=== PATIENT | female | born 1950 | race Hispanic/Latino ===

== ENCOUNTER 2017-10-23 12:56 | Emergency (ER) | payer OTHER ==
--- NOTE | 2017-10-23 15:15 | RAD REPORT ---
EXAM DESCRIPTION: RAD - Chest Single View - 10/23/2017 3:06 pm CLINICAL HISTORY: Chest pain. COMPARISON: 12/14/2013, 07/12/2013 FINDINGS: Portable technique limits examination quality. The lungs are grossly clear. The heart is normal in size. No displaced fractures. IMPRESSION: No acute intrathoracic process suspected.
[2017-10-23 15:37] LABS: Absolute Lymphocytes (CBC) 0.9 K/uL (0.7-4.9); Absolute Monocytes 0.2 K/uL (0.1-1.3); Absolute Neutrophil 1.9 K/uL (1.8-8.0); Basophils % 0.5 % (0-1.3); Eosinophils % 3.9 % (0-4.4); Hematocrit 34.3 % (36.0-45.0); Lymphocytes % 29.4 % (15.3-44.8); MCH 29.1 pg (27.0-35.0); MCV 87.9 fL (80-100); MPV 9.2 fL (7.6-11.3)
[2017-10-23 15:42] LABS: Protime INR 0.97
[2017-10-23 15:51] LABS: Potassium 4.7 mEq/L (3.6-5.0)
[2017-10-23 15:57] LABS: Albumin 3.8 g/dL (3.2-5.5); Bilirubin Direct 0.3 mg/dL (0-0.2); Protein, Total 7.1 g/dL (6.0-8.3)
[2017-10-23 16:00] LABS: CKMB Creatine Kinase MB 2.5 ng/ml (0.3-4.0)
--- NOTE | 2017-10-23 16:00 | RAD REPORT ---
EXAM DESCRIPTION: CT - Head Brain Wo Cont - 10/23/2017 3:53 pm CLINICAL HISTORY: Slurred speech, hypotension, CVA. COMPARISON: None. TECHNIQUE: All CT scans are performed using dose optimization technique as appropriate and may inclu de automated exposure control or mA/KV adjustment according to patient size. FINDINGS: No intracranial hemorrhage, hydrocephalus or extra-axial fluid collection.Mild generalized brain atrophy noted.No areas of brain edema or evidence of midline shift. The paranasal sinuses and mastoids are clear. The calvarium is intact. IMPRESSION: No acute intracranial abnormality.
--- NOTE | 2017-10-23 19:21 | EDPHYS ---
Physician Documentation [facility] Name: Desirae Brady Age: 67 yrs Sex: Female : 1950 Arrival Date: 10/23/2017 Time: 13:00 Bed External Waiting Private MD: Out, [facility] ED Physician Vikash Miller Historical: - Allergies: 10/23 13:42 No Known Allergies; aa5 - Home Meds: 17:00 isosorbide mononitrate 30 mg Oral Tb24 1 tab once daily [Active]; clopidogrel 75 mg em oral tab 1 tab once daily [Active]; Lyrica Oral 3 times per day [Active]; levofloxacin 500 mg Oral tab 1 tab once daily [Active]; pantoprazole 40 mg oral TbEC 1 tab once daily [Active]; tramadol 50 mg Oral tab 1 tab every 6 hours [Active]; sertraline 100 mg oral tab 1 tab once daily [Active]; Jardiance 25 mg oral tab 1 tab once daily [Active]; rosuvastatin 5 mg oral tab 1 tab once daily [Active]; amlodipine 5 mg tab 1 tab once daily [Active]; olmesartan-hydrochlorothiazide oral oral [Active]; - PMHx: 13:42 Diabetes - IDDM; Hypertension; Diverticulitis; CHF; COPD; aa5 - PSHx: 13:42 Hysterectomy; Knee surgery; aa5 - Immunization history:: Adult Immunizations unknown. - Social history:: Smoking status: Patient/guardian denies using tobacco. - Ebola Screening: : No symptoms or risks identified at this time. Vital Signs: 13:42 BP 128 / 62; Pulse 64; Resp 18 S; Temp 98.0(TE); Pulse Ox 98% on R/A; Weight 125.19 kg aa5 (R); Height 5 ft. 1 in. (154.94 cm) (R); Pain 4/10; 15:06 BP 124 / 52; Pulse 67; Resp 18; Pulse Ox 99% on R/A; em 16:00 BP 124 / 52; Pulse 66; Resp 16; Pulse Ox 99% on R/A; Pain 5/10; em 17:05 BP 120 / 63; Pulse 69; Resp 14; Temp 96.7(O); Pulse Ox 97% on R/A; em 19:27 BP 121 / 65; Pulse 62; Resp 18; Pulse Ox 98% on R/A; mt 19:58 BP 138 / 66; Pulse 73; Resp 18; Pulse Ox 99% on R/A; mt 13:42 Body Mass Index 52.15 (125.19 kg, 154.94 cm) aa5 MDM: 19:20 Patient medically screened. [facility] 10/23 14:54 Order name: Basic Metabolic Panel; Complete Time: 17:06 [facility] 10/23 14:54 Order name: BNP; Complete Time: 17:06 [facility] 10/23 14:54 Order name: CBC with Diff; Complete Time: 17:06 [facility] 10/23 14:54 Order name: Ckmb; Complete Time: 17:06 [facility] 10/23 14:54 Order name: CPK; Complete Time: 17:06 [facility] 10/23 14:54 Order name: LFT's; Complete Time: 17:06 [facility] 10/23 14:54 Order name: Magnesium; Complete Time: 17:06 [facility] 10/23 14:54 Order name: PT-INR; Complete Time: 17:06 [facility] 10/23 14:54 Order name: Ptt, Activated; Complete Time: 17:06 [facility] 10/23 14:54 Order name: Troponin (emerg Dept Use Only); Complete Time: 17:06 [facility] 10/23 14:54 Order name: XRAY Chest (1 view); Complete Time: 17:06 [facility] 10/23 14:54 Order name: EKG; Complete Time: 14:54 [facility] 10/23 15:25 Order name: CT Head Brain wo Cont; Complete Time: 17:06 [facility] 10/23 20:10 Order name: Urine Dipstick--Ancillary (enter results) or 10/23 14:54 Order name: Cardiac monitoring; Complete Time: 18:15 [facility] 10/23 14:54 Order name: EKG - Nurse/Tech; Complete Time: 15:26 [facility] 10/23 14:54 Order name: IV Saline Lock; Complete Time: 15:26 [facility] 10/23 14:54 Order name: Labs collected and sent; Complete Time: 15:26 [facility] 10/23 14:54 Order name: O2 Per Protocol; Complete Time: 15:26 [facility] 10/23 14:54 Order name: O2 Sat Monitoring; Complete Time: 15:26 [facility] 10/23 14:54 Order name: Urine Dipstick-Ancillary (obtain specimen); Complete Time: 18:15 kdr 10/23 17:27 Order name: EKG Electrocardiogram EDMS Administered Medications: No medications were administered Point of Care Testing: Blood Glucose: 13:47 Blood Glucose: 187 mg/dL; aa5 Ranges: Critical Glucose Levels:Adult <50 mg/dl or >400 mg/dl <40 mg/dl or >180 mg/dl Disposition: 10/23/17 19:[address] [facility]. Diagnosis is Confusion, AMS, Slurred speech. - Reason for transfer: Higher level of care. - Accepting physician is HM/Neurology. - Condition is Fair. - Problem is an ongoing problem. - Symptoms are unchanged. Addendum: 11/12/2017 09:49 Addendum: CC: Chest pain, slurred speech HPI: The patient and daughter state that she daiana resendez has been having chest pain intermittently for about a week. She has also had slurred speech for the same period of time. They were seen at another hospital and discharged from the ED and have also seen their heating and ventilating drafter yesterday who indicated that the patient may have had a slight heart attack. Since the patients s/s have persisted, the patient had family have sought further evaluation. . Addendum: ROS: Const: No fever, chills or weight loss Eyes: no visual changes or c/o, Neck: no pain or injury, CV: no palpitations, she has had intermittent left chest pain Resp: no SOB, cough or congestion, Abd: no n/v/d or pain, Back: no pain or injury, : no pain or bleeding, MS/Ext: no pain, injury, swelling, tingling, Skin: no lacerations, pain, injury, skin turgor good, Neuro: CN grossly intact and no other deficits, the family relates that the patients speech is slurred and she has been generally weak Psych: Appropriate for age, Allergy/Immunology: no rashes or other s/s, Endo: no evidence of polyuria, polydipsia, temperature control or other s/s . Addendum: Exam: Const: WDWN HF in NAD, Head/Face: no injury, pain or deformity, Eyes: PERRLA, ENT: no pain, injury or bleeding, Neck: no pain, injury or deformity, full ROM Chest/Axilla: No pain, injury or deformity, CV: no rubs, gallops, murmurs, regular rate, Resp: CTAB, regular rate, Abd/GI: soft, NT, BS present in all quads and normal, Back: no injury or deformity, full ROM, MS/Extremity: no injury or deformity, FROM, distal pulses good and equal, Skin: no rashes, ecchymosis skin turgor good, Neuro: CN grossly intact, no other gross neuro deficits, speech may be slightly slurred Psych: appropriate for age, no SI/HI, no depression . Addendum: MDM (Transfer) All VS and nursing notes reviewed. The patient and/or family was counseled on the results and need for transfer. Since no MRI or neurological subspecialty was available, the patient was transferred in stable condition. They were happy with the care they received and the plan for transfer for further evaluation and treatment. . Signatures: Dispatcher [employer] EDMS Vikash Miller MD MD kdr Munoz, Edgar, BRANCH ADMINISTRATOR BRANCH ADMINISTRATOR em Rosy Tai, RN RN aa5 Inocencia Kenney, MELIDA RN tl2 Corrections: (The following items were deleted from the chart) 10/23 23:41 19:20 10/23/2017 19:[address] [facility]. Diagnosis is tl2 Confusion, AMS, Slurred speech. Reason for transfer: Higher level of care. Accepting physician is HM/Neurology. Condition is Fair. Problem is an ongoing problem. Symptoms are unchanged. kdr
--- NOTE | 2017-10-23 19:21 | ER ---
Nurse's Notes [facility] Name: Desirae Brady Age: 67 yrs Sex: Female : 1950 Arrival Date: 10/23/2017 Time: 13:00 Bed External Waiting Private MD: Out, [facility] Diagnosis: Confusion, AMS, Slurred speech Presentation: 10/23 13:36 Presenting complaint: Patient states: "I've been having chest pains for a week". Pt's aa5 daughter states "her speech has been slurred for about a week and I took her to [facility] and they discharged her home from the ER". Pt's daughter states "I took her blood pressure this morning and it's been fluctuating from really low to really high like 80/60 and 160/140". Pt's daughter states "she saw a beater operator yesterday and he said that the EKG showed a slight previous heart attack". Transition of care: patient was not received from another setting of care. Onset of symptoms was October 23, 2017. Risk Assessment: Do you want to hurt yourself or someone else? Patient reports no desire to harm self or others. Initial Sepsis Screen: Does the patient meet any 2 criteria? No. Patient's initial sepsis screen is negative. Does the patient have a suspected source of infection? No. Patient's initial sepsis screen is negative. Care prior to arrival: None. 13:36 Method Of Arrival: Wheelchair aa 13:36 Acuity: MOSHE 3 aa5 Triage Assessment: 13:36 General: Appears comfortable, Behavior is calm, cooperative. Neuro: Level of aa5 Consciousness is awake, alert, obeys commands, Oriented to person, place, time, situation, Circulator are equal bilaterally Moves all extremities. Speech is normal, Facial symmetry appears normal, Pupils are PERRLA. Historical: - Allergies: 13:42 No Known Allergies; aa5 - Home Meds: 17:00 isosorbide mononitrate 30 mg Oral Tb24 1 tab once daily [Active]; clopidogrel 75 mg em oral tab 1 tab once daily [Active]; Lyrica Oral 3 times per day [Active]; levofloxacin 500 mg Oral tab 1 tab once daily [Active]; pantoprazole 40 mg oral TbEC 1 tab once daily [Active]; tramadol 50 mg Oral tab 1 tab every 6 hours [Active]; sertraline 100 mg oral tab 1 tab once daily [Active]; Jardiance 25 mg oral tab 1 tab once daily [Active]; rosuvastatin 5 mg oral tab 1 tab once daily [Active]; amlodipine 5 mg tab 1 tab once daily [Active]; olmesartan-hydrochlorothiazide oral oral [Active]; - PMHx: 13:42 Diabetes - IDDM; Hypertension; Diverticulitis; CHF; COPD; aa5 - PSHx: 13:42 Hysterectomy; Knee surgery; aa5 - Immunization history:: Adult Immunizations unknown. - Social history:: Smoking status: Patient/guardian denies using tobacco. - Ebola Screening: : No symptoms or risks identified at this time. Screenin:22 Abuse screen: Denies threats or abuse. Nutritional screening: No deficits noted. em Tuberculosis screening: No symptoms or risk factors identified. Fall Risk None identified. Assessment: 15:00 General: Appears in no apparent distress. comfortable, Behavior is calm, cooperative. em Pain: Complains of pain in chest Pain currently is 4 out of 10 on a pain scale. Neuro: Level of Consciousness is awake, alert, obeys commands, Oriented to person, place, time, situation, Circulator are equal bilaterally Gait is steady, Speech is normal, Facial symmetry appears normal. Cardiovascular: Reports chest pain, shortness of breath, Denies diaphoresis, nausea, vomiting, Capillary refill < 3 seconds Patient's skin is warm and dry. Respiratory: Airway is patent Respiratory effort is even, unlabored, Respiratory pattern is regular, symmetrical. GI: Abdomen is obese. : Reports currently being treated for UTI. Derm: Skin is intact, Skin is pink, warm \\T\\ dry. Musculoskeletal: Range of motion: intact in all extremities. 15:30 Reassessment: Patient appears in no apparent distress at this time. I agree with the ss above assessment by Arturo Mac LVN. 16:09 Reassessment: Patient appears in no apparent distress at this time. Patient and/or em family updated on plan of care and expected duration. Pain level reassessed. Patient is alert, oriented x 3, equal unlabored respirations, skin warm/dry/pink. 17:00 Reassessment: Patient appears in no apparent distress at this time. Patient and/or em family updated on plan of care and expected duration. Pain level reassessed. Patient is alert, oriented x 3, equal unlabored respirations, skin warm/dry/pink. pt ambulated to restroom, tolerated well, reports feeling better. 18:00 Reassessment: Patient appears in no apparent distress at this time. Patient and/or em family updated on plan of care and expected duration. Pain level reassessed. Patient is alert, oriented x 3, equal unlabored respirations, skin warm/dry/pink. 18:40 Reassessment: Patient appears in no apparent distress at this time. Patient and/or em family updated on plan of care and expected duration. Pain level reassessed. Patient is alert, oriented x 3, equal unlabored respirations, skin warm/dry/pink. Dr. Miller at bedside, discussing POC. 19:33 General: Appears in no apparent distress. comfortable, Behavior is calm, cooperative, tl2 appropriate for age. General: awaiting report number for transfer. Pain: Denies pain. Neuro: Level of Consciousness is awake, alert, obeys commands, Oriented to person, place, time, situation, Speech is normal, Facial symmetry appears normal. Cardiovascular: Denies chest pain. Respiratory: Airway is patent Respiratory effort is even, unlabored, Respiratory pattern is regular, symmetrical. GI: No signs and/or symptoms were reported involving the gastrointestinal system. : No signs and/or symptoms were reported regarding the genitourinary system. Derm: Skin is pink, warm \\T\\ dry. 19:37 Reassessment: Call Uzma (daughter) with transfer information [phone]. tl2 20:19 Reassessment: Report called to receiving nurse at [facility] Awaiting transport. tl2 Vital Signs: 13:42 BP 128 / 62; Pulse 64; Resp 18 S; Temp 98.0(TE); Pulse Ox 98% on R/A; Weight 125.19 kg aa5 (R); Height 5 ft. 1 in. (154.94 cm) (R); Pain 4/10; 15:06 BP 124 / 52; Pulse 67; Resp 18; Pulse Ox 99% on R/A; em 16:00 BP 124 / 52; Pulse 66; Resp 16; Pulse Ox 99% on R/A; Pain 5/10; em 17:05 BP 120 / 63; Pulse 69; Resp 14; Temp 96.7(O); Pulse Ox 97% on R/A; em 19:27 BP 121 / 65; Pulse 62; Resp 18; Pulse Ox 98% on R/A; mt 19:58 BP 138 / 66; Pulse 73; Resp 18; Pulse Ox 99% on R/A; mt 13:42 Body Mass Index 52.15 (125.19 kg, 154.94 cm) aa5 ED Course: 13:00 Patient arrived in ED. sb2 13:00 Out, of Town is Private Physician. sb2 13:40 Triage completed. aa5 13:42 Arm band placed on. aa5 14:47 Arturo Mac LVN is Primary Nurse. em 14:53 Vikash Miller MD is Attending Physician. kdr 15:01 X-ray completed. Portable x-ray completed in exam room. Patient tolerated procedure kp1 well. 15:03 XRAY Chest (1 view) In Process Unspecified. EDMS 15:18 EKG done, by biotech production specialist. reviewed by Vikash Miller MD. sm3 15:23 No provider procedures requiring assistance completed. em 15:26 Initial lab(s) drawn, by me, sent to lab. Inserted saline lock: 20 gauge in right dh3 antecubital area, using aseptic technique. Blood collected. 15:36 Patient has correct armband on for positive identification. Bed in low position. Call em light in reach. Adult w/ patient. 15:53 CT Head Brain wo Cont In Process Unspecified. EDMS 19:10 initiated transfer with [facility] with Sandra in the transfer center. eb 21:00 Patient transferred, IV remains in place. tl2 23:24 Primary Nurse role handed off by Arturo Mac LVN ak1 Administered Medications: No medications were administered Point of Care Testing: Blood Glucose: 13:47 Blood Glucose: 187 mg/dL; aa5 Ranges: Outcome: 19:20 ER care complete, transfer ordered by . kdr 21:00 Transferred by ground EMS to [facility], Transfer form completed. tl2 21:00 Condition: stable 21:00 Discharge instructions given to patient, Instructed on the need for transfer. 23:41 Patient left the ED. tl2 Signatures: Dispatcher [employer] EDVikash Garrido MD MD kdr Arturo Mac, FUND DIRECTOR FUND DIRECTOR Rosy Ponce, RN RN aa5 Federica Arnold, MELIDA RN ss Krystal Aguiar RN RN ak1 Inocencia Kenney, MELIDA RN 2 Rosina Ibarra mte, Shu 1 Reva Obregon 3 Abbey Perdue 2 Sara Hernandez Shakira 3 Corrections: (The following items were deleted from the chart) 13:41 13:36 Presenting complaint: Patient states: "I've been having chest pains for a week". aa5 Pt's daughter states "her speech has been slurred for about a week and I took her to [facility] and they discharged her home from the ER". Pt's daughter states "I took her blood pressure this morning and it's been fluctuating from really low to really high like 80/60 and 160/150". aa5
[2017-10-23 21:52] LABS: Urine Blood NEGATIVE (NEG); Urine Glucose 2+ (NEG); Urine Protein NEGATIVE (NEG); Urine pH 5.5 (5.0-7.0)
--- NOTE | 2017-10-24 06:16 | EKG ---
Test Date: 2017-10-23 Test Time: 15:01:48 Hydrogenation Operator: MARII MEASUREMENT RESULTS: Intervals: Rate: 72 LA: 164 QRSD: 114 QT: 418 QTc: 457 [place]: P: 52 LA: 164 QRS: 6 T: 44 INTERPRETIVE STATEMENTS: Normal sinus rhythm Normal ECG Compared to ECG 10/23/2017 13:45:17 Myocardial infarct finding no longer present Electronically Signed On 10-24-17 06:16:14 CDT by Quirino Latham
--- NOTE | 2017-10-24 06:17 | EKG ---
Test Date: 2017-10-23 Test Time: 13:45:17 Rig Welder: MARII MEASUREMENT RESULTS: Intervals: Rate: 76 ND: 158 QRSD: 102 QT: 398 QTc: 447 [place]: P: 78 ND: 158 QRS: -5 T: 30 INTERPRETIVE STATEMENTS: Normal sinus rhythm Intraventricular conduction delay Abnormal ECG No previous ECG available for comparison Electronically Signed On 10-24-17 06:16:38 CDT by Quirino Latham
== END 2017-10-23 23:41 | disposition short-term general hospital (02) ==
LOC: ER 12:56
DX: R41.82 Altered mental status, unspecified (principal); R41.0 Disorientation, unspecified; I10 Essential (primary) hypertension; E11.9 Type 2 diabetes mellitus without complications; I50.9 Heart failure, unspecified; J44.9 Chronic obstructive pulmonary disease, unspecified
CPT/HCPCS: 36415; 70450; 71045; 80048; 80076; 81003; 82550; 82553; 82962; 83735; 83880; 84484; 85025; 85610; 85730; 93005; 99285

== ENCOUNTER 2018-05-31 17:09 | Observation (INO) | payer OTHER ==
--- OUTSIDE RECORDS SUMMARY | 2018-05-31 17:16 | XMS REPORT ---
:1950 [facility] Address [address] [place] [address] Care Team Providers Name Role Phone STANLEY GARCIA Unavailable Unavailable DONYA GARCIA Unavailable Unavailable CLOVER SOLANO Unavailable Unavailable OLIVIA DE LOS SANTOS Unavailable Unavailable REUBEN SILVER Unavailable Unavailable REUBEN CASTAÑEDA Unavailable Unavailable Problems This patient has no known problems. Allergies, Adverse Reactions, Alerts This patient has no known allergies or adverse reactions. Medications This patient has no known medications. Results Test Description Test Time Test Comments Text Results Atomic Results Result Comments CBC W/PLT COUNT & AUTO DIFFERENTIAL 2018-05-12 17:17:00 Test Item Value Reference Range Comments WHITE BLOOD CELL COUNT (BEAKER) (test aumk=318) 4.0 K/ L 3.5-10.5 RED BLOOD CELL COUNT (BEAKER) (test znvb=734) 4.35 M/ L 3.93-5.22 HEMOGLOBIN (BEAKER) (test vhsq=824) 12.6 GM/DL 11.2-15.7 HEMATOCRIT (BEAKER) (test iqhc=729) 40.1 % 34.1-44.9 MEAN CORPUSCULAR VOLUME (BEAKER) (test axxb=740) 92.2 fL 79.4-94.8 MEAN CORPUSCULAR HEMOGLOBIN (BEAKER) (test wdwk=173) 29.0 pg 25.6-32.2 MEAN CORPUSCULAR HEMOGLOBIN CONC (BEAKER) (test dcwp=920) 31.4 GM/DL 32.2- 35.5 RED CELL DISTRIBUTION WIDTH (BEAKER) (test mzye=264) 17.1 % 11.7-14.4 PLATELET COUNT (BEAKER) (test gker=468) 79 K/CU MM 150-450 MEAN PLATELET VOLUME (BEAKER) (test godq=248) 10.0 fL 9.4-12.3 NUCLEATED RED BLOOD CELLS (BEAKER) (test jbru=513) 0 /100 WBC 0-0 NEUTROPHILS RELATIVE PERCENT (BEAKER) (test pfwx=077) 66 % LYMPHOCYTES RELATIVE PERCENT (BEAKER) (test gnoi=628) 21 % MONOCYTES RELATIVE PERCENT (BEAKER) (test maxl=547) 9 % EOSINOPHILS RELATIVE PERCENT (BEAKER) (test tlnq=759) 2 % BASOPHILS RELATIVE PERCENT (BEAKER) (test egjj=496) 1 % NEUTROPHILS ABSOLUTE COUNT (BEAKER) (test paqr=678) 2.62 K/ L 1.56-6.13 LYMPHOCYTES ABSOLUTE COUNT (BEAKER) (test lfou=108) 0.82 K/ L 1.18-3.74 MONOCYTES ABSOLUTE COUNT (BEAKER) (test pfqd=715) 0.37 K/ L 0.24-0.36 EOSINOPHILS ABSOLUTE COUNT (BEAKER) (test lfkw=623) 0.08 K/ L 0.04-0.36 BASOPHILS ABSOLUTE COUNT (BEAKER) (test zcbm=935) 0.02 K/ L 0.01-0.08 IMMATURE GRANULOCYTES-RELATIVE PERCENT (BEAKER) (test 2 % 0-1 ejkf=2684) BASIC METABOLIC [id number] 17:03:00 Test Item Value Reference Range Comments SODIUM (BEAKER) (test 137 meq/L 136-145 ygqx=049) POTASSIUM (BEAKER) (test 3.7 meq/L 3.5-5.1 yenj=153) CHLORIDE (BEAKER) (test 102 meq/L 98-107 zxpj=390) CO2 (BEAKER) (test 23 meq/L 22-29 rorz=300) BLOOD UREA NITROGEN 27 mg/dL 7-21 (BEAKER) (test tsav=935) CREATININE (BEAKER) (test 1.11 mg/dL 0.57-1.25 fxbs=820) GLUCOSE RANDOM (BEAKER) 136 mg/dL 70-105 (test dqsd=256) CALCIUM (BEAKER) (test 9.2 mg/dL 8.4-10.2 iove=508) EGFR (BEAKER) (test 49 mL/min/1.73 sq m ESTIMATED GFR IS NOT lvyb=5813) ACCURATE CREATININE CLEARANCE IN PREDICTING GLOMERULAR FILTRATION RATE. ESTIMATED GFR IS NOT APPLICABLE FOR DIALYSIS PATIENTS. Specimen slightly ictericHEPATIC FUNCTION [id number] 17:03:00 Test Item Value Reference Range Comments TOTAL PROTEIN (BEAKER) (test lbap=073) 6.5 gm/dL 6.0-8.3 ALBUMIN (BEAKER) (test cgbn=3018) 3.2 g/dL 3.5-5.0 BILIRUBIN TOTAL (BEAKER) (test hemt=873) 3.5 mg/dL 0.2-1.2 BILIRUBIN DIRECT (BEAKER) (test unfc=913) 2.3 mg/dL 0.1-0.5 ALKALINE PHOSPHATASE (BEAKER) (test xisl=672) 206 U/L 40-150 AST (SGOT) (BEAKER) (test fgly=502) 59 U/L 5-34 ALT (SGPT) (BEAKER) (test dzgh=241) 49 U/L 6-55 Specimen slightly ictericPROTHROMBIN [id number] 16:56:00 Test Item Value Reference Range Comments PROTIME (BEAKER) (test jqxo=075) 14.8 seconds 11.7-14.7 INR (BEAKER) (test dfyr=235) 1.2 <=5.9 RECOMMENDED COUMADIN/WARFARIN INR THERAPY RANGESSTANDARD DOSE: 2.0 - 3.0 Includes: PROPHYLAXIS forvenous thrombosis, systemic embolization; TREATMENT for venous thrombosis and/or pulmonary embolus.HIGH RISK: Target INR is 2.5-3.5 for patients with mechanical heart valves.POCT-GLUCOSE [id number] 17:15:00 Test Item Value Reference Range Comments POC-GLUCOSE METER (BEAKER) 183 mg/dL 70-110 TESTED AT [facility] [address] [facility] (test jphx=5369) [facility] [address] HEPATIC FUNCTION [id number] 12:38:00 Test Item Value Reference Range Comments TOTAL PROTEIN (BEAKER) (test vqxy=921) 5.2 gm/dL 6.0-8.3 ALBUMIN (BEAKER) (test vmil=8263) 2.7 g/dL 3.5-5.0 BILIRUBIN TOTAL (BEAKER) (test nzqw=107) 4.0 mg/dL 0.2-1.2 BILIRUBIN DIRECT (BEAKER) (test faek=729) 2.5 mg/dL 0.1-0.5 ALKALINE PHOSPHATASE (BEAKER) (test lkah=542) 97 U/L 40-150 AST (SGOT) (BEAKER) (test mhwn=084) 84 U/L 5-34 ALT (SGPT) (BEAKER) (test lokm=466) 39 U/L 6-55 Specimen moderately ictericANG, [id number] 09:43:00Referring: Dr. Claudio Iniguez NarcissePatient will need anesthesiaReason for Exam:->excess fluid (lungs ) freqeuent thoras- patient will need anesthesiaFINAL REPORT Transjugular intrahepatic portosystemic shunt, 05/06/2018. History : Cirrhosis, Recurrent right hydrothorax. Modality: Fluoroscopy. Sedation: General anesthesia was utilized. The vital signs were monitored throughout theprocedure by anesthesia and remained stable. Public Service Officer: Juventino Null MD. Bilingual Instructor: Chau. Approach: Right internal jugular vein Estimated blood loss : < 5 cc. Specimen: None. Fluoroscopy Time: 22.7 min.Reference Air Kerma ( Ka, r): 765 mGy. Technique: Informed written consent was obtained. Discussion of risks, benefits, and alternatives were made with the patient. The patient expressed understanding and agreed to proceed. All elements maximal sterile barrier technique was utilized for this procedure, including utilization of sterile scrub solution for skin prep, a large sterile sheet to cover the areas of the patient that were not prepped,and hand hygiene, mask, head covering, and sterile gown for performing radiologist and scrub technologist. After induction of general anesthesia. Right thoracentesis was performed. The patient' s rightmidaxillary region was prepped and draped in usual sterile fashion. A 4 [place] one-step catheter wasadvanced into the right pleural space under direct ultrasound guidance. An ultrasound image was saved to PACS. 2100 mL of cloudy yellow fluid was then aspirated. The catheter was removed. Ultrasound evaluation showed a patent and compressible right internal jugular vein, which was punctured under direct real-time ultrasound guidance with a micropuncture needle. An ultrasound image was saved to PACS. A 0.018 inch wire was placed through the needle into the right atrium. A 4 [place] micropuncture sheath was placed. A 0.035 inch J-wire was placed through the micropuncture sheath and the sheath was exchanged for a 9 [place] sheath. A 5 [place] angled tip catheter was used to select the right hepatic vein. Venogram was performed confirming position within the right hepatic vein. A Colapinto needle wasadvanced through the sheath into the right hepatic vein. A long 21-gauge needle was advanced throughthe Colapinto needle coaxially for 2 passes within the liver, with entry into the right portal vein upon the 2nd pass. A 0.018 inch coronary wire was advanced into the portal vein. The 21-gauge needleand Colapinto needle were subsequently advanced over the wire into the portal vein. The 21 gauge needle and coronary wire were removed. A Amplatz wire was advanced down the portal vein into the SMV. A5 [place] marked pigtail catheter was placed into the portal vein for a DSA run. The tract was measured at eight cm. The 9 [place] sheath was exchanged for a 10 [place] long sheath which was advanced over the Amplatz wire into the portal vein. A 8-10 mm x 8+2 cm long Viator CX covered stent was advanceddown the sheath and deployed within the liver. The stent was dilated with a 8 x 4 balloon. A small amount of thrombus was noted at the confluence of the right and left portal veins which was then macerated and cleared with a Trerotola mechanical thrombectomy device. A multisidehole straight catheter was then placed for pressure measurements. Repeat portogram was performed. Pressures are as follows (mmHg)Hepatic vein Portal vein Pre- TIPS:1226Post-TIPS:1423 The catheter and sheath were removed andhemostasis was obtained with manual compression. The patient tolerated the procedure well and left the department in the stable condition. Findings: Venogram demonstrates patent right hepatic vein and intrahepatic IVC. Main, left, and right portal vein are patent. Impression: Successful, uncomplicated transjugular intrahepatic portosystemic shunt with general anesthesia. Additionally, a right thoracentesis was performed with 2100 mL of cloudy yellow fluid aspirated. Signed: Juventino Null Verified Date/Time: 05/07/2018 09:43:17 Reading Location: [facility] P048 Angio Body Reading Room [id number] 06:25:00 Test Item Value Reference Range Comments MAGNESIUM (BEAKER) (test ilon=091) 1.8 mg/dL 1.6-2.6 BASIC METABOLIC [id number] 06:25:00 Test Item Value Reference Range Comments SODIUM (BEAKER) (test 137 meq/L 136-145 zbdk=994) POTASSIUM (BEAKER) (test 4.4 meq/L 3.5-5.1 xouc=478) CHLORIDE (BEAKER) (test 109 meq/L 98-107 wktn=490) CO2 (BEAKER) (test 19 meq/L 22-29 uvtj=604) BLOOD UREA NITROGEN 24 mg/dL 7-21 (BEAKER) (test bmkk=642) CREATININE (BEAKER) (test 1.05 mg/dL 0.57-1.25 htop=245) GLUCOSE RANDOM (BEAKER) 155 mg/dL 70-105 (test tgmp=194) CALCIUM (BEAKER) (test 9.0 mg/dL 8.4-10.2 vyjx=044) EGFR (BEAKER) (test 52 mL/min/1.73 sq m ESTIMATED GFR IS NOT dyoc=5241) ACCURATE CREATININE CLEARANCE IN PREDICTING GLOMERULAR FILTRATION RATE. ESTIMATED GFR IS NOT APPLICABLE FOR DIALYSIS PATIENTS. Specimen slightly ictericCBC W/PLT COUNT & AUTO [id number] 05:51 :00 Test Item Value Reference Range Comments WHITE BLOOD CELL COUNT (BEAKER) (test ciug=330) 3.8 K/ L 3.5-10.5 RED BLOOD CELL COUNT (BEAKER) (test stnj=933) 3.76 M/ L 3.93-5.22 HEMOGLOBIN (BEAKER) (test zfnd=886) 10.8 GM/DL 11.2-15.7 HEMATOCRIT (BEAKER) (test nhvq=983) 35.4 % 34.1-44.9 MEAN CORPUSCULAR VOLUME (BEAKER) (test pxmz=250) 94.1 fL 79.4-94.8 MEAN CORPUSCULAR HEMOGLOBIN (BEAKER) (test 28.7 pg 25.6-32.2 opqa=916) MEAN CORPUSCULAR HEMOGLOBIN CONC (BEAKER) (test 30.5 GM/DL 32.2-35.5 gmvx=856) RED CELL DISTRIBUTION WIDTH (BEAKER) (test 16.2 % 11.7-14.4 vjae=606) PLATELET COUNT (BEAKER) (test isxr=338) 34 K/CU MM 150-450 MEAN PLATELET VOLUME (BEAKER) (test yrrb=222) 11.0 fL 9.4-12.3 NUCLEATED RED BLOOD CELLS (BEAKER) (test 0 /100 WBC 0-0 kseq=316) NEUTROPHILS RELATIVE PERCENT (BEAKER) (test 67 % anyt=438) LYMPHOCYTES RELATIVE PERCENT (BEAKER) (test 23 % kphh=723) MONOCYTES RELATIVE PERCENT (BEAKER) (test 7 % qnni=003) EOSINOPHILS RELATIVE PERCENT (BEAKER) (test 3 % qrte=731) BASOPHILS RELATIVE PERCENT (BEAKER) (test 0 % wjao=137) NEUTROPHILS ABSOLUTE COUNT (BEAKER) (test 2.55 K/ L 1.56-6.13 pygq=152) LYMPHOCYTES ABSOLUTE COUNT (BEAKER) (test 0.86 K/ L 1.18-3.74 mfka=496) MONOCYTES ABSOLUTE COUNT (BEAKER) (test nzrl=057) 0.25 K/ L 0.24-0.36 EOSINOPHILS ABSOLUTE COUNT (BEAKER) (test 0.10 K/ L 0.04-0.36 bjrt=230) BASOPHILS ABSOLUTE COUNT (BEAKER) (test foop=352) 0.01 K/ L 0.01-0.08 IMMATURE GRANULOCYTES-RELATIVE PERCENT (BEAKER) 1 % 0-1 (test utta=2587) POCT-GLUCOSE [id number] 18:34:00 Test Item Value Reference Range Comments POC-GLUCOSE METER (BEAKER) 173 mg/dL 70-110 TESTED AT [facility] [address] [facility] (test ukxl=4900) [facility] [address] BILIRUBIN, [id number] 13:03:00 Test Item Value Reference Range Comments BILIRUBIN DIRECT (BEAKER) (test 0.8 mg/dL 0.1-0.5 Specimen slightly hemolyzed witq=467) CBC W/PLT COUNT & AUTO [id number] 12:56:00 Test Item Value Reference Range Comments WHITE BLOOD CELL COUNT (BEAKER) (test bcyg=115) 4.5 K/ L 3.5-10.5 RED BLOOD CELL COUNT (BEAKER) (test jeks=924) 4.10 M/ L 3.93-5.22 HEMOGLOBIN (BEAKER) (test hffe=845) 11.8 GM/DL 11.2-15.7 HEMATOCRIT (BEAKER) (test kmqz=477) 38.6 % 34.1-44.9 MEAN CORPUSCULAR VOLUME (BEAKER) (test wfqh=519) 94.1 fL 79.4-94.8 MEAN CORPUSCULAR HEMOGLOBIN (BEAKER) (test 28.8 pg 25.6-32.2 dqvf=190) MEAN CORPUSCULAR HEMOGLOBIN CONC (BEAKER) (test 30.6 GM/DL 32.2-35.5 lokl=581) RED CELL DISTRIBUTION WIDTH (BEAKER) (test 17.6 % 11.7-14.4 qnhm=167) PLATELET COUNT (BEAKER) (test yyoh=831) 50 K/CU MM 150-450 MEAN PLATELET VOLUME (BEAKER) (test ihdd=240) 12.3 fL 9.4-12.3 NUCLEATED RED BLOOD CELLS (BEAKER) (test 0 /100 WBC 0-0 agah=794) NEUTROPHILS RELATIVE PERCENT (BEAKER) (test 67 % yqjc=769) LYMPHOCYTES RELATIVE PERCENT (BEAKER) (test 25 % lump=506) MONOCYTES RELATIVE PERCENT (BEAKER) (test 5 % rnsm=957) EOSINOPHILS RELATIVE PERCENT (BEAKER) (test 2 % mqrx=755) BASOPHILS RELATIVE PERCENT (BEAKER) (test 1 % gzsk=101) NEUTROPHILS ABSOLUTE COUNT (BEAKER) (test 3.00 K/ L 1.56-6.13 wlol=732) LYMPHOCYTES ABSOLUTE COUNT (BEAKER) (test 1.13 K/ L 1.18-3.74 nxza=582) MONOCYTES ABSOLUTE COUNT (BEAKER) (test wvpi=097) 0.22 K/ L 0.24-0.36 EOSINOPHILS ABSOLUTE COUNT (BEAKER) (test 0.11 K/ L 0.04-0.36 fqun=470) BASOPHILS ABSOLUTE COUNT (BEAKER) (test rlus=227) 0.03 K/ L 0.01-0.08 IMMATURE GRANULOCYTES-RELATIVE PERCENT (BEAKER) 0 % 0-1 (test ofdr=2848) COMPREHENSIVE METABOLIC [id number] 12:07:00 Test Item Value Reference Range Comments TOTAL PROTEIN (BEAKER) 6.1 gm/dL 6.0-8.3 Specimen slightly (test fobw=876) hemolyzed ALBUMIN (BEAKER) (test 3.3 g/dL 3.5-5.0 Specimen slightly gncr=5195) hemolyzed ALKALINE PHOSPHATASE 84 U/L 40-150 (BEAKER) (test zpda=549) BILIRUBIN TOTAL (BEAKER) 1.9 mg/dL 0.2-1.2 Specimen slightly (test anem=128) hemolyzed SODIUM (BEAKER) (test 137 meq/L 136-145 unnz=250) POTASSIUM (BEAKER) (test 4.2 meq/L 3.5-5.1 Specimen slightly pzxi=502) hemolyzed CHLORIDE (BEAKER) (test 109 meq/L 98-107 hgrk=334) CO2 (BEAKER) (test 19 meq/L 22-29 ktpl=931) BLOOD UREA NITROGEN 31 mg/dL 7-21 (BEAKER) (test rxau=921) CREATININE (BEAKER) (test 1.35 mg/dL 0.57-1.25 Specimen slightly xgrg=400) hemolyzed GLUCOSE RANDOM (BEAKER) 137 mg/dL 70-105 (test mffz=575) CALCIUM (BEAKER) (test 9.3 mg/dL 8.4-10.2 hcih=886) AST (SGOT) (BEAKER) (test 33 U/L 5-34 Specimen slightly wecn=995) hemolyzed ALT (SGPT) (BEAKER) (test 29 U/L 6-55 Specimen slightly ujdg=435) hemolyzed EGFR (BEAKER) (test 39 mL/min/1.73 sq m ESTIMATED GFR IS NOT tspb=8217) ACCURATE CREATININE CLEARANCE IN PREDICTING GLOMERULAR FILTRATION RATE. ESTIMATED GFR IS NOT APPLICABLE FOR DIALYSIS PATIENTS. Specimen slightly ictericPT/[id number] 11:46:00 Test Item Value Reference Range Comments PROTIME (BEAKER) (test rzpy=686) 15.2 seconds 11.7-14.7 INR (BEAKER) (test jmoc=227) 1.2 <=5.9 PARTIAL THROMBOPLASTIN TIME (BEAKER) (test 26.2 seconds 22.5-36.0 uzgr=899) RECOMMENDED COUMADIN/WARFARIN INR THERAPY RANGESSTANDARD DOSE: 2.0 - 3.0 Includes: PROPHYLAXIS forvenous thrombosis, systemic embolization; TREATMENT for venous thrombosis and/or pulmonary embolus.HIGH RISK: Target INR is 2.5-3.5 for patients with mechanical heart valves.URINALYSIS W/ [id number] 10 :09:00 Test Item Value Reference Range Comments COLOR (BEAKER) (test zfye=366) Yellow CLARITY (BEAKER) (test mswo=834) Hazy SPECIFIC GRAVITY UA (BEAKER) (test blwh=263) 1.014 1.001-1.035 PH UA (BEAKER) (test mjhi=985) 5.5 5.0-8.0 PROTEIN UA (BEAKER) (test bctq=403) 10 mg/dL Negative GLUCOSE UA (BEAKER) (test gpcb=627) Negative Negative KETONES UA (BEAKER) (test yyai=018) Negative Negative BILIRUBIN UA (BEAKER) (test izdd=065) Negative Negative BLOOD UA (BEAKER) (test hrxm=807) Negative Negative NITRITE UA (BEAKER) (test iydg=519) Positive Negative LEUKOCYTE ESTERASE UA (BEAKER) (test wnpk=275) Moderate Negative UROBILINOGEN UA (BEAKER) (test ybnq=529) 0.2 mg/dL 0.2-1.0 RBC UA (BEAKER) (test aqpo=663) 0 /HPF WBC UA (BEAKER) (test fipf=509) 27 /HPF BACTERIA (BEAKER) (test majl=284) Moderate SQUAMOUS EPITHELIAL (BEAKER) (test oclo=818) 1 /HPF CRYSTALS, URINE (BEAKER) (test sucj=0076) Rare SOURCE(BEAKER) (test vfii=8678) POCT-GLUCOSE [id number] 09:38:00 Test Item Value Reference Range Comments POC-GLUCOSE METER (BEAKER) 142 mg/dL 70-110 TESTED AT [facility] [address] [facility] (test oqri=6377) [facility] [address] HEPATIC FUNCTION [id number] 06:32:00 Test Item Value Reference Range Comments TOTAL PROTEIN (BEAKER) (test qyom=488) 5.4 gm/dL 6.0-8.3 ALBUMIN (BEAKER) (test riio=6325) 2.9 g/dL 3.5-5.0 BILIRUBIN TOTAL (BEAKER) (test qsgl=201) 1.6 mg/dL 0.2-1.2 BILIRUBIN DIRECT (BEAKER) (test obvd=208) 0.8 mg/dL 0.1-0.5 ALKALINE PHOSPHATASE (BEAKER) (test qhid=283) 84 U/L 40-150 AST (SGOT) (BEAKER) (test kevj=023) 33 U/L 5-34 ALT (SGPT) (BEAKER) (test blof=826) 24 U/L 6-55 BASIC METABOLIC [id number] 06:32:00 Test Item Value Reference Range Comments SODIUM (BEAKER) (test 138 meq/L 136-145 puub=432) POTASSIUM (BEAKER) (test 4.4 meq/L 3.5-5.1 ueul=419) CHLORIDE (BEAKER) (test 108 meq/L 98-107 acqy=094) CO2 (BEAKER) (test 23 meq/L 22-29 bfpk=554) BLOOD UREA NITROGEN 24 mg/dL 7-21 (BEAKER) (test xlos=736) CREATININE (BEAKER) (test 0.97 mg/dL 0.57-1.25 bopj=519) GLUCOSE RANDOM (BEAKER) 129 mg/dL 70-105 (test dcfc=906) CALCIUM (BEAKER) (test 9.1 mg/dL 8.4-10.2 aypp=054) EGFR (BEAKER) (test 57 mL/min/1.73 sq m ESTIMATED GFR IS NOT gaye=2387) ACCURATE CREATININE CLEARANCE IN PREDICTING GLOMERULAR FILTRATION RATE. ESTIMATED GFR IS NOT APPLICABLE FOR DIALYSIS PATIENTS. PROTHROMBIN [id number] 05:13:00 Test Item Value Reference Range Comments PROTIME (BEAKER) (test jaga=417) 17.0 seconds 11.7-14.7 INR (BEAKER) (test xvvm=343) 1.4 <=5.9 RECOMMENDED COUMADIN/WARFARIN INR THERAPY RANGESSTANDARD DOSE: 2.0 - 3.0 Includes: PROPHYLAXIS forvenous thrombosis, systemic embolization; TREATMENT for venous thrombosis and/or pulmonary embolus.HIGH RISK: Target INR is 2.5-3.5 for patients with mechanical heart valves.POCT-GLUCOSE [id number] 21:08:00 Test Item Value Reference Range Comments POC-GLUCOSE METER (BEAKER) 212 mg/dL 70-110 TESTED AT [facility] [address] [facility] (test qrgu=9596) [facility] [address] POCT-GLUCOSE [id number] 16:26:00 Test Item Value Reference Range Comments POC-GLUCOSE METER (BEAKER) 148 mg/dL 70-110 TESTED AT [facility] [address] (test pigu=3144) [facility] [address] RAD, CHEST, 1 VIEW, NON [id number] 15:05:00Referring: Dr. Claudio Smith for exam:->post right thoracentesisReason for exam:->pt is in US room 1FINAL REPORT Chest x-ray Clinical History: post right thoracentesispt is in US room 1 Comparison: April 28, 2018 Views: One AP lordotic Chest x-ray:The cardiac and mediastinalsilhouettes are within normal limits. There is no evidence of a pneumothorax. There is evidence of a residual right pleural effusion. There is no evidence of overt cardiac failure. The visible regional skeleton is intact. There is evidence of a right lower lung zone focal parenchymal opacity. Compressive atelectasis is favored. The patient is status post cholecystectomy. Incidentally noted are bilateral cervical ribs. Impression: Specifically there is no evidence of a pneumothorax following ultrasound-guided thoracentesis. Residual pleural effusion is present with presumed compressive atelectasis in the right lower lobe and right middle lobe. Signed: Imelda Rubin MDReport Verified Date/Time: 15:05:06 Reading Location: [address] Ultrasound Reading Room U/S, [id number] 15:03:00Referring: Dr. Claudio Rosety?-&gt ;RightReason for exam:->pleural effusionFINAL REPORT Thoracentesis: Performing Jayson: Imelda Rubin M.D. Bilingual Instructor: nonePreprocedure diagnosis: pleural effusionPostprocedure Diagnosis: sameSpecimen removed: As requestedEstimated Blood Loss: less than 10 ccComplications: RightModality: sonographyConscious Sedation: noneAnesthesia: Two percent Lidocaine injected subcutaneously at the insertion site.Graft or Implants: noneApproach: Right posterior intercostal space Technique: After informed written consent was obtained, the patient was prepped and draped in the usual sterile manner. Access was obtained using sonographic guidance. The fluid pocket was identified and images were sent to PACS. The right posterior intercostal space was selectively catheterized. A small bore catheter was advanced into the pleural space. The patient tolerated the procedure well. A chest radiograph is pending to exclude a pneumothorax. Impression:Successful, uncomplicated ultrasound guided thoracentesis of a right pleural effusion. 1800 cc of cloudy yellow fluid was removed. A chest x-ray is pending. Signed: Imelda RubinMDReport Verified Date/Time: 04/30/2018 15:03:26 Reading Location: [facility] P006J Ultrasound Reading Room CBC W/PLT COUNT & AUTO [id number] 11:03:00 Test Item Value Reference Range Comments WHITE BLOOD CELL COUNT (BEAKER) (test xcdx=584) 3.0 K/ L 3.5-10.5 RED BLOOD CELL COUNT (BEAKER) (test fuqg=758) 4.02 M/ L 3.93-5.22 HEMOGLOBIN (BEAKER) (test ehqf=868) 11.9 GM/DL 11.2-15.7 HEMATOCRIT (BEAKER) (test llnc=529) 37.7 % 34.1-44.9 MEAN CORPUSCULAR VOLUME (BEAKER) (test eydm=708) 93.8 fL 79.4-94.8 MEAN CORPUSCULAR HEMOGLOBIN (BEAKER) (test 29.6 pg 25.6-32.2 xgfi=696) MEAN CORPUSCULAR HEMOGLOBIN CONC (BEAKER) (test 31.6 GM/DL 32.2-35.5 ahvf=121) RED CELL DISTRIBUTION WIDTH (BEAKER) (test 15.3 % 11.7-14.4 dfzn=871) PLATELET COUNT (BEAKER) (test moez=401) 45 K/CU MM 150-450 MEAN PLATELET VOLUME (BEAKER) (test fooz=277) 10.3 fL 9.4-12.3 NUCLEATED RED BLOOD CELLS (BEAKER) (test 0 /100 WBC 0-0 jbpm=176) NEUTROPHILS RELATIVE PERCENT (BEAKER) (test 57 % ccfn=974) LYMPHOCYTES RELATIVE PERCENT (BEAKER) (test 31 % ytmh=745) MONOCYTES RELATIVE PERCENT (BEAKER) (test 9 % uykv=247) EOSINOPHILS RELATIVE PERCENT (BEAKER) (test 3 % xfwg=190) BASOPHILS RELATIVE PERCENT (BEAKER) (test 0 % ftgo=581) NEUTROPHILS ABSOLUTE COUNT (BEAKER) (test 1.70 K/ L 1.56-6.13 xvag=755) LYMPHOCYTES ABSOLUTE COUNT (BEAKER) (test 0.94 K/ L 1.18-3.74 jyzr=886) MONOCYTES ABSOLUTE COUNT (BEAKER) (test hljg=491) 0.26 K/ L 0.24-0.36 EOSINOPHILS ABSOLUTE COUNT (BEAKER) (test 0.09 K/ L 0.04-0.36 ofrz=304) BASOPHILS ABSOLUTE COUNT (BEAKER) (test vhqh=907) 0.01 K/ L 0.01-0.08 IMMATURE GRANULOCYTES-RELATIVE PERCENT (BEAKER) 0 % 0-1 (test fwzg=2342) POCT-GLUCOSE [id number] 08:33:00 Test Item Value Reference Range Comments POC-GLUCOSE METER (BEAKER) 160 mg/dL 70-110 TESTED AT [address] (test sczu=3354) [facility] [id number] HEPATIC FUNCTION [id number] 07:50:00 Test Item Value Reference Range Comments TOTAL PROTEIN (BEAKER) (test znmi=253) 5.6 gm/dL 6.0-8.3 ALBUMIN (BEAKER) (test dxaz=2008) 3.1 g/dL 3.5-5.0 BILIRUBIN TOTAL (BEAKER) (test tpfn=638) 1.6 mg/dL 0.2-1.2 BILIRUBIN DIRECT (BEAKER) (test twwo=636) 0.8 mg/dL 0.1-0.5 ALKALINE PHOSPHATASE (BEAKER) (test dvcu=038) 81 U/L 40-150 AST (SGOT) (BEAKER) (test okdc=617) 30 U/L 5-34 ALT (SGPT) (BEAKER) (test zjlg=587) 23 U/L 6-55 BASIC METABOLIC [id number] 07:50:00 Test Item Value Reference Range Comments SODIUM (BEAKER) (test 142 meq/L 136-145 kcvn=486) POTASSIUM (BEAKER) (test 4.4 meq/L 3.5-5.1 jfnh=871) CHLORIDE (BEAKER) (test 112 meq/L 98-107 ycjv=502) CO2 (BEAKER) (test 23 meq/L 22-29 sukf=548) BLOOD UREA NITROGEN 29 mg/dL 7-21 (BEAKER) (test zasa=404) CREATININE (BEAKER) (test 0.92 mg/dL 0.57-1.25 nxel=503) GLUCOSE RANDOM (BEAKER) 135 mg/dL 70-105 (test wbdl=213) CALCIUM (BEAKER) (test 9.5 mg/dL 8.4-10.2 uwzb=788) EGFR (BEAKER) (test 61 mL/min/1.73 sq m ESTIMATED GFR IS NOT snhi=8817) ACCURATE CREATININE CLEARANCE IN PREDICTING GLOMERULAR FILTRATION RATE. ESTIMATED GFR IS NOT APPLICABLE FOR DIALYSIS PATIENTS. PROTHROMBIN TIME/[id number] 07:44:00 Test Item Value Reference Range Comments PROTIME (BEAKER) (test bygq=347) 16.5 seconds 11.7-14.7 INR (BEAKER) (test nwhb=468) 1.3 <=5.9 RECOMMENDED COUMADIN/WARFARIN INR THERAPY RANGESSTANDARD DOSE: 2.0 - 3.0 Includes: PROPHYLAXIS forvenous thrombosis, systemic embolization; TREATMENT for venous thrombosis and/or pulmonary embolus.HIGH RISK: Target INR is 2.5-3.5 for patients with mechanical heart valves.POCT-GLUCOSE [id number] 02:55:00 Test Item Value Reference Range Comments POC-GLUCOSE METER (BEAKER) 168 mg/dL 70-110 TESTED AT [facility] [address] [facility] (test zfbl=6456) [facility] [address] POCT-GLUCOSE [id number] 01:13:00 Test Item Value Reference Range Comments POC-GLUCOSE METER (BEAKER) 167 mg/dL 70-110 TESTED AT [facility] [address] [facility] (test ewas=6199) [facility] [address] CBC W/PLT COUNT & AUTO [id number] 18:39:00 Test Item Value Reference Range Comments WHITE BLOOD CELL COUNT (BEAKER) (test gazo=559) 3.6 K/ L 3.5-10.5 RED BLOOD CELL COUNT (BEAKER) (test fked=025) 3.52 M/ L 3.93-5.22 HEMOGLOBIN (BEAKER) (test qfnw=705) 10.2 GM/DL 11.2-15.7 HEMATOCRIT (BEAKER) (test aigh=903) 32.6 % 34.1-44.9 MEAN CORPUSCULAR VOLUME (BEAKER) (test pfau=308) 92.6 fL 79.4-94.8 MEAN CORPUSCULAR HEMOGLOBIN (BEAKER) (test 29.0 pg 25.6-32.2 xfgn=891) MEAN CORPUSCULAR HEMOGLOBIN CONC (BEAKER) (test 31.3 GM/DL 32.2-35.5 hqpg=089) RED CELL DISTRIBUTION WIDTH (BEAKER) (test 15.7 % 11.7-14.4 ryou=849) PLATELET COUNT (BEAKER) (test ykcw=703) 53 K/CU MM 150-450 MEAN PLATELET VOLUME (BEAKER) (test ekpw=249) 10.0 fL 9.4-12.3 NUCLEATED RED BLOOD CELLS (BEAKER) (test 0 /100 WBC 0-0 krgm=325) NEUTROPHILS RELATIVE PERCENT (BEAKER) (test 60 % jxif=647) LYMPHOCYTES RELATIVE PERCENT (BEAKER) (test 28 % vblx=450) MONOCYTES RELATIVE PERCENT (BEAKER) (test 8 % mrte=998) EOSINOPHILS RELATIVE PERCENT (BEAKER) (test 4 % qoso=032) BASOPHILS RELATIVE PERCENT (BEAKER) (test 0 % edvg=450) NEUTROPHILS ABSOLUTE COUNT (BEAKER) (test 2.14 K/ L 1.56-6.13 ldod=973) LYMPHOCYTES ABSOLUTE COUNT (BEAKER) (test 1.00 K/ L 1.18-3.74 wsdc=156) MONOCYTES ABSOLUTE COUNT (BEAKER) (test kcvu=847) 0.28 K/ L 0.24-0.36 EOSINOPHILS ABSOLUTE COUNT (BEAKER) (test 0.15 K/ L 0.04-0.36 koqd=470) BASOPHILS ABSOLUTE COUNT (BEAKER) (test ntle=298) 0.01 K/ L 0.01-0.08 IMMATURE GRANULOCYTES-RELATIVE PERCENT (BEAKER) 0 % 0-1 (test hpvk=2750) POCT-GLUCOSE [id number] 16:31:00 Test Item Value Reference Range Comments POC-GLUCOSE METER (BEAKER) 213 mg/dL 70-110 TESTED AT [facility] [address] [facility] (test gncb=3579) [facility] [address] POCT-GLUCOSE [id number] 12:14:00 Test Item Value Reference Range Comments POC-GLUCOSE METER (BEAKER) 205 mg/dL 70-110 TESTED AT [facility] [address] (test lqbw=6198) [place] [address] PROTHROMBIN [id number] 11:34:00 Test Item Value Reference Range Comments PROTIME (BEAKER) (test dykq=341) 16.5 seconds 11.7-14.7 INR (BEAKER) (test plfz=575) 1.3 <=5.9 RECOMMENDED COUMADIN/WARFARIN INR THERAPY RANGESSTANDARD DOSE: 2.0 - 3.0 Includes: PROPHYLAXIS forvenous thrombosis, systemic embolization; TREATMENT for venous thrombosis and/or pulmonary embolus.HIGH RISK: Target INR is 2.5-3.5 for patients with mechanical heart valves.CBC W/PLT COUNT & AUTO [id number] 10:07:00 Test Item Value Reference Range Comments WHITE BLOOD CELL COUNT (BEAKER) (test gqqg=435) 2.7 K/ L 3.5-10.5 RED BLOOD CELL COUNT (BEAKER) (test hywj=238) 3.78 M/ L 3.93-5.22 HEMOGLOBIN (BEAKER) (test wbao=717) 11.2 GM/DL 11.2-15.7 HEMATOCRIT (BEAKER) (test snsa=031) 35.8 % 34.1-44.9 MEAN CORPUSCULAR VOLUME (BEAKER) (test hcml=224) 94.7 fL 79.4-94.8 MEAN CORPUSCULAR HEMOGLOBIN (BEAKER) (test 29.6 pg 25.6-32.2 owqo=650) MEAN CORPUSCULAR HEMOGLOBIN CONC (BEAKER) (test 31.3 GM/DL 32.2-35.5 qpde=278) RED CELL DISTRIBUTION WIDTH (BEAKER) (test 15.6 % 11.7-14.4 dzlp=860) PLATELET COUNT (BEAKER) (test jdck=350) 39 K/CU MM 150-450 MEAN PLATELET VOLUME (BEAKER) (test jzzw=211) 10.6 fL 9.4-12.3 NUCLEATED RED BLOOD CELLS (BEAKER) (test 0 /100 WBC 0-0 slyc=757) NEUTROPHILS RELATIVE PERCENT (BEAKER) (test 54 % qvvq=091) LYMPHOCYTES RELATIVE PERCENT (BEAKER) (test 33 % cgnn=671) MONOCYTES RELATIVE PERCENT (BEAKER) (test 8 % ozsh=524) EOSINOPHILS RELATIVE PERCENT (BEAKER) (test 4 % llfv=147) BASOPHILS RELATIVE PERCENT (BEAKER) (test 1 % ljwb=701) NEUTROPHILS ABSOLUTE COUNT (BEAKER) (test 1.45 K/ L 1.56-6.13 blyl=187) LYMPHOCYTES ABSOLUTE COUNT (BEAKER) (test 0.89 K/ L 1.18-3.74 bzqn=026) MONOCYTES ABSOLUTE COUNT (BEAKER) (test zujq=602) 0.20 K/ L 0.24-0.36 EOSINOPHILS ABSOLUTE COUNT (BEAKER) (test 0.10 K/ L 0.04-0.36 ajlk=113) BASOPHILS ABSOLUTE COUNT (BEAKER) (test mirb=787) 0.02 K/ L 0.01-0.08 IMMATURE GRANULOCYTES-RELATIVE PERCENT (BEAKER) 0 % 0-1 (test wwny=8924) RESPIRATORY PANEL [id number] 09:24:00 Test Item Value Reference Range Comments HUMAN METAPNEUMOVIRUS (BEAKER) (test Not detected Not detected, Equivocal negh=3334) RHINOVIRUS (BEAKER) (test upmz=3642) Not detected Not detected, Equivocal INFLUENZA A (BEAKER) (test kepn=3652) Not detected Not detected, Equivocal INFLUENZA A (NO SUBTYPE) (test Not detected, Equivocal axeh=8109) INFLUENZA A SUBTYPE H1 (BEAKER) (test Not detected, Equivocal blrx=5452) INFLUENZA A SUBTYPE H3 (BEAKER) (test Not detected, Equivocal qvde=1773) INFLUENZA A SUBTYPE H1-2009 (BEAKER) Not detected, Equivocal (test gogi=2755) INFLUENZA B (BEAKER) (test rddp=4184) Not detected Not detected, Equivocal RESPIRATORY SYNCYTIAL VIRUS (BEAKER) Not detected Not detected, Equivocal (test zmnt=7796) PARAINFLUENZA VIRUS 1 (BEAKER) (test Not detected Not detected, Equivocal maqw=3028) PARAINFLUENZA VIRUS 2 (BEAKER) (test Not detected Not detected, Equivocal lnlb=7294) PARAINFLUENZA VIRUS 3 (BEAKER) (test Not detected Not detected, Equivocal hwwr=6532) PARAINFLUENZA VIRUS 4 (BEAKER) (test Not detected Not detected, Equivocal howz=1955) ADENOVIRUS (BEAKER) (test acyk=7672) Not detected Not detected, Equivocal CORONAVIRUS 229E (BEAKER) (test Not detected Not detected, Equivocal mwfc=2868) CORONAVIRUS HKU1 (BEAKER) (test Not detected Not detected, Equivocal foce=1414) CORONAVIRUS NL63 (BEAKER) (test Not detected Not detected, Equivocal jmgv=6305) CORONAVIRUS OC43 (BEAKER) (test Not detected Not detected, Equivocal dieh=3876) BORDETELLA PERTUSSIS (BEAKER) (test Not detected Not detected, Equivocal vogm=0371) CHLAMYDOPHILA PNEUMONIAE (BEAKER) (test Not detected Not detected, Equivocal ptue=0357) MYCOPLASMA PNEUMONIAE (BEAKER) (test Not detected Not detected, Equivocal xsgd=2360) Other viruses and bacteria not targeted by this PCR panel cannot be excluded; therefore clinical correlation and follow up of serology, culture results, and other molecular studies is required. The results are not intended to be used as the sole means for clinical diagnosis or patient management decisions. This sample was tested at the [facility] using the KIYATECArray Respiratory Panel. It is FDA cleared and has been verified and approved by the [facility] for clinical use on nasal swab specimens. It is not FDA-cleared for use on bronchial wash/lavage samples. However, for this sample type, validation was performed and test characteristics were determined and approved, by [facility] for clinical use under the Clinical Laboratory Improvement Amendments (CLIA) of 1988 requirements. Therefore, FDA clearance isnot required. This laboratory is CLIA-certified and [employer] ([employer])-accredited to perform high complexity testing.POCT-GLUCOSE [id number] 08:22:00 Test Item Value Reference Range Comments POC-GLUCOSE METER (BEAKER) 168 mg/dL 70-110 TESTED AT [facility] [address] (test wwni=7410) [facility] [address] BASIC METABOLIC [id number] 07:24:00 Test Item Value Reference Range Comments SODIUM (BEAKER) (test 137 meq/L 136-145 akzt=278) POTASSIUM (BEAKER) (test 4.6 meq/L 3.5-5.1 ypgf=266) CHLORIDE (BEAKER) (test 109 meq/L 98-107 ytpe=522) CO2 (BEAKER) (test 22 meq/L 22-29 ddyw=778) BLOOD UREA NITROGEN 33 mg/dL 7-21 (BEAKER) (test wyhw=977) CREATININE (BEAKER) (test 1.09 mg/dL 0.57-1.25 vpnf=633) GLUCOSE RANDOM (BEAKER) 151 mg/dL 70-105 (test dtld=810) CALCIUM (BEAKER) (test 9.3 mg/dL 8.4-10.2 bast=487) EGFR (BEAKER) (test 50 mL/min/1.73 sq m ESTIMATED GFR IS NOT gkzf=0969) ACCURATE CREATININE CLEARANCE IN PREDICTING GLOMERULAR FILTRATION RATE. ESTIMATED GFR IS NOT APPLICABLE FOR DIALYSIS PATIENTS. HEPATIC FUNCTION [id number] 07:21:00 Test Item Value Reference Range Comments TOTAL PROTEIN (BEAKER) (test robc=059) 5.7 gm/dL 6.0-8.3 ALBUMIN (BEAKER) (test lrcw=4455) 3.2 g/dL 3.5-5.0 BILIRUBIN TOTAL (BEAKER) (test wboy=970) 1.5 mg/dL 0.2-1.2 BILIRUBIN DIRECT (BEAKER) (test qyyk=285) 0.8 mg/dL 0.1-0.5 ALKALINE PHOSPHATASE (BEAKER) (test lxhi=573) 85 U/L 40-150 AST (SGOT) (BEAKER) (test laux=723) 25 U/L 5-34 ALT (SGPT) (BEAKER) (test mlid=130) 22 U/L 6-55 RAD, CHEST, 1 VIEW, NON [id number] 21:19:00Referring: Dr. Claudio Smith for exam:->SHORTNESS OF BREATHShould this be performed atthe bedside?->YesFINAL REPORT EXAMINATION: AP PORTABLE CHEST RADIOGRAPH CLINICAL INDICATION: Shortness of breath IMPRESSION: Compared with chest CT 04/13/2018, chest radiograph 04/12/2018 A right-sided pleural effusion is again noted. The pleural effusion is now moderate to large and appears to have increased in size compared with the previous exam. Although the etiology for the pleural effusion is indeterminate , a hepatic hydrothorax would be a consideration given patient's known liver disease. Consolidation involving the adjacent right lung may reflect associated passive atelectasis. An underlying pneumonia or neoplastic process cannot be excluded. Subtle opacities are also again noted in the left lung. A component of atelectasis is again favored. A pneumonia cannot be excluded. Heart size is at the upper limit of normal. Cardiac and mediastinal contours are similar to previous. Chronic appearing right-sided rib fractures are again suspected. No definite evidence of an acute osseous abnormality or a pneumothorax. Signed: Mami Lott MDReport Verified Date/Time: 04/28/2018 21:19:43Reading Location: [address] Reading Room B-TYPE NATRIURETIC FACTOR (BNP)2018-04-28 21:05:00 Test Item Value Reference Range Comments B-TYPE NATRIURETIC PEPTIDE (BEAKER) (test pzea=388) 88 pg/mL 0-100 HEPATIC FUNCTION [id number] 20:58:00 Test Item Value Reference Range Comments TOTAL PROTEIN (BEAKER) (test ztlu=676) 6.6 gm/dL 6.0-8.3 ALBUMIN (BEAKER) (test lydx=8995) 3.4 g/dL 3.5-5.0 BILIRUBIN TOTAL (BEAKER) (test nkgp=933) 1.5 mg/dL 0.2-1.2 BILIRUBIN DIRECT (BEAKER) (test jrqc=657) 0.9 mg/dL 0.1-0.5 ALKALINE PHOSPHATASE (BEAKER) (test nngo=504) 110 U/L 40-150 AST (SGOT) (BEAKER) (test ynva=001) 37 U/L 5-34 ALT (SGPT) (BEAKER) (test okyo=770) 33 U/L 6-55 BASIC METABOLIC [id number] 20:58:00 Test Item Value Reference Range Comments SODIUM (BEAKER) (test 137 meq/L 136-145 xyda=770) POTASSIUM (BEAKER) (test 4.9 meq/L 3.5-5.1 zprw=819) CHLORIDE (BEAKER) (test 108 meq/L 98-107 fxxo=218) CO2 (BEAKER) (test 22 meq/L 22-29 tjsa=940) BLOOD UREA NITROGEN 35 mg/dL 7-21 (BEAKER) (test dqur=562) CREATININE (BEAKER) (test 1.45 mg/dL 0.57-1.25 pnjx=337) GLUCOSE RANDOM (BEAKER) 192 mg/dL 70-105 (test klgy=288) CALCIUM (BEAKER) (test 10.0 mg/dL 8.4-10.2 nvfb=938) EGFR (BEAKER) (test 36 mL/min/1.73 sq m ESTIMATED GFR IS NOT kjya=8199) ACCURATE CREATININE CLEARANCE IN PREDICTING GLOMERULAR FILTRATION RATE. ESTIMATED GFR IS NOT APPLICABLE FOR DIALYSIS PATIENTS. [id number] 20:46:00 Test Item Value Reference Range Comments PROTIME (BEAKER) (test ysdf=017) 15.5 seconds 11.7-14.7 INR (BEAKER) (test rbmr=835) 1.2 <=5.9 PARTIAL THROMBOPLASTIN TIME (BEAKER) (test 29.6 seconds 22.5-36.0 txfp=286) RECOMMENDED COUMADIN/WARFARIN INR THERAPY RANGESSTANDARD DOSE: 2.0 - 3.0 Includes: PROPHYLAXIS forvenous thrombosis, systemic embolization; TREATMENT for venous thrombosis and/or pulmonary embolus.HIGH RISK: Target INR is 2.5-3.5 for patients with mechanical heart valves.CBC W/PLT COUNT & AUTO [id number] 20:38:00 Test Item Value Reference Range Comments WHITE BLOOD CELL COUNT (BEAKER) (test nwkj=524) 5.4 K/ L 3.5-10.5 RED BLOOD CELL COUNT (BEAKER) (test izog=159) 4.24 M/ L 3.93-5.22 HEMOGLOBIN (BEAKER) (test tsqh=835) 12.2 GM/DL 11.2-15.7 HEMATOCRIT (BEAKER) (test ppvx=962) 39.0 % 34.1-44.9 MEAN CORPUSCULAR VOLUME (BEAKER) (test wbsb=284) 92.0 fL 79.4-94.8 MEAN CORPUSCULAR HEMOGLOBIN (BEAKER) (test 28.8 pg 25.6-32.2 yskh=601) MEAN CORPUSCULAR HEMOGLOBIN CONC (BEAKER) (test 31.3 GM/DL 32.2-35.5 nbwp=032) RED CELL DISTRIBUTION WIDTH (BEAKER) (test 15.6 % 11.7-14.4 xwvu=926) PLATELET COUNT (BEAKER) (test wemr=447) 49 K/CU MM 150-450 MEAN PLATELET VOLUME (BEAKER) (test voxy=755) 10.3 fL 9.4-12.3 NUCLEATED RED BLOOD CELLS (BEAKER) (test 0 /100 WBC 0-0 casb=283) NEUTROPHILS RELATIVE PERCENT (BEAKER) (test 69 % zzmt=229) LYMPHOCYTES RELATIVE PERCENT (BEAKER) (test 22 % gomk=648) MONOCYTES RELATIVE PERCENT (BEAKER) (test 6 % stkp=721) EOSINOPHILS RELATIVE PERCENT (BEAKER) (test 3 % btqj=255) BASOPHILS RELATIVE PERCENT (BEAKER) (test 0 % ddbk=922) NEUTROPHILS ABSOLUTE COUNT (BEAKER) (test 3.72 K/ L 1.56-6.13 jzxq=487) LYMPHOCYTES ABSOLUTE COUNT (BEAKER) (test 1.17 K/ L 1.18-3.74 hjtd=069) MONOCYTES ABSOLUTE COUNT (BEAKER) (test hnwh=016) 0.30 K/ L 0.24-0.36 EOSINOPHILS ABSOLUTE COUNT (BEAKER) (test 0.14 K/ L 0.04-0.36 ilya=803) BASOPHILS ABSOLUTE COUNT (BEAKER) (test jkhr=537) 0.02 K/ L 0.01-0.08 IMMATURE GRANULOCYTES-RELATIVE PERCENT (BEAKER) 1 % 0-1 (test bznp=6322) POCT-GLUCOSE [id number] 12:30:00 Test Item Value Reference Range Comments POC-GLUCOSE METER (BEAKER) 127 mg/dL 70-110 TESTED AT [place] [id number] [facility] (test rzdk=0321) [facility] [address] CT, CHEST, WITHOUT [id number] 09:14:00Referring: Dr[facility] REPORT TECHNIQUE: CT scan of the chest WITHOUT intravenous contrast. Dose modulation, iterative reconstruction, and/or weight-based adjustment of the mA/kV was utilized to reduce the radiation dose to as low as reasonably achievable. INDICATION: 67-year-old woman with shortness of breath and recurrent right pleural effusion. COMPARISON: Chest radiograph 04/12/2018. FINDINGS: ABSENCE OF INTRAVENOUS CONTRAST DECREASES SENSITIVITY FOR DETECTION OF FOCAL LESIONS AND VASCULAR PATHOLOGY. LINES/TUBES: None. LUNGS AND AIRWAYS: Central airways are patent. Mild bronchiectasis inboth lower lobes. Subtle groundglass opacities throughout the left lung. Consolidative opacity in the basal portion of the right lower lobe adjacent to the pleural effusion. Linear atelectasis and/or scarring in the anterior right upper lobe. PLEURA: Moderate right pleural effusion. HEART AND MEDIASTINUM: Enlarged thyroid gland with suspected nodules bilaterally and linear calcifications in the rightthyroid. No significant mediastinal, hilar, or axillary lymphadenopathy. The heart and pericardium are within normal limits. Atherosclerotic calcifications in the thoracic aorta. SOFT TISSUES AND BONES: Unremarkable. UPPER ABDOMEN: Cirrhotic morphology of the liver. Metallic clips in the right upper quadrant, likely related to prior cholecystectomy. The spleen is enlarged, measuring 14.6 cm in the anteroposterior dimension. IMPRESSION:Moderate right pleural effusion. Adjacent consolidative opacity in the right lower lobe likely represents relaxation atelectasis, however superimposed pneumonia cannot be entirely excluded. Subtle groundglass opacities on the left. Differential considerations include asymmetric pulmonary edema and less likely atypical pneumonia. Mild bronchiectasis in both lower lobes. Enlarged thyroid gland with suspected nodules bilaterally. Dedicated thyroid ultrasound is recommended for further evaluation. Cirrhosis with spinal megaly. Signed: Heather Gallegos MDReport Verified Date/Time: 04/14/2018 09:14: 34 Reading Location: [facility] Diagnostic Imaging Reading Room - [place] [address] POCT- GLUCOSE [id number] 08:40:00 Test Item Value Reference Range Comments POC-GLUCOSE METER (BEAKER) 137 mg/dL 70-110 TESTED AT [address] (test neuc=3170) [facility] [address] HEPATIC FUNCTION [id number] 05:18:00 Test Item Value Reference Range Comments TOTAL PROTEIN (BEAKER) (test ndbe=642) 6.1 gm/dL 6.0-8.3 ALBUMIN (BEAKER) (test mtwj=9957) 3.3 g/dL 3.5-5.0 BILIRUBIN TOTAL (BEAKER) (test pqcx=999) 1.6 mg/dL 0.2-1.2 BILIRUBIN DIRECT (BEAKER) (test aygc=980) 0.8 mg/dL 0.1-0.5 ALKALINE PHOSPHATASE (BEAKER) (test tqzs=440) 87 U/L 40-150 AST (SGOT) (BEAKER) (test nuhm=856) 34 U/L 5-34 ALT (SGPT) (BEAKER) (test ygxr=266) 18 U/L 6-55 BASIC METABOLIC [id number] 05:18:00 Test Item Value Reference Range Comments SODIUM (BEAKER) (test 135 meq/L 136-145 szmu=581) POTASSIUM (BEAKER) (test 4.8 meq/L 3.5-5.1 nehl=537) CHLORIDE (BEAKER) (test 105 meq/L 98-107 tmfg=131) CO2 (BEAKER) (test 24 meq/L 22-29 glxc=442) BLOOD UREA NITROGEN 38 mg/dL 7-21 (BEAKER) (test pvsb=701) CREATININE (BEAKER) (test 1.24 mg/dL 0.57-1.25 jnvw=002) GLUCOSE RANDOM (BEAKER) 161 mg/dL 70-105 (test zcvp=385) CALCIUM (BEAKER) (test 9.4 mg/dL 8.4-10.2 oadc=639) EGFR (BEAKER) (test 43 mL/min/1.73 sq m ESTIMATED GFR IS NOT cjlf=8440) ACCURATE CREATININE CLEARANCE IN PREDICTING GLOMERULAR FILTRATION RATE. ESTIMATED GFR IS NOT APPLICABLE FOR DIALYSIS PATIENTS. PROTHROMBIN [id number] 05:11:00 Test Item Value Reference Range Comments PROTIME (BEAKER) (test yhdk=186) 15.8 seconds 11.7-14.7 INR (BEAKER) (test clhe=217) 1.3 <=5.9 RECOMMENDED COUMADIN/WARFARIN INR THERAPY RANGESSTANDARD DOSE: 2.0 - 3.0 Includes: PROPHYLAXIS forvenous thrombosis, systemic embolization; TREATMENT for venous thrombosis and/or pulmonary embolus.HIGH RISK: Target INR is 2.5-3.5 for patients with mechanical heart valves.CBC (HEMOGRAM ONLY)2018-04-14 04:52:00 Test Item Value Reference Range Comments WHITE BLOOD CELL COUNT (BEAKER) (test zszo=297) 3.0 K/ L 3.5-10.5 RED BLOOD CELL COUNT (BEAKER) (test hnxn=577) 3.88 M/ L 3.93-5.22 HEMOGLOBIN (BEAKER) (test hokv=876) 11.3 GM/DL 11.2-15.7 HEMATOCRIT (BEAKER) (test ubem=081) 35.5 % 34.1-44.9 MEAN CORPUSCULAR VOLUME (BEAKER) (test xmri=519) 91.5 fL 79.4-94.8 MEAN CORPUSCULAR HEMOGLOBIN (BEAKER) (test 29.1 pg 25.6-32.2 rnzq=031) MEAN CORPUSCULAR HEMOGLOBIN CONC (BEAKER) (test 31.8 GM/DL 32.2-35.5 czpe=246) RED CELL DISTRIBUTION WIDTH (BEAKER) (test 15.1 % 11.7-14.4 vbxd=176) PLATELET COUNT (BEAKER) (test imwb=391) 53 K/CU MM 150-450 MEAN PLATELET VOLUME (BEAKER) (test ftil=193) 10.6 fL 9.4-12.3 NUCLEATED RED BLOOD CELLS (BEAKER) (test 0 /100 WBC 0-0 zedi=047) POCT-GLUCOSE [id number] 22:48:00 Test Item Value Reference Range Comments POC-GLUCOSE METER (BEAKER) 255 mg/dL 70-110 TESTED AT [address] (test prie=6945) [facility] [address] BODY FLUID CELL COUNT WITH [id number] 21:25:00 Test Item Value Reference Range Comments APPEARANCE FLUID (BEAKER) (test wxwe=674) Turbid Clear COLOR FLUID (BEAKER) (test tkff=410) Pine Colorless, Straw RBC FLUID (BEAKER) (test fbvj=258) 9000 /cu mm <=1 ADJUSTED WBC FLUID (BEAKER) (test lmqb=0132) 540 /cu mm <=5 LINING CELLS (BEAKER) (test wjcf=3373) 0 /cu mm <=1 NEUTROPHILS FLUID (BEAKER) (test ytgf=0390) 0 % LYMPHS FLUID (BEAKER) (test moxs=195) 66 % MONO/MACROPHAGE FLUID (BEAKER) (test misr=766) 34 % EOSINOPHILS FLUID (BEAKER) (test lyvn=014) 0 % BASO FLUID (BEAKER) (test zlut=169) 0 % CONTAINER BODY FLUID (BEAKER) (test wnfh=9095) EDTA Tube POCT-GLUCOSE [id number] 17:58:00 Test Item Value Reference Range Comments POC-GLUCOSE METER (BEAKER) 133 mg/dL 70-110 TESTED AT [address] (test jhur=5654) [facility] [address] POCT-GLUCOSE [id number] 12:32:00 Test Item Value Reference Range Comments POC-GLUCOSE METER (BEAKER) 154 mg/dL 70-110 TESTED AT [address] (test cryj=3492) [place] [address] U/S, ABDOMINAL, [id number] 08:34:00Referring: Dr. Claudio Chang Reason for exam:->ascitesFINAL REPORT TECHNIQUE: Focused grayscale ultrasound of the abdomen in anticipation of possible paracentesis. INDICATION: 67-year-old woman with ascites. COMPARISON: Abdomen ultrasound 04/06/2018. IMPRESSION:No ascites in the visualized abdomen. Therefore, no paracentesis was performed. Signed: Heather Gallegos Verified Date/Time: 04/13/2018 08:34:18 Reading Location: [address] Radiology Reading Room POCT-GLUCOSE [id number] 08:12:00 Test Item Value Reference Range Comments POC-GLUCOSE METER (BEAKER) 121 mg/dL 70-110 TESTED AT [address] (test wqsg=8182) [place] [id number] PROTHROMBIN [id number] 06:21:00 Test Item Value Reference Range Comments PROTIME (BEAKER) (test ejom=063) 16.7 seconds 11.7-14.7 INR (BEAKER) (test fxsj=513) 1.4 <=5.9 RECOMMENDED COUMADIN/WARFARIN INR THERAPY RANGESSTANDARD DOSE: 2.0 - 3.0 Includes: PROPHYLAXIS forvenous thrombosis, systemic embolization; TREATMENT for venous thrombosis and/or pulmonary embolus.HIGH RISK: Target INR is 2.5-3.5 for patients with mechanical heart valves.BASIC METABOLIC [id number] 06:12: 00 Test Item Value Reference Range Comments SODIUM (BEAKER) (test 135 meq/L 136-145 krhf=024) POTASSIUM (BEAKER) (test 4.9 meq/L 3.5-5.1 Specimen slightly tgmd=089) hemolyzed CHLORIDE (BEAKER) (test 107 meq/L 98-107 rngm=083) CO2 (BEAKER) (test 22 meq/L 22-29 eyst=746) BLOOD UREA NITROGEN 37 mg/dL 7-21 (BEAKER) (test vfto=094) CREATININE (BEAKER) (test 1.09 mg/dL 0.57-1.25 Specimen slightly vggo=063) hemolyzed GLUCOSE RANDOM (BEAKER) 125 mg/dL 70-105 (test gqwy=256) CALCIUM (BEAKER) (test 9.1 mg/dL 8.4-10.2 yrpc=131) EGFR (BEAKER) (test 50 mL/min/1.73 sq m ESTIMATED GFR IS NOT oalp=8025) ACCURATE CREATININE CLEARANCE IN PREDICTING GLOMERULAR FILTRATION RATE. ESTIMATED GFR IS NOT APPLICABLE FOR DIALYSIS PATIENTS. HEPATIC FUNCTION [id number] 06:12:00 Test Item Value Reference Range Comments TOTAL PROTEIN (BEAKER) (test 5.8 gm/dL 6.0-8.3 Specimen slightly hemolyzed ccel=914) ALBUMIN (BEAKER) (test 3.1 g/dL 3.5-5.0 Specimen slightly hemolyzed ponp=5322) BILIRUBIN TOTAL (BEAKER) (test 1.7 mg/dL 0.2-1.2 Specimen slightly hemolyzed cofx=694) BILIRUBIN DIRECT (BEAKER) (test 0.7 mg/dL 0.1-0.5 Specimen slightly hemolyzed bbge=852) ALKALINE PHOSPHATASE (BEAKER) 76 U/L 40-150 (test yvqe=298) AST (SGOT) (BEAKER) (test 37 U/L 5-34 Specimen slightly hemolyzed daog=463) ALT (SGPT) (BEAKER) (test 17 U/L 6-55 Specimen slightly hemolyzed mdrn=592) CBC (HEMOGRAM ONLY)2018-04-13 05:49:00 Test Item Value Reference Range Comments WHITE BLOOD CELL COUNT (BEAKER) (test lgzz=578) 3.3 K/ L 3.5-10.5 RED BLOOD CELL COUNT (BEAKER) (test wpgx=414) 3.70 M/ L 3.93-5.22 HEMOGLOBIN (BEAKER) (test arnm=812) 10.8 GM/DL 11.2-15.7 HEMATOCRIT (BEAKER) (test kyfu=228) 33.5 % 34.1-44.9 MEAN CORPUSCULAR VOLUME (BEAKER) (test krxr=625) 90.5 fL 79.4-94.8 MEAN CORPUSCULAR HEMOGLOBIN (BEAKER) (test 29.2 pg 25.6-32.2 wnlj=426) MEAN CORPUSCULAR HEMOGLOBIN CONC (BEAKER) (test 32.2 GM/DL 32.2-35.5 qdzz=120) RED CELL DISTRIBUTION WIDTH (BEAKER) (test 15.1 % 11.7-14.4 uing=304) PLATELET COUNT (BEAKER) (test ltnw=222) 57 K/CU MM 150-450 MEAN PLATELET VOLUME (BEAKER) (test uatz=750) 11.0 fL 9.4-12.3 NUCLEATED RED BLOOD CELLS (BEAKER) (test 0 /100 WBC 0-0 adok=170) POCT-GLUCOSE [id number] 21:29:00 Test Item Value Reference Range Comments POC-GLUCOSE METER (BEAKER) 239 mg/dL 70-110 TESTED AT [place] [id number] [facility] (test hdtj=6235) [place] [id number] POCT-GLUCOSE [id number] 18:07:00 Test Item Value Reference Range Comments POC-GLUCOSE METER (BEAKER) 215 mg/dL 70-110 TESTED AT [address] (test bnob=5276) [facility] [id number] RAD, CHEST, 1 VIEW, NON [id number] 17:41:00Referring: Dr. Claudio Chang Reason for exam:->S/P THORACENTESIS Should this be performed atthe bedside?-> US ROOM 1FINAL REPORT Chest, one view. HISTORY: Thoracentesis COMPARISON: Radiograph from 04/10/2018 IMPRESSION: The right pleural effusion has decreased in size and is now small. No pneumothorax. Mild right basilar subsegmental atelectasis. Mild, subsegmental left basilar atelectasis. The cardiac silhouette is unchanged. No acute bony abnormality. Signed: Yony Marshall MDReport Verified Date/Time: 04/12/2018 17:41:23 Reading Location: [address] Consult Reading Room POCT-GLUCOSE [id number] 12:00:00 Test Item Value Reference Range Comments POC-GLUCOSE METER (BEAKER) 234 mg/dL 70-110 TESTED AT [facility] [address] [facility] (test eypx=5921) [facility] [address] POCT-GLUCOSE [id number] 09:18:00 Test Item Value Reference Range Comments POC-GLUCOSE METER (BEAKER) 133 mg/dL 70-110 TESTED AT [address] (test qoqy=8366) [facility] [address] HEPATIC FUNCTION [id number] 06:25:00 Test Item Value Reference Range Comments TOTAL PROTEIN (BEAKER) (test vzvw=123) 5.8 gm/dL 6.0-8.3 ALBUMIN (BEAKER) (test vdus=1807) 3.3 g/dL 3.5-5.0 BILIRUBIN TOTAL (BEAKER) (test lbtb=280) 1.5 mg/dL 0.2-1.2 BILIRUBIN DIRECT (BEAKER) (test jubm=975) 0.8 mg/dL 0.1-0.5 ALKALINE PHOSPHATASE (BEAKER) (test rhms=315) 82 U/L 40-150 AST (SGOT) (BEAKER) (test uuuf=928) 32 U/L 5-34 ALT (SGPT) (BEAKER) (test dtta=120) 14 U/L 6-55 BASIC METABOLIC [id number] 06:25:00 Test Item Value Reference Range Comments SODIUM (BEAKER) (test 134 meq/L 136-145 zuhn=643) POTASSIUM (BEAKER) (test 4.6 meq/L 3.5-5.1 kdeo=353) CHLORIDE (BEAKER) (test 106 meq/L 98-107 kjic=803) CO2 (BEAKER) (test 24 meq/L 22-29 fjaj=099) BLOOD UREA NITROGEN 33 mg/dL 7-21 (BEAKER) (test ttll=159) CREATININE (BEAKER) (test 1.05 mg/dL 0.57-1.25 pgmz=563) GLUCOSE RANDOM (BEAKER) 152 mg/dL 70-105 (test xapu=880) CALCIUM (BEAKER) (test 9.1 mg/dL 8.4-10.2 dltp=880) EGFR (BEAKER) (test 52 mL/min/1.73 sq m ESTIMATED GFR IS NOT uacj=1788) ACCURATE CREATININE CLEARANCE IN PREDICTING GLOMERULAR FILTRATION RATE. ESTIMATED GFR IS NOT APPLICABLE FOR DIALYSIS PATIENTS. PROTHROMBIN TIME/[id number] 06:01:00 Test Item Value Reference Range Comments PROTIME (BEAKER) (test nkih=270) 16.0 seconds 11.7-14.7 INR (BEAKER) (test usyw=614) 1.3 <=5.9 RECOMMENDED COUMADIN/WARFARIN INR THERAPY RANGESSTANDARD DOSE: 2.0 - 3.0 Includes: PROPHYLAXIS forvenous thrombosis, systemic embolization; TREATMENT for venous thrombosis and/or pulmonary embolus.HIGH RISK: Target INR is 2.5-3.5 for patients with mechanical heart valves.CBC (HEMOGRAM ONLY)2018-04-12 05:54:00 Test Item Value Reference Range Comments WHITE BLOOD CELL COUNT (BEAKER) (test cclm=373) 2.9 K/ L 3.5-10.5 RED BLOOD CELL COUNT (BEAKER) (test oysj=513) 3.84 M/ L 3.93-5.22 HEMOGLOBIN (BEAKER) (test tjcn=308) 11.1 GM/DL 11.2-15.7 HEMATOCRIT (BEAKER) (test yhlt=833) 35.3 % 34.1-44.9 MEAN CORPUSCULAR VOLUME (BEAKER) (test mzsn=641) 91.9 fL 79.4-94.8 MEAN CORPUSCULAR HEMOGLOBIN (BEAKER) (test 28.9 pg 25.6-32.2 ksmk=023) MEAN CORPUSCULAR HEMOGLOBIN CONC (BEAKER) (test 31.4 GM/DL 32.2-35.5 odrk=156) RED CELL DISTRIBUTION WIDTH (BEAKER) (test 15.0 % 11.7-14.4 nvay=894) PLATELET COUNT (BEAKER) (test vkwo=294) 57 K/CU MM 150-450 MEAN PLATELET VOLUME (BEAKER) (test yodm=552) 11.4 fL 9.4-12.3 NUCLEATED RED BLOOD CELLS (BEAKER) (test 0 /100 WBC 0-0 rivq=330) POCT-GLUCOSE [id number] 22:07:00 Test Item Value Reference Range Comments POC-GLUCOSE METER (BEAKER) 202 mg/dL 70-110 TESTED AT [address] (test zsgx=6853) [facility] [address] POCT-GLUCOSE [id number] 18:08:00 Test Item Value Reference Range Comments POC-GLUCOSE METER (BEAKER) 249 mg/dL 70-110 TESTED AT [address] (test aejo=8401) [facility] [address] POCT-GLUCOSE [id number] 13:03:00 Test Item Value Reference Range Comments POC-GLUCOSE METER (BEAKER) 198 mg/dL 70-110 TESTED AT [address] (test udtb=1918) [facility] [address] POCT-GLUCOSE [id number] 09:50:00 Test Item Value Reference Range Comments POC-GLUCOSE METER (BEAKER) 183 mg/dL 70-110 TESTED AT [address] (test hmjs=0055) [facility] [address] HEPATIC FUNCTION [id number] 07:25:00 Test Item Value Reference Range Comments TOTAL PROTEIN (BEAKER) (test jhts=216) 5.8 gm/dL 6.0-8.3 ALBUMIN (BEAKER) (test fgnr=1642) 3.4 g/dL 3.5-5.0 BILIRUBIN TOTAL (BEAKER) (test yacj=606) 1.5 mg/dL 0.2-1.2 BILIRUBIN DIRECT (BEAKER) (test hkvt=375) 0.9 mg/dL 0.1-0.5 ALKALINE PHOSPHATASE (BEAKER) (test ilse=712) 74 U/L 40-150 AST (SGOT) (BEAKER) (test ldvy=563) 28 U/L 5-34 ALT (SGPT) (BEAKER) (test vgjf=202) 12 U/L 6-55 BASIC METABOLIC [id number] 07:25:00 Test Item Value Reference Range Comments SODIUM (BEAKER) (test 136 meq/L 136-145 bqhr=731) POTASSIUM (BEAKER) (test 4.3 meq/L 3.5-5.1 duju=536) CHLORIDE (BEAKER) (test 107 meq/L 98-107 kkcw=528) CO2 (BEAKER) (test 24 meq/L 22-29 mztg=463) BLOOD UREA NITROGEN 33 mg/dL 7-21 (BEAKER) (test vhai=772) CREATININE (BEAKER) (test 0.99 mg/dL 0.57-1.25 dtkn=605) GLUCOSE RANDOM (BEAKER) 181 mg/dL 70-105 (test mgtm=470) CALCIUM (BEAKER) (test 9.2 mg/dL 8.4-10.2 jhlv=795) EGFR (BEAKER) (test 56 mL/min/1.73 sq m ESTIMATED GFR IS NOT nsoa=4706) ACCURATE CREATININE CLEARANCE IN PREDICTING GLOMERULAR FILTRATION RATE. ESTIMATED GFR IS NOT APPLICABLE FOR DIALYSIS PATIENTS. PROTHROMBIN TIME/[id number] 06:56:00 Test Item Value Reference Range Comments PROTIME (BEAKER) (test vdhz=779) 16.9 seconds 11.7-14.7 INR (BEAKER) (test yoab=148) 1.4 <=5.9 RECOMMENDED COUMADIN/WARFARIN INR THERAPY RANGESSTANDARD DOSE: 2.0 - 3.0 Includes: PROPHYLAXIS forvenous thrombosis, systemic embolization; TREATMENT for venous thrombosis and/or pulmonary embolus.HIGH RISK: Target INR is 2.5-3.5 for patients with mechanical heart valves.CBC (HEMOGRAM ONLY)2018-04-11 06:43:00 Test Item Value Reference Range Comments WHITE BLOOD CELL COUNT (BEAKER) (test dcis=656) 2.1 K/ L 3.5-10.5 RED BLOOD CELL COUNT (BEAKER) (test ugjg=434) 3.67 M/ L 3.93-5.22 HEMOGLOBIN (BEAKER) (test gaxs=189) 10.4 GM/DL 11.2-15.7 HEMATOCRIT (BEAKER) (test upmf=961) 33.6 % 34.1-44.9 MEAN CORPUSCULAR VOLUME (BEAKER) (test enol=414) 91.6 fL 79.4-94.8 MEAN CORPUSCULAR HEMOGLOBIN (BEAKER) (test 28.3 pg 25.6-32.2 sbza=226) MEAN CORPUSCULAR HEMOGLOBIN CONC (BEAKER) (test 31.0 GM/DL 32.2-35.5 zpbv=503) RED CELL DISTRIBUTION WIDTH (BEAKER) (test 14.9 % 11.7-14.4 pcec=501) PLATELET COUNT (BEAKER) (test wakv=195) 46 K/CU MM 150-450 MEAN PLATELET VOLUME (BEAKER) (test govp=720) 11.3 fL 9.4-12.3 NUCLEATED RED BLOOD CELLS (BEAKER) (test 0 /100 WBC 0-0 xxsm=935) POCT-GLUCOSE [id number] 00:38:00 Test Item Value Reference Range Comments POC-GLUCOSE METER (BEAKER) 182 mg/dL 70-110 TESTED AT [address] (test ggyx=7403) [facility] [address] POCT-GLUCOSE [id number] 19:17:00 Test Item Value Reference Range Comments POC-GLUCOSE METER (BEAKER) 297 mg/dL 70-110 TESTED AT [address] (test asak=8644) [facility] [address] POCT-GLUCOSE [id number] 17:09:00 Test Item Value Reference Range Comments POC-GLUCOSE METER (BEAKER) 291 mg/dL 70-110 TESTED AT [address] (test inlp=6291) [facility] [address] RAD, CHEST, 1 VIEW, NON [id number] 15:04:00Referring: Dr. Claudio Smith for exam:->assess for changes in pleural effusionShould this be performed at the bedside?->YesFINAL REPORT AP chest HISTORY: Effusion COMPARISON: 04/08/2018, 04/07/2018 IMPRESSION:Moderate- large right effusion, decreased from 04/07/2018. Left lung clear. No pneumothorax. Heart size normal. Signed: Evelia Sanders MDReppemiscot memorial health systems Verified Date/ Time: 04/10/2018 15:04:11 Reading Location: [facility] [id number] Ortho Consult Reading Room 03: 04 PMPOCT-GLUCOSE [id number] 08:54:00 Test Item Value Reference Range Comments POC-GLUCOSE METER (BEAKER) 151 mg/dL 70-110 TESTED AT [address] (test uisa=6589) [facility] [address] HEPATIC FUNCTION [id number] 05:21:00 Test Item Value Reference Range Comments TOTAL PROTEIN (BEAKER) (test zaxe=592) 6.1 gm/dL 6.0-8.3 ALBUMIN (BEAKER) (test xqnh=0258) 3.8 g/dL 3.5-5.0 BILIRUBIN TOTAL (BEAKER) (test ukgw=982) 1.5 mg/dL 0.2-1.2 BILIRUBIN DIRECT (BEAKER) (test emgg=211) 0.9 mg/dL 0.1-0.5 ALKALINE PHOSPHATASE (BEAKER) (test acxh=780) 73 U/L 40-150 AST (SGOT) (BEAKER) (test irhj=948) 21 U/L 5-34 ALT (SGPT) (BEAKER) (test rpbb=768) 11 U/L 6-55 BASIC METABOLIC [id number] 05:21:00 Test Item Value Reference Range Comments SODIUM (BEAKER) (test 136 meq/L 136-145 tlqm=823) POTASSIUM (BEAKER) (test 4.4 meq/L 3.5-5.1 iuoo=732) CHLORIDE (BEAKER) (test 106 meq/L 98-107 gmkr=931) CO2 (BEAKER) (test 24 meq/L 22-29 fbkd=456) BLOOD UREA NITROGEN 38 mg/dL 7-21 (BEAKER) (test qisy=571) CREATININE (BEAKER) (test 1.18 mg/dL 0.57-1.25 fhdn=761) GLUCOSE RANDOM (BEAKER) 177 mg/dL 70-105 (test cbds=295) CALCIUM (BEAKER) (test 9.3 mg/dL 8.4-10.2 zftj=300) EGFR (BEAKER) (test 46 mL/min/1.73 sq m ESTIMATED GFR IS NOT bhbh=1529) ACCURATE CREATININE CLEARANCE IN PREDICTING GLOMERULAR FILTRATION RATE. ESTIMATED GFR IS NOT APPLICABLE FOR DIALYSIS PATIENTS. PROTHROMBIN TIME/[id number] 05:14:00 Test Item Value Reference Range Comments PROTIME (BEAKER) (test ohcp=194) 17.2 seconds 11.7-14.7 INR (BEAKER) (test vcun=803) 1.4 <=5.9 RECOMMENDED COUMADIN/WARFARIN INR THERAPY RANGESSTANDARD DOSE: 2.0 - 3.0 Includes: PROPHYLAXIS forvenous thrombosis, systemic embolization; TREATMENT for venous thrombosis and/or pulmonary embolus.HIGH RISK: Target INR is 2.5-3.5 for patients with mechanical heart valves.CBC (HEMOGRAM ONLY)2018-04-10 05:05:00 Test Item Value Reference Range Comments WHITE BLOOD CELL COUNT (BEAKER) (test qlrf=966) 2.1 K/ L 3.5-10.5 RED BLOOD CELL COUNT (BEAKER) (test imcq=920) 3.60 M/ L 3.93-5.22 HEMOGLOBIN (BEAKER) (test myqh=592) 10.4 GM/DL 11.2-15.7 HEMATOCRIT (BEAKER) (test ojmk=601) 32.8 % 34.1-44.9 MEAN CORPUSCULAR VOLUME (BEAKER) (test ohue=361) 91.1 fL 79.4-94.8 MEAN CORPUSCULAR HEMOGLOBIN (BEAKER) (test 28.9 pg 25.6-32.2 ikns=483) MEAN CORPUSCULAR HEMOGLOBIN CONC (BEAKER) (test 31.7 GM/DL 32.2-35.5 kbry=919) RED CELL DISTRIBUTION WIDTH (BEAKER) (test 14.8 % 11.7-14.4 vpcx=437) PLATELET COUNT (BEAKER) (test pzcm=334) 39 K/CU MM 150-450 MEAN PLATELET VOLUME (BEAKER) (test gtlh=357) 10.8 fL 9.4-12.3 NUCLEATED RED BLOOD CELLS (BEAKER) (test 0 /100 WBC 0-0 qinw=888) POCT-GLUCOSE [id number] 23:48:00 Test Item Value Reference Range Comments POC-GLUCOSE METER (BEAKER) 285 mg/dL 70-110 TESTED AT [address] (test emny=7387) [place] [id number] POCT-GLUCOSE [id number] 17:15:00 Test Item Value Reference Range Comments POC-GLUCOSE METER (BEAKER) 251 mg/dL 70-110 TESTED AT [address] (test yxyi=3039) [place] [id number] POCT-GLUCOSE [id number] 14:11:00 Test Item Value Reference Range Comments POC-GLUCOSE METER (BEAKER) 304 mg/dL 70-110 TESTED AT [address] (test itjq=5854) [place] [id number] CYTOMEGALOVIRUS ANTIBODY, [id number] 11:38:00 Test Item Value Reference Range Comments CYTOMEGALOVIRUS, IGG (BEAKER) (test xcxu=9176) Positive Negative, Equivocal CMV IgG Result Interpretation: </=0.8 Al Negative 0.9-1.0 Al Equivocal &gt ;/=1.1 Al PositiveCYTOMEGALOVIRUS ANTIBODY, [id number] 11:38:00 Test Item Value Reference Range Comments CYTOMEGALOVIRUS IGM ANTIBODY (BEAKER) (test Negative Negative, Equivocal huyr=1893) CMV IgM Result Interpretation: </=0.8 Al Negative 0.9-1.0 Al Equivocal >/=1.1 Al PositiveEBV ANTIBODY, [id number] 11:38:00 Test Item Value Reference Range Comments TING SMITH VIRAL CAPSID ANTIGEN IGG (BEAKER) Positive Negative, Equivocal (test xxuy=1796) Ting Smith Viral Capsid Antigen IgG Result Interpretation: </=0.8 Al Negative 0.9-1.0 Al Equivocal >/=1.1 Al PositiveEBV ANTIBODY, [id number] 11:38:00 Test Item Value Reference Range Comments TING SMITH VIRAL CAPSID ANTIGEN IGM (BEAKER) Negative Negative, Equivocal (test qjyr=6908) Ting Smith Viral Capsid Antigen IgM Result Interpretation: </=0.8 Al Negative 0.9-1.0 Al Equivocal >/=1.1 Al [id number] 09: 55:00 Test Item Value Reference Range Comments PREALBUMIN (BEAKER) (test mcvw=272) 8 mg/dL 14-45 POCT-GLUCOSE [id number] 09:08:00 Test Item Value Reference Range Comments POC-GLUCOSE METER (BEAKER) 247 mg/dL 70-110 TESTED AT [address] (test cnjl=0006) [facility] [address] HEPATIC FUNCTION [id number] 07:06:00 Test Item Value Reference Range Comments TOTAL PROTEIN (BEAKER) (test xxiz=349) 5.5 gm/dL 6.0-8.3 ALBUMIN (BEAKER) (test bdyg=4871) 3.1 g/dL 3.5-5.0 BILIRUBIN TOTAL (BEAKER) (test srkn=655) 1.4 mg/dL 0.2-1.2 BILIRUBIN DIRECT (BEAKER) (test mwqp=817) 0.8 mg/dL 0.1-0.5 ALKALINE PHOSPHATASE (BEAKER) (test zuea=856) 84 U/L 40-150 AST (SGOT) (BEAKER) (test bmxm=931) 23 U/L 5-34 ALT (SGPT) (BEAKER) (test zzaa=027) 13 U/L 6-55 BASIC METABOLIC [id number] 07:06:00 Test Item Value Reference Range Comments SODIUM (BEAKER) (test 136 meq/L 136-145 mmgw=686) POTASSIUM (BEAKER) (test 4.2 meq/L 3.5-5.1 bnty=001) CHLORIDE (BEAKER) (test 106 meq/L 98-107 ihos=006) CO2 (BEAKER) (test 26 meq/L 22-29 lcpu=853) BLOOD UREA NITROGEN 38 mg/dL 7-21 (BEAKER) (test dpxy=210) CREATININE (BEAKER) (test 1.57 mg/dL 0.57-1.25 nhez=415) GLUCOSE RANDOM (BEAKER) 202 mg/dL 70-105 (test sjht=082) CALCIUM (BEAKER) (test 8.7 mg/dL 8.4-10.2 xjpq=147) EGFR (BEAKER) (test 33 mL/min/1.73 sq m ESTIMATED GFR IS NOT omor=4804) ACCURATE CREATININE CLEARANCE IN PREDICTING GLOMERULAR FILTRATION RATE. ESTIMATED GFR IS NOT APPLICABLE FOR DIALYSIS PATIENTS. PROTHROMBIN TIME/[id number] 06:51:00 Test Item Value Reference Range Comments PROTIME (BEAKER) (test dcpw=924) 16.6 seconds 11.7-14.7 INR (BEAKER) (test wcsz=243) 1.3 <=5.9 RECOMMENDED COUMADIN/WARFARIN INR THERAPY RANGESSTANDARD DOSE: 2.0 - 3.0 Includes: PROPHYLAXIS forvenous thrombosis, systemic embolization; TREATMENT for venous thrombosis and/or pulmonary embolus.HIGH RISK: Target INR is 2.5-3.5 for patients with mechanical heart valves.CBC (HEMOGRAM ONLY)2018-04-09 06:41:00 Test Item Value Reference Range Comments WHITE BLOOD CELL COUNT (BEAKER) (test hvoo=796) 2.4 K/ L 3.5-10.5 RED BLOOD CELL COUNT (BEAKER) (test uifu=546) 3.54 M/ L 3.93-5.22 HEMOGLOBIN (BEAKER) (test cwzq=939) 10.2 GM/DL 11.2-15.7 HEMATOCRIT (BEAKER) (test hidz=635) 32.2 % 34.1-44.9 MEAN CORPUSCULAR VOLUME (BEAKER) (test lrky=045) 91.0 fL 79.4-94.8 MEAN CORPUSCULAR HEMOGLOBIN (BEAKER) (test 28.8 pg 25.6-32.2 gkoh=701) MEAN CORPUSCULAR HEMOGLOBIN CONC (BEAKER) (test 31.7 GM/DL 32.2-35.5 cxcx=962) RED CELL DISTRIBUTION WIDTH (BEAKER) (test 15.1 % 11.7-14.4 qufn=323) PLATELET COUNT (BEAKER) (test iajx=361) 44 K/CU MM 150-450 MEAN PLATELET VOLUME (BEAKER) (test nrxn=751) 11.3 fL 9.4-12.3 NUCLEATED RED BLOOD CELLS (BEAKER) (test 0 /100 WBC 0-0 axaw=245) POCT-GLUCOSE [id number] 00:04:00 Test Item Value Reference Range Comments POC-GLUCOSE METER (BEAKER) 250 mg/dL 70-110 TESTED AT [facility] [address] [facility] (test mfxs=9430) [facility] [address] RAD, MANDIBLE, MIN 4 [id number] 21:54:00Referring: Dr. Claudio Smith for exam:->Liver transplant evalShould this be performed at the bedside?->YesFINAL REPORT RAD, MANDIBLE, MIN 4 VIEWS INDICATION: Liver transplant eval COMPARISON: None available TECHNIQUE: Five views of the face. Impression:The calvarium is intact. Paranasal sinuses are clear. Orbital rims are intact. The temporomandibular joints are normally aligned. Mandible is intact with no periapical lucencies. There are however dental caries noted within the right greater than left maxillary molars.Visualized cervical spine demonstrates multilevel degenerative changes however no acute abnormality. Prevertebral soft tissues are normal. Signed: Tracy Carcamo Verified Date/Time: 04/08/2018 21:54:25 Reading Location: [facility] [address] [place] [address] Reading Room CRYPTOCOCCAL [id number] 18:14:00 Test Item Value Reference Range Comments CRYPTOCOCCAL ANTIGEN, SERUM (BEAKER) (test Negative Negative, Interference jfxu=9616) U/S, [id number] 17:22:00Referring: Dr. Claudio Chang Reason for exam:->recurrent large right pleural effusionFINAL REPORT PROCEDURE: Ultrasound-guided thoracentesis INDICATION: 67-year-old woman with right pleural effusion. DESCRIPTION: After obtaining informed written consent, ultrasound scan showed pleural effusion on the right. The overlying skin was prepped and draped in the usual,sterile fashion and local 1% lidocaine anesthesia was administered. A 4 [place] catheter was advancedinto the pleural cavity and 1850 cc of serous fluid was removed. The catheter was removed without immediate complication. Samples were sent to the lab for storage. IMPRESSION:Uncomplicated ultrasound-guided right thoracentesis with 1850 cc fluid removed. Signed: Heather Gallegos MDReport Verified Date/Time: 17:22:47 Reading Location: [place] [id number] Ultrasound Reading Room BLOOD GAS, [id number] 17:13:00 Test Item Value Reference Range Comments PH ARTERIAL (BEAKER) (test suge=650) 7.43 7.35-7.45 PCO2 ARTERIAL (BEAKER) (test mxuq=533) 36 mmHg 35-45 PO2 ARTERIAL (BEAKER) (test grkp=954) 76 mmHg 80-90 O2 SATURATION ARTERIAL (BEAKER) (test qerw=637) 95.8 % 96.0-97.0 HCO3 ARTERIAL (BEAKER) (test yegy=360) 24 mmol/L 21-29 BASE EXCESS ARTERIAL (BEAKER) (test ivfk=339) -0.4 mmol/L -2.0-3.0 PATIENT TEMPERATURE (BEAKER) (test fszs=0159) 36.8 C FIO2 (BEAKER) (test dxgz=1463) 32.0 % POCT-GLUCOSE [id number] 16:48:00 Test Item Value Reference Range Comments POC-GLUCOSE METER (BEAKER) 208 mg/dL 70-110 TESTED AT [address] (test fdiq=5407) [facility] [address] RAD, CHEST, 1 VIEW, NON [id number] 15:55:00Referring: Dr. Claudio Chang Reason for exam:->s/p right thoracentesis Should this be performed at the bedside?->YesFINAL REPORT RAD, CHEST, 1 VIEW, NON DEPT INDICATION: s/p right thoracentesisCOMPARISON: Prior day's exam FINDINGS: Portable frontal view of the chest. IMPRESSION: Support Lines: None. Lungs and pleura: Marked improvement in previously described right-sided pleural effusion following thoracentesis. No interval development of pneumothorax. Basilar subsegmental atelectasis onthe left.Heart and mediastinum : Stable contours. Additional findings: None. Signed: JR Winn Robert MDReport Verified Date/Time: 04/08/2018 15:55:56 Reading Location: [address] Consult Reading Room HEMOGLOBIN [id number] 15:12:00 Test Item Value Reference Range Comments HEMOGLOBIN A1C (BEAKER) (test feyz=730) 8.4 % 4.3-6.1 CARCINOEMBRYONIC ANTIGEN (CEA)2018-04-08 12:39:00 Test Item Value Reference Range Comments CARCINOEMBRYONIC ANTIGEN (BEAKER) (test hsbt=205) 14.2 ng/mL 0.0-5.0 [id number] 12:05:00 Test Item Value Reference Range Comments T4 TOTAL (BEAKER) (test fvbu=951) 6.3 ug/dL 4.9-11.7 [id number] 12:05:00 Test Item Value Reference Range Comments T3 TOTAL (BEAKER) (test hnrc=433) 74 ng/dL 48-159 [id number] 12:05:00 Test Item Value Reference Range Comments FERRITIN (BEAKER) (test tvoi=217) 120 ng/mL 5-275 VITAMIN D, [id number] 12:05:00 Test Item Value Reference Range Comments VITAMIN D 25-OH (BEAKER) (test djac=6673) 6.4 ng/mL 6.6-49.9 Effective 02/18/2017: Reference Range ChangeNew: 6.6-49.9 ng/mL Previous: 13.0 -47.8 ng/mLRecommended Vitamin D Target Range: 30.0-40.0 ng/[id number] 11:45:00 Test Item Value Reference Range Comments MAGNESIUM (BEAKER) (test qfpf=665) 1.5 mg/dL 1.6-2.6 [id number] 11:45:00 Test Item Value Reference Range Comments PHOSPHORUS (BEAKER) (test qnse=532) 3.3 mg/dL 2.3-4.7 URIC [id number] 11:45:00 Test Item Value Reference Range Comments URIC ACID (BEAKER) (test khqn=262) 11.7 mg/dL 2.6-7.2 Specimen slightly ictericCOMPREHENSIVE METABOLIC [id number] 11:45:00 Test Item Value Reference Range Comments TOTAL PROTEIN (BEAKER) 6.6 gm/dL 6.0-8.3 (test tlff=372) ALBUMIN (BEAKER) (test 3.5 g/dL 3.5-5.0 liya=1018) ALKALINE PHOSPHATASE 95 U/L 40-150 (BEAKER) (test glvr=464) BILIRUBIN TOTAL (BEAKER) 2.7 mg/dL 0.2-1.2 (test nnnh=859) SODIUM (BEAKER) (test 138 meq/L 136-145 dwzi=749) POTASSIUM (BEAKER) (test 4.3 meq/L 3.5-5.1 yrto=997) CHLORIDE (BEAKER) (test 105 meq/L 98-107 vwmn=611) CO2 (BEAKER) (test 23 meq/L 22-29 ktno=878) BLOOD UREA NITROGEN 35 mg/dL 7-21 (BEAKER) (test yacn=358) CREATININE (BEAKER) (test 1.28 mg/dL 0.57-1.25 sdxs=499) GLUCOSE RANDOM (BEAKER) 171 mg/dL 70-105 (test vxps=919) CALCIUM (BEAKER) (test 9.7 mg/dL 8.4-10.2 srey=994) AST (SGOT) (BEAKER) (test 28 U/L 5-34 sfgm=242) ALT (SGPT) (BEAKER) (test 17 U/L 6-55 swjk=663) EGFR (BEAKER) (test 42 mL/min/1.73 sq m ESTIMATED GFR IS NOT hjcr=2991) ACCURATE CREATININE CLEARANCE IN PREDICTING GLOMERULAR FILTRATION RATE. ESTIMATED GFR IS NOT APPLICABLE FOR DIALYSIS PATIENTS. Specimen slightly ictericLIPID [id number] 11:45:00 Test Item Value Reference Range Comments TRIGLYCERIDES (BEAKER) (test mptk=926) 96 mg/dL CHOLESTEROL (BEAKER) (test fljs=240) 102 mg/dL HDL CHOLESTEROL (BEAKER) (test oely=166) 28 mg/dL LDL CHOLESTEROL CALCULATED (BEAKER) (test 55 mg/dL runr=126) Triglyceride Reference Range: Low Risk <150 Borderline 150- 199 High Risk 200-499 Very High Risk >=500Cholesterol Reference Range: Low Risk <200 Borderline 200-239 High Risk > 240HDL Cholesterol Reference Range: Low Risk >=60 High Risk <40LDL Cholesterol Reference Range: Optimal <100 Near Optimal 100-129 Borderline 130-159 High 160-189 Very High >=190 Specimen slightly ictericBILIRUBIN, [id number] 11:45:00 Test Item Value Reference Range Comments BILIRUBIN DIRECT (BEAKER) (test agiz=643) 1.3 mg/dL 0.1-0.5 GAMMA GLUTAMYL TRANSFERASE (GGT)[id number] 11:45:00 Test Item Value Reference Range Comments GAMMA GLUTAMYL TRANSFERASE (BEAKER) (test qppj=766) 98 U/L 9-64 Specimen slightly [id number] 11:45:00 Test Item Value Reference Range Comments TRANSFERRIN (BEAKER) (test gglg=924) 191 mg/dL 174-382 Specimen slightly [id number] 11:43:00 Test Item Value Reference Range Comments ETHANOL (BEAKER) (test dqis=131) < mg/dL <=10 [id number] 11:33:00 Test Item Value Reference Range Comments FIBRINOGEN LEVEL (BEAKER) (test vxbi=261) 372 mg/dl 225-434 [id number] 11:33:00 Test Item Value Reference Range Comments PARTIAL THROMBOPLASTIN TIME (BEAKER) (test 29.9 seconds 22.5-36.0 rysq=590) CBC W/PLT COUNT & AUTO [id number] 11:27:00 Test Item Value Reference Range Comments WHITE BLOOD CELL COUNT (BEAKER) (test qatl=781) 3.6 K/ L 3.5-10.5 RED BLOOD CELL COUNT (BEAKER) (test lnit=929) 4.24 M/ L 3.93-5.22 HEMOGLOBIN (BEAKER) (test dutc=781) 12.4 GM/DL 11.2-15.7 HEMATOCRIT (BEAKER) (test hzcl=470) 38.8 % 34.1-44.9 MEAN CORPUSCULAR VOLUME (BEAKER) (test jvhv=081) 91.5 fL 79.4-94.8 MEAN CORPUSCULAR HEMOGLOBIN (BEAKER) (test 29.2 pg 25.6-32.2 qspz=678) MEAN CORPUSCULAR HEMOGLOBIN CONC (BEAKER) (test 32.0 GM/DL 32.2-35.5 mbil=695) RED CELL DISTRIBUTION WIDTH (BEAKER) (test 15.2 % 11.7-14.4 ivin=651) PLATELET COUNT (BEAKER) (test kckp=267) 53 K/CU MM 150-450 MEAN PLATELET VOLUME (BEAKER) (test tizv=476) 10.7 fL 9.4-12.3 NUCLEATED RED BLOOD CELLS (BEAKER) (test 0 /100 WBC 0-0 xinp=396) NEUTROPHILS RELATIVE PERCENT (BEAKER) (test 58 % ysva=730) LYMPHOCYTES RELATIVE PERCENT (BEAKER) (test 28 % awci=490) MONOCYTES RELATIVE PERCENT (BEAKER) (test 10 % jljz=030) EOSINOPHILS RELATIVE PERCENT (BEAKER) (test 3 % rucf=792) BASOPHILS RELATIVE PERCENT (BEAKER) (test 1 % osws=656) NEUTROPHILS ABSOLUTE COUNT (BEAKER) (test 2.08 K/ L 1.56-6.13 unby=148) LYMPHOCYTES ABSOLUTE COUNT (BEAKER) (test 1.01 K/ L 1.18-3.74 difm=868) MONOCYTES ABSOLUTE COUNT (BEAKER) (test xfdh=664) 0.34 K/ L 0.24-0.36 EOSINOPHILS ABSOLUTE COUNT (BEAKER) (test 0.11 K/ L 0.04-0.36 vuou=022) BASOPHILS ABSOLUTE COUNT (BEAKER) (test joci=020) 0.03 K/ L 0.01-0.08 IMMATURE GRANULOCYTES-RELATIVE PERCENT (BEAKER) 1 % 0-1 (test lpqr=1404) CALCIUM, [id number] 11:26:00 Test Item Value Reference Range Comments CALCIUM IONIZED (BEAKER) (test ypcw=152) 1.11 mmol/L 1.12-1.27 PH, BLOOD (BEAKER) (test zsra=5533) 7.40 POCT-GLUCOSE [id number] 10:35:00 Test Item Value Reference Range Comments POC-GLUCOSE METER (BEAKER) 162 mg/dL 70-110 TESTED AT [address] (test ftsd=0196) [place] [id number] PROTHROMBIN [id number] 07:04:00 Test Item Value Reference Range Comments PROTIME (BEAKER) (test adbt=792) 16.4 seconds 11.7-14.7 INR (BEAKER) (test cshq=748) 1.3 <=5.9 RECOMMENDED COUMADIN/WARFARIN INR THERAPY RANGESSTANDARD DOSE: 2.0 - 3.0 Includes: PROPHYLAXIS forvenous thrombosis, systemic embolization; TREATMENT for venous thrombosis and/or pulmonary embolus.HIGH RISK: Target INR is 2.5-3.5 for patients with mechanical heart valves.POCT-GLUCOSE [id number] 00:09:00 Test Item Value Reference Range Comments POC-GLUCOSE METER (BEAKER) 205 mg/dL 70-110 TESTED AT [address] (test zsgp=8245) [place] [address] POCT-GLUCOSE [id number] 18:59:00 Test Item Value Reference Range Comments POC-GLUCOSE METER (BEAKER) 254 mg/dL 70-110 TESTED AT [address] (test klim=7180) [place] [id number] RAD, CHEST, 2 [id number] 18:55:00Referring: Dr. Claudio Smith for exam:->hydrothorax, check for recurrenceFINAL REPORT Chest 2 views 04/07/2018 6:54 PM CLINICAL HISTORY: hydrothorax, check for recurrence COMPARISON: 04/07/2018 at 0614 IMPRESSION: There is a large volume right pleuraleffusion. Opacity in the subjacent right mid and lower lung may reflect atelectasis or pneumonia. The left lung is clear. Cardiomediastinal contours are partially obscured, but stable. The central pulmonary vasculature is not engorged. There are no acute-appearing skeletal abnormalities. There are surgical clips in the gallbladder fossa. Signed: Dillon Ragsdale Verified Date/Time: 04/07/2018 18:55:07 Reading Location: [facility] Radiology Reading Room Electronically signed by: DILLON RAGSDALE M.D. on 06:55 PMBODY FLUID CULTURE + GRAM [id number] 12:54:00 Test Item Value Reference Range Comments CULTURE (BEAKER) (test vtgc=3108) No growth GRAM STAIN RESULT (BEAKER) (test No white blood cells seen frqx=3866) GRAM STAIN RESULT (BEAKER) (test No organisms seen rrtq=50172) POCT-GLUCOSE [id number] 11:50:00 Test Item Value Reference Range Comments POC-GLUCOSE METER (BEAKER) 200 mg/dL 70-110 TESTED AT [facility] [address] [facility] (test yxwp=5426) [facility] [address] POCT-GLUCOSE [id number] 07:53:00 Test Item Value Reference Range Comments POC-GLUCOSE METER (BEAKER) 188 mg/dL 70-110 TESTED AT [place] [id number] [facility] (test lgab=5946) [facility] [address] RAD, CHEST, 1 VIEW, NON [id number] 07:07:00Referring: Dr. Claudio Smith for exam:->reassess right pleural effusionShould this be performed at the bedside?->YesFINAL REPORT RAD, CHEST , 1 VIEW, NON DEPT INDICATION: reassess right pleural effusion COMPARISON: April 04, 2018 FINDINGS: Portable frontal view of the chest. IMPRESSION: Support Lines: None. Lungs and pleura: Increasing volume of right effusion. No consolidation. Left lung is clear. No pneumothorax.Heart and mediastinum: Stable contours. Additional findings: None. Signed: JR Winn Robert MDReport Verified Date/Time: 04/07/2018 07:07:49 Reading Location: [facility] Reading Room [id number] 04:05:00 Test Item Value Reference Range Comments MAGNESIUM (BEAKER) (test wpld=039) 1.6 mg/dL 1.6-2.6 BASIC METABOLIC [id number] 04:05:00 Test Item Value Reference Range Comments SODIUM (BEAKER) (test 136 meq/L 136-145 ppji=246) POTASSIUM (BEAKER) (test 4.3 meq/L 3.5-5.1 jmbv=027) CHLORIDE (BEAKER) (test 104 meq/L 98-107 gecp=462) CO2 (BEAKER) (test 23 meq/L 22-29 bacz=951) BLOOD UREA NITROGEN 32 mg/dL 7-21 (BEAKER) (test qtka=577) CREATININE (BEAKER) (test 1.31 mg/dL 0.57-1.25 qlas=182) GLUCOSE RANDOM (BEAKER) 232 mg/dL 70-105 (test bsui=720) CALCIUM (BEAKER) (test 9.1 mg/dL 8.4-10.2 ydqw=663) EGFR (BEAKER) (test 40 mL/min/1.73 sq m ESTIMATED GFR IS NOT tlff=7047) ACCURATE CREATININE CLEARANCE IN PREDICTING GLOMERULAR FILTRATION RATE. ESTIMATED GFR IS NOT APPLICABLE FOR DIALYSIS PATIENTS. CBC W/PLT COUNT & AUTO [id number] 03:46:00 Test Item Value Reference Range Comments WHITE BLOOD CELL COUNT (BEAKER) (test hcxz=089) 3.4 K/ L 3.5-10.5 RED BLOOD CELL COUNT (BEAKER) (test mwul=635) 4.11 M/ L 3.93-5.22 HEMOGLOBIN (BEAKER) (test cevd=038) 12.1 GM/DL 11.2-15.7 HEMATOCRIT (BEAKER) (test jhht=522) 37.4 % 34.1-44.9 MEAN CORPUSCULAR VOLUME (BEAKER) (test lzwk=612) 91.0 fL 79.4-94.8 MEAN CORPUSCULAR HEMOGLOBIN (BEAKER) (test 29.4 pg 25.6-32.2 rxqj=992) MEAN CORPUSCULAR HEMOGLOBIN CONC (BEAKER) (test 32.4 GM/DL 32.2-35.5 dpit=781) RED CELL DISTRIBUTION WIDTH (BEAKER) (test 15.2 % 11.7-14.4 zooa=547) PLATELET COUNT (BEAKER) (test bcro=133) 51 K/CU MM 150-450 MEAN PLATELET VOLUME (BEAKER) (test kdht=983) 10.6 fL 9.4-12.3 NUCLEATED RED BLOOD CELLS (BEAKER) (test 0 /100 WBC 0-0 fnpr=120) NEUTROPHILS RELATIVE PERCENT (BEAKER) (test 59 % rvdb=335) LYMPHOCYTES RELATIVE PERCENT (BEAKER) (test 28 % wyay=951) MONOCYTES RELATIVE PERCENT (BEAKER) (test 9 % ooxx=240) EOSINOPHILS RELATIVE PERCENT (BEAKER) (test 4 % xkbk=862) BASOPHILS RELATIVE PERCENT (BEAKER) (test 1 % fjlj=568) NEUTROPHILS ABSOLUTE COUNT (BEAKER) (test 1.97 K/ L 1.56-6.13 xrve=970) LYMPHOCYTES ABSOLUTE COUNT (BEAKER) (test 0.92 K/ L 1.18-3.74 zpym=815) MONOCYTES ABSOLUTE COUNT (BEAKER) (test xyne=237) 0.29 K/ L 0.24-0.36 EOSINOPHILS ABSOLUTE COUNT (BEAKER) (test 0.13 K/ L 0.04-0.36 ptsx=223) BASOPHILS ABSOLUTE COUNT (BEAKER) (test jfmt=047) 0.03 K/ L 0.01-0.08 IMMATURE GRANULOCYTES-RELATIVE PERCENT (BEAKER) 0 % 0-1 (test uemc=3786) POCT-GLUCOSE [id number] 22:11:00 Test Item Value Reference Range Comments POC-GLUCOSE METER (BEAKER) 290 mg/dL 70-110 TESTED AT [address] (test umlj=3574) [facility] [address] POCT-GLUCOSE [id number] 18:45:00 Test Item Value Reference Range Comments POC-GLUCOSE METER (BEAKER) 295 mg/dL 70-110 TESTED AT [address] (test cbjs=3066) [facility] [address] POCT-GLUCOSE [id number] 11:32:00 Test Item Value Reference Range Comments POC-GLUCOSE METER (BEAKER) 245 mg/dL 70-110 TESTED AT [facility] [address] [facility] (test esjv=0531) [facility] [address] POCT-GLUCOSE [id number] 07:53:00 Test Item Value Reference Range Comments POC-GLUCOSE METER (BEAKER) 186 mg/dL 70-110 TESTED AT [facility] [address] [facility] (test uvmd=7505) [facility] [address] [id number] 06:27:00 Test Item Value Reference Range Comments MAGNESIUM (BEAKER) (test bthy=226) 1.3 mg/dL 1.6-2.6 BASIC METABOLIC [id number] 06:27:00 Test Item Value Reference Range Comments SODIUM (BEAKER) (test 138 meq/L 136-145 tcjz=255) POTASSIUM (BEAKER) (test 4.1 meq/L 3.5-5.1 fvls=011) CHLORIDE (BEAKER) (test 106 meq/L 98-107 ueop=296) CO2 (BEAKER) (test 23 meq/L 22-29 qetk=492) BLOOD UREA NITROGEN 29 mg/dL 7-21 (BEAKER) (test akqj=345) CREATININE (BEAKER) (test 1.09 mg/dL 0.57-1.25 sjlc=690) GLUCOSE RANDOM (BEAKER) 178 mg/dL 70-105 (test foal=231) CALCIUM (BEAKER) (test 9.5 mg/dL 8.4-10.2 rzgr=438) EGFR (BEAKER) (test 50 mL/min/1.73 sq m ESTIMATED GFR IS NOT rxgy=6179) ACCURATE CREATININE CLEARANCE IN PREDICTING GLOMERULAR FILTRATION RATE. ESTIMATED GFR IS NOT APPLICABLE FOR DIALYSIS PATIENTS. Specimen slightly ictericCBC W/PLT COUNT & AUTO [id number] 06:15 :00 Test Item Value Reference Range Comments WHITE BLOOD CELL COUNT (BEAKER) (test uiro=066) 2.9 K/ L 3.5-10.5 RED BLOOD CELL COUNT (BEAKER) (test rtgn=373) 4.10 M/ L 3.93-5.22 HEMOGLOBIN (BEAKER) (test yitf=336) 11.7 GM/DL 11.2-15.7 HEMATOCRIT (BEAKER) (test skki=971) 37.9 % 34.1-44.9 MEAN CORPUSCULAR VOLUME (BEAKER) (test cavu=034) 92.4 fL 79.4-94.8 MEAN CORPUSCULAR HEMOGLOBIN (BEAKER) (test 28.5 pg 25.6-32.2 cgar=703) MEAN CORPUSCULAR HEMOGLOBIN CONC (BEAKER) (test 30.9 GM/DL 32.2-35.5 xggl=165) RED CELL DISTRIBUTION WIDTH (BEAKER) (test 15.4 % 11.7-14.4 kdwm=787) PLATELET COUNT (BEAKER) (test ovlx=324) 51 K/CU MM 150-450 MEAN PLATELET VOLUME (BEAKER) (test meqd=777) 10.6 fL 9.4-12.3 NUCLEATED RED BLOOD CELLS (BEAKER) (test 0 /100 WBC 0-0 tnhs=487) NEUTROPHILS RELATIVE PERCENT (BEAKER) (test 54 % hdbs=707) LYMPHOCYTES RELATIVE PERCENT (BEAKER) (test 33 % tgoo=032) MONOCYTES RELATIVE PERCENT (BEAKER) (test 9 % szkm=271) EOSINOPHILS RELATIVE PERCENT (BEAKER) (test 4 % mznk=696) BASOPHILS RELATIVE PERCENT (BEAKER) (test 0 % adjv=017) NEUTROPHILS ABSOLUTE COUNT (BEAKER) (test 1.53 K/ L 1.56-6.13 sxeq=268) LYMPHOCYTES ABSOLUTE COUNT (BEAKER) (test 0.95 K/ L 1.18-3.74 xdtb=069) MONOCYTES ABSOLUTE COUNT (BEAKER) (test abas=603) 0.25 K/ L 0.24-0.36 EOSINOPHILS ABSOLUTE COUNT (BEAKER) (test 0.10 K/ L 0.04-0.36 klbl=067) BASOPHILS ABSOLUTE COUNT (BEAKER) (test kyff=759) 0.01 K/ L 0.01-0.08 IMMATURE GRANULOCYTES-RELATIVE PERCENT (BEAKER) 0 % 0-1 (test rixr=2119) U/S, ABDOMINAL, [id number] 02:35:00Referring: Dr. Claudio Smith for exam:->with DOPPLER, TIPS evalFINAL REPORT Ultrasound of the Abdomen, complete, with Doppler Clinical History: Pre-TIPS evaluation. Comparison: Complete abdominal ultrasound 10/25/17 Discussion: Sonographic evaluation of the abdomen was performed. Color and spectral Doppler evaluation of the hepatic and portal vasculature was performed. Liver: 12.1 cm in length at the right midclavicular line. Cirrhotic morphology. No lesion is identified by ultrasound. Main portal vein diameter 1.7 cm. Biliary tree:Common duct 7 mm, top normal, nonspecific postcholecystectomy. No intrahepatic biliary ductal dilatation. Gallbladder: Status post cholecystectomy. Pancreas: Partially obscured by bowel gas but visualized portions are echogenic. Ascites: None seen Spleen: 22.1 cm in length. Kidneys: Nonvisualization of the right kidney likely due to parenchymal atrophy and excessive bowel gas. Left kidney 11.6 x 4.9 x 4.8 cm with cortical thickness of 1.1 cm. Normal cortical echogenicity. No shadowing calculus or hydronephrosis. IVC/Aorta: Segments partially seen. Unremarkable. Miscellaneous: Right pleural effusion. Color and spectral Doppler evaluation of the hepatic and portal vasculature. The main portal vein and branches are patent and demonstrate hepatopetal flow. The peak systolic velocity in themain portal vein is 68.7 cm/s. The proper, right and left hepatic arteries are patent with normal waveforms. The resistive indices in the proper, right and left hepatic arteries are 0.8, 0.8 and 0.8 respectively. The hepatic confluence, main hepatic vein and branches are patent with normal waveforms. The splenic vein at the pancreatic head and tail are patent with normal waveforms. The splenic arteryand vein at the hilum are patent with normal waveforms. Impression: Cirrhosis.Severe splenomegaly.Patent vessels. Signed: Julian Jean MDReport Verified Date/Time: 04/06/2018 02:35:45 Reading Location: [address] Body Reading Room POCT-GLUCOSE [id number] 22:14:00 Test Item Value Reference Range Comments POC-GLUCOSE METER (BEAKER) 259 mg/dL 70-110 TESTED AT [address] (test aqcz=1867) [facility] [address] POCT-GLUCOSE [id number] 18:14:00 Test Item Value Reference Range Comments POC-GLUCOSE METER (BEAKER) 241 mg/dL 70-110 TESTED AT [address] (test ggla=2148) [facility] [address] POCT-GLUCOSE [id number] 13:36:00 Test Item Value Reference Range Comments POC-GLUCOSE METER (BEAKER) 247 mg/dL 70-110 TESTED AT [facility] [address] (test zcnm=5340) [facility] [address] CBC W/PLT COUNT & AUTO [id number] 12:11:00 Test Item Value Reference Range Comments WHITE BLOOD CELL COUNT (BEAKER) (test yooe=562) 1.7 K/ L 3.5-10.5 RED BLOOD CELL COUNT (BEAKER) (test uthq=818) 3.39 M/ L 3.93-5.22 HEMOGLOBIN (BEAKER) (test szbb=572) 9.8 GM/DL 11.2-15.7 HEMATOCRIT (BEAKER) (test uafa=578) 31.5 % 34.1-44.9 MEAN CORPUSCULAR VOLUME (BEAKER) (test rvud=629) 92.9 fL 79.4-94.8 MEAN CORPUSCULAR HEMOGLOBIN (BEAKER) (test 28.9 pg 25.6-32.2 ngla=550) MEAN CORPUSCULAR HEMOGLOBIN CONC (BEAKER) (test 31.1 GM/DL 32.2-35.5 dree=969) RED CELL DISTRIBUTION WIDTH (BEAKER) (test 15.7 % 11.7-14.4 qkmj=566) PLATELET COUNT (BEAKER) (test dvzf=247) 40 K/CU MM 150-450 MEAN PLATELET VOLUME (BEAKER) (test egnn=075) 11.6 fL 9.4-12.3 NUCLEATED RED BLOOD CELLS (BEAKER) (test 0 /100 WBC 0-0 ebmp=575) (CELLAVISION MANUAL DIFF)2018-04-05 12:11:00 Test Item Value Reference Range Comments NEUTROPHILS - REL (CELLAVISION)(BEAKER) (test 58 % epgy=1310) LYMPHOCYTES - REL (CELLAVISION)(BEAKER) (test 37 % ktbm=5557) MONOCYTES - REL (CELLAVISION)(BEAKER) (test 2 % zfwo=3633) EOSINOPHILS - REL (CELLAVISION)(BEAKER) (test 1 % fqen=4911) BANDS - REL (CELLAVISION)(BEAKER) (test aiky=3983) 1 % 0-10 ATYPICAL LYMPHOCYTES - REL (CELLAVISION)(BEAKER) 1 % 0-0 (test este=7385) NEUTROPHILS - ABS (CELLAVISION)(BEAKER) (test 0.99 K/ul 1.56-6.13 jduw=0060) LYMPHOCYTES - ABS (CELLAVISION)(BEAKER) (test 0.63 K/ul 1.18-3.74 nwxx=8130) MONOCYTES - ABS (CELLAVISION)(BEAKER) (test 0.03 K/uL 0.24-0.36 qneb=6525) EOSINOPHILS - ABS (CELLAVISION)(BEAKER) (test 0.02 K/uL 0.04-0.36 vwph=0303) BANDS - ABS (CELLAVISION)(BEAKER) (test qxow=9395) 0.02 K/uL 0.00-0.80 ATYPICAL LYMPHOCYTES - ABS (CELLAVISION)(BEAKER) 0.02 K/uL 0.00-0.00 (test fizv=2607) TOTAL COUNTED (BEAKER) (test ilfa=7191) 100 WBC MORPHOLOGY (BEAKER) (test hoik=729) Normal PLT MORPHOLOGY (BEAKER) (test oiui=319) Normal POLYCHROMATOPHILLIC RBCS(BEAKER) (test ydhs=399) 1+ few OVALOCYTES (BEAKER) (test gbaa=718) 1+ few ARTIFACT (CELLAVISION)(BEAKER) (test xtct=7376) Present PLATELET CONCENTRATION (CELLAVISION)(BEAKER) (test Decreased dwoq=3247) Received comment: User comments: Slide comments:POCT-GLUCOSE [id number] 11: 21:00 Test Item Value Reference Range Comments POC-GLUCOSE METER (BEAKER) 277 mg/dL 70-110 TESTED AT [facility] [address] [facility] (test qdfa=9834) [facility] [address] URINALYSIS W/ [id number] 08:10:00 Test Item Value Reference Range Comments COLOR (BEAKER) (test uqay=490) Yellow CLARITY (BEAKER) (test taii=334) Clear SPECIFIC GRAVITY UA (BEAKER) (test quqs=729) 1.013 1.001-1.035 PH UA (BEAKER) (test cbem=840) 5.5 5.0-8.0 PROTEIN UA (BEAKER) (test lxvo=639) 10 mg/dL Negative GLUCOSE UA (BEAKER) (test lbdy=010) Negative Negative KETONES UA (BEAKER) (test vzmn=610) Negative Negative BILIRUBIN UA (BEAKER) (test dknp=001) Negative Negative BLOOD UA (BEAKER) (test ruoy=690) Negative Negative NITRITE UA (BEAKER) (test qjuo=665) Negative Negative LEUKOCYTE ESTERASE UA (BEAKER) (test mggn=598) Negative Negative UROBILINOGEN UA (BEAKER) (test puzl=741) 0.2 mg/dL 0.2-1.0 RBC UA (BEAKER) (test abrg=596) < /HPF WBC UA (BEAKER) (test sopi=834) 3 /HPF BACTERIA (BEAKER) (test zoxn=270) Rare SQUAMOUS EPITHELIAL (BEAKER) (test pzne=744) 1 /HPF HYALINE CASTS (BEAKER) (test oded=014) 6 /LPF SOURCE(BEAKER) (test dvox=4019) Urine, Voided POCT-GLUCOSE [id number] 08:08:00 Test Item Value Reference Range Comments POC-GLUCOSE METER (BEAKER) 187 mg/dL 70-110 TESTED AT [facility] [address] [facility] (test htjl=7084) [facility] [address] BASIC METABOLIC [id number] 07:03:00 Test Item Value Reference Range Comments SODIUM (BEAKER) (test 138 meq/L 136-145 vcpe=867) POTASSIUM (BEAKER) (test 4.5 meq/L 3.5-5.1 Specimen slightly nlwj=461) hemolyzed CHLORIDE (BEAKER) (test 108 meq/L 98-107 sccd=726) CO2 (BEAKER) (test 26 meq/L 22-29 owxl=232) BLOOD UREA NITROGEN 29 mg/dL 7-21 (BEAKER) (test uwok=734) CREATININE (BEAKER) (test 1.04 mg/dL 0.57-1.25 Specimen slightly nvyw=875) hemolyzed GLUCOSE RANDOM (BEAKER) 172 mg/dL 70-105 (test zuil=779) CALCIUM (BEAKER) (test 9.1 mg/dL 8.4-10.2 qahz=475) EGFR (BEAKER) (test 53 mL/min/1.73 sq m ESTIMATED GFR IS NOT hfbk=5478) ACCURATE CREATININE CLEARANCE IN PREDICTING GLOMERULAR FILTRATION RATE. ESTIMATED GFR IS NOT APPLICABLE FOR DIALYSIS PATIENTS. [id number] 07:02:00 Test Item Value Reference Range Comments MAGNESIUM (BEAKER) (test 1.6 mg/dL 1.6-2.6 Specimen slightly hemolyzed tyxq=368) POCT-GLUCOSE [id number] 22:01:00 Test Item Value Reference Range Comments POC-GLUCOSE METER (BEAKER) 245 mg/dL 70-110 TESTED AT [address] (test dcvq=3708) [place] [address] POCT-GLUCOSE [id number] 16:51:00 Test Item Value Reference Range Comments POC-GLUCOSE METER (BEAKER) 277 mg/dL 70-110 TESTED AT [address] (test oghk=1299) [place] [address] LACTATE DEHYDROGENASE (LDH)2018-04-04 15:38:00 Test Item Value Reference Range Comments LACTATE DEHYDROGENASE (BEAKER) 242 U/L 125-220 Specimen slightly hemolyzed (test ahqa=085) BODY FLUID CELL COUNT WITH [id number] 13:08:00 Test Item Value Reference Range Comments APPEARANCE FLUID (BEAKER) (test qzsx=075) Hazy Clear COLOR FLUID (BEAKER) (test oupl=485) Yellow Colorless, Straw RBC FLUID (BEAKER) (test cvoa=890) 4000 /cu mm <=1 ADJUSTED WBC FLUID (BEAKER) (test twkm=8061) 221 /cu mm <=5 LINING CELLS (BEAKER) (test necq=2387) 29 /cu mm <=1 NEUTROPHILS FLUID (BEAKER) (test mlyr=3864) 2 % LYMPHS FLUID (BEAKER) (test zifu=776) 59 % MONO/MACROPHAGE FLUID (BEAKER) (test hgji=392) 39 % EOSINOPHILS FLUID (BEAKER) (test mwjt=895) 0 % BASO FLUID (BEAKER) (test ayic=378) 0 % CONTAINER BODY FLUID (BEAKER) (test mohc=2422) EDTA Tube LACTATE DEHYDROGENASE (LDH), BODY [id number] 12:43:00 Test Item Value Reference Range Comments LACTATE DEHYDROGENASE FLUID (BEAKER) < U/L Light's criteria identifies (test npgv=462) effusions if one or more are pre Absence of reference range indicates that normals have not been defined.Assay performance has not been validated for this type of specimen.PROTEIN, BODY [id number] 12:43:00 Test Item Value Reference Range Comments PROTEIN FLUID (BEAKER) (test 1.6 g/dL Light's criteria identifies aaul=646) effusions if one or more are pre Absence of reference range indicates that normals have not been defined.Assay performance has not been validated for this type of specimen.POCT-GLUCOSE [id number] 11:33:00 Test Item Value Reference Range Comments POC-GLUCOSE METER (BEAKER) 281 mg/dL 70-110 TESTED AT [facility] [address] [facility] (test jtwc=2184) [facility] [address] U/S, [id number] 11:09:00Referring: Dr. Claudio Carlson ?->RightReason for exam:->large right pleural effusion, dyspnea and increased work of breathingFINAL REPORT Indication: Right pleural effusion. Technique: Ultrasound guidedRight thoracentesis. Findings:Preliminary ultrasound confirms pleural effusion. A safe window was identified. The procedure was explained to the patient and informed consent was signed. The skin was marked and prepped in standard sterile fashion. Lidocaine was used for local anesthesia. A 4 [place] needle catheter system was advanced into the pleural space. 2000 cc cloudy yellow fluid was taken off. Patient tolerated the procedure well. Chest radiograph has been ordered. Impression: Ultrasound guidedRight thoracentesis. Signed: Afshin Paris [facility] Verified Date/Time: 04/04/2018 11:09:03 Reading Location: [facility] C013X Ortho Consult Reading Room RAD, CHEST, 1 VIEW, NON [id number] 11:02:00Referring: Dr. Claudio Smith for exam:->right side thoracentesisShould this be performed at the bedside?->YesFINAL REPORT Postthoracentesis chest dated 04/04/2018 Comment: Post thoracentesis chest demonstrates no pneumothorax.Heart is normal in size. Small to moderate residual pleural effusion is present. Impression: No pneumothorax on the post thoracentesis chest. Signed: Dionicio Schultz MDReport Verified Date/Time: 2017 11:02:38 Reading Location: [facility] C013W Consult Reading Room POCT-GLUCOSE [id number] 06:47:00 Test Item Value Reference Range Comments POC-GLUCOSE METER (BEAKER) 248 mg/dL 70-110 TESTED AT [facility] [address] [facility] (test ufyt=8181) [facility] [address] BASIC METABOLIC [id number] 06:09:00 Test Item Value Reference Range Comments SODIUM (BEAKER) (test 141 meq/L 136-145 aqsb=150) POTASSIUM (BEAKER) (test 3.1 meq/L 3.5-5.1 peyn=384) CHLORIDE (BEAKER) (test 113 meq/L 98-107 ytrh=556) CO2 (BEAKER) (test 22 meq/L 22-29 zdpa=488) BLOOD UREA NITROGEN 22 mg/dL 7-21 (BEAKER) (test lols=232) CREATININE (BEAKER) (test 0.89 mg/dL 0.57-1.25 prfa=037) GLUCOSE RANDOM (BEAKER) 227 mg/dL 70-105 (test cubc=795) CALCIUM (BEAKER) (test 7.6 mg/dL 8.4-10.2 pxny=325) EGFR (BEAKER) (test 63 mL/min/1.73 sq m ESTIMATED GFR IS NOT mgwo=2727) ACCURATE CREATININE CLEARANCE IN PREDICTING GLOMERULAR FILTRATION RATE. ESTIMATED GFR IS NOT APPLICABLE FOR DIALYSIS PATIENTS. HEPATIC FUNCTION [id number] 01:38:00 Test Item Value Reference Range Comments TOTAL PROTEIN (BEAKER) (test ybru=856) 5.0 gm/dL 6.0-8.3 ALBUMIN (BEAKER) (test yexv=2611) 2.6 g/dL 3.5-5.0 BILIRUBIN TOTAL (BEAKER) (test lruk=196) 1.7 mg/dL 0.2-1.2 BILIRUBIN DIRECT (BEAKER) (test pbjj=786) 1.0 mg/dL 0.1-0.5 ALKALINE PHOSPHATASE (BEAKER) (test qekf=097) 95 U/L 40-150 AST (SGOT) (BEAKER) (test vwiy=241) 17 U/L 5-34 ALT (SGPT) (BEAKER) (test gvyl=247) 14 U/L 6-55 RAD, CHEST, 1 VIEW, NON [id number] 01:01:00Referring: Dr. Claudio Smith for exam:->tachypnea, right pleural effusionShould this be performed at the bedside?->YesFINAL REPORT History: Tachypnea, right pleural effusion. Comparison: Outsidechest x-ray dated 2017 Findings: A single view of the chest is submitted. The cardiac silhouette is within normal limits for size. There is atherosclerotic calcification of the aorta. There is slight leftward mediastinal shift related to a right-sided pleural effusion. There is complete opacification of the right hemithorax, suggesting a large pleural effusion with underlying atelectasis. Superimposed pneumonitis should be excluded clinically. Patchy opacity in the infrahilar left lung may reflect atelectasis. There is no pneumothorax or acute bony abnormality. Signed: Alessio Fitzgerald MDReport Verified Date/Time: 04/04/2018 01: 01:54 Reading Location: [address] Reading Room [id number] 00:52:00 Test Item Value Reference Range Comments PROTIME (BEAKER) (test hopo=122) 16.8 seconds 11.7-14.7 INR (BEAKER) (test zhog=847) 1.4 <=5.9 PARTIAL THROMBOPLASTIN TIME (BEAKER) (test 30.5 seconds 22.5-36.0 hkqj=182) RECOMMENDED COUMADIN/WARFARIN INR THERAPY RANGESSTANDARD DOSE: 2.0 - 3.0 Includes: PROPHYLAXIS forvenous thrombosis, systemic embolization; TREATMENT for venous thrombosis and/or pulmonary embolus.HIGH RISK: Target INR is 2.5-3.5 for patients with mechanical heart valves.CBC W/PLT COUNT & AUTO [id number] 00:31:00 Test Item Value Reference Range Comments WHITE BLOOD CELL COUNT (BEAKER) (test pqfc=299) 5.5 K/ L 3.5-10.5 RED BLOOD CELL COUNT (BEAKER) (test ucdk=418) 4.10 M/ L 3.93-5.22 HEMOGLOBIN (BEAKER) (test tojh=981) 11.9 GM/DL 11.2-15.7 HEMATOCRIT (BEAKER) (test bgbx=870) 37.1 % 34.1-44.9 MEAN CORPUSCULAR VOLUME (BEAKER) (test trwk=363) 90.5 fL 79.4-94.8 MEAN CORPUSCULAR HEMOGLOBIN (BEAKER) (test 29.0 pg 25.6-32.2 fdfg=229) MEAN CORPUSCULAR HEMOGLOBIN CONC (BEAKER) (test 32.1 GM/DL 32.2-35.5 cnab=371) RED CELL DISTRIBUTION WIDTH (BEAKER) (test 15.9 % 11.7-14.4 psiw=320) PLATELET COUNT (BEAKER) (test thhb=814) 67 K/CU MM 150-450 MEAN PLATELET VOLUME (BEAKER) (test prrg=094) 10.4 fL 9.4-12.3 NUCLEATED RED BLOOD CELLS (BEAKER) (test 0 /100 WBC 0-0 vlys=600) NEUTROPHILS RELATIVE PERCENT (BEAKER) (test 71 % ixdb=092) LYMPHOCYTES RELATIVE PERCENT (BEAKER) (test 19 % moid=226) MONOCYTES RELATIVE PERCENT (BEAKER) (test 7 % bhme=203) EOSINOPHILS RELATIVE PERCENT (BEAKER) (test 2 % nvtf=666) BASOPHILS RELATIVE PERCENT (BEAKER) (test 0 % eizo=759) NEUTROPHILS ABSOLUTE COUNT (BEAKER) (test 3.96 K/ L 1.56-6.13 kbsu=437) LYMPHOCYTES ABSOLUTE COUNT (BEAKER) (test 1.05 K/ L 1.18-3.74 yfqt=906) MONOCYTES ABSOLUTE COUNT (BEAKER) (test pltx=878) 0.36 K/ L 0.24-0.36 EOSINOPHILS ABSOLUTE COUNT (BEAKER) (test 0.12 K/ L 0.04-0.36 pfpp=030) BASOPHILS ABSOLUTE COUNT (BEAKER) (test xrzf=830) 0.02 K/ L 0.01-0.08 IMMATURE GRANULOCYTES-RELATIVE PERCENT (BEAKER) 1 % 0-1 (test jcrk=8208) POCT-GLUCOSE [id number] 23:49:00 Test Item Value Reference Range Comments POC-GLUCOSE METER (BRIDGET) 252 mg/dL 70-110 TESTED AT [facility] [address] (test pqcq=6028) [facility] [id number] [address], [place], [id number] 12:28:00Referring: Dr. Claudio Awannemours foundation ->[facility] Hospital[facility]PORT [facility]BDOMEN CLINICAL HISTORY: Cirrhosis, evaluate renal cyst seen on prior ultrasound TECHNIQUE: CT of the abdomen is performed with and without intravenous contrast administration. This exam was performed according to our departmental dose-optimization program which includes automated exposure control , adjustment of the mA and/or kV according to patient size and/or use of iterative reconstruction technique. COMPARISON FILM: Abdominal ultrasound from 10/26/2017 DISCUSSION: LOWER THORAX: There is focal eventration of the right hemidiaphragm with small volume ascites. Otherwise, unremarkable. HEPATOBILIARY : Cirrhotic morphology of the liver. No suspicious liver lesion. Gallbladder is absent. Main portal vein measures 1.9 cm. No biliary ductal dilation.PANCREAS: Fatty atrophy of the pancreas. No pancreatic ductal dilation. No solid pancreatic lesion. SPLEEN: Spleen is enlarged measuring 19.2 cm in length. ADRENALS: No nodule. KIDNEYS: No hydronephrosis orhydroureter. No definite solid renal lesion. There is cortical scarring in the right kidney, likely the sequela of prior infection. There is a 9 mm hypodensity in the midportion of the right kidney, likely representing a cyst of interest. No definite solid enhancement or complexity is seen within thislesion, however its small size makes definitive characterization difficult. Retroaortic left renal vein. GI TRACT: Moderate colonic diverticulosis. Mild wall thickening of the hepatic flexure, likely related to portal hypertension. PERITONEUM/RETROPERITONEUM: Trace ascites. LYMPH NODES: Prominent number of subcentimeter periportal lymph nodes are likely reactive.VESSELS: Abdominal aorta normal in caliber.. SMV and splenic vein are patent. Main portal vein is patent. BONES AND SOFT TISSUES: Degenerative changes in the lumbar spine. No destructive osseous lesion. IMPRESSION: The right renal lesion ofinterest likely represents a benign cyst. Small size of the cyst makes definitive characterization difficult. No definite solid enhancing component or complexity. This cyst may be monitored on routine surveillance imaging for cirrhosis. Cirrhosis, splenomegaly, and findings of portal hypertension. No suspicious liver lesion. Trace ascites. Signed: Juventino Aceves MDReport Verified Date/Time: 12/31/201712:28:25 Reading Location: [address] Radiology Reading Room ANTI-NUCLEAR ANTIBODY (JUNG)2017-12-18 10:59:00 Test Item Value Reference Range Comments ANTI-NUCLEAR ANTIBODY (JUNG) (BEAKER) (test Negative Negative izbi=652) Test performed by IFA method.Test performed by IFA method.[id number] 12: 37:00 Test Item Value Reference Range Comments FERRITIN (BEAKER) (test qvfp=558) 64 ng/mL 5-275 [id number] 12:36:00 Test Item Value Reference Range Comments THYROID STIMULATING HORMONE (BEAKER) (test 1.18 uIU/mL 0.35-4.94 pbzt=898) HEPATITIS B SURFACE [id number] 11:53:00 Test Item Value Reference Range Comments HEPATITIS B SURFACE ANTIBODY (BEAKER) (test < mIU/mL <8.0 iopc=098) COMPREHENSIVE METABOLIC [id number] 11:51:00 Test Item Value Reference Range Comments TOTAL PROTEIN (BEAKER) 6.9 gm/dL 6.0-8.3 (test jxsh=583) ALBUMIN (BEAKER) (test 3.8 g/dL 3.5-5.0 xwlw=4109) ALKALINE PHOSPHATASE 108 U/L 40-150 (BEAKER) (test venz=052) BILIRUBIN TOTAL (BEAKER) 2.1 mg/dL 0.2-1.2 (test domj=323) SODIUM (BEAKER) (test 139 meq/L 136-145 esxj=652) POTASSIUM (BEAKER) (test 3.8 meq/L 3.5-5.1 zfxi=703) CHLORIDE (BEAKER) (test 106 meq/L 98-107 uglj=596) CO2 (BEAKER) (test 22 meq/L 22-29 hooa=779) BLOOD UREA NITROGEN 12 mg/dL 7-21 (BEAKER) (test ghad=240) CREATININE (BEAKER) (test 1.00 mg/dL 0.57-1.25 bbnv=465) GLUCOSE RANDOM (BEAKER) 189 mg/dL 70-105 (test prnu=571) CALCIUM (BEAKER) (test 9.7 mg/dL 8.4-10.2 abzw=855) AST (SGOT) (BEAKER) (test 23 U/L 5-34 tkku=036) ALT (SGPT) (BEAKER) (test 14 U/L 6-55 chhc=811) EGFR (BEAKER) (test 55 mL/min/1.73 sq m ESTIMATED GFR IS NOT mqoz=4236) ACCURATE CREATININE CLEARANCE IN PREDICTING GLOMERULAR FILTRATION RATE. ESTIMATED GFR IS NOT APPLICABLE FOR DIALYSIS PATIENTS. Specimen slightly ictericHEPATITIS A ANTIBODY, [id number] 11:37:00 Test Item Value Reference Range Comments HEPATITIS A IGG ANTIBODY (BEAKER) (test dyez=6961) Reactive Nonreactive HEPATITIS B SURFACE [id number] 11:29:00 Test Item Value Reference Range Comments HEPATITIS B SURFACE ANTIGEN (2) (BEAKER) (test Nonreactive Nonreactive nige=8630) HEPATITIS C [id number] 11:29:00 Test Item Value Reference Range Comments HEPATITIS C ANTIBODY (BEAKER) (test ulgg=200) Nonreactive Nonreactive ALPHA FETOPROTEIN (AFP), TUMOR [id number] 11:27:00 Test Item Value Reference Range Comments ALPHA-FETOPROTEIN (BEAKER) (test abal=7048) 5.7 ng/mL <10.0 HEPATITIS A ANTIBODY, [id number] 11:27:00 Test Item Value Reference Range Comments HEPATITIS A IGM ANTIBODY (BEAKER) (test Nonreactive Nonreactive jejw=038) HEPATITIS B CORE ANTIBODY, [id number] 11:27:00 Test Item Value Reference Range Comments HEPATITIS B CORE TOTAL ANTIBODY (BEAKER) (test Nonreactive Nonreactive mjvd=984) IRON, TIBC, % SAT. (WITHOUT FERRITIN)2017-12-17 11:11:00 Test Item Value Reference Range Comments IRON (BEAKER) (test jfyk=500) 120 ug/dL 40-160 TOTAL IRON BINDING CAPACITY (BEAKER) (test 323 ug/dL 250-450 ynlk=738) IRON % SATURATION (2) (BEAKER) (test niji=2650) 37 % 20-55 BILIRUBIN, [id number] 11:09:00 Test Item Value Reference Range Comments BILIRUBIN DIRECT (BEAKER) (test plug=626) 1.0 mg/dL 0.1-0.5 [id number] 11:01:00 Test Item Value Reference Range Comments ALPHA-1 ANTITRYPSIN (BEAKER) (test utot=906) 147.50 mg/dL 90.00-200.00 PROTHROMBIN [id number] 10:48:00 Test Item Value Reference Range Comments PROTIME (BEAKER) (test sxaf=240) 16.2 seconds 11.7-14.7 INR (BEAKER) (test eonr=293) 1.3 <=5.9 RECOMMENDED COUMADIN/WARFARIN INR THERAPY RANGESSTANDARD DOSE: 2.0 - 3.0 Includes: PROPHYLAXIS forvenous thrombosis, systemic embolization; TREATMENT for venous thrombosis and/or pulmonary embolus.HIGH RISK: Target INR is 2.5-3.5 for patients with mechanical heart valves.CBC W/PLT COUNT & AUTO [id number] 10:42:00 Test Item Value Reference Range Comments WHITE BLOOD CELL COUNT (BEAKER) (test deci=021) 2.7 K/ L 3.5-10.5 RED BLOOD CELL COUNT (BEAKER) (test upqd=998) 3.97 M/ L 3.93-5.22 HEMOGLOBIN (BEAKER) (test kbkt=719) 11.6 GM/DL 11.2-15.7 HEMATOCRIT (BEAKER) (test iaht=896) 35.8 % 34.1-44.9 MEAN CORPUSCULAR VOLUME (BEAKER) (test ejqy=684) 90.2 fL 79.4-94.8 MEAN CORPUSCULAR HEMOGLOBIN (BEAKER) (test 29.2 pg 25.6-32.2 ngve=835) MEAN CORPUSCULAR HEMOGLOBIN CONC (BEAKER) (test 32.4 GM/DL 32.2-35.5 cnaq=135) RED CELL DISTRIBUTION WIDTH (BEAKER) (test 15.3 % 11.7-14.4 pcxu=426) PLATELET COUNT (BEAKER) (test qiry=597) 59 K/CU MM 150-450 MEAN PLATELET VOLUME (BEAKER) (test akib=683) 10.4 fL 9.4-12.3 NUCLEATED RED BLOOD CELLS (BEAKER) (test 0 /100 WBC 0-0 jmgv=977) NEUTROPHILS RELATIVE PERCENT (BEAKER) (test 64 % hsdr=945) LYMPHOCYTES RELATIVE PERCENT (BEAKER) (test 27 % xgrt=748) MONOCYTES RELATIVE PERCENT (BEAKER) (test 5 % yrvu=170) EOSINOPHILS RELATIVE PERCENT (BEAKER) (test 3 % enpl=701) BASOPHILS RELATIVE PERCENT (BEAKER) (test 0 % ibzr=138) NEUTROPHILS ABSOLUTE COUNT (BEAKER) (test 1.74 K/ L 1.56-6.13 melf=332) LYMPHOCYTES ABSOLUTE COUNT (BEAKER) (test 0.74 K/ L 1.18-3.74 jfef=992) MONOCYTES ABSOLUTE COUNT (BEAKER) (test ydrb=400) 0.14 K/ L 0.24-0.36 EOSINOPHILS ABSOLUTE COUNT (BEAKER) (test 0.08 K/ L 0.04-0.36 ytbf=005) BASOPHILS ABSOLUTE COUNT (BEAKER) (test ytsy=383) 0.01 K/ L 0.01-0.08 IMMATURE GRANULOCYTES-RELATIVE PERCENT (BEAKER) 0 % 0-1 (test hnru=3743) POCT-GLUCOSE [id number] 13:00:00 Test Item Value Reference Range Comments POC-GLUCOSE METER (BEAKER) 267 mg/dL 70-110 TESTED AT [address] (test zzte=6208) [place] [address] POCT-GLUCOSE [id number] 08:19:00 Test Item Value Reference Range Comments POC-GLUCOSE METER (BEAKER) 168 mg/dL 70-110 TESTED AT [address] (test gvxg=7843) [place] [address] [id number] 06:00:00 Test Item Value Reference Range Comments MAGNESIUM (BEAKER) (test sjpx=822) 1.3 mg/dL 1.6-2.6 BASIC METABOLIC [id number] 06:00:00 Test Item Value Reference Range Comments SODIUM (BEAKER) (test 138 meq/L 136-145 vmlc=413) POTASSIUM (BEAKER) (test 4.3 meq/L 3.5-5.1 uacv=954) CHLORIDE (BEAKER) (test 107 meq/L 98-107 ames=071) CO2 (BEAKER) (test 26 meq/L 22-29 qoid=666) BLOOD UREA NITROGEN 14 mg/dL 7-21 (BEAKER) (test lynj=454) CREATININE (BEAKER) (test 0.94 mg/dL 0.57-1.25 ddkb=620) GLUCOSE RANDOM (BEAKER) 187 mg/dL 70-105 (test joxa=499) CALCIUM (BEAKER) (test 9.1 mg/dL 8.4-10.2 dwug=654) EGFR (BEAKER) (test 59 mL/min/1.73 sq m ESTIMATED GFR IS NOT itlm=1117) ACCURATE CREATININE CLEARANCE IN PREDICTING GLOMERULAR FILTRATION RATE. ESTIMATED GFR IS NOT APPLICABLE FOR DIALYSIS PATIENTS. CBC (HEMOGRAM ONLY)2017-12-07 05:22:00 Test Item Value Reference Range Comments WHITE BLOOD CELL COUNT (BEAKER) (test yasr=534) 1.2 K/ L 3.5-10.5 RED BLOOD CELL COUNT (BEAKER) (test yltp=370) 3.26 M/ L 3.93-5.22 HEMOGLOBIN (BEAKER) (test xztj=532) 9.5 GM/DL 11.2-15.7 HEMATOCRIT (BEAKER) (test puyt=449) 29.6 % 34.1-44.9 MEAN CORPUSCULAR VOLUME (BEAKER) (test nyqi=569) 90.8 fL 79.4-94.8 MEAN CORPUSCULAR HEMOGLOBIN (BEAKER) (test 29.1 pg 25.6-32.2 pila=118) MEAN CORPUSCULAR HEMOGLOBIN CONC (BEAKER) (test 32.1 GM/DL 32.2-35.5 svtj=957) RED CELL DISTRIBUTION WIDTH (BEAKER) (test 14.9 % 11.7-14.4 mogr=412) PLATELET COUNT (BEAKER) (test plbp=033) 44 K/CU MM 150-450 MEAN PLATELET VOLUME (BEAKER) (test cqsq=294) 10.2 fL 9.4-12.3 NUCLEATED RED BLOOD CELLS (BEAKER) (test 0 /100 WBC 0-0 jvxt=735) POCT-GLUCOSE [id number] 01:06:00 Test Item Value Reference Range Comments POC-GLUCOSE METER (BEAKER) 241 mg/dL 70-110 TESTED AT [facility] [address] [facility] (test yvpi=1375) [facility] [address] POCT-GLUCOSE [id number] 18:09:00 Test Item Value Reference Range Comments POC-GLUCOSE METER (BEAKER) 272 mg/dL 70-110 TESTED AT [address] (test copk=9965) [facility] [address] POCT-GLUCOSE [id number] 18:04:00 Test Item Value Reference Range Comments POC-GLUCOSE METER (BEAKER) 213 mg/dL 70-110 TESTED AT [address] (test fhln=1308) [facility] [address] POCT-GLUCOSE [id number] 18:02:00 Test Item Value Reference Range Comments POC-GLUCOSE METER (BEAKER) 238 mg/dL 70-110 TESTED AT [address] (test sbvi=9546) [facility] [address] POCT-GLUCOSE [id number] 08:18:00 Test Item Value Reference Range Comments POC-GLUCOSE METER (BEAKER) 251 mg/dL 70-110 TESTED AT [address] (test iylz=7446) [facility] [address] [id number] 06:22:00 Test Item Value Reference Range Comments MAGNESIUM (BEAKER) (test wpxs=947) 1.6 mg/dL 1.6-2.6 BASIC METABOLIC [id number] 06:22:00 Test Item Value Reference Range Comments SODIUM (BEAKER) (test 137 meq/L 136-145 dyhm=539) POTASSIUM (BEAKER) (test 4.2 meq/L 3.5-5.1 npnm=900) CHLORIDE (BEAKER) (test 108 meq/L 98-107 wlhy=462) CO2 (BEAKER) (test 22 meq/L 22-29 mqdk=340) BLOOD UREA NITROGEN 12 mg/dL 7-21 (BEAKER) (test zlis=184) CREATININE (BEAKER) (test 1.01 mg/dL 0.57-1.25 tchn=839) GLUCOSE RANDOM (BEAKER) 220 mg/dL 70-105 (test irga=500) CALCIUM (BEAKER) (test 8.8 mg/dL 8.4-10.2 umkq=769) EGFR (BEAKER) (test 55 mL/min/1.73 sq m ESTIMATED GFR IS NOT gzmb=2960) ACCURATE CREATININE CLEARANCE IN PREDICTING GLOMERULAR FILTRATION RATE. ESTIMATED GFR IS NOT APPLICABLE FOR DIALYSIS PATIENTS. CBC (HEMOGRAM ONLY)2017-12-06 05:32:00 Test Item Value Reference Range Comments WHITE BLOOD CELL COUNT (BEAKER) (test jduv=036) 1.4 K/ L 3.5-10.5 RED BLOOD CELL COUNT (BEAKER) (test ezjq=973) 3.45 M/ L 3.93-5.22 HEMOGLOBIN (BEAKER) (test qavd=733) 9.7 GM/DL 11.2-15.7 HEMATOCRIT (BEAKER) (test icqs=125) 31.1 % 34.1-44.9 MEAN CORPUSCULAR VOLUME (BEAKER) (test rnip=831) 90.1 fL 79.4-94.8 MEAN CORPUSCULAR HEMOGLOBIN (BEAKER) (test 28.1 pg 25.6-32.2 obod=942) MEAN CORPUSCULAR HEMOGLOBIN CONC (BEAKER) (test 31.2 GM/DL 32.2-35.5 zfyi=883) RED CELL DISTRIBUTION WIDTH (BEAKER) (test 15.0 % 11.7-14.4 jzel=988) PLATELET COUNT (BEAKER) (test pstf=483) 51 K/CU MM 150-450 MEAN PLATELET VOLUME (BEAKER) (test myjg=584) 10.8 fL 9.4-12.3 NUCLEATED RED BLOOD CELLS (BEAKER) (test 0 /100 WBC 0-0 bfnh=857) POCT-GLUCOSE [id number] 21:17:00 Test Item Value Reference Range Comments POC-GLUCOSE METER (BEAKER) 312 mg/dL 70-110 Notified MELIDA MILLIGAN/TESTED AT [facility] (test exsc=1006) [address] [facility] [address] MR, BRAIN, WITHOUT [id number] 13:21:00FINAL REPORT MRI brain without contrast INDICATION: Seizures, new or progressive TECHNIQUE: Multiplanar, multisequence MR imaging of the brain was performed utilizing the following imaging sequences: Axial T2, FLAIR, GRE, and DWI; sagittal and coronal T1 COMPARISON: MRI brain 10/25/2017 FINDINGS:The exam is motion degraded. Abnormalities may be obscured. There is a 1.0 x 0.6 cm x 1.5 cm (transverse by AP by cc) focus of signal alteration ventral to the caleb and abutting the basilar artery flow void. There is diffusion restriction and inhomogeneous FLAIR and T2 signal. This is suspicious for a small epidermoid. Punctate left parietal lobe centered stability artifact may reflect chronic hemorrhage or calcification, stable. Scattered chronic white matter signal changes are stable and likely of microvascular etiology. There is no specific evidence of acute infarct or hemorrhage. There is volume loss with frontal lobe predominance. The major vascular flow voids are maintained. The sella and craniocervical junction are unremarkable. Elongated globes suggest axial myopia with cataract surgery changes. There is mild chronic sinus mucosal disease and small volume right mastoid air cell fluid. IMPRESSION: 1. Small focus of abnormal signal ventral to the caleb suggestive of an epidermoid, stable compared to 10/25/2017. 2. Stable chronic white matter signal changes, likely of microvascular etiology. No specific evidence of acute infarct or hemorrhage. 3. Additional chronic and involutional findings as discussed. 4. Motion degraded exam. Signed: Jacquie Singer MDReport Verified Date/Time: 12/05/2017 13: 21:55 Reading Location: [address] Neuro Reading Room Electronicallysigned by: JACQUIE SINGER M.D. on 12/05/2017 01:21 PMPOCT-GLUCOSE [id number] 13:14:00 Test Item Value Reference Range Comments POC-GLUCOSE METER (BEAKER) 186 mg/dL 70-110 TESTED AT [address] (test rdyc=0925) [facility] [address] POCT-GLUCOSE [id number] 08:16:00 Test Item Value Reference Range Comments POC-GLUCOSE METER (BEAKER) 210 mg/dL 70-110 TESTED AT [address] (test matr=4155) [facility] [address] CBC (HEMOGRAM ONLY)2017-12-05 05:40:00 Test Item Value Reference Range Comments WHITE BLOOD CELL COUNT (BEAKER) (test tbab=060) 1.4 K/ L 3.5-10.5 RED BLOOD CELL COUNT (BEAKER) (test itar=353) 3.46 M/ L 3.93-5.22 HEMOGLOBIN (BEAKER) (test zjxn=949) 9.9 GM/DL 11.2-15.7 HEMATOCRIT (BEAKER) (test dmfs=524) 30.6 % 34.1-44.9 MEAN CORPUSCULAR VOLUME (BEAKER) (test igty=632) 88.4 fL 79.4-94.8 MEAN CORPUSCULAR HEMOGLOBIN (BEAKER) (test 28.6 pg 25.6-32.2 zezh=533) MEAN CORPUSCULAR HEMOGLOBIN CONC (BEAKER) (test 32.4 GM/DL 32.2-35.5 toxf=224) RED CELL DISTRIBUTION WIDTH (BEAKER) (test 15.1 % 11.7-14.4 nspg=289) PLATELET COUNT (BEAKER) (test lbdw=308) 41 K/CU MM 150-450 MEAN PLATELET VOLUME (BEAKER) (test kmgq=481) 10.3 fL 9.4-12.3 NUCLEATED RED BLOOD CELLS (BEAKER) (test 0 /100 WBC 0-0 hddk=678) [id number] 05:16:00 Test Item Value Reference Range Comments MAGNESIUM (BEAKER) (test tove=536) 1.9 mg/dL 1.6-2.6 BASIC METABOLIC [id number] 05:16:00 Test Item Value Reference Range Comments SODIUM (BEAKER) (test 137 meq/L 136-145 mraa=164) POTASSIUM (BEAKER) (test 3.9 meq/L 3.5-5.1 czdj=055) CHLORIDE (BEAKER) (test 107 meq/L 98-107 dbhq=582) CO2 (BEAKER) (test 24 meq/L 22-29 vlde=388) BLOOD UREA NITROGEN 12 mg/dL 7-21 (BEAKER) (test levm=514) CREATININE (BEAKER) (test 0.96 mg/dL 0.57-1.25 utvn=792) GLUCOSE RANDOM (BEAKER) 187 mg/dL 70-105 (test glrs=466) CALCIUM (BEAKER) (test 9.0 mg/dL 8.4-10.2 gntv=307) EGFR (BEAKER) (test 58 mL/min/1.73 sq m ESTIMATED GFR IS NOT jldk=4031) ACCURATE CREATININE CLEARANCE IN PREDICTING GLOMERULAR FILTRATION RATE. ESTIMATED GFR IS NOT APPLICABLE FOR DIALYSIS PATIENTS. POCT-GLUCOSE [id number] 21:43:00 Test Item Value Reference Range Comments POC-GLUCOSE METER (BEAKER) 245 mg/dL 70-110 TESTED AT [address] (test kqqz=7662) [facility] [address] POCT-GLUCOSE [id number] 17:53:00 Test Item Value Reference Range Comments POC-GLUCOSE METER (BEAKER) 145 mg/dL 70-110 TESTED AT [address] (test jirs=8866) [facility] [address] BLOOD GAS, [id number] 16:58:00 Test Item Value Reference Range Comments PH VENOUS (BEAKER) (test cfbr=699) 7.39 7.32-7.42 PCO2 VENOUS (BEAKER) (test vlqv=236) 41 mmHg 41-51 PO2 VENOUS (BEAKER) (test pmqx=023) 47 mmHg 25-40 O2 SATURATION VENOUS (BEAKER) (test oxwh=551) 82.6 % 40.0-70.0 HCO3 VENOUS (BEAKER) (test enwk=211) 25 mmol/L 21-29 BASE EXCESS VENOUS (BEAKER) (test gbvv=331) -0.3 mmol/L -2.0-3.0 PATIENT TEMPERATURE (BEAKER) (test tlad=4579) 37.0 C POCT-GLUCOSE [id number] 16:53:00 Test Item Value Reference Range Comments POC-GLUCOSE METER (BEAKER) 143 mg/dL 70-110 TESTED AT [address] (test swga=0676) [place] [id number] EEG AWAKE/ASLEEP AND [id number] 15:04:00Reason for exam:->syncope with possible post-ictal stateDATE OF TEST: 12/04/17DATE OF REPORT: 12/04/17ACC: [id number]: [id number] Location: Outpatient EEG labStart time: 12:56Stop time : 1:17ICD-10: R56.9CPT Code: 69556 HISTORY: 67 y/o F with history of TIA,s/p episode of unresponsiveness requiring CPR MEDICATIONS THAT COULD AFFECT EEG: None TECHNICAL SUMMARY: This is a digital video EEG recorded with 32 input channels reviewed with bipolar and referential montages using the modified combinatorial system nomenclature. DESCRIPTION OF RECORD: During the maximally alert state an 8-9 Hz posterior dominant rhythm was seen that was symmetric, reactive to eyeopening and well regulated. More anteriorly, low voltage frontocentral beta predominated. Drowsiness was characterized by alpha attenuation and increased frontocentral theta. Stage 2 sleep was characterized by bilateral spindles, POSTs and K-complexes. HV: Hyperventilation not performed PHOTIC STIMULATION: Flash stimulation was done from 1-33 Hz; photoparoxysmal responses were absent. SIGNIFICANT VIDEO EVENTS: None SIGNIFICANT ELECTROCARDIOGRAM EVENTS: None IMPRESSION: Normal awake and asleepEEG CLINICAL CORRELATION: An EEG without epileptiform discharges does not exclude the possibility ofepilepsy. If the clinical suspicion of epilepsy remains, consider additional EEG recordings. Linette Davenport MD, PhDEpilepsy Fellow Jacob Monreal MD MSClinical Neurophysiology/Epilepsy Attending POCT- GLUCOSE [id number] 15:03:00 Test Item Value Reference Range Comments POC-GLUCOSE METER (BEAKER) 139 mg/dL 70-110 TESTED AT [facility] [address] [facility] (test qyyy=4609) [facility] [address] COMPREHENSIVE METABOLIC [id number] 12:09:00 Test Item Value Reference Range Comments TOTAL PROTEIN (BEAKER) 6.2 gm/dL 6.0-8.3 (test ouxg=046) ALBUMIN (BEAKER) (test 3.4 g/dL 3.5-5.0 klla=1793) ALKALINE PHOSPHATASE 75 U/L 40-150 (BEAKER) (test stdf=129) BILIRUBIN TOTAL (BEAKER) 1.4 mg/dL 0.2-1.2 (test kplw=902) SODIUM (BEAKER) (test 138 meq/L 136-145 roam=375) POTASSIUM (BEAKER) (test 3.9 meq/L 3.5-5.1 heqo=519) CHLORIDE (BEAKER) (test 107 meq/L 98-107 wjhc=644) CO2 (BEAKER) (test 21 meq/L 22-29 mxbv=955) BLOOD UREA NITROGEN 18 mg/dL 7-21 (BEAKER) (test lwzc=731) CREATININE (BEAKER) (test 1.19 mg/dL 0.57-1.25 rvug=797) GLUCOSE RANDOM (BEAKER) 243 mg/dL 70-105 (test phlk=213) CALCIUM (BEAKER) (test 8.5 mg/dL 8.4-10.2 lsza=252) AST (SGOT) (BEAKER) (test 18 U/L 5-34 vrpx=529) ALT (SGPT) (BEAKER) (test 12 U/L 6-55 tahe=797) EGFR (BEAKER) (test 45 mL/min/1.73 sq m ESTIMATED GFR IS NOT jens=0748) ACCURATE CREATININE CLEARANCE IN PREDICTING GLOMERULAR FILTRATION RATE. ESTIMATED GFR IS NOT APPLICABLE FOR DIALYSIS PATIENTS. PROTHROMBIN TIME/[id number] 10:43:00 Test Item Value Reference Range Comments PROTIME (BEAKER) (test zaxz=934) 17.2 seconds 11.7-14.7 INR (BEAKER) (test rczb=437) 1.4 <=5.9 RECOMMENDED COUMADIN/WARFARIN INR THERAPY RANGESSTANDARD DOSE: 2.0 - 3.0 Includes: PROPHYLAXIS forvenous thrombosis, systemic embolization; TREATMENT for venous thrombosis and/or pulmonary embolus.HIGH RISK: Target INR is 2.5-3.5 for patients with mechanical heart valves.[id number] 10:36:00 Test Item Value Reference Range Comments MAGNESIUM (BEAKER) (test ovem=354) 1.2 mg/dL 1.6-2.6 CREATINE KINASE (CK)2017-12-04 10:36:00 Test Item Value Reference Range Comments CREATINE KINASE TOTAL (BEAKER) (test tcry=676) 78 U/L 29-200 LACTIC ACID, VENOUS, WHOLE [id number] 10:31:00 Test Item Value Reference Range Comments LACTATE BLOOD VENOUS (2) (BEAKER) (test 1.4 mmol/L 0.5-2.2 dhxh=0379) Effective 09/12/2015: Units/Reference Range ChangeNew: 0.5-2.2 mmol/L Previous: 5 -20 mg/[id number] 10:26:00 Test Item Value Reference Range Comments AMMONIA (BEAKER) (test kohf=326) 49 mol/L 18-72 CBC W/PLT COUNT & AUTO [id number] 10:12:00 Test Item Value Reference Range Comments WHITE BLOOD CELL COUNT (BEAKER) (test mteu=887) 2.2 K/ L 3.5-10.5 RED BLOOD CELL COUNT (BEAKER) (test fcgk=573) 3.49 M/ L 3.93-5.22 HEMOGLOBIN (BEAKER) (test vowt=959) 10.0 GM/DL 11.2-15.7 HEMATOCRIT (BEAKER) (test wwio=597) 31.1 % 34.1-44.9 MEAN CORPUSCULAR VOLUME (BEAKER) (test ceic=148) 89.1 fL 79.4-94.8 MEAN CORPUSCULAR HEMOGLOBIN (BEAKER) (test 28.7 pg 25.6-32.2 zict=414) MEAN CORPUSCULAR HEMOGLOBIN CONC (BEAKER) (test 32.2 GM/DL 32.2-35.5 mycy=919) RED CELL DISTRIBUTION WIDTH (BEAKER) (test 15.1 % 11.7-14.4 rbnf=590) PLATELET COUNT (BEAKER) (test jqyx=017) 39 K/CU MM 150-450 MEAN PLATELET VOLUME (BEAKER) (test cawz=867) 9.7 fL 9.4-12.3 NUCLEATED RED BLOOD CELLS (BEAKER) (test 0 /100 WBC 0-0 bnrq=538) NEUTROPHILS RELATIVE PERCENT (BEAKER) (test 70 % eijz=723) LYMPHOCYTES RELATIVE PERCENT (BEAKER) (test 22 % robz=456) MONOCYTES RELATIVE PERCENT (BEAKER) (test 6 % iuyi=256) EOSINOPHILS RELATIVE PERCENT (BEAKER) (test 2 % rali=247) BASOPHILS RELATIVE PERCENT (BEAKER) (test 0 % rwwb=492) NEUTROPHILS ABSOLUTE COUNT (BEAKER) (test 1.55 K/ L 1.56-6.13 narf=048) LYMPHOCYTES ABSOLUTE COUNT (BEAKER) (test 0.48 K/ L 1.18-3.74 kkon=655) MONOCYTES ABSOLUTE COUNT (BEAKER) (test snzr=204) 0.14 K/ L 0.24-0.36 EOSINOPHILS ABSOLUTE COUNT (BEAKER) (test 0.05 K/ L 0.04-0.36 hhec=248) BASOPHILS ABSOLUTE COUNT (BEAKER) (test vvqo=510) 0.00 K/ L 0.01-0.08 IMMATURE GRANULOCYTES-RELATIVE PERCENT (BEAKER) 0 % 0-1 (test rlmg=6233) POCT-GLUCOSE [id number] 10:08:00 Test Item Value Reference Range Comments POC-GLUCOSE METER (BEAKER) 270 mg/dL 70-110 TESTED AT [facility] [address] [facility] (test rdmn=2246) [facility] [address] IMMUNOFIXATION ELECTROPHORESIS (TERRANCE)2017-10-30 17:57:00 Test Item Value Reference Range Comments IMMUNOGLOBULIN G (IGG) (BEAKER) 981 mg/dL 540-1822 (test lvef=138) IMMUNOGLOBULIN A (IGA) (BEAKER) 703 mg/dL 63-484 (test olfv=915) IMMUNOGLOBULIN M (IGM) (BEAKER) 27 mg/dL 22-293 (test sztw=544) SERUM TERRANCE ID (BEAKER) (test IgA-lambda, monoclonal x 2 ztcz=0351) [id number] (BEAKER) Sara Lyman MD (test uabt=0682) (electronic signature) [id number] 03:56:00 Test Item Value Reference Range Comments RPR SCREEN (BEAKER) (test plvq=538) Nonreactive Nonreactive PROTEIN ELECTROPHORESIS, [id number] 17:14:00 Test Item Value Reference Range Comments ALBUMIN FRACTION (BEAKER) 3.3 g/dL 3.5-5.5 (test vcag=670) ALPHA 1 FRACTION (BEAKER) 0.3 g/dL 0.2-0.4 (test gula=788) ALPHA 2 FRACTION (BEAKER) 0.7 g/dL 0.5-0.9 (test qrab=000) BETA FRACTION (BEAKER) 1.4 g/dL 0.6-1.1 (test ipfk=716) GAMMA GLOBULIN FRACTION 0.9 g/dL 0.7-1.7 (BEAKER) (test egvc=547) INTERPRETATION-119 (BEAKER) High beta globulins. Please refer (test zljv=4201) to serum immunofixation electrophoresis to evaluate for underlying monoclonal band. [id number] Mary Garcia MD (electronic (BEAKER) (test qocp=4086) signature) PROTEIN TOTAL SERUM, SPEP 6.6 gm/dL 6.0-8.3 (BEAKER) (test gndv=9266) CBC W/PLT COUNT & AUTO [id number] 12:32:00 Test Item Value Reference Range Comments WHITE BLOOD CELL COUNT (BEAKER) 1.7 K/ L 3.5-10.5 This is a corrected result. (test wnth=802) Previous result was 1.8 K/ L on 10/26/2017 at 0508 CDT RED BLOOD CELL COUNT (BEAKER) 3.44 M/ L 3.93-5.22 This is a corrected result. (test gmhw=745) Previous result was 3.43 M/ L on 10/26/2017 at 0508 CDT HEMOGLOBIN (BEAKER) (test 9.9 GM/DL 11.2-15.7 jdlk=857) HEMATOCRIT (BEAKER) (test 31.1 % 34.1-44.9 This is a corrected result. gqfr=785) Previous result was 31.0 % on 10/26/2017 at 0508 CDT MEAN CORPUSCULAR VOLUME 90.4 fL 79.4-94.8 (BEAKER) (test lwcw=910) MEAN CORPUSCULAR HEMOGLOBIN 28.8 pg 25.6-32.2 This is a corrected result. (BEAKER) (test pvaj=304) Previous result was 28.9 pg on 10/26/2017 at 0508 CDT MEAN CORPUSCULAR HEMOGLOBIN 31.8 GM/DL 32.2-35.5 This is a corrected result. CONC (BEAKER) (test hhhh=263) Previous result was 31.9 GM/DL on 10/26/2017 at 0508 CDT RED CELL DISTRIBUTION WIDTH 13.8 % 11.7-14.4 (BEAKER) (test xtzb=376) PLATELET COUNT (BEAKER) (test 41 K/CU MM 150-450 This is a corrected result. hsro=426) Previous result was 42 K/CU MM on 10/26/2017 at 0508 CDT MEAN PLATELET VOLUME (BEAKER) 11.0 fL 9.4-12.3 This is a corrected result. (test pvbq=706) Previous result was 11.1 fL on 10/26/2017 at 0508 CDT NUCLEATED RED BLOOD CELLS 0 /100 WBC 0-0 (BEAKER) (test bqni=110) (CELLAVISION MANUAL DIFF)2017-10-26 12:32:00 Test Item Value Reference Range Comments NEUTROPHILS - REL (CELLAVISION)(BEAKER) (test 46 % wvsj=1565) LYMPHOCYTES - REL (CELLAVISION)(BEAKER) (test 38 % nyjp=7219) MONOCYTES - REL (CELLAVISION)(BEAKER) (test 5 % mlbk=0150) BASOPHILS - REL (CELLAVISION)(BEAKER) (test 1 % qlnd=9558) BANDS - REL (CELLAVISION)(BEAKER) (test qghc=3059) 8 % 0-10 ATYPICAL LYMPHOCYTES - REL (CELLAVISION)(BEAKER) 1 % 0-0 (test qypl=7744) NEUTROPHILS - ABS (CELLAVISION)(BEAKER) (test 0.78 K/ul 1.56-6.13 rcmb=4844) LYMPHOCYTES - ABS (CELLAVISION)(BEAKER) (test 0.65 K/ul 1.18-3.74 yysw=1824) MONOCYTES - ABS (CELLAVISION)(BEAKER) (test 0.09 K/uL 0.24-0.36 pziq=7678) BASOPHILS - ABS (CELLAVISION)(BEAKER) (test 0.02 K/uL 0.01-0.08 ppas=3942) BANDS - ABS (CELLAVISION)(BEAKER) (test mtye=6737) 0.14 K/uL 0.00-0.80 ATYPICAL LYMPHOCYTES - ABS (CELLAVISION)(BEAKER) 0.02 K/uL 0.00-0.00 (test lbsk=6293) TOTAL COUNTED (BEAKER) (test auzg=9696) 100 SMUDGE CELLS (BEAKER) (test ukih=2962) Present GIANT PLATELETS (BEAKER) (test vuwk=080) Present ANISOCYTOSIS (BEAKER) (test iygc=055) 1+ few MICROCYTES (BEAKER) (test dide=377) 1+ few POIKILOCYTES (BEAKER) (test sqgg=467) 1+ few ARTIFACT (CELLAVISION)(BEAKER) (test srcl=1181) Present PLATELET CONCENTRATION (CELLAVISION)(BEAKER) (test Decreased vzka=7880) Received comment: User comments: Slide comments:POCT-GLUCOSE [id number] 12: 22:00 Test Item Value Reference Range Comments POC-GLUCOSE METER (BEAKER) 172 mg/dL 70-110 TESTED AT [facility] [address] [facility] (test nfeg=2986) [place] [address] U/S, ABDOMINAL, [id number] 09:51:00Reason for exam:->questionable cirrhosisFINAL REPORT Abdominal ultrasound dated 2017 Comment: Real-time transabdominal ultrasound of the right upper quadrant abdomen was performed. Liver is normal in size and measures 14.6 cm in length. The echogenicity of the liver is course with irregular margins consistent with cirrhosis. No focal lesion is noted in the liver. Gallbladder is surgically absent. Nldy-sm-ncpwohji biliary dilatation is seen. Common bile duct measures 8 mm in diameter. Main portal vein measures 12 mm in diameter. Pancreas is incompletely visualized. Right kidney measures 9.0 x 3.7 x 3.4 cm. Echogenicity of the right kidney is increased. A 1.3 x 1.4 cm cyst is seen in the right kidney. No ascites is present in the abdomen. Abdominal aorta is normal in caliber. IVC and Hepatic veins are patent. Impression:1. Cirrhosis without suspicious hepatic mass.2. Biliary dilatation secondary to postcholecystectomy changes.3. Incomplete visualization of the pancreas secondary to overlying gas. Signed: Dionicio Schultz MDReport Verified Date/Time: 09:51:16 Reading Location: [place] [id number] Ultrasound Reading Room POCT-GLUCOSE [id number] 08:07:00 Test Item Value Reference Range Comments POC-GLUCOSE METER (BEAKER) 135 mg/dL 70-110 TESTED AT [facility] [address] [place] [address] (test saon=3578) [facility] [address] COMPREHENSIVE METABOLIC [id number] 06:27:00 Test Item Value Reference Range Comments TOTAL PROTEIN (BEAKER) 6.2 gm/dL 6.0-8.3 (test qcsv=617) ALBUMIN (BEAKER) (test 3.4 g/dL 3.5-5.0 tvgc=9980) ALKALINE PHOSPHATASE 94 U/L 40-150 (BEAKER) (test pfhe=692) BILIRUBIN TOTAL (BEAKER) 0.7 mg/dL 0.2-1.2 (test pkgt=766) SODIUM (BEAKER) (test 141 meq/L 136-145 ulkt=467) POTASSIUM (BEAKER) (test 4.6 meq/L 3.5-5.1 swwi=911) CHLORIDE (BEAKER) (test 112 meq/L 98-107 ljet=618) CO2 (BEAKER) (test 21 meq/L 22-29 hvcz=974) BLOOD UREA NITROGEN 33 mg/dL 7-21 (BEAKER) (test zeyr=115) CREATININE (BEAKER) (test 1.34 mg/dL 0.57-1.25 carj=689) GLUCOSE RANDOM (BEAKER) 133 mg/dL 70-105 (test bwit=251) CALCIUM (BEAKER) (test 9.4 mg/dL 8.4-10.2 tefq=765) AST (SGOT) (BEAKER) (test 26 U/L 5-34 ciua=579) ALT (SGPT) (BEAKER) (test 24 U/L 6-55 dyww=308) EGFR (BEAKER) (test 39 mL/min/1.73 sq m ESTIMATED GFR IS NOT ifos=4117) ACCURATE CREATININE CLEARANCE IN PREDICTING GLOMERULAR FILTRATION RATE. ESTIMATED GFR IS NOT APPLICABLE FOR DIALYSIS PATIENTS. POCT-GLUCOSE [id number] 22:33:00 Test Item Value Reference Range Comments POC-GLUCOSE METER (BEAKER) 174 mg/dL 70-110 TESTED AT [address] (test fmtv=9341) [place] [address] POCT-GLUCOSE [id number] 19:05:00 Test Item Value Reference Range Comments POC-GLUCOSE METER (BEAKER) 189 mg/dL 70-110 TESTED AT [address] (test cvjk=9853) [place] [address] POCT-GLUCOSE [id number] 16:46:00 Test Item Value Reference Range Comments POC-GLUCOSE METER (BEAKER) 240 mg/dL 70-110 TESTED AT [address] (test fxid=4523) [place] [address] POCT-GLUCOSE [id number] 11:49:00 Test Item Value Reference Range Comments POC-GLUCOSE METER (BEAKER) 125 mg/dL 70-110 TESTED AT [address] (test gdqi=9319) [place] [address] MR, MRA, BRAIN, WITHOUT [id number] 08:55:00Reason for exam:-> Ischemic Stroke EvaluationFINAL REPORT MRA Head CLINICAL HISTORY: Stroke TECHNIQUE: MRA of the head utilizing 3-D kogj-yh-duxsdk technique, with 3-D reconstructions. COMPARISON: None FINDINGS: There is noevidence for a [place] proximal branch vessel occlusion. There is a origin of the right posterior cerebral artery. There is a left posterior communicating artery. No aneurysms are seen. IMPRESSION: No evidence for a major [place] proximal branch vessel occlusion. MRA Neck CLINICAL HISTORY: Stroke TECHNIQUE: MRA of the neck utilizing 2-D and 3-D shoa-na-bxijkj technique, with3-D reconstructions. COMPARISON: None FINDINGS: The carotid arteries in the neck are patent including their bifurcations. There is antegrade flow in the vertebral arteries in the neck. IMPRESSION: No evidence of hemodynamically significant stenosis in the cervical carotid or vertebral arteries by NASCET criteria. Signed: Edda Jones Verified Date/Time: 10/25/2017 08:55:02 Reading Location: [address] Neuro Reading Room MR, MRA, NECK, WITHOUT IV [id number] 08:55:00Reason for exam:->Ischemic Stroke EvaluationFINAL REPORT MRA Head CLINICAL HISTORY: Stroke TECHNIQUE: MRA of the head utilizing 3-D coju-bn-owuxcb technique, with 3 -D reconstructions. COMPARISON: None FINDINGS: There is noevidence for a [place] proximal branch vessel occlusion. There is a origin of the right posterior cerebral artery. There is a left posterior communicating artery. No aneurysms are seen. IMPRESSION: No evidence for a major [place] proximal branch vessel occlusion. MRA Neck CLINICAL HISTORY: Stroke TECHNIQUE: MRA of the neck utilizing 2-D and 3-D voow-bs-eslnlq technique, with3 -D reconstructions. COMPARISON: None FINDINGS: The carotid arteries in the neck are patent including their bifurcations. There is antegrade flow in the vertebral arteries in the neck. IMPRESSION: No evidence of hemodynamically significant stenosis in the cervical carotid or vertebral arteries by NASCET criteria. Signed: Edda Jones Verified Date/Time: 10/25/2017 08:55: 02 Reading Location: [address] Neuro Reading Room MR, BRAIN, WITHOUT [id number] 08:48:00Reason for exam:->Ischemic Stroke EvaluationFINAL REPORT MRI Brain without contrast Clinical History: Stroke Technique: MRI of the brain utilizing axial T2, FLAIR, GRE, DWI; sagittal and coronal T1-weighted images. Comparisons: None Findings: There is no evidence of acute infarct or hemorrhage. There are couple scattered punctate foci of chronic hemosiderin in the bilateral cerebral hemispheres. There is mild periventricular and subcortical white matter T2 hyperintensity, which is nonspecific but compatible with chronicmicrovascular ischemic change. There is mild generalized parenchymal volume loss without hydrocephalus, midline shift, or apparent mass effect. There are no extra-axial fluid collections. The craniocervical junction is preserved. The major intracranial flow-voids appear patent. There is bilateral cataract surgery. IMPRESSION: No evidence of acute infarct, hemorrhage, or hydrocephalus. Signed: Edda Jones MDReport Verified Date/Time: 10/25/2017 08:48:51 Reading Location: [address] Neuro ReadingRoom 08 :48 AMPOCT-GLUCOSE [id number] 08:37:00 Test Item Value Reference Range Comments POC-GLUCOSE METER (BEAKER) 135 mg/dL 70-110 TESTED AT [address] (test yrlo=2941) [facility] [address] CBC W/PLT COUNT & AUTO [id number] 08:31:00 Test Item Value Reference Range Comments WHITE BLOOD CELL COUNT (BEAKER) (test eaeb=891) 1.6 K/ L 3.5-10.5 RED BLOOD CELL COUNT (BEAKER) (test licu=580) 3.45 M/ L 3.93-5.22 HEMOGLOBIN (BEAKER) (test xlii=138) 9.8 GM/DL 11.2-15.7 HEMATOCRIT (BEAKER) (test tzas=932) 31.8 % 34.1-44.9 MEAN CORPUSCULAR VOLUME (BEAKER) (test bcap=766) 92.2 fL 79.4-94.8 MEAN CORPUSCULAR HEMOGLOBIN (BEAKER) (test 28.4 pg 25.6-32.2 rfdt=854) MEAN CORPUSCULAR HEMOGLOBIN CONC (BEAKER) (test 30.8 GM/DL 32.2-35.5 zdls=955) RED CELL DISTRIBUTION WIDTH (BEAKER) (test 13.9 % 11.7-14.4 ygju=599) PLATELET COUNT (BEAKER) (test iaua=367) 40 K/CU MM 150-450 MEAN PLATELET VOLUME (BEAKER) (test xvke=806) 11.1 fL 9.4-12.3 NUCLEATED RED BLOOD CELLS (BEAKER) (test 0 /100 WBC 0-0 nrrg=814) (CELLAVISION MANUAL DIFF)2017-10-25 08:31:00 Test Item Value Reference Range Comments NEUTROPHILS - REL (CELLAVISION)(BEAKER) (test 52 % dgwe=0167) LYMPHOCYTES - REL (CELLAVISION)(BEAKER) (test 41 % uaqc=8629) MONOCYTES - REL (CELLAVISION)(BEAKER) (test 4 % cwdl=2655) EOSINOPHILS - REL (CELLAVISION)(BEAKER) (test 2 % hqne=3878) BANDS - REL (CELLAVISION)(BEAKER) (test tcoh=8160) 1 % 0-10 NEUTROPHILS - ABS (CELLAVISION)(BEAKER) (test 0.83 K/ul 1.56-6.13 tjob=7311) LYMPHOCYTES - ABS (CELLAVISION)(BEAKER) (test 0.66 K/ul 1.18-3.74 hkfm=3277) MONOCYTES - ABS (CELLAVISION)(BEAKER) (test 0.06 K/uL 0.24-0.36 zlyz=5184) EOSINOPHILS - ABS (CELLAVISION)(BEAKER) (test 0.03 K/uL 0.04-0.36 dmxt=7406) BANDS - ABS (CELLAVISION)(BEAKER) (test acnw=8075) 0.02 K/uL 0.00-0.80 TOTAL COUNTED (BEAKER) (test oshb=2928) 100 WBC MORPHOLOGY (BEAKER) (test whim=407) Normal PLT MORPHOLOGY (BEAKER) (test hknd=267) Normal POLYCHROMATOPHILLIC RBCS(BEAKER) (test pyzm=175) 1+ few ANISOCYTOSIS (BEAKER) (test gfae=506) 1+ few ARTIFACT (CELLAVISION)(BEAKER) (test tedo=1040) Present PLATELET CONCENTRATION (CELLAVISION)(BEAKER) (test Decreased hdna=0119) Received comment: User comments: Slide comments:BASIC METABOLIC [id number] 05:35:00 Test Item Value Reference Range Comments SODIUM (BEAKER) (test 140 meq/L 136-145 jyvt=435) POTASSIUM (BEAKER) (test 4.4 meq/L 3.5-5.1 kegv=552) CHLORIDE (BEAKER) (test 110 meq/L 98-107 absf=103) CO2 (BEAKER) (test 22 meq/L 22-29 iskc=167) BLOOD UREA NITROGEN 35 mg/dL 7-21 (BEAKER) (test kkew=737) CREATININE (BEAKER) (test 1.46 mg/dL 0.57-1.25 oheo=145) GLUCOSE RANDOM (BEAKER) 141 mg/dL 70-105 (test bhwt=373) CALCIUM (BEAKER) (test 9.0 mg/dL 8.4-10.2 fhjy=915) EGFR (BEAKER) (test 36 mL/min/1.73 sq m ESTIMATED GFR IS NOT pwfk=3422) ACCURATE CREATININE CLEARANCE IN PREDICTING GLOMERULAR FILTRATION RATE. ESTIMATED GFR IS NOT APPLICABLE FOR DIALYSIS PATIENTS. URINALYSIS W/ [id number] 00:23:00 Test Item Value Reference Range Comments COLOR (BEAKER) (test cshj=286) Light Yellow CLARITY (BEAKER) (test afco=025) Clear SPECIFIC GRAVITY UA (BEAKER) (test 1.006 1.001-1.035 bdnz=381) PH UA (BEAKER) (test shqe=988) 6.0 5.0-8.0 PROTEIN UA (BEAKER) (test somx=858) Negative Negative GLUCOSE UA (BEAKER) (test xokx=601) 1000 mg/dL Negative KETONES UA (BEAKER) (test svsq=416) Negative Negative BILIRUBIN UA (BEAKER) (test kzfk=019) Negative Negative BLOOD UA (BEAKER) (test blhu=696) Negative Negative NITRITE UA (BEAKER) (test gqjb=232) Negative Negative LEUKOCYTE ESTERASE UA (BEAKER) (test Negative Negative xvhl=256) UROBILINOGEN UA (BEAKER) (test dggm=096) 0.2 mg/dL 0.2-1.0 RBC UA (BEAKER) (test wzxw=509) 1 /HPF WBC UA (BEAKER) (test znvn=714) 2 /HPF BACTERIA (BEAKER) (test ihoj=852) Rare SQUAMOUS EPITHELIAL (BEAKER) (test 2 /HPF daqi=803) AMORPHOUS CRYSTALS (BEAKER) (test Rare lnhf=6943) SOURCE(BEAKER) (test fkfb=1672) Urine, Clean Catch POCT-GLUCOSE [id number] 21:57:00 Test Item Value Reference Range Comments POC-GLUCOSE METER (BEAKER) 159 mg/dL 70-110 TESTED AT [address] (test wevj=4782) [place] [address] [id number] 18:14:00 Test Item Value Reference Range Comments D-DIMER QUANTITATIVE (BEAKER) (test hivt=246) 2.07 MG/L FEU <0.50 Intended Use: The D-Dimer Assay can be used to aid in the diagnosis of Deep Vein Thrombosis (DVT) and Pulmonary Embolism Disease (PED).In patients with low pre-test probability, various studies concerning STA Liatest D-dimer test have reported that with a cutoff value of 0.50 MG/L FEU, the Negative Predictive Value (NPV) regarding the exclusion of thrombosis is within 95-100% range.[id number] 18:11:00 Test Item Value Reference Range Comments PARTIAL THROMBOPLASTIN TIME (BEAKER) (test 26.7 seconds 22.5-36.0 qcci=420) [id number] 18:11:00 Test Item Value Reference Range Comments FIBRINOGEN LEVEL (BEAKER) (test bubg=658) 205 mg/dl 225-434 POCT-GLUCOSE [id number] 17:16:00 Test Item Value Reference Range Comments POC-GLUCOSE METER (BEAKER) 173 mg/dL 70-110 TESTED AT [address] (test jexk=6481) [place] [address] HEPATITIS PANEL, [id number] 14:18:00 Test Item Value Reference Range Comments HEPATITIS A IGM ANTIBODY (BEAKER) (test Nonreactive Nonreactive aoak=914) HEPATITIS B CORE IGM ANTIBODY (BEAKER) (test Nonreactive Nonreactive bpoe=761) HEPATITIS C ANTIBODY (BEAKER) (test wuwm=476) Nonreactive Nonreactive HEPATITIS B SURFACE ANTIGEN (2) (BEAKER) (test Nonreactive Nonreactive rjkv=5041) [id number] 14:18:00 Test Item Value Reference Range Comments FERRITIN (BEAKER) (test eody=376) 122 ng/mL 5-275 PERIPHERAL BLOOD SMEAR - HOLD [id number] 13:35:00 Test Item Value Reference Range Comments PERIPHERAL SMEAR SAVE (BEAKER) (test icop=7729) saved POCT-GLUCOSE [id number] 13:12:00 Test Item Value Reference Range Comments POC-GLUCOSE METER (BEAKER) 117 mg/dL 70-110 TESTED AT [facility] [address] [facility] [address] (test zobw=2655) [facility] [address] RETICULOCYTE [id number] 13:12:00 Test Item Value Reference Range Comments RETICULOCYTE COUNT PCT (BEAKER) (test oges=518) 2.9 % 0.5-1.7 TSH/FREE T4 IF [id number] 12:53:00 Test Item Value Reference Range Comments THYROID STIMULATING HORMONE (BEAKER) (test 1.02 uIU/mL 0.35-4.94 slgn=346) HEMOGLOBIN [id number] 10:53:00 Test Item Value Reference Range Comments HEMOGLOBIN A1C (BEAKER) (test nvxk=931) 8.9 % 4.3-6.1 HIV-1 ANTIGEN WITH HIV-1/2 [id number] 10:03:00 Test Item Value Reference Range Comments HIV-1 ANTIGEN WITH HIV 1\T\2 ANTIBODY (2) Nonreactive Nonreactive (BEAKER) (test baze=5574) TROPONIN [id number] 09:51:00 Test Item Value Reference Range Comments TROPONIN I (BEAKER) (test krzw=380) < ng/mL 0.00-0.03 Troponin I (TnI) levels must be interpreted in the context of the presenting symptoms and the clinical findings. Elevated TnI levels indicate myocardial damage, but are not specific for ischemic heart disease. Elevated TnI levels are seen in patients with other cardiac conditions (including myocarditis and congestive heart failure), and slight TnI elevations occur in patients with other conditions, including sepsis, renal failure, acidosis, acute neurological disease, and persistent tachyarrhythmia.FastingIRON, TIBC, % SAT. (WITHOUT FERRITIN)2017-10-24 09:02:00 Test Item Value Reference Range Comments IRON (BEAKER) (test edyx=919) 79 ug/dL 40-160 TOTAL IRON BINDING CAPACITY (BEAKER) (test 305 ug/dL 250-450 zlbz=442) IRON % SATURATION (2) (BEAKER) (test qvej=8333) 26 % 20-55 [id number] 08:59:00 Test Item Value Reference Range Comments PHOSPHORUS (BEAKER) (test lliu=176) 4.0 mg/dL 2.3-4.7 [id number] 08:59:00 Test Item Value Reference Range Comments MAGNESIUM (BEAKER) (test qpma=344) 1.9 mg/dL 1.6-2.6 FastingLACTATE DEHYDROGENASE (LDH)2017-10-24 08:59:00 Test Item Value Reference Range Comments LACTATE DEHYDROGENASE (BEAKER) (test kcgh=142) 182 U/L 125-220 FastingPOCT-GLUCOSE [id number] 08:07:00 Test Item Value Reference Range Comments POC-GLUCOSE METER (BEAKER) 80 mg/dL 70-110 TESTED AT [facility] [address] [facility] (test vnne=7529) [facility] [address] VITAMIN B12 AND [id number] 05:37:00 Test Item Value Reference Range Comments VITAMIN B12 (BEAKER) (test cqze=485) 447 pg/mL 213-816 FOLATE (BEAKER) (test pfth=821) 13.0 ng/mL >=7.0 LIPID [id number] 04:02:00 Test Item Value Reference Range Comments TRIGLYCERIDES (BEAKER) (test uglq=547) 83 mg/dL CHOLESTEROL (BEAKER) (test isxh=898) 96 mg/dL HDL CHOLESTEROL (BEAKER) (test lnsy=912) 42 mg/dL LDL CHOLESTEROL CALCULATED (BEAKER) (test ceqc=120) 37 mg/dL Triglyceride Reference Range: Low Risk <150 Borderline 150- 199 High Risk 200-499 Very High Risk >=500Cholesterol Reference Range: Low Risk <200 Borderline 200-239 High Risk > 240HDL Cholesterol Reference Range: Low Risk >=60 High Risk <40LDL Cholesterol Reference Range: Optimal <100 Near Optimal 100-129 Borderline 130-159 High 160-189 Very High >=190 FastingBASIC METABOLIC [id number] 04:02:00 Test Item Value Reference Range Comments SODIUM (BEAKER) (test 139 meq/L 136-145 efyh=004) POTASSIUM (BEAKER) (test 4.6 meq/L 3.5-5.1 ttei=333) CHLORIDE (BEAKER) (test 109 meq/L 98-107 ysev=556) CO2 (BEAKER) (test 20 meq/L 22-29 fmls=411) BLOOD UREA NITROGEN 38 mg/dL 7-21 (BEAKER) (test jfen=535) CREATININE (BEAKER) (test 1.46 mg/dL 0.57-1.25 awtp=429) GLUCOSE RANDOM (BEAKER) 84 mg/dL 70-105 (test iehx=785) CALCIUM (BEAKER) (test 9.3 mg/dL 8.4-10.2 zevx=337) EGFR (BEAKER) (test 36 mL/min/1.73 sq m ESTIMATED GFR IS NOT kkju=4378) ACCURATE CREATININE CLEARANCE IN PREDICTING GLOMERULAR FILTRATION RATE. ESTIMATED GFR IS NOT APPLICABLE FOR DIALYSIS PATIENTS. FastingHEPATIC FUNCTION [id number] 04:02:00 Test Item Value Reference Range Comments TOTAL PROTEIN (BEAKER) (test tmdt=408) 6.4 gm/dL 6.0-8.3 ALBUMIN (BEAKER) (test yaqo=3206) 3.5 g/dL 3.5-5.0 BILIRUBIN TOTAL (BEAKER) (test ijpv=787) 1.2 mg/dL 0.2-1.2 BILIRUBIN DIRECT (BEAKER) (test kfjw=095) 0.7 mg/dL 0.1-0.5 ALKALINE PHOSPHATASE (BEAKER) (test fjsi=545) 100 U/L 40-150 AST (SGOT) (BEAKER) (test lygt=359) 41 U/L 5-34 ALT (SGPT) (BEAKER) (test husa=023) 31 U/L 6-55 FastingC-REACTIVE [id number] 04:02:00 Test Item Value Reference Range Comments C-REACTIVE PROTEIN (BEAKER) (test reiv=798) 0.31 mg/dL 0.00-0.50 FastingPROTHROMBIN [id number] 03:44:00 Test Item Value Reference Range Comments PROTIME (BEAKER) (test ouky=996) 16.3 seconds 11.7-14.7 INR (BEAKER) (test fkmi=270) 1.3 <=5.9 RECOMMENDED COUMADIN/WARFARIN INR THERAPY RANGESSTANDARD DOSE: 2.0 - 3.0 Includes: PROPHYLAXIS forvenous thrombosis, systemic embolization; TREATMENT for venous thrombosis and/or pulmonary embolus.HIGH RISK: Target INR is 2.5-3.5 for patients with mechanical heart valves.CBC W/PLT COUNT & AUTO [id number] 03:27:00 Test Item Value Reference Range Comments WHITE BLOOD CELL COUNT (BEAKER) (test dyvo=813) 2.2 K/ L 3.5-10.5 RED BLOOD CELL COUNT (BEAKER) (test xqon=191) 3.65 M/ L 3.93-5.22 HEMOGLOBIN (BEAKER) (test wnie=302) 10.4 GM/DL 11.2-15.7 HEMATOCRIT (BEAKER) (test nkqk=492) 33.6 % 34.1-44.9 MEAN CORPUSCULAR VOLUME (BEAKER) (test vgba=688) 92.1 fL 79.4-94.8 MEAN CORPUSCULAR HEMOGLOBIN (BEAKER) (test 28.5 pg 25.6-32.2 vimx=627) MEAN CORPUSCULAR HEMOGLOBIN CONC (BEAKER) (test 31.0 GM/DL 32.2-35.5 qhgb=032) RED CELL DISTRIBUTION WIDTH (BEAKER) (test 14.2 % 11.7-14.4 puxi=876) PLATELET COUNT (BEAKER) (test qvfv=279) 44 K/CU MM 150-450 MEAN PLATELET VOLUME (BEAKER) (test owqd=216) 10.4 fL 9.4-12.3 NUCLEATED RED BLOOD CELLS (BEAKER) (test 0 /100 WBC 0-0 xjkk=929) NEUTROPHILS RELATIVE PERCENT (BEAKER) (test 54 % ofte=272) LYMPHOCYTES RELATIVE PERCENT (BEAKER) (test 33 % hlgx=304) MONOCYTES RELATIVE PERCENT (BEAKER) (test 7 % yvwn=322) EOSINOPHILS RELATIVE PERCENT (BEAKER) (test 5 % dstt=702) BASOPHILS RELATIVE PERCENT (BEAKER) (test 1 % gcba=843) NEUTROPHILS ABSOLUTE COUNT (BEAKER) (test 1.19 K/ L 1.56-6.13 pbgg=504) LYMPHOCYTES ABSOLUTE COUNT (BEAKER) (test 0.74 K/ L 1.18-3.74 sbup=707) MONOCYTES ABSOLUTE COUNT (BEAKER) (test pcbm=681) 0.16 K/ L 0.24-0.36 EOSINOPHILS ABSOLUTE COUNT (BEAKER) (test 0.11 K/ L 0.04-0.36 nerf=236) BASOPHILS ABSOLUTE COUNT (BEAKER) (test qoxh=111) 0.02 K/ L 0.01-0.08 IMMATURE GRANULOCYTES-RELATIVE PERCENT (BEAKER) 0 % 0-1 (test wnnf=7445)
--- OUTSIDE RECORDS SUMMARY | 2018-05-31 17:17 | XMS REPORT | Continuity of Care Document ---
:1950 Author Organization [facility] Address [address] [place] [address] Phone Unavailable Care Team Providers Name Role Phone JUWAN QUIGLEY MD Primary Care Physician Insurance Providers Guarantor Desirae Canales Address [address] [place] [address] Email NONE Payer [facility] Policy Number [id number] Subscriber's Name Desirae Canales Relationship Self / Same As Patient Group Number [id number] Group Name NA Payer [facility] Policy Number [id number] Subscriber's Name Desirae Canales Relationship Self / Same As Patient Group Number [id number] Group Name NA Advance Directives Directive Response Recorded Date/Time Advance Directives No 01/20/16 10:11pm Advance Directive on File No 02/12/18 8:28am Directive to Physicians/Living Will No 01/20/16 10:11pm Health Care Proxy No 01/20/16 10:11pm Organ Donor No 01/20/16 10:11pm Medical Power of Dogman/Woman No 01/20/16 10:11pm Patient/Family Given Education Material R/T Y - 02/12/18....SBM 02/12/18 9: 45am Directives? Chief Complaint and Reason for Visit Chief Complaint Dyspnea/Respdistress Reason for Visit [id number] Multiple pulmonary nodules determined by computed tomography of lung Acute wheezy bronchitis COPD exacerbation Problems Medical Problem Onset Date Status Abdominal pain Unknown Acute Anxiety Unknown Chronic Atypical chest pain Unknown Acute CHF (congestive heart failure) Unknown Chronic COPD (chronic obstructive pulmonary disease) Unknown Chronic Depression Unknown Chronic Diabetes Unknown Chronic Dyspnea Unknown Acute Generalized weakness Unknown Acute HLD (hyperlipidemia) Unknown Chronic HTN (hypertension) Unknown Chronic Hypomagnesemia Unknown Resolved [id number] Unknown Acute Influenza A Unknown Acute Mononucleosis Unknown Acute Renal insufficiency Unknown Acute Thrombocytopathia Unknown Acute Thrombocytopenia Unknown Acute UTI (urinary tract infection) Unknown Acute Upper respiratory infection Unknown Acute WBC decreased Unknown Acute Past Problems Medical Problem Onset Date Status Acute pharyngitis Unknown Acute Acute wheezy bronchitis Unknown Acute Acute wheezy bronchitis Unknown Acute COPD exacerbation Unknown Acute Chest pain Unknown Acute Multiple pulmonary nodules determined by computed tomography of Unknown Acute lung Respiratory arrest Unknown Acute Right middle lobe pulmonary nodule Unknown Acute TIA (transient ischemic attack) Unknown Acute TIA (transient ischemic attack) Unknown Acute Medications Current Home Medications Medication Dose Units Route Directions Days Qty Instructions Start Date Albuterol 2 Puff RESPIRATORY Every 4-6 1 Inh Sulfate (Proair (INHALATION) Hours As Hfa) 108 Needed Mcg/Act Aer Amlodipine 1 Tab ORAL Daily 30 Besylate Tablet (Amlodipine Besylate*) 5 Mg Tab Aspirin 81 Mg ORAL Once Daily (Aspir-Low *) 81 Mg Tab Clopidogrel 1 Tab ORAL Daily 90 Bisulfate Tablet (Plavix 75 Mg *) 75 Mg Tab Diphenhydramine 1-2 Tab NOT APPLICABLE At Bedtime -Acetaminophen As Needed (Tylenol Pm For Sleep Extra Strength 25/500 Mg) 1 Tab Tab Insulin Detemir 70 Units SUBCUTANEOUS Twice A Day (Levemir 100 Units/Ml Insulin*) 100 Units/ Inj Insulin Lispro 5 Units SUBCUTANEOUS Three Times * (Humalog 100 Daily Before Unt/Ml*) 100 Meals Mg/ Inj Metoprolol 1 Tab ORAL Daily 30 Succinate Tablet (Toprol Xl *) 25 Mg Tab Mometasone 2 Puff RESPIRATORY Twice A Day 13 Gram Furoate/Formote (INHALATION) rol 200 Mcg * (Dulera 200 Mcg/5 Mcg *) 1 Aer Aer Olmesartan/Hctz 1 Tab ORAL Once Daily 40/25 Mg * (Benicar Hct 40/25 Mg *) 1 Tab Tab Pantoprazole * 40 Mg ORAL Before (Protonix Ec 40 Breakfast Mg*) 40 Mg Tab Pregabalin 1 Cap ORAL Twice A Day 60 Cap (Lyrica 75 Mg *) 75 Mg Cap Rosuvastatin * 5 Mg ORAL Once Daily (Crestor 5 Mg At Bedtime *) 5 Mg Tab Sertraline Hcl 100 Mg ORAL Once Daily 30 (Zoloft *) 100 At Bedtime Tablet Mg Tab Tramadol Hcl 2 Tab ORAL Every 6 30 (Tramadol Hcl Hours As Tablet 50 Mg (Ultram) Needed *) 50 Mg Tab Past Home Medications Medication Directions Ordered Status Albuterol Hfa* (Proventil Hfa 90 Mcg/Act *) Twice A Day Discontinued Aer, 2 Puff Respiratory (Inhalation) Aspirin (Aspirin *) 81 Mg Tab, 81 Mg Oral Once Daily Discontinued Budesonide/Formoterol 160 Mcg* (Symbicort 160 Twice A Day Discontinued Mcg/4.5 Mcg *) 1 Aer Aer, 2 Puff Respiratory(Inhalation) Cephalexin * 250 Mg Cap, 250 Mg Oral Twice A Day Discontinued Cyclobenzaprine Hcl (Flexeril *) 10 Mg Tab, 1 Three Times A Day Discontinued Tab Oral Esomeprazole Mag * (Nexium 40 Mg *) 40 Mg Cap, Daily Discontinued 40 Mg Oral Fluticasone Propionate (Nasal) (Flonase Daily Discontinued Allergy Relief) 50 Mcg/Act Spr, 1 [place] Nasal Furosemide (Lasix 20 Mg*) 20 Mg Tab, 1 Tab Daily Discontinued Oral Gabapentin (Gabapentin 300 Mg (Neurontin) *) Twice A Day Discontinued 300 Mg Cap, 300 Mg Oral Losartan Potassium (Cozaar 100 Mg *) 100 Mg Daily Discontinued Tab, 1 Tab Oral Olmesartan (Benicar *) 20 Mg Tab, 1 Tab Oral Daily Discontinued Social History Social History Problem Response Recorded Date/Time Onset Date Status Hx Alcohol Use No 08/19/2016 11:04am Not Applicable Not Applicable Hx Physical Abuse No 02/12/2018 8:28am Not Applicable Not Applicable Smoking Status Start Date Stop Date Never smoker Hospital Discharge Instructions No hospital discharge instruction information available. Plan of Care Discharge Date 02/12/18 11:13am Instructions/Education Provided Chronic Obstructive Pulmonary Disease Exacerbation, Ivdt-fp-Exjo Acute Bronchitis, Adult, Euor-ik-Cqhc Pulmonary Nodule, Evtl-qg-Erem Forms Provided Portal Welcome Letter Prescriptions See Medication Section Referrals JUWAN QUIGLEY MD Address: [address] [place] [phone] Additional Instructions/Education FOLLOW UP WITH YOUR PCP WITHIN 1 MONTH FOR PERIODIC MONITORING OF THE 3 SMALL PULMONARY NODULES NOTED ON CHEST CT SCAN. CONTINUE YOUR COPD MEDS AT HOME. ZITHROMAX & MUCINEX-DM Rx. SEE YOUR PCP IF NOT FEELING BETTER WITHIN 4-5 DAYS Functional Status No functional status information available. Allergies, Adverse Reactions, Alerts Allergen Type Severity Reaction Status Last Updated No Known Allergies Allergy Severe Active 10/09/09 Immunizations No immunization information available. Vital Signs Acute Vital Signs Vital Response Date/Time Blood Pressure 134/65 mm Hg 02/12/2018 11:23am Pulse Pulse Rate (adult) 77 beats per minute (60 - 100) 02/12/2018 11:23am Respiratory Rate 20 breaths per minute (10 - 24) 02/12/2018 11:23am Temperature Source Oral 02/12/2018 11:23am Height 5 ft 1 in 02/12/2018 8:28am Weight 270 lb 02/12/2018 8:28am Body Mass Index 51.0 kg/m^2 02/12/2018 8:28am Results Laboratory Results Test Name Result Units Flags Reference Collection Result Comments Date/Time Date/Time Random Glucose 307 mg/dL H 82-115 01/13/2018 01/13/2018 11:15am 1:44pm Blood Urea 10 mg/dL 801/13/2018 01/13/2018 Nitrogen 11:15am 1:44pm Serum Osmolality 283 280-300 01/13/2018 01/13/2018 11:15am 1:44pm Creatinine 1.0 mg/dL H 0.50-0.90 01/13/2018 01/13/2018 11:15am 1:44pm Glomerular 55.30 L 01/13/2018 01/13/2018 GFR RESULTS ARE REPORTED IN mL/min/1.73m2. Filtration Rate 11:15am 1:44pm Calc Normal GFR: >60mL/min Moderately decreased GFR: 30-59 mL/min Severely decreased GFR: 15-29 mL/min Kidney Failure (or Dialysis): <15 mL/min The calculated eGFR is not valid for patients younger than 18 years or older than 75 years. BUN/Creatinine 10.0 L 12-01/13/2018 01/13/2018 Ratio 11:15am 1:44pm Sodium Level 136 mmol/L 135-145 01/13/2018 01/13/2018 11:15am 1:44pm Potassium Level 3.9 mmol/L 3.5-5.2 01/13/2018 01/13/2018 11:15am 1:44pm Chloride Level 99 mmol/L 98-108 01/13/2018 01/13/2018 11:15am 1:44pm Carbon Dioxide 25 mmol/L 21-32 01/13/2018 01/13/2018 Level 11:15am 1:44pm Anion Gap 15.9 mEq/L 12-20 01/13/2018 01/13/2018 11:15am 1:44pm Calcium Level 9.1 mg/dL 8.8-10.2 01/13/2018 01/13/2018 11:15am 1:44pm Total Protein 6.7 g/dL 6.6-8.7 01/13/2018 01/13/2018 11:15am 1:44pm Albumin 3.5 g/dL 3.5-5.2 01/13/2018 01/13/2018 11:15am 1:44pm Globulin 3.2 gm/dL 01/13/2018 01/13/2018 11:15am 1:44pm Albumin/Globulin 1.1 >1.0 01/13/2018 01/13/2018 Ratio 11:15am 1:44pm Total Bilirubin 1.4 mg/dL H 0.0-1.2 01/13/2018 01/13/2018 11:15am 1:44pm Aspartate Amino 23 U/L 15-32 01/13/2018 01/13/2018 Transf (AST/SGOT) 11:15am 1:44pm Alanine 11 U/L 0-33 01/13/2018 01/13/2018 Aminotransferase 11:15am 1:44pm (ALT/SGPT) Hemoglobin A1c 7.3 % H 4.0-6.0 01/13/2018 01/13/2018 11:15am 1:38pm Total Alkaline 93 U/L 35-105 01/13/2018 01/13/2018 Phosphatase 11:15am 1:44pm Cholesterol Level 110 mg/dL L 150-200 01/13/2018 01/13/2018 11:15am 1:44pm Triglycerides 103 mg/dL <150 01/13/2018 01/13/2018 Level 11:15am 1:44pm HDL Cholesterol 50 mg/dL L >65 01/13/2018 01/13/2018 HDL EXPECTED VALUES : 11:15am 1:44pm FEMALES: >65 mg/dL NO RISK 45-65 mg/dL MODERATE RISK <45 mg/dL HIGH RISK MALES: >55 mg/dL NO RISK 35-55 mg/dL MODERATE RISK <35 mg/dL HIGH RISK LDL Cholesterol 49 mg/dL <100 01/13/2018 01/13/2018 LDL Expected Values : 11:15am 1:44pm Optimal <100 mg/dL Near optimal/above optimal 100-129 mg/dL Borderline high 130-159 mg/dL High 160-189 mg/dL Very high >190 mg/dL Coronary Heart 2.200 01/13/2018 01/13/2018 NATIONAL CHOLESTEROL GUIDELINES Disease Risk Ratio 11:15am 1:44pm [facility] ([facility]) guidelines for classificaton, testing and management of cholesterol levels in adults over 20 years of age. This new classification creates three categories of risk for coronary heart disease, regardless of age or sex, according to total and LDL cholesterols levels: Based on total cholesterol level Desirable <200 mg/dl Borderline-high 200-239 mg/dl High >=240 mg/dl Based on cholesterol ratio CHD RISK CHOL/HDL RATIO MALE FEMALE 0.5 x Average 3.4 3.3 1.0 x Average 5.0 4.4 2.0 x Average 9.6 7.1 3.0 x Average 13.5 11.0 Procedures Procedure Status Date Provider(s) LIPID PANEL Completed 01/13/18 COMPREHEN METABOLIC PANEL Completed 01/13/18 GLYCOSYLATED HEMOGLOBIN TEST Completed 01/13/18 X-ray of chest, two views Completed 02/12/[address] thorax wo contrast Completed 02/12/18 PRADEEP GARIBAY MD Encounters Encounter Location Arrival/Admit Date Discharge/Depart Date Attending Provider Departed [place] 02/12/18 8:24am 02/12/18 11:13am PRADEEP GARIBAY MD [facility] Registered [place] 01/13/18 10:57am JUWAN QUIGLEY [facility] MD [facility] C[facility] Recent Diagnosis
--- OUTSIDE RECORDS SUMMARY | 2018-05-31 17:17 | XMS REPORT | Continuity of Care Document ---
:1950 Author Organization [facility] Address [address] [place] [address] Phone Unavailable Care Team Providers Name Role Phone JUWAN QUIGLEY MD Primary Care Physician Insurance Providers Guarantor Desirae Canales Address [address] [place] [address] Email NONE Payer [facility] Policy Number [id number] Subscriber's Name Desirae Canales Relationship Self / Same As Patient Group Number [id number] Group Name NA Payer [facility] Policy Number [id number] Subscriber's Name Desirae Canales Relationship Self / Same As Patient Group Number [id number] Group Name NA Advance Directives Directive Response Recorded Date/Time Advance Directives No 01/20/16 10:11pm Advance Directive on File No 02/18/18 9:20am Directive to Physicians/Living Will No 01/20/16 10:11pm Health Care Proxy No 01/20/16 10:11pm Organ Donor No 01/20/16 10:11pm Medical Power of Zipper Measurer No 01/20/16 10:11pm Patient/Family Given Education Material R/T Y - 02/18/18...[place] 02/18/18 11: 32am Directives? Chief Complaint and Reason for Visit Chief Complaint Chest Pain Reason for Visit Anxiety Chest pain Hypokalemia Problems Medical Problem Onset Date Status Abdominal pain Unknown Acute Anxiety Unknown Chronic Atypical chest pain Unknown Acute CHF (congestive heart failure) Unknown Chronic COPD (chronic obstructive pulmonary disease) Unknown Chronic Depression Unknown Chronic Diabetes Unknown Chronic Dyspnea Unknown Acute Generalized weakness Unknown Acute HLD (hyperlipidemia) Unknown Chronic HTN (hypertension) Unknown Chronic Hypomagnesemia Unknown Resolved [id number] Unknown Acute Influenza A Unknown Acute Mononucleosis Unknown Acute Renal insufficiency Unknown Acute Thrombocytopathia Unknown Acute Thrombocytopenia Unknown Acute UTI (urinary tract infection) Unknown Acute Upper respiratory infection Unknown Acute WBC decreased Unknown Acute Past Problems Medical Problem Onset Date Status Acute pharyngitis Unknown Acute Acute wheezy bronchitis Unknown Acute Acute wheezy bronchitis Unknown Acute COPD exacerbation Unknown Acute Chest pain Unknown Acute Chest pain Unknown Acute Hypokalemia Unknown Acute Multiple pulmonary nodules determined by [...] Discontinued Allergy Relief) 50 Mcg/Act Spr, 1 [place] Nasal Furosemide (Lasix 20 Mg*) 20 Mg [...] Applicable Not Applicable Hx Physical Abuse No 02/18/2018 9:20am Not Applicable Not Applicable Smoking Status Start Date Stop Date Never smoker Hospital Discharge Instructions No hospital discharge instruction information available. Plan of Care Discharge Date 02/18/18 12:44pm Instructions/Education Provided Hypokalemia Nonspecific Chest Pain Forms Provided Portal Welcome Letter Prescriptions See Medication Section Referrals JUWAN QUIGLEY MD Address: [address] [place] [id number] Additional Instructions/Education SEE PCP or OSTOMY NURSE (DR WEAVER) WITHIN 4 DAYS FOR FURTHER CARDIOLOGY EVALUATION & CARE. CONTINUE YOUR HOME MEDS. DISCUSS YOUR ANXIETY MEDS REFILL WITH YOUR DOCTOR. WORK EXCUSE FOR TODAY Functional Status No functional status information available. Allergies, Adverse Reactions, Alerts Allergen Type Severity Reaction Status Last Updated No Known Allergies Allergy Severe Active 10/09/09 Immunizations No immunization information available. Vital Signs Acute Vital Signs Vital Response Date/Time Blood Pressure 118/55 mm Hg 02/18/2018 12:43pm Pulse Pulse Rate (adult) 70 beats per minute (60 - 100) 02/18/2018 12:43pm Respiratory Rate 18 breaths per minute (10 - 24) 02/18/2018 12:43pm Temperature Source Oral 02/18/2018 12:43pm Height 5 ft 0 in 02/18/2018 9:20am Weight 220 lb 02/18/2018 9:20am Body Mass Index 43.0 kg/m^2 02/18/2018 9:20am Results Laboratory Results Test Name Result Units Flags Reference Collection Result Comments Date/Time Date/Time Hemoglobin A1c 7.3 % H 4.0-6.0 01/13/2018 01/13/2018 11:15am 1:38pm Cholesterol Level 110 mg/dL L 150-200 01/13/2018 [...] 9.6 7.1 3.0 x Average 13.5 11.0 White Blood Count 2.9 K/ul L 4.0-11.5 02/18/2018 02/18/2018 9:23am 9:30am Red Blood Count 4.39 M/ul 3.80-5.20 02/18/2018 02/18/2018 9:23am 9:30am Hemoglobin 12.5 g/dl 10.5-15.7 02/18/2018 02/18/2018 9:23am 9:30am Hematocrit 38.7 % 34.0-50.0 02/18/2018 02/18/2018 9:23am 9:30am Mean Corpuscular 88.2 fl 78-98 02/18/2018 02/18/2018 Volume 9:23am 9:30am Mean Corpuscular 28.4 pg 26.2-33.4 02/18/2018 02/18/2018 Hemoglobin 9:23am 9:30am Mean Corpuscular 32.3 g/dl 31.5-36.2 02/18/2018 02/18/2018 Hemoglobin Concent 9:23am 9:30am Red Cell 13.7 % 11.5-15.5 02/18/2018 02/18/2018 Distribution Width 9:23am 9:30am Platelet Count 60 K/ul L 137-338 02/18/2018 02/18/2018 9:23am 9:30am Mean Platelet 6.9 fl L 8.4-11.8 02/18/2018 02/18/2018 Volume 9:23am 9:30am Neutrophils (%) 62.0 % 44.4-80.1 02/18/2018 02/18/2018 (Auto) 9:23am 9:30am Lymphocytes (%) 27.9 % 10.0-50.0 02/18/2018 02/18/2018 (Auto) 9:23am 9:30am Monocytes (%) 6.0 % 3.6-12.04 02/18/2018 02/18/2018 (Auto) 9:23am 9:30am Eosinophils (%) 3.3 % 0.0-5.41 02/18/2018 02/18/2018 (Auto) 9:23am 9:30am Basophils (%) 0.8 % H 0.0-0.79 02/18/2018 02/18/2018 (Auto) 9:23am 9:30am Prothrombin Time 13.0 SECONDS H 10.3-12.3 02/18/2018 02/18/2018 9:23am 9:41am THERAPEUTIC LEVEL: 1.5 to 1.9 times normal range of PT Prothromb Time 1.19 02/18/2018 02/18/2018 International 9:23am 9:41am Recommended therapeutic range for patients receiving Ratio warfarin (coumadin) therapy: INR is 2.0 to 3.0 Recommended range for patients with mechanical prosthetic heart valves: INR is 2.5 to 3.5 Activated Partial 28.8 SECONDS 22.5-37.0 02/18/2018 02/18/2018 Thromboplast Time 9:23am 9:41am Random Glucose 158 mg/dL H 82-115 02/18/2018 02/18/2018 9:23am 9:48am Blood Urea 6 mg/dL L 8-23 02/18/2018 02/18/2018 Nitrogen 9:23am 9:48am Serum Osmolality 280 280-300 02/18/2018 02/18/2018 9:23am 9:48am Creatinine 0.7 mg/dL 0.50-0.90 02/18/2018 02/18/2018 9:23am 9:48am Glomerular > 60.00 02/18/2018 02/18/2018 GFR RESULTS ARE REPORTED IN mL/min/1.73m2. Filtration Rate 9:23am 9:48am Calc Normal GFR: >60mL/min Moderately decreased GFR: 30-59 mL/min Severely decreased GFR: 15-29 mL/min Kidney Failure (or Dialysis): <15 mL/min The calculated eGFR is not valid for patients younger than 18 years or older than 75 years. BUN/Creatinine 8.6 L 12-02/18/2018 02/18/2018 Ratio 9:23am 9:48am Sodium Level 140 mmol/L 135-145 02/18/2018 02/18/2018 9:23am 9:48am Potassium Level 3.3 mmol/L L 3.5-5.2 02/18/2018 02/18/2018 9:23am 9:48am Chloride Level 102 mmol/L 98-108 02/18/2018 02/18/2018 9:23am 9:48am Carbon Dioxide 23 mmol/L 21-32 02/18/2018 02/18/2018 Level 9:23am 9:48am Anion Gap 18.3 mEq/L 12-02/18/2018 02/18/2018 9:23am 9:48am Calcium Level 9.0 mg/dL 8.8-10.2 02/18/2018 02/18/2018 9:23am 9:48am Total Protein 6.7 g/dL 6.6-8.7 02/18/2018 02/18/2018 9:23am 9:48am Albumin 3.7 g/dL 3.5-5.2 02/18/2018 02/18/2018 9:23am 9:48am Globulin 3.0 gm/dL 02/18/2018 02/18/2018 9:23am 9:48am Albumin/Globulin 1.2 >1.0 02/18/2018 02/18/2018 Ratio 9:23am 9:48am Total Bilirubin 1.7 mg/dL H 0.0-1.2 02/18/2018 02/18/2018 9:23am 9:48am Aspartate Amino 24 U/L 15-32 02/18/2018 02/18/2018 Transf (AST/SGOT) 9:23am 9:48am Alanine 14 U/L 0-33 02/18/2018 02/18/2018 Aminotransferase 9:23am 9:48am (ALT/SGPT) PE-Kbe-X-Type 429 pg/mL H 0-125 02/18/2018 02/18/2018 Natriuretic 9:23am 9:54am Peptide Total Alkaline 95 U/L 35-105 02/18/2018 02/18/2018 Phosphatase 9:23am 9:48am Creatine Kinase 37 U/L 20-180 02/18/2018 02/18/2018 11:33am 11:51am Troponin I < 0.30 ng/mL 0.0-0.5 02/18/2018 02/18/2018 11:33am 11:53am Creatine Kinase MB < 1.0 ng/ml 0.0-3.6 02/18/2018 02/18/2018 11:33am 11:53am DIAGNOSTIC CITERIA: CKMB CKMB RELATIVE INDEX SUGGESTIVE OF NON-AMI < or=5 N/A MCPHERSON ZONE (INCONCLUSIVE) > 5 < or=4 SUGGESTIVE OF AMI >5 > 4 Myoglobin 49 ng/mL 25-58 02/18/2018 02/18/2018 11:33am 11:54am Microbiology Results Procedure Source Organism/Result Collection Result Result Date/Time Date/Time Status Throat Culture Throat No growth. 02/12/2018 02/13/2018 Final 8:39am 8:44am Sputum Culture Sputum MORAXELLA CATARRHALIS 02/12/2018 02/17/2018 Final 11:00am 12:05pm Procedures Procedure Status Date Provider(s) LIPID PANEL Completed 01/13/18 COMPREHEN METABOLIC PANEL Completed 01/13/18 GLYCOSYLATED HEMOGLOBIN TEST Completed 01/13/18 EMERGENCY DEPT VISIT Completed 02/12/18 CT THORAX W/O DYE Completed 02/12/18 X-RAY EXAM CHEST 2 VIEWS Completed 02/12/18 SMEAR GRAM STAIN Completed 02/12/18 STREP A ASSAY W/OPTIC Completed 02/12/18 CULTURE OTHR SPECIMN AEROBIC Completed 02/12/18 INFLUENZA ASSAY W/OPTIC Completed 02/12/18 AIRWAY INHALATION TREATMENT Completed 02/12/18 X-ray of chest, two views Completed 02/12/[address] thorax wo contrast Completed 02/12/18 PRADEEP GARIBAY MD X-ray of chest, single view Completed 02/18/18 PRADEEP GARIBAY MD Encounters Encounter Location Arrival/Admit Date Discharge/Depart Date Attending Provider Departed [place] 02/18/18 9:13am 10/11/18 12:44pm PRADEEP GARIBAY MD [facility] Departed [place] 02/12/18 8:24am 02/12/18 11:13am PRADEEP GARIBAY MD [facility] Registered [place] 01/13/18 10:57am JUWAN QUIGLEY [facility] MD Medical C[facility] Recent Diagnosis
--- OUTSIDE RECORDS SUMMARY | 2018-05-31 17:18 | XMS REPORT | Continuity of Care Document ---
:1950 Author Organization [facility] Address [address] [place] [address] Phone Unavailable Care Team Providers Name Role Phone JUWAN QUIGLEY MD Primary Care Physician Insurance Providers Guarantor Desirae Canales Address [address] [place] [address] Email NONE [facility] Policy Number [id number] Subscriber's Name Desirae Cnaales Relationship Self / Same As Patient Group Number [id number] Group Name NA [facility] Policy Number [id number] Subscriber's Name Desirae Canales Relationship Self / Same As Patient Group Number [id number] Group Name NA Advance Directives Directive Response Recorded Date/Time Advance Directives No 01/20/16 10:11pm Advance Directive on File No 03/19/18 8:53pm Directive to Physicians/Living Will No 01/20/16 10:11pm Health Care Proxy No 01/20/16 10:11pm Name of Surrogate/Decision Maker NA 03/19/18 3:49pm Organ Donor No 01/20/16 10:11pm Medical Power of Food Vendor No 01/20/16 10:11pm Patient/Family Given Education Material R/T Y - KR....03/19/18 03/19/18 8: 53pm Directives? Chief Complaint and Reason for Visit Chief Complaint PLUERAL EFFUSION,DYSPENA Reason for Visit WBC decreased Thrombocytopenia Dyspnea COPD (chronic obstructive pulmonary disease) COPD with exacerbation Pleural effusion associated with hepatic disorder Cirrhosis of liver NAFL (nonalcoholic fatty liver) HTN (hypertension) Type 2 diabetes mellitus Thrombocytopenia SLE (systemic lupus erythematosus) Depression Heart failure with preserved ejection fraction Acute renal failure superimposed on stage 3 chronic kidney disease Problems Medical Problem Onset Date Status Abdominal pain Unknown Acute Acute exacerbation of congestive heart failure Unknown Acute Acute renal failure superimposed on stage 3 chronic kidney Unknown Acute disease Anxiety Unknown Chronic Atypical chest pain Unknown Acute CHF (congestive heart failure) Unknown Chronic COPD (chronic obstructive pulmonary disease) Unknown Chronic COPD with exacerbation Unknown Acute Cirrhosis of liver Unknown Chronic Depression Unknown Chronic Diabetes Unknown Chronic Dyspnea Unknown Acute Generalized weakness Unknown Acute HLD (hyperlipidemia) Unknown Chronic HTN (hypertension) Unknown Chronic HTN (hypertension) Unknown Chronic Heart failure with preserved ejection fraction Unknown Chronic Hypomagnesemia Unknown Resolved [id number] Unknown Acute Influenza A Unknown Acute Mononucleosis Unknown Acute NAFL (nonalcoholic fatty liver) Unknown Chronic Neutropenia Unknown Chronic Pleural effusion associated with hepatic disorder Unknown Chronic Renal insufficiency Unknown Acute SLE (systemic lupus erythematosus) Unknown Chronic Thrombocytopathia Unknown Acute Thrombocytopenia Unknown Acute Thrombocytopenia Unknown Chronic Type 2 diabetes mellitus Unknown Chronic UTI (urinary tract infection) Unknown Acute Upper respiratory infection Unknown Acute WBC decreased Unknown Acute Past Problems Medical Problem Onset Date Status Acute exacerbation of chronic obstructive pulmonary disease (COPD) Unknown Acute Acute pharyngitis Unknown Acute Acute wheezy bronchitis Unknown Acute Acute wheezy bronchitis Unknown Acute COPD exacerbation Unknown Acute Chest pain Unknown Acute Chest pain Unknown Acute Hypokalemia Unknown Acute Multiple pulmonary nodules determined by computed tomography of Unknown Acute lung Recurrent right pleural effusion Unknown Acute Respiratory arrest Unknown Acute Right middle lobe pulmonary nodule Unknown Acute TIA (transient ischemic attack) Unknown Acute TIA (transient ischemic attack) Unknown Acute Medications Current Home Medications Medication Dose Units Route Directions Days Qty Instructions Start Date Albuterol/Ipratr 1 Ea RESPIRATORY Rt-Every 4 30 1 Vial 03/02/ opium (Duoneb *) (INHALATION) Hours While Days 18 Tori Awake for Unknown Amlodipine 1 Tab ORAL Daily 30 Besylate Tablet (Amlodipine Besylate*) 5 Mg Tab Insulin 20 Units SUBCUTANEOUS Once Daily At 30 1 Vial 03/02/ Glargine(Lantus) Bedtime for Days 18 100 Units/Ml Unknown Units Insulin 10 Units SUBCUTANEOUS Every Morning 30 1 Vial 03/02/ Glargine(Lantus) for Unknown Days 18 100 Units/Ml Units Insulin Human 0 Units SUBCUTANEOUS Sliding Scale 30 1 aggressive 03/02/ Regular (Humulin Insulin as Days Bottle ISS 18 R) 100 Unit/Ml needed for Inj Hyperglycemia Magnesium Oxide 400 Mg ORAL Twice A Day 30 60 03/02/ 400 Mg Tab for Unknown Days Tablet 18 Mometasone 2 Puff RESPIRATORY Twice A Day 13 Gram Furoate/Formoter (INHALATION) ol 200 Mcg * (Dulera 200 Mcg/5 Mcg *) 1 Aer Aer Pantoprazole 40 Mg ORAL Before 30 30 03/02/ Sodium * Breakfast for Days Tablet 18 (Pantoprazole Unknown Sodium Ec 40 Mg *) 40 Mg Tab Sertraline Hcl 100 Mg ORAL Once Daily At 30 (Zoloft *) 100 Bedtime Tablet Mg Tab Spironolactone 25 Mg ORAL Once Daily for 30 30 03/02/ (Aldactone *) 25 Unk Days Tablet 18 Mg Tab Tramadol Hcl 1 Tab ORAL Every 6 Hours 30 (Ultram 50 Mg*) As Needed Tablet 50 Mg Tab Past Home Medications Medication Directions Ordered Status Albuterol Hfa* (Proventil Hfa 90 Twice A Day Discontinued Mcg/Act *) Aer, 2 Puff Respiratory (Inhalation) Albuterol Sulfate (Proair Hfa) 108 Every 4-6 Hours As Needed Discontinued Mcg/Act Aer, 2 Puff Respiratory (Inhalation) Aspirin (Aspir-Low *) 81 Mg Tab, Once Daily Discontinued 81 Mg Oral Aspirin (Aspirin *) 81 Mg Tab, 81 Once Daily Discontinued Mg Oral Budesonide/Formoterol 160 Mcg* Twice A Day Discontinued (Symbicort 160 Mcg/4.5 Mcg *) 1 Aer Aer, 2 Puff Respiratory(Inhalation) Cephalexin * 250 Mg Cap, 250 Mg Twice A Day Discontinued Oral Clopidogrel Bisulfate (Plavix 75 Daily Discontinued Mg *) 75 Mg Tab, 1 Tab Oral Cyclobenzaprine Hcl (Flexeril *) Three Times A Day Discontinued 10 Mg Tab, 1 Tab Oral Diphenhydramine-Acetaminophen At Bedtime As Needed For Discontinued (Tylenol Pm Extra Strength 25/500 Sleep Mg) 1 Tab Tab, 1-2 Tab NotApplicable Esomeprazole Mag * (Nexium 40 Mg Daily Discontinued *) 40 Mg Cap, 40 Mg Oral Fluticasone Propionate (Nasal) Daily Discontinued (Flonase Allergy Relief) 50 Mcg/Act Spr, 1 Parsons Nasal Furosemide (Lasix *) 40 Mg Tab, 40 Once Daily for Unknown 03/02/18 Discontinued Mg Oral Furosemide (Lasix 20 Mg*) 20 Mg Daily Discontinued Tab, 1 Tab Oral Gabapentin (Gabapentin 300 Mg Twice A Day Discontinued (Neurontin) *) 300 Mg Cap, 300 Mg Oral Insulin Detemir (Levemir 100 Twice A Day Discontinued Units/Ml Insulin*) 100 Units/ Inj, 70 Units Subcutaneous Insulin Lispro * (Humalog 100 Three Times Daily Before Discontinued Unt/Ml*) 100 Mg/ Inj, 5 Units Meals Subcutaneous Losartan Potassium (Cozaar 100 Mg Daily Discontinued *) 100 Mg Tab, 1 Tab Oral Metoprolol Succinate (Toprol Xl *) Daily Discontinued 25 Mg Tab, 1 Tab Oral Metoprolol Tartrate 25 Mg Tab, Discontinued Olmesartan (Benicar *) 20 Mg Tab, Daily for Unknown 03/02/18 Discontinued 40 Mg Oral Olmesartan (Benicar *) 20 Mg Tab, Daily Discontinued 1 Tab Oral Olmesartan/Hctz 40/25 Mg * Once Daily Discontinued (Benicar Hct 40/25 Mg *) 1 Tab Tab, 1 Tab Oral Pantoprazole * (Protonix Ec 40 Before Breakfast Discontinued Mg*) 40 Mg Tab, 40 Mg Oral Pregabalin (Lyrica 75 Mg *) 75 Mg Twice A Day Discontinued Cap, 1 Cap Oral Rosuvastatin * (Crestor 5 Mg *) 5 Once Daily At Bedtime Discontinued Mg Tab, 5 Mg Oral Tramadol Hcl (Tramadol Hcl 50 Mg Every 6 Hours As Needed Discontinued (Ultram) *) 50 Mg Tab, 2 Tab Oral Family History Relationship Condition Age at Onset Recorded Date/Time Brother FH: heart failure Not Recorded 02/26/2018 11:13pm Social History Social History Problem Response Recorded Date/Time Onset Date Status Hx Alcohol Use No 03/19/2018 8:30pm Not Applicable Not Applicable Hx Physical Abuse No 03/19/2018 8:30pm Not Applicable Not Applicable Smoking Status Start Date Stop Date Never smoker Hospital Discharge Instructions No hospital discharge instruction information available. Plan of Care Discharge Date 03/25/18 3:19pm Disposition PATIENT DISCHARGE HOME OR SELF Instructions/Education Provided Thoracentesis Shortness of Breath, Adult Pleural Effusion Forms Provided Portal Welcome Letter Prescriptions See Medication Section Functional Status No functional status information available. Allergies, Adverse Reactions, Alerts Allergen Type Severity Reaction Status Last Updated No Known Allergies Allergy Severe Active 10/09/09 Immunizations No immunization information available. Vital Signs Acute Vital Signs Vital Response Date/Time Blood Pressure 154/65 mm Hg 03/25/2018 11:24am Pulse Pulse Rate (adult) 77 beats per minute (60 - 100) 03/25/2018 11:24am Respiratory Rate 20 breaths per minute (10 - 24) 03/25/2018 11:24am Temperature Source Oral 03/25/2018 11:24am Height 4 ft 11 in 03/19/2018 3:49pm Weight 202.44 lb 03/25/2018 4:55am Body Mass Index 40.9 kg/m^2 03/25/2018 4:55am Results Laboratory Results Test Name Result Units Flags Reference Collection Result Comments Date/Time Date/Time Neutrophils 81 H 37.0-80.0 02/28/2018 02/28/2018 4:11am 6:07am Band 1 0-3 02/28/2018 02/28/2018 Neutrophils 4:11am 6:07am Lymphocytes 18 10-50 02/28/2018 02/28/2018 (Manual) 4:11am 6:07am Platelet APPEAR ADEQUATE 02/28/2018 02/28/2018 Estimate DECREASED 4:11am 6:07am Abnormal NORMAL NORMAL 02/28/2018 02/28/2018 Platelet 4:11am 6:07am Morphology Poikilocytos SLIGHT 02/28/2018 02/28/2018 is 4:11am 6:07am Ovalocytes OCCASSIONAL H 02/28/2018 02/28/2018 4:11am 6:07am Body Fluid 297 mg/dL 02/28/2018 02/28/2018 Glucose 8:30am 9:27am Body Fluid 100 % H 0-0 02/28/2018 02/28/2018 Mesothelial 8:30am 10:45am Cells Lactate 170 U/L 135-214 02/28/2018 02/28/2018 Dehydrogenas 4:11am 5:30am e Body Fluid 8.00 02/28/2018 02/28/2018 pH 8:30am 10:34am Tumor Marker 4.5 ng/mL 0.0-8.3 02/28/2018 03/02/2018 Mirta ECLIA methodology Alpha 4:11am 7:28am Performed at: [facility] [place], [place] [id number] Mitigation Supervisor: Amol Vanegas MD, Phone: [phone] Body Fluid 71 mg/dL . 02/28/2018 03/02/2018 Triglyceride 8:30am 9:17am : Peritoneal : Pleural : Synovial : s : : : : : : Transudate : Exudate : : : : : : : : Not Estab. : Not Estab. : Not Estab.: Not Estab. : : : : : : The method performance specifications have not been established for this test in body fluid. The test result should be integrated into the clinical context for interpretation. The reference intervals and other method performance specifications have not been established for this test. The test result should be integrated into the clinical context for interpretation. Performed at: [address] [id number] Mitigation Supervisor: Amol Vanegas MD, Phone: [phone] Differential ---PATH REVIEW--- 03/15/2018 03/22/2018 Comment 2:45pm 1:59pm - AGREED WITH JIMI EDMONDSON M.D. Body Fluid PLEURAL 03/15/2018 03/15/2018 Source 2:45pm 6:10pm Body Fluid PINK COLORLESS 03/15/2018 03/15/2018 Color 2:45pm 6:10pm Body Fluid CLOUDY CLEAR 03/15/2018 03/15/2018 Appearance 2:45pm 6:10pm Body Fluid 212.5 CELL/MM3 03/15/2018 03/15/2018 WBC 2:45pm 6:10pm Body Fluid 7925 CELL/MM3 03/15/2018 03/15/2018 RBC 2:45pm 6:10pm Body Fluid 2 % 03/15/2018 03/15/2018 Neutrophils 2:45pm 6:10pm Body Fluid 82 % 03/15/2018 03/15/2018 Lymphocytes 2:45pm 6:10pm Body Fluid 0 % 0-0 03/15/2018 03/15/2018 Eosinophils 2:45pm 6:10pm Body Fluid 16 % H 0-0 03/15/2018 03/15/2018 Monocytes 2:45pm 6:10pm Body Fluid YES A 03/15/2018 03/15/2018 Diff 2:45pm 6:10pm Pathologist Review Body Fluid 34 U/L . 03/15/2018 03/23/2018 INTERPRETIVE INFORMATION: Lipase, Fluid Lipase 3:26pm 7:54am For information on body fluid reference ranges and/or interpretive guidance visit [email or web address] Test developed and characteristics determined by [facility]. See Compliance Statement B: [email or web address] Performed at: [facility] [address] [id number] Mitigation Supervisor: Dylan Harper MD, Phone: [phone] Body Fluid 116 mmol/L . 03/15/2018 03/17/2018 Chloride 2:45pm 8:24am : Peritoneal : Pleural : Synovial : : : : : : : Transudate : Exudate : : : : : : : : Not Estab. : Not Estab. : Not Estab.: Not Estab. : : : : : : The method performance specifications have not been established for this test in body fluid. The test result should be integrated into the clinical context for interpretation. The reference intervals and other method performance specifications have not been established for this test. The test result should be integrated into the clinical context for interpretation. Performed at: - [facility] [id number] Mitigation Supervisor: Amol Vanegas MD, Phone: [phone] White Blood 2.8 K/ul L 4.0-11.5 03/22/2018 03/22/2018 Count 2:24am 4:55am Red Blood 4.52 M/ul 3.80-5.20 03/22/2018 03/22/2018 Count 2:24am 4:55am Hemoglobin 13.0 g/dl 10.5-15.7 03/22/2018 03/22/2018 2:24am 4:55am Hematocrit 41.5 % 34.0-50.0 03/22/2018 03/22/2018 2:24am 4:55am Mean 91.8 fl 78-98 03/22/2018 03/22/2018 Corpuscular 2:24am 4:55am Volume Mean 28.7 pg 26.2-33.4 03/22/2018 03/22/2018 Corpuscular 2:24am 4:55am Hemoglobin Mean 31.3 g/dl L 31.5-36.2 03/22/2018 03/22/2018 Corpuscular 2:24am 4:55am Hemoglobin Concent Red Cell 14.7 % 11.5-15.5 03/22/2018 03/22/2018 Distribution 2:24am 4:55am Width Platelet 55 K/ul L 137-338 03/22/2018 03/22/2018 Count 2:24am 4:55am Mean 7.8 fl L 8.4-11.8 03/22/2018 03/22/2018 Platelet 2:24am 4:55am Volume Neutrophils 58.8 % 44.4-80.1 03/22/2018 03/22/2018 (%) (Auto) 2:24am 4:55am Lymphocytes 28.3 % 10.0-50.0 03/22/2018 03/22/2018 (%) (Auto) 2:24am 4:55am Monocytes 10.5 % 3.6-12.04 03/22/2018 03/22/2018 (%) (Auto) 2:24am 4:55am Eosinophils 1.4 % 0.0-5.41 03/22/2018 03/22/2018 (%) (Auto) 2:24am 4:55am Basophils 0.9 % H 0.0-0.79 03/22/2018 03/22/2018 (%) (Auto) 2:24am 4:55am Erythrocyte 30 mm/hr H 0.00-20 03/20/2018 03/20/2018 Sedimentatio 4:29am 5:02am n Rate Prothrombin 11.6 SECONDS 10.3-12.3 03/20/2018 03/20/2018 Time 4:29am 5:23am THERAPEUTIC LEVEL: 1.5 to 1.9 times normal range of PT Prothromb 1.06 03/20/2018 03/20/2018 Time 4:29am 5:23am Recommended therapeutic range for patients receiving Internationa warfarin (coumadin) therapy: INR is 2.0 to 3.0 l Ratio Recommended range for patients with mechanical prosthetic heart valves: INR is 2.5 to 3.5 Activated 31.3 SECONDS 22.5-37.0 03/20/2018 03/20/2018 Partial 4:29am 5:23am Thromboplast Time Body Fluid < 4.0 g/dL 03/20/2018 03/20/2018 Total 12:20pm 12:56pm Protein Urine Color YELLOW 03/20/2018 03/20/2018 5:40am 6:27am Urine CLEAR CLEAR 03/20/2018 03/20/2018 Appearance 5:40am 6:27am Urine TRACE (30 NEGATIVE 03/20/2018 03/20/2018 Glucose mg/dL) 5:40am 6:27am Urine NEGATIVE NEGATIVE 03/20/2018 03/20/2018 Bilirubin 5:40am 6:27am Urine NEGATIVE NEGATIVE 03/20/2018 03/20/2018 Ketones 5:40am 6:27am Urine 1.013 1.003-1.03 03/20/2018 03/20/2018 Specific 0 5:40am 6:27am Hume Urine Blood NEGATIVE NEGATIVE 03/20/2018 03/20/2018 5:40am 6:27am Urine pH 5.000 5-9 03/20/2018 03/20/2018 5:40am 6:27am Urine NEGATIVE NEGATIVE 03/20/2018 03/20/2018 Protein 5:40am 6:27am Urine NORMAL mg/dL 0.2-1.0 03/20/2018 03/20/2018 Urobilinogen 5:40am 6:27am Urine NEGATIVE NEGATIVE 03/20/2018 03/20/2018 Nitrate 5:40am 6:27am Urine 1+ H NEGATIVE 03/20/2018 03/20/2018 Leukocyte 5:40am 6:27am Esterase Urine RBC 1-5 /hpf 0-5 03/20/2018 03/20/2018 5:40am 6:44am Urine WBC 6-10 /hpf H 0-5 03/20/2018 03/20/2018 5:40am 6:44am Urine 1-5 /hpf 0-5 03/20/2018 03/20/2018 Epithelial 5:40am 6:44am Cells Urine TNTC (4+) /hpf H None 03/20/2018 03/20/2018 Bacteria Detect 5:40am 6:44am Urine Casts 6-10 /lpf H None 03/20/2018 03/20/2018 Detect 5:40am 6:44am Urine YES 03/20/2018 03/20/2018 Culture 5:40am 6:27am Reflexed Urine None seen /hpf None 03/20/2018 03/20/2018 Pathogenic Detect 5:40am 6:44am Casts POC 306 mg/dL H 70.0 - 110 03/25/2018 03/25/2018 Capillary 10:46am 10:50am Blood Glucose (Chem) Lactic Acid 1.70 mmoL/L 0.5-2.2 03/20/2018 03/20/2018 Level 4:29am 5:17am Procalcitoni 0.4 ng/mL 0.0-0.8 03/20/2018 03/20/2018 The change of PCT concentration over time provides n 4:29am 6:26am prognostic information about the risk of mortality within 28 days for patients diagnosed with severe sepsis or septic shock coming from the emergency department, ICU, other medical wards, or directly from outside the hospital. Data supports the use of PCT determinations from the day severe sepsis or septic shock is first diagnosed (Day 0) or the day thereafter (Day 1) and the fourth day after diagnosis (Day 4) for the classification of patients into higher and lower risk for mortality within 28 days according to the workflow below: PCT Day 0(or Day 1) - PCT Day 4 delta PCT= X 100% PCT Day 0 (or Day 1) A decrease of PCT levels below or equal to 80% defines a positive delta PCT test result representing a higher risk for 28-day all-cause mortality of patients diagnosed with severe sepsis or septic shock. A decreased of PCT levels of more than 80% defines a negative delta PCT result representing a lower risk for 28-day all-cause mortality of patients diagnosed with severe sepsis or septic shock. To determine delta PCT results from the absolute PCT concentrations of a patient obtained on the day severe sepsis or septic shock was first diagnosed (or 24 hours later) and on Day 4, go to [email or web address]. Random 203 mg/dL H 82-115 03/25/2018 03/25/2018 Glucose 4:44am 5:37am Blood Urea 51 mg/dL #H 8-23 03/25/2018 03/25/2018 Nitrogen 4:44am 5:37am Serum 294 280-300 03/25/2018 03/25/2018 Osmolality 4:44am 5:37am Urine Sodium 51 mmol/L 03/20/2018 03/20/2018 5:40am 6:31am Creatinine 1.3 mg/dL H 0.50-0.90 03/25/2018 03/25/2018 4:44am 5:37am Glomerular 40.86 L 03/25/2018 03/25/2018 GFR RESULTS ARE REPORTED IN mL/min/1.73m2. Filtration 4:44am 5:37am Rate Calc Normal GFR: >60mL/min Moderately decreased GFR: 30-59 mL/min Severely decreased GFR: 15-29 mL/min Kidney Failure (or Dialysis): <15 mL/min The calculated eGFR is not valid for patients younger than 18 years or older than 75 years. BUN/Creatini 39.2 H -03/25/2018 03/25/2018 ne Ratio 4:44am 5:37am Sodium Level 137 mmol/L 135-145 03/25/2018 03/25/2018 4:44am 5:37am Potassium 3.7 mmol/L 3.5-5.2 03/25/2018 03/25/2018 Level 4:44am 5:37am Chloride 99 mmol/L 98-108 03/25/2018 03/25/2018 Level 4:44am 5:37am Carbon 27 mmol/L 21-32 03/25/2018 03/25/2018 Dioxide 4:44am 5:37am Level Anion Gap 14.7 mEq/L -03/25/2018 03/25/2018 4:44am 5:37am Calcium 9.3 mg/dL 8.8-10.2 03/25/2018 03/25/2018 Level 4:44am 5:37am Phosphorus 2.8 mg/dL 2.5-4.5 03/22/2018 03/22/2018 Level 2:24am 5:13am Magnesium 1.8 mg/dL 1.6-2.4 03/24/2018 03/24/2018 Level 3:34am 4:41am Total 6.0 g/dL L 6.6-8.7 03/22/2018 03/22/2018 Protein 2:24am 5:13am Albumin 2.9 g/dL L 3.5-5.2 03/22/2018 03/22/2018 2:24am 5:13am Globulin 3.1 gm/dL 03/22/2018 03/22/2018 2:24am 5:13am Albumin/Glob 0.9 >1.0 03/22/2018 03/22/2018 ulin Ratio 2:24am 5:13am Total 0.7 mg/dL 0.0-1.2 03/22/2018 03/22/2018 Bilirubin 2:24am 5:13am Aspartate 20 U/L 15-32 03/22/2018 03/22/2018 Amino Transf 2:24am 5:13am (AST/SGOT) Alanine 17 U/L 0-33 03/22/2018 03/22/2018 Aminotransfe 2:24am 5:13am rase (ALT/SGPT) RX-Wgy-H-Typ 1370 pg/mL H 0-125 03/20/2018 03/20/2018 e 2:48pm 3:13pm Natriuretic Peptide C-Reactive 66.3 mg/L H 0.0-5.0 03/20/2018 03/20/2018 Protein High 4:29am 5:34am Sensitivity Total 83 U/L 35-105 03/22/2018 03/22/2018 Alkaline 2:24am 5:13am Phosphatase Urine Total 17.2 mg/dl 03/20/2018 03/20/2018 Protein 5:40am 6:37am Urine 94.9 mg/dL 28-217 03/20/2018 03/20/2018 Creatinine 5:40am 6:37am Thyroid 0.31 uIU/mL L 0.36-3.74 03/20/2018 03/20/2018 Stimulating 4:29am 6:26am Hormone (TSH) Rheumatoid < 10 IU/mL 0-14 03/24/2018 03/24/2018 Factor 3:34am 12:06pm Anti-Nuclear Negative Negative 03/20/2018 03/23/2018 Performed at: [facility] Antibody 4:29am 11:14am [address] [place], [place] [id number] Screen Mitigation Supervisor: Amol Vanegas MD, Phone: [phone] Body Fluid 19 U/L . 03/20/2018 03/21/2018 Amylase 12:20pm 11:08am : Peritoneal : Pleural : Synovial : : : : : : : Transudate : Exudate : : : : : : : : 88-109 U/L : Not Estab. : Not Estab.: Not Estab. : : : : : : The method performance specifications have not been established for this test in body fluid. The test result should be integrated into the clinical context for interpretation. The method performance specifications have not been established for this test in body fluid. The test result should be integrated into the clinical context for interpretation. Performed at: [address] [id number] Mitigation Supervisor: Amol Vanegas MD, Phone: [phone] Body Fluid 105 IU/L . 03/20/2018 03/21/2018 Lactate 12:20pm 11:08am : Peritoneal : Pleural : Synovial : CSF : Dehydrogenas : : : : : e : : Transudate: Exudate : : : : : : : : : : Not Estab. : <200 U/L : >200 U/L : <240 U/L : Not Estab.: : : : : : The method performance specifications have not been established for this test in body fluid. The test result should be integrated into the clinical context for interpretation. The reference intervals and other method performance specifications have not been established for this test. The test result should be integrated into the clinical context for interpretation. Performed at: [facility] [id number] Mitigation Supervisor: Amol Vanegas MD, Phone: [phone] Creatine 50 U/L 20-180 03/20/2018 03/20/2018 Kinase 2:48pm 3:34pm Troponin I < 0.30 ng/mL 0.0-0.5 03/20/2018 03/20/2018 Published clinical studies have shown elevations of cTnI in 2:48pm 3:33pm patients with myocardial injury, as seen in unstable angina pectoris, cardiac contusions, and heart transplants. Elevations have also been seen in patients with rhabdomyolysis and polymyositis. Elevated troponin levels point to myocardial injury, but are not necessarily indicative of an ischemic mechanism. The term SD should be used when there is evidence of cardiac damage, as detected by marker proteins in a clinical setting consistent with myocardial ischemia. If the clinical circumstance suggests that an ischemic mechanism is unlikely, other causes of cardiac injury should be considered. For diagnostic purposes, the results should always be assessed in conjunction with the patient's medical history, clinical examination and other findings. Creatine 3.3 ng/ml 0.0-3.6 03/20/2018 03/20/2018 Kinase MB 2:48pm 3:33pm DIAGNOSTIC CITERIA: CKMB CKMB RELATIVE INDEX SUGGESTIVE OF NON-AMI < or=5 N/A MCPHERSON ZONE (INCONCLUSIVE) > 5 < or=4 SUGGESTIVE OF AMI >5 > 4 Myoglobin 187 ng/mL H 25-58 03/19/2018 03/19/2018 3:59pm 4:31pm Pending Laboratory Results Test Name Collection Date/Time Body Fluid Amylase 02/28/2018 8:30am Body Fluid Sodium 03/15/2018 2:45pm Body Fluid Potassium 03/15/2018 2:45pm Microbiology Results Procedure Source Organism/Result Collection Result Result Date/Time Date/Time Status Throat Culture Throat No growth. 02/12/2018 02/13/2018 Final 8:39am 8:44am Sputum Culture Sputum MORAXELLA 02/12/2018 02/17/2018 Final CATARRHALIS 11:00am 12:05pm Blood Culture Blood FINAL REPORT. 02/26/2018 02/26/2018 Final 10:22pm 10:36pm Urine Culture Urine,Clean ESCHERICHIA COLI 03/20/2018 03/22/2018 Final Catch 5:40am 9:40am Procedures Procedure Status Date Provider(s) EMERGENCY DEPT VISIT Completed 02/12/18 CT THORAX W/O DYE Completed 02/12/18 X-RAY EXAM CHEST 2 VIEWS Completed 02/12/18 SMEAR GRAM STAIN Completed 02/12/18 STREP A ASSAY W/OPTIC Completed 02/12/18 CULTURE OTHR SPECIMN AEROBIC Completed 02/12/18 INFLUENZA ASSAY W/OPTIC Completed 02/12/18 AIRWAY INHALATION TREATMENT Completed 02/12/18 EMERGENCY DEPT VISIT Completed 02/18/18 X-RAY EXAM CHEST 1 VIEW Completed 02/18/18 COMPLETE CBC W/AUTO DIFF WBC Completed 02/18/18 CREATINE MB FRACTION Completed 02/18/18 CREATINE MB FRACTION Completed 02/18/18 ASSAY OF CK (CPK) Completed 02/18/18 ASSAY OF CK (CPK) Completed 02/18/18 ASSAY OF MYOGLOBIN Completed 02/18/18 PROTHROMBIN TIME Completed 02/18/18 THROMBOPLASTIN TIME PARTIAL Completed 02/18/18 ROUTINE VENIPUNCTURE Completed 02/18/18 ASSAY OF TROPONIN QUANT Completed 02/18/18 ASSAY OF TROPONIN QUANT Completed 02/18/18 COMPREHEN METABOLIC PANEL Completed 02/18/18 ASSAY OF NATRIURETIC PEPTIDE Completed 02/18/18 ELECTROCARDIOGRAM TRACING Completed 02/18/18 ULTRASONOGRAPHY OF PLEURA Completed 02/28/18 YOUNG,BARBARA D DO DRAINAGE OF RIGHT PLEURAL CAVITY, PERC Completed 02/28/18 BARBARA BENITEZ DO APPROACH, DIAGN TRANSFUSE NONAUT PLATELETS IN PERIPH Completed 02/28/18 AMAN GARNETT MD VEIN, PERC ASPIRATE PLEURA W/ IMAGING Completed 03/15/18 BARBARA BENITEZ DO EMERGENCY DEPT VISIT Completed 03/15/18 X-RAY EXAM CHEST 1 VIEW Completed 03/15/18 X-RAY EXAM CHEST 1 VIEW Completed 03/15/18 ASSAY GLUCOSE BLOOD QUANT Completed 03/15/18 ASSAY OF AMYLASE Completed 03/15/18 COMPLETE CBC W/AUTO DIFF WBC Completed 03/15/18 BODY FLUID CELL COUNT Completed 03/15/18 CREATINE MB FRACTION Completed 03/15/18 ASSAY OF CK (CPK) Completed 03/15/18 CULTURE OTHR SPECIMN AEROBIC Completed 03/15/18 LACTATE (LD) (LDH) ENZYME Completed 03/15/18 PROTHROMBIN TIME Completed 03/15/18 THROMBOPLASTIN TIME PARTIAL Completed 03/15/18 SMEAR GRAM STAIN Completed 03/15/18 ROUTINE VENIPUNCTURE Completed 03/15/18 ASSAY OF TROPONIN QUANT Completed 03/15/18 COMPREHEN METABOLIC PANEL Completed 03/15/18 ASSAY OF NATRIURETIC PEPTIDE Completed 03/15/18 ASSAY OF LIPASE Completed 03/15/18 CYTOPATH FL NONGYN FILTER Completed 03/15/18 DRUG SCREEN QUANT TIAGABINE Completed 03/15/18 ASSAY OF SERUM POTASSIUM Completed 03/15/18 ASSAY OF BLOOD CHLORIDE Completed 03/15/18 ELECTROCARDIOGRAM TRACING Completed 03/15/18 X-ray of chest, two views Completed 02/12/[address] thorax wo contrast Completed 02/12/18 PRADEEP GARIBAY MD X-ray of chest, single view Completed 02/18/18 PRADEEP GARIBAY MD X-ray of chest, single view Completed 02/26/[address] thorax wo contrast Completed 02/27/18 AMAN GARNETT MD Hepatic ultrasound Completed 02/27/18 AMAN GARNETT MD US guided thoracentesis Completed 02/28/18 AMAN GARNETT MD X-ray of chest, single view Completed 02/28/18 BARBARA BENITEZ DO X-ray of chest, single view Completed 03/15/18 REUBEN BELCHER US guided thoracentesis Active 03/15/18 BARBARA BENITEZ DO X-ray of chest, single view Completed 03/15/18 BARBARA BENITEZ DO X-ray of chest, single view Completed 03/19/18 PRADEEP GARIBAY MD US guided thoracentesis Active 03/20/18 AMAN GARNETT MD X-ray of chest, single view Completed 03/20/[address] thorax wo contrast Completed 03/20/18 TEN EMNDEZ MD US renal Completed 03/20/18 DAYAN RIZZO MD X-ray of chest, two views Completed 03/22/18 AMAN GARNETT MD X-ray of chest, two views Completed 03/25/18 TEN MENDEZ MD Encounters Encounter Location Arrival/Admit Date Discharge/Depart Date Attending Provider Discharged [place] 03/19/18 4:52pm 03/25/18 3:19pm [facility] Registered [place] 03/15/18 1:19pm BARBARA BENITEZ Surgical Day [facility] Discharged [place] 02/26/18 8:23pm 03/02/18 4:33pm [facility] Departed [place] 02/18/18 9:13am 02/18/18 12:44pm PRADEEP GARIBAY MD Emergency Room Counts Include [facility] Departed [place] 02/12/18 8:24am 02/12/18 11:13am PRADEEP GARIBAY MD [facility] Recent Diagnosis WBC decreased Thrombocytopenia Dyspnea COPD (chronic obstructive pulmonary disease) COPD with exacerbation Pleural effusion associated with hepatic disorder Cirrhosis of liver NAFL (nonalcoholic fatty liver) HTN (hypertension) Type 2 diabetes mellitus Thrombocytopenia SLE (systemic lupus erythematosus) Depression Heart failure with preserved ejection fraction Acute renal failure superimposed on stage 3 chronic kidney disease
--- OUTSIDE RECORDS SUMMARY | 2018-05-31 17:18 | XMS REPORT | Continuity of Care Document ---
:1950 Author Organization [facility] Address [address] [place] [address] Phone Unavailable Care Team Providers Name Role Phone JUWAN QUIGLEY MD Primary Care Physician Insurance Providers Guarantor Desirae Canales Address [address] [place] [address] Email [facility]ONE [facility] Policy Number [id number] Subscriber's Name Desirae Canales Relationship Self / Same As Patient Group Number [id number] Group Name NA Payer [facility] Policy Number [id number] Subscriber's Name Desirae Canales Relationship Self / Same As Patient Group Number [id number] Group Name NA Advance Directives Directive Response Recorded Date/Time Advance Directives No 01/20/16 10:11pm Advance Directive on File No 03/31/18 2:27am Resuscitation Status Full Code 03/30/18 9:03pm Directive to Physicians/Living Will No 01/20/16 10:11pm Health Care Proxy No 01/20/16 10:11pm Organ Donor No 01/20/16 10:11pm Medical Power of Sugar Sampler No 01/20/16 10:11pm Patient/Family Given Education Material R/T Y - 03/30/18...MK 03/31/18 2: 27am Directives? Chief Complaint and Reason for Visit Chief Complaint RT PLUERAL EFFUSION, DYSPNEA Reason for Visit Dyspnea COPD (chronic obstructive pulmonary disease) Pleural effusion associated with hepatic disorder Cirrhosis of liver HTN (hypertension) Type 2 diabetes mellitus Heart failure with preserved ejection fraction CKD stage 3 secondary to diabetes Problems Medical Problem Onset Date Status Abdominal pain Unknown Acute Acute exacerbation of congestive heart failure Unknown Acute Acute renal failure superimposed on stage 3 chronic kidney Unknown Acute disease Anxiety Unknown Chronic Atypical chest pain Unknown Acute CHF (congestive heart failure) Unknown Chronic CKD stage 3 secondary to diabetes Unknown Chronic COPD (chronic obstructive pulmonary disease) Unknown Chronic COPD with exacerbation Unknown Acute Cirrhosis of liver Unknown Chronic Depression Unknown Chronic Diabetes Unknown Chronic Dyspnea Unknown Acute Generalized weakness Unknown Acute HLD (hyperlipidemia) Unknown Chronic HTN (hypertension) Unknown Chronic HTN (hypertension) Unknown Chronic Heart failure with preserved ejection fraction Unknown Chronic Hypomagnesemia Unknown Resolved [id number] Unknown Acute Influenza A Unknown Acute Mononucleosis [...] Besylate Tablet (Amlodipine Besylate*) 5 Mg Tab Furosemide 1 Tab ORAL Daily for 30 30 03/31/ (Lasix 40 Mg*) Unknown Days Tablet 18 40 Mg Tab Insulin 20 Units SUBCUTANEOUS Once [...] 200 Mcg/5 Mcg *) 1 Aer Aer Spironolactone 25 Mg ORAL Once Daily for [...] (Flonase Allergy Relief) 50 Mcg/Act Spr, 1 [place] Nasal Furosemide (Lasix *) 40 Mg Tab, 40 Once Daily for Unknown 03/02/18 Discontinued Mg Oral Furosemide (Lasix 20 Mg*) 20 Mg Daily Discontinued Tab, 1 Tab Oral Gabapentin (Gabapentin 300 Mg Twice A Day Discontinued (Neurontin) *) 300 Mg Cap, 300 Mg Oral Insulin Detemir (Levemir 100 Twice A Day Discontinued Units/Ml Insulin*) 100 Units/ Inj, 70 Units Subcutaneous Insulin Human Lispro (Insulin Three Times Daily Before Discontinued Humalog) 100 Mg/ Inj, 5 Units Meals Subcutaneous [...] Mg*) 40 Mg Tab, 40 Mg Oral Pantoprazole Sodium * Before Breakfast for Unknown 03/02/18 Discontinued (Pantoprazole Sodium Ec 40 Mg *) 40 Mg Tab, 40 Mg Oral Pregabalin (Lyrica 75 Mg *) 75 Mg Twice A Day Discontinued Cap, 1 Cap Oral Rosuvastatin * (Crestor 5 Mg *) 5 Once Daily At Bedtime Discontinued Mg Tab, 5 Mg Oral Sertraline Hcl (Zoloft *) 100 Mg Once Daily At Bedtime Discontinued Tab, 100 Mg Oral Tramadol Hcl (Tramadol Hcl 50 Mg Every 6 Hours As Needed Discontinued (Ultram) *) 50 Mg Tab, 2 Tab Oral Family History Relationship Condition Age at Onset Recorded Date/Time Brother FH: heart failure Not Recorded 02/26/2018 11:13pm Social History Social History Problem Response Recorded Date/Time Onset Date Status Hx Alcohol Use No 03/31/2018 2:23am Not Applicable Not Applicable Hx Physical Abuse No 03/31/2018 2:23am Not Applicable Not Applicable Smoking Status Start Date Stop Date Never smoker Hospital Discharge Instructions No hospital discharge instruction information available. Plan of Care Discharge Date 03/31/18 3:17pm Disposition PATIENT DISCHARGE HOME OR SELF Instructions/Education Provided Furosemide tablets Pleural Effusion Forms Provided Portal Welcome Letter Prescriptions See Medication Section Functional Status No functional status information available. Allergies, Adverse Reactions, Alerts Allergen Type Severity Reaction Status Last Updated No Known Allergies Allergy Severe Active 10/09/09 Immunizations No immunization information available. Vital Signs Acute Vital Signs Vital Response Date/Time Blood Pressure 148/40 mm Hg 03/31/2018 1:18pm Pulse Pulse Rate (adult) 89 beats per minute (60 - 100) 03/31/2018 12:18pm Respiratory Rate 18 breaths per minute (10 - 24) 03/31/2018 12:18pm Temperature Source Oral 03/31/2018 11:17am Height 5 ft 4 in 03/30/2018 6:12pm Weight 208.31 lb 03/31/2018 4:49am Body Mass Index 35.8 kg/m^2 03/31/2018 4:49am Results Laboratory Results Test Name Result Units [...] ECLIA methodology Alpha 4:11am 7:28am Performed at: HD - [facility] [place], [place] [id number] Pediatric Dentist: Amol Vanegas MD, Phone: [phone] Body Fluid 71 mg/dL . 02/28/2018 03/02/2018 [...] the clinical context for interpretation. Performed at: [address] [id number] Pediatric Dentist: Amol Vanegas MD, Phone: [phone] Differential ---PATH REVIEW--- 03/15/2018 03/22/2018 Comment 2:45pm [...] fluid reference ranges and/or interpretive guidance visit [email or web address] Test developed and characteristics determined by [place]. See Compliance Statement B: [employer]/CS Performed at: [facility] [place] [address] [id number] Pediatric Dentist: Dylan Harper MD, Phone: [phone] Body Fluid 116 mmol/L . 03/15/2018 03/17/2018 [...] clinical context for interpretation. Performed at: - [facility] [id number] Pediatric Dentist: Amol Vanegas MD, Phone: [phone] Erythrocyte 30 mm/hr H 0.00-20 03/20/2018 03/20/2018 Sedimentatio 4:29am 5:02am n Rate Activated 31.3 SECONDS 22.5-37.0 03/20/2018 03/20/2018 Partial [...] 1.003-1.03 03/20/2018 03/20/2018 Specific 0 5:40am 6:27am [place] Urine Blood NEGATIVE NEGATIVE 03/20/2018 03/20/2018 5:40am [...] 03/20/2018 03/20/2018 Pathogenic Detect 5:40am 6:44am Casts Lactic Acid 1.70 mmoL/L 0.5-2.2 03/20/2018 03/20/2018 [...] later) and on Day 4, go to [email or web address]. Urine Sodium 51 mmol/L 03/20/2018 03/20/2018 5:40am 6:31am Phosphorus 2.8 mg/dL 2.5-4.5 03/22/2018 03/22/2018 Level 2:24am 5:13am Magnesium 1.8 mg/dL 1.6-2.4 03/24/2018 03/24/2018 Level 3:34am 4:41am [id number] 1370 pg/mL H 0-125 03/20/2018 03/20/2018 e 2:48pm 3:13pm Natriuretic Peptide C-Reactive 66.3 mg/L H 0.0-5.0 03/20/2018 03/20/2018 Protein High 4:29am 5:34am Sensitivity Urine Total 17.2 mg/dl 03/20/2018 03/20/2018 Protein 5:40am 6:37am Urine 94.9 mg/dL 28-217 03/20/2018 03/20/2018 Creatinine 5:40am 6:37am Thyroid 0.31 uIU/mL L 0.36-3.74 03/20/2018 03/20/2018 Stimulating 4:29am 6:26am Hormone (TSH) Rheumatoid < 10 IU/mL 0-14 03/24/2018 03/24/2018 Factor 3:34am 12:06pm Anti-Nuclear Negative Negative 03/20/2018 03/23/2018 [facility] 4:29am 11:14am [address] [place] [id number] Screen Pediatric Dentist: Amol Vanegas MD, Phone: [phone] Body Fluid 19 U/L . 03/20/2018 03/21/2018 [...] the clinical context for interpretation. Performed at: HD - [facility] [address] [place] [id number] Pediatric Dentist: Amol Vanegas MD, Phone: [phone] Body Fluid 105 IU/L . 03/20/2018 03/21/2018 [...] the clinical context for interpretation. Performed at: [address] [id number] Pediatric Dentist: Amol Vanegas MD, Phone: [phone] Creatine 50 U/L 20-180 03/20/2018 03/20/2018 Kinase [...] indicative of an ischemic mechanism. The term PA should be used when there is evidence [...] ng/mL H 25-58 03/19/2018 03/19/2018 3:59pm 4:31pm White Blood 3.3 K/ul L 4.0-11.5 03/31/2018 03/31/2018 Count 5:18am 6:03am Red Blood 4.02 M/ul 3.80-5.20 03/31/2018 03/31/2018 Count 5:18am 6:03am Hemoglobin 12.1 g/dl 10.5-15.7 03/31/2018 03/31/2018 5:18am 6:03am Hematocrit 36.8 % 34.0-50.0 03/31/2018 03/31/2018 5:18am 6:03am Mean 91.6 fl 78-98 03/31/2018 03/31/2018 Corpuscular 5:18am 6:03am Volume Mean 30.0 pg 26.2-33.4 03/31/2018 03/31/2018 Corpuscular 5:18am 6:03am Hemoglobin Mean 32.8 g/dl 31.5-36.2 03/31/2018 03/31/2018 Corpuscular 5:18am 6:03am Hemoglobin Concent Red Cell 14.9 % 11.5-15.5 03/31/2018 03/31/2018 Distribution 5:18am 6:03am Width Platelet 49 K/ul L 137-338 03/31/2018 03/31/2018 Count 5:18am 6:03am Mean 10.5 fl 8.4-11.8 03/31/2018 03/31/2018 Platelet 5:18am 6:03am Volume Neutrophils 68.6 % 44.4-80.1 03/31/2018 03/31/2018 (%) (Auto) 5:18am 6:03am Lymphocytes 21.4 % 10.0-50.0 03/31/2018 03/31/2018 (%) (Auto) 5:18am 6:03am Monocytes 7.4 % 3.6-12.04 03/31/2018 03/31/2018 (%) (Auto) 5:18am 6:03am Eosinophils 1.4 % 0.0-5.41 03/31/2018 03/31/2018 (%) (Auto) 5:18am 6:03am Basophils 1.2 % H 0.0-0.79 03/31/2018 03/31/2018 (%) (Auto) 5:18am 6:03am Prothrombin 12.0 SECONDS 10.3-12.3 03/31/2018 03/31/2018 Time 5:18am 5:58am THERAPEUTIC LEVEL: 1.5 to 1.9 times normal range of PT Prothromb 1.09 03/31/2018 03/31/2018 Time 5:18am 5:58am Recommended therapeutic range for patients receiving Internationa warfarin (coumadin) therapy: INR is 2.0 to 3.0 l Ratio Recommended range for patients with mechanical prosthetic heart valves: INR is 2.5 to 3.5 POC 238 mg/dL H 70.0 - 110 03/31/2018 03/31/2018 Capillary 11:20am 11:21am Blood Glucose (Chem) Random 221 mg/dL H 82-115 03/31/2018 03/31/2018 Glucose 5:18am 6:15am Blood Urea 31 mg/dL H 8-23 03/31/2018 03/31/2018 Nitrogen 5:18am 6:15am Serum 287 280-300 03/31/2018 03/31/2018 Osmolality 5:18am 6:25am Creatinine 1.2 mg/dL H 0.50-0.90 03/31/2018 03/31/2018 5:18am 6:15am Glomerular 44.81 L 03/31/2018 03/31/2018 GFR RESULTS ARE REPORTED IN mL/min/1.73m2. Filtration 5:18am 6:15am Rate Calc Normal GFR: >60mL/min Moderately decreased GFR: 30-59 mL/min Severely decreased GFR: 15-29 mL/min Kidney Failure (or Dialysis): <15 mL/min The calculated eGFR is not valid for patients younger than 18 years or older than 75 years. BUN/Creatini 25.8 H 12-03/31/2018 03/31/2018 ne Ratio 5:18am 6:15am Sodium Level 137 mmol/L 135-145 03/31/2018 03/31/2018 5:18am 6:25am Potassium 4.5 mmol/L 3.5-5.2 03/31/2018 03/31/2018 Level 5:18am 6:25am Chloride 102 mmol/L 98-108 03/31/2018 03/31/2018 Level 5:18am 6:25am Carbon 22 mmol/L 21-32 03/31/2018 03/31/2018 Dioxide 5:18am 6:15am Level Anion Gap 17.5 mEq/L 04-2903/31/2018 03/31/2018 5:18am 6:25am Calcium 9.5 mg/dL 8.8-10.2 03/31/2018 03/31/2018 Level 5:18am 6:15am Total 6.9 g/dL 6.6-8.7 03/30/2018 03/30/2018 Protein 6:34pm 6:57pm Albumin 3.8 g/dL 3.5-5.2 03/30/2018 03/30/2018 6:34pm 6:57pm Globulin 3.1 gm/dL 03/30/2018 03/30/2018 6:34pm 6:57pm Albumin/Glob 1.2 >1.0 03/30/2018 03/30/2018 ulin Ratio 6:34pm 6:57pm Total 1.4 mg/dL H 0.0-1.2 03/30/2018 03/30/2018 Bilirubin 6:34pm 6:57pm Aspartate 40 U/L H 15-32 03/30/2018 03/30/2018 Amino Transf 6:34pm 6:57pm (AST/SGOT) Alanine 26 U/L 0-33 03/30/2018 03/30/2018 Aminotransfe 6:34pm 6:57pm rase (ALT/SGPT) Total 143 U/L H 35-105 03/30/2018 03/30/2018 Alkaline 6:34pm 6:57pm Phosphatase Pending Laboratory Results Test Name Collection Date/Time [...] Completed 02/18/18 ULTRASONOGRAPHY OF PLEURA Completed 02/28/18 BARBARA BENITEZ DO DRAINAGE OF RIGHT PLEURAL CAVITY, PERC [...] CHLORIDE Completed 03/15/18 ELECTROCARDIOGRAM TRACING Completed 03/15/18 DRAINAGE OF RIGHT PLEURAL CAVITY, Completed 03/20/18 BARBARA BENITEZ DO PERCUTANEOUS APPROACH X-ray of chest, two views Completed 02/12/18 [...] X-ray of chest, single view Completed 03/15/18 RIDDLE,CHRISTOPHER B ACNP US guided thoracentesis Active 03/15/18 BARBARA BENITEZ DO X-ray of chest, single view Completed 03/15/18 BARBARA BENITEZ DO X-ray of chest, single view Completed 03/19/18 PRADEEP GARIBAY MD US guided thoracentesis Active 03/20/18 AMAN GARNETT MD X-ray of chest, single view Completed 03/20/[address] thorax wo contrast Completed 03/20/18 TEN MENDEZ MD US renal Completed 03/20/18 DAYAN RIZZO MD X-ray of chest, two views Completed 03/22/18 AMAN GARNETT MD X-ray of chest, two views Completed 03/25/18 TEN MENDEZ MD X-ray of chest, two views Completed 03/30/18 REUBEN BELCHER ACNRomeo US guided thoracentesis Active 03/31/18 AMAN GARNETT MD X-ray of chest, single view Completed 03/31/18 BARBARA BENITEZ DO Encounters Encounter Location Arrival/Admit Date Discharge/Depart Date Attending Provider Discharged [place] 03/30/18 7:10pm 03/31/18 3:17pm TAMIR, Inpatient (obs) [facility] Discharged [place] 03/19/18 4:52pm 03/25/18 3:19pm TAMIR, Inpatient [facility] Registered [place] 03/15/18 1:19pm BARBARA BENITEZ Surgical Day [facility] Discharged [place] 02/26/18 8:23pm 03/02/18 4:33pm TAMIR Inpatient [facility] Departed [place] 02/18/18 9:13am 02/18/18 12:44pm PRADEEP GARIBAY [facility] Departed [place] 02/12/18 8:24am 02/12/18 11:13am PRADEEP GARIBAY MD [facility] Recent Diagnosis Dyspnea COPD (chronic obstructive pulmonary disease) Pleural effusion associated with hepatic disorder Cirrhosis of liver HTN (hypertension) Type 2 diabetes mellitus Heart failure with preserved ejection fraction CKD stage 3 secondary to diabetes
--- OUTSIDE RECORDS SUMMARY | 2018-05-31 17:18 | XMS REPORT | Continuity of Care Document ---
:1950 Author Organization [facility] Address [address] [place] [address] Phone Unavailable Care Team Providers Name Role Phone JUWAN QUIGLEY MD Primary Care Physician Insurance Providers Guarantor Desirae Canales Address [address] [place] [address] [facility] Policy Number [id number] Subscriber's Name Desirae Canales Relationship Self / Same As Patient Group Number [id number] Group Name NA Payer [facility] Policy Number [id number] Subscriber's Name Desirae Canales Relationship Self / Same As Patient Group Number [id number] Group Name NA Advance Directives Directive Response Recorded Date/Time Advance Directives No 01/20/16 10:11pm Advance Directive on File No 02/26/18 10:20pm Resuscitation Status Full Code 02/27/18 4:01pm Directive to Physicians/Living Will No 01/20/16 10:11pm Health Care Proxy No 01/20/16 10:11pm Organ Donor No 01/20/16 10:11pm Medical Power of Hospital Social Worker No 01/20/16 10:11pm Patient/Family Given Education Material R/T Directives? No 02/26/18 10:20pm Chief Complaint and Reason for Visit Chief Complaint COPD Reason for Visit Abdominal pain COPD with exacerbation Acute exacerbation of congestive heart failure Pleural effusion associated with hepatic disorder Cirrhosis of liver NAFL (nonalcoholic fatty liver) HTN (hypertension) Type 2 diabetes mellitus Thrombocytopenia SLE (systemic lupus erythematosus) Neutropenia Problems Medical Problem Onset Date Status Abdominal pain Unknown Acute Acute exacerbation of congestive heart failure Unknown Acute Anxiety Unknown Chronic Atypical chest pain Unknown Acute CHF (congestive heart failure) Unknown Chronic COPD (chronic obstructive pulmonary disease) Unknown Chronic COPD with exacerbation Unknown Acute Cirrhosis of liver Unknown Chronic Depression Unknown Chronic Diabetes Unknown Chronic Dyspnea Unknown Acute Generalized weakness Unknown Acute HLD (hyperlipidemia) Unknown Chronic HTN (hypertension) Unknown Chronic HTN (hypertension) Unknown Chronic Hypomagnesemia Unknown Resolved [id number] Unknown Acute Influenza A Unknown Acute Mononucleosis [...] (Plavix 75 Mg *) 75 Mg Tab Furosemide 40 Mg ORAL Once Daily for 30 30 03/02/ (Lasix *) 40 Mg Unknown Days Tablet 18 Tab Insulin 20 Units SUBCUTANEOUS Once Daily [...] Mg Tab for Unknown Days Tablet 18 Metoprolol Tartrate 25 Mg Tab Mometasone 2 Puff RESPIRATORY Twice A Day 13 Gram Furoate/Formoter (INHALATION) ol 200 Mcg * (Dulera 200 Mcg/5 Mcg *) 1 Aer Aer Olmesartan 40 Mg ORAL Daily for 30 30 03/02/ (Benicar *) 20 Unknown Days Tablet 18 Mg Tab Pantoprazole * 40 Mg ORAL Before (Protonix Ec 40 Breakfast Mg*) 40 Mg Tab Pantoprazole 40 Mg ORAL Before 30 30 03/02/ Sodium * Breakfast for Days Tablet 18 (Pantoprazole Unknown Sodium Ec 40 Mg *) 40 Mg Tab Sertraline Hcl 100 Mg ORAL Once Daily At 30 (Zoloft *) 100 Bedtime Tablet Mg Tab Spironolactone 25 Mg ORAL Once Daily for 30 30 03/02/ (Aldactone *) 25 Unk Days Tablet 18 Mg Tab Past Home Medications Medication Directions Ordered Status Albuterol Hfa* (Proventil Hfa 90 Twice A Day Discontinued Mcg/Act *) Aer, 2 Puff Respiratory (Inhalation) Albuterol Sulfate (Proair Hfa) 108 Every 4-6 Hours As Needed Discontinued Mcg/Act Aer, 2 Puff Respiratory (Inhalation) Aspirin (Aspirin *) 81 Mg Tab, 81 Once Daily Discontinued Mg Oral Budesonide/Formoterol 160 Mcg* Twice A Day Discontinued (Symbicort 160 Mcg/4.5 Mcg *) 1 Aer Aer, 2 Puff Respiratory(Inhalation) Cephalexin * 250 Mg Cap, 250 Mg Twice A Day Discontinued Oral Cyclobenzaprine Hcl (Flexeril *) 10 Three Times A Day Discontinued Mg Tab, 1 Tab Oral Diphenhydramine-Acetaminophen At Bedtime As Needed For Discontinued (Tylenol Pm Extra Strength 25/500 Sleep Mg) 1 Tab Tab, 1-2 Tab NotApplicable Esomeprazole Mag * (Nexium 40 Mg *) Daily Discontinued 40 Mg Cap, 40 Mg Oral Fluticasone Propionate (Nasal) Daily Discontinued (Flonase Allergy Relief) 50 Mcg/Act Spr, 1 [place] Nasal Furosemide (Lasix 20 Mg*) 20 Mg Daily [...] Discontinued 25 Mg Tab, 1 Tab Oral Olmesartan (Benicar *) 20 Mg Tab, 1 Daily Discontinued Tab Oral Olmesartan/Hctz 40/25 Mg * (Benicar Once Daily Discontinued Hct 40/25 Mg *) 1 Tab Tab, 1 Tab Oral Pregabalin (Lyrica 75 Mg *) 75 [...] Onset Date Status Hx Alcohol Use No 02/26/2018 10:46pm Not Applicable Not Applicable Hx Physical Abuse No 02/26/2018 10:46pm Not Applicable Not Applicable Smoking Status Start Date Stop Date Never smoker Hospital Discharge Instructions No hospital discharge instruction information available. Plan of Care Discharge Date 03/02/18 4:33pm Disposition DC/TRANS [facility] Prescriptions See Medication Section Functional Status No functional status information available. Allergies, Adverse Reactions, Alerts Allergen Type Severity Reaction Status Last Updated No Known Allergies Allergy Severe Active 10/09/09 Immunizations No immunization information available. Vital Signs Acute Vital Signs Vital Response Date/Time Blood Pressure 144/56 mm Hg 03/02/2018 4:21pm Pulse Pulse Rate (adult) 66 beats per minute (60 - 100) 03/02/2018 4:21pm Respiratory Rate 16 breaths per minute (10 - 24) 03/02/2018 4:21pm Temperature Source Oral 03/02/2018 4:21pm Height 5 ft 4 in 02/26/2018 6:33pm Weight 225.38 lb 03/02/2018 5:03am Body Mass Index 38.7 kg/m^2 03/02/2018 5:03am Results Laboratory Results Test Name Result Units Flags Reference Collection Result Comments Date/Time Date/Time Hemoglobin 7.3 % H 4.0-6.0 01/13/2018 01/13/2018 A1c 11:15am 1:38pm Cholesterol 110 mg/dL L 150-200 01/13/2018 01/13/2018 Level 11:15am 1:44pm Triglycerides 103 mg/dL <150 01/13/2018 01/13/2018 Level 11:15am 1:44pm HDL 50 mg/dL L >65 01/13/2018 01/13/2018 HDL EXPECTED VALUES: Cholesterol 11:15am 1:44pm FEMALES: >65 mg/dL NO RISK 45-65 mg/dL MODERATE RISK <45 mg/dL HIGH RISK MALES: >55 mg/dL NO RISK 35-55 mg/dL MODERATE RISK <35 mg/dL HIGH RISK LDL 49 mg/dL <100 01/13/2018 01/13/2018 LDL Expected Values: Cholesterol 11:15am 1:44pm Optimal <100 mg/dL Near optimal/above optimal 100-129 mg/dL Borderline high 130-159 mg/dL High 160-189 mg/dL Very high >190 mg/dL Coronary 2.200 01/13/2018 01/13/2018 NATIONAL CHOLESTEROL GUIDELINES Heart Disease 11:15am 1:44pm Risk Ratio [facility] [...] 9.6 7.1 3.0 x Average 13.5 11.0 Myoglobin 49 ng/mL 25-58 02/18/2018 02/18/2018 11:33am 11:54am White Blood 3.9 K/ul L 4.0-11.5 03/01/2018 03/01/2018 Count 3:47am 4:13am Red Blood 3.82 M/ul 3.80-5.20 03/01/2018 03/01/2018 Count 3:47am 4:13am Hemoglobin 11.3 g/dl 10.5-15.7 03/01/2018 03/01/2018 3:47am 4:13am Hematocrit 34.0 % 34.0-50.0 03/01/2018 03/01/2018 3:47am 4:13am Mean 89.0 fl 78-98 03/01/2018 03/01/2018 Corpuscular 3:47am 4:13am Volume Mean 29.6 pg 26.2-33.4 03/01/2018 03/01/2018 Corpuscular 3:47am 4:13am Hemoglobin Mean 33.2 g/dl 31.5-36.2 03/01/2018 03/01/2018 Corpuscular 3:47am 4:13am Hemoglobin Concent Red Cell 15.2 % 11.5-15.5 03/01/2018 03/01/2018 Distribution 3:47am 4:13am Width Platelet 30 K/ul L* 137-338 03/01/2018 03/01/2018 Results have been broadcasted to patient's location and Count 3:47am 4:13am called to (KATHY Rivera By KAMRAN BAR 03/01/18 @0409 Results read back for confirmation. Mean Platelet 8.9 fl 8.4-11.8 03/01/2018 03/01/2018 Volume 3:47am 4:13am Neutrophils 89.4 % H 44.4-80.1 03/01/2018 03/01/2018 (%) (Auto) 3:47am 4:13am Lymphocytes 7.0 % L 10.0-50.0 03/01/2018 03/01/2018 (%) (Auto) 3:47am 4:13am Monocytes (%) 3.3 % L 3.6-12.04 03/01/2018 03/01/2018 (Auto) 3:47am 4:13am Eosinophils 0.0 % 0.0-5.41 03/01/2018 03/01/2018 (%) (Auto) 3:47am 4:13am Basophils (%) 0.2 % 0.0-0.79 03/01/2018 03/01/2018 (Auto) 3:47am 4:13am Neutrophils 81 H 37.0-80.0 02/28/2018 02/28/2018 4:11am 6:07am Band 1 0-3 02/28/2018 02/28/2018 Neutrophils 4:11am 6:07am Lymphocytes 18 10-50 02/28/2018 02/28/2018 (Manual) 4:11am 6:07am Platelet APPEAR ADEQUATE 02/28/2018 02/28/2018 Estimate DECREASED 4:11am 6:07am Abnormal NORMAL NORMAL 02/28/2018 02/28/2018 Platelet 4:11am 6:07am Morphology Poikilocytosi SLIGHT 02/28/2018 02/28/2018 s 4:11am 6:07am Ovalocytes OCCASSIONAL H 02/28/2018 02/28/2018 4:11am 6:07am Prothrombin 13.3 SECONDS H 10.3-12.3 02/26/2018 02/26/2018 Time 6:51pm 7:09pm THERAPEUTIC LEVEL: 1.5 to 1.9 times normal range of PT Prothromb 1.22 02/26/2018 02/26/2018 Time 6:51pm 7:09pm Recommended therapeutic range for patients receiving International warfarin (coumadin) therapy: INR is 2.0 to 3.0 Ratio Recommended range for patients with mechanical prosthetic heart valves: INR is 2.5 to 3.5 Activated 32.7 SECONDS 22.5-37.0 02/26/2018 02/26/2018 Partial 6:51pm 7:09pm Thromboplast Time Body Fluid 297 mg/dL 02/28/2018 02/28/2018 Glucose 8:30am 9:27am Body Fluid 2.3 g/dL 02/28/2018 02/28/2018 Total Protein 8:30am 9:34am Body Fluid PLEURAL 02/28/2018 02/28/2018 Source 8:30am 10:45am Body Fluid LIGHT YELLOW COLORLESS 02/28/2018 02/28/2018 Color 8:30am 10:45am Body Fluid CLEAR CLEAR 02/28/2018 02/28/2018 Appearance 8:30am 10:45am Body Fluid 1.8 CELL/MM3 02/28/2018 02/28/2018 WBC 8:30am 10:45am Body Fluid 4225 CELL/MM3 02/28/2018 02/28/2018 RBC 8:30am 10:45am Body Fluid 100 % 02/28/2018 02/28/2018 Neutrophils 8:30am 10:45am Body Fluid 100 % H 0-0 02/28/2018 02/28/2018 Mesothelial 8:30am 10:45am Cells Body Fluid NO 02/28/2018 02/28/2018 Diff 8:30am 10:45am Pathologist Review POC Capillary 336 mg/dL H 70.0 - 110 03/02/2018 03/02/2018 Blood Glucose 4:18pm 4:25pm (Chem) Lactic Acid 1.12 mmoL/L 0.5-2.2 02/27/2018 02/27/2018 Level 5:57am 6:31am Procalcitonin 0.1 ng/mL 0.0-0.8 02/27/2018 02/27/2018 The change of PCT concentration over time provides 5:57am 6:33am prognostic information about the risk of mortality [...] later) and on Day 4, go to [email or web address]. Random 329 mg/dL H 82-115 03/01/2018 03/01/2018 Glucose 3:47am 4:16am Blood Urea 28 mg/dL H 8-23 03/01/2018 03/01/2018 Nitrogen 3:47am 4:16am Serum 298 280-300 03/01/2018 03/01/2018 Osmolality 3:47am 4:16am Creatinine 1.1 mg/dL H 0.50-0.90 03/01/2018 03/01/2018 3:47am 4:16am Glomerular 49.54 L 03/01/2018 03/01/2018 GFR RESULTS ARE REPORTED IN mL/min/1.73m2. Filtration 3:47am 4:16am Rate Calc Normal GFR: >60mL/min Moderately decreased GFR: 30-59 mL/min Severely decreased GFR: 15-29 mL/min Kidney Failure (or Dialysis): <15 mL/min The calculated eGFR is not valid for patients younger than 18 years or older than 75 years. BUN/Creatinin 25.5 H 12-20 03/01/2018 03/01/2018 e Ratio 3:47am 4:16am Sodium Level 140 mmol/L 135-145 03/01/2018 03/01/2018 3:47am 4:16am Potassium 3.9 mmol/L 3.5-5.2 03/01/2018 03/01/2018 Level 3:47am 4:16am Chloride 100 mmol/L 98-108 03/01/2018 03/01/2018 Level 3:47am 4:16am Carbon 28 mmol/L 21-32 03/01/2018 03/01/2018 Dioxide Level 3:47am 4:16am Anion Gap 15.9 mEq/L 12-20 03/01/2018 03/01/2018 3:47am 4:16am Calcium Level 9.5 mg/dL 8.8-10.2 03/01/2018 03/01/2018 3:47am 4:16am Magnesium 1.2 mg/dL L 1.6-2.4 02/27/2018 02/27/2018 Level 5:57am 6:44am Total Protein 6.8 g/dL 6.6-8.7 02/28/2018 02/28/2018 4:11am 5:30am Albumin 4.3 g/dL 3.5-5.2 02/28/2018 02/28/2018 4:11am 5:30am Globulin 2.5 gm/dL 02/28/2018 02/28/2018 4:11am 5:30am Albumin/Globu 1.7 >1.0 02/28/2018 02/28/2018 varghese Ratio 4:11am 5:30am Total 1.5 mg/dL H 0.0-1.2 02/28/2018 02/28/2018 Bilirubin 4:11am 5:30am Aspartate 15 U/L 15-32 02/28/2018 02/28/2018 Amino Transf 4:11am 5:30am (AST/SGOT) Alanine 10 U/L 0-33 02/28/2018 02/28/2018 Aminotransfer 4:11am 5:30am ase (ALT/SGPT) Lactate 170 U/L 135-214 02/28/2018 02/28/2018 Dehydrogenase 4:11am 5:30am KA-Wso-I-Type 766 pg/mL H 0-125 02/27/2018 02/27/2018 Natriuretic 5:57am 6:33am Peptide Total 69 U/L 35-105 02/28/2018 02/28/2018 Alkaline 4:11am 5:30am Phosphatase Body Fluid pH 8.00 02/28/2018 02/28/2018 8:30am 10:34am Body Fluid 82 IU/L . 02/28/2018 03/02/2018 Lactate 8:30am 9:17am : Peritoneal : Pleural : Synovial : CSF : Dehydrogenase : : : :____ : : : Transudate: Exudate : : : [...] the clinical context for interpretation. Performed at: [address] [id number] Gr[employer] 1 [employer]ru 6 Home Teacher: Amol Vanegas MD, Phone: [phone] Tumor Marker 4.5 ng/mL 0.0-8.3 02/28/2018 03/02/2018 Mirta ECLIA methodology Alpha 4:11am 7:28am Performed at: [facility] [address] [place] [id number] Grades 1 [employer]ru 6 Home Teacher: Amol Vanegas MD, Phone: [phone] Body Fluid 71 mg/dL . 02/28/2018 03/02/2018 Triglycerides 8:30am 9:17am : Peritoneal : Pleural : [...] the clinical context for interpretation. Performed at: [address] [id number] Gr[employer] 1 Thru 6 Home Teacher: Amol Vanegas MD, Phone: [phone] Creatine 47 U/L 20-180 02/27/2018 02/27/2018 Kinase 1:55pm 2:19pm Troponin I < 0.30 ng/mL 0.0-0.5 02/27/2018 02/27/2018 1:55pm 2:22pm Creatine 2.4 ng/ml 0.0-3.6 02/27/2018 02/27/2018 Kinase MB 1:55pm 2:22pm DIAGNOSTIC CITERIA: CKMB CKMB RELATIVE INDEX SUGGESTIVE OF NON-AMI < or=5 N/A MCPHERSON ZONE (INCONCLUSIVE) > 5 < or=4 SUGGESTIVE OF AMI >5 > 4 Pending Laboratory Results Test Name Collection Date/Time Differential Comment 02/28/2018 4:11am Body Fluid Amylase 02/28/2018 8:30am Body Fluid Lipase 02/28/2018 8:30am Microbiology Results Procedure Source Organism/Result Collection Result Result Status Date/Time Date/Time Throat Culture Throat No growth. 02/12/2018 02/13/2018 Final 8:39am 8:44am Sputum Culture Sputum MORAXELLA 02/12/2018 02/17/2018 Final [place] 11:00am 12:05pm Blood Culture Blood SPECIMEN HAS BEEN 02/26/2018 02/26/2018 Preliminary RECEIVED IN LAB AND 10:22pm 10:36pm IS IN PROGRESS. ANAEROBIC Pleural SPECIMEN HAS BEEN 02/28/2018 02/28/2018 Preliminary RESULT Fluid RECEIVED IN LAB AND 8:30am 9:15am IS IN PROGRESS. Anaerobic Pleural SPECIMEN HAS BEEN 02/28/2018 02/28/2018 Preliminary Culture Fluid RECEIVED IN LAB AND 8:30am 9:15am IS IN PROGRESS. Procedures Procedure Status Date Provider(s) LIPID PANEL [...] PEPTIDE Completed 02/18/18 ELECTROCARDIOGRAM TRACING Completed 02/18/18 X-ray of chest, two views Completed 02/12/18 [...] single view Completed 02/28/18 BARBARA BENITEZ DO Encounters Encounter Location Arrival/Admit Date Discharge/Depart Date Attending Provider Discharged [place] 02/26/18 8:23pm 03/02/18 4:33pm TAM[facility] Departed [place] 02/18/18 9:13am 02/18/18 12:44pm PRADEEP GARIBAY MD Emergency Room [facility] Departed [place] 02/12/18 8:24am 02/12/18 11:13am PRADEEP GARIBAY MD [facility] Reg[facility] [place] 01/13/18 10:57am JUWAN QUIGLEY [facility] Recent Diagnosis Abdominal pain COPD with exacerbation Acute exacerbation of congestive heart failure Pleural effusion associated with hepatic disorder Cirrhosis of liver NAFL (nonalcoholic fatty liver) HTN (hypertension) Type 2 diabetes mellitus Thrombocytopenia SLE (systemic lupus erythematosus) Neutropenia
--- OUTSIDE RECORDS SUMMARY | 2018-05-31 17:19 | XMS REPORT | Continuity of Care Document ---
:1950 Author Organization [facility] Address [address] [place] [address] Phone Unavailable Care Team Providers Name Role Phone JUWAN QUIGLEY MD Primary Care Physician Insurance Providers Guarantor Desirae Canales Address [address] [place] [address] Email NONE [facility]ayer [facility] Policy Number [id number] Subscriber's Name Desirae Canales Relationship Self / Same As Patient Group Number [id number] [facility] Policy Number [id number] Subscriber's Name Desirae Canales Relationship Self / Same As Patient Group Number [id number] Group Name NA Advance Directives Directive Response Recorded Date/Time Advance Directives No 01/20/16 10:11pm Advance Directive on File No 04/03/18 4:05pm Directive to Physicians/Living Will No 01/20/16 10:11pm Health Care Proxy No 01/20/16 10:11pm Organ Donor No 01/20/16 10:11pm Medical Power of Cook Supervisor No 01/20/16 10:11pm Patient/Family Given Education Material R/T Y - 04/03/18...PS 04/03/18 5: 08pm Directives? Chief Complaint and Reason for Visit Chief Complaint Dyspnea/Respdistress Reason for Visit Dyspnea Pleural effusion Problems Medical Problem Onset Date Status Abdominal [...] ejection fraction Unknown Chronic Hypomagnesemia Unknown Resolved [id number] Unknown Acute Influenza A Unknown Acute Mononucleosis [...] by computed tomography of Unknown Acute lung Pleural effusion Unknown Acute Recurrent right pleural effusion Unknown Acute Respiratory [...] (Flonase Allergy Relief) 50 Mcg/Act Spr, 1 [place] Nasal Furosemide (Lasix *) 40 Mg Tab, [...] Applicable Not Applicable Hx Physical Abuse No 04/03/2018 4:05pm Not Applicable Not Applicable Smoking Status Start Date Stop Date Never smoker Hospital Discharge Instructions No hospital discharge instruction information available. Plan of Care Discharge Date 04/03/18 9:50pm Forms Provided Portal Welcome Letter Prescriptions See Medication Section Referrals JUWAN QUIGLEY MD Address: [address] [place] [address] [place] [address] Additional Instructions/Education TRANSFERRED TO [facility] FOR FURTHER CARE Functional Status No functional status information available. Allergies, Adverse Reactions, Alerts Allergen Type Severity Reaction Status Last Updated No Known Allergies Allergy Severe Active 10/09/09 Immunizations No immunization information available. Vital Signs Acute Vital Signs Vital Response Date/Time Blood Pressure 140/89 mm Hg 04/03/2018 10:13pm Pulse Pulse Rate (adult) 92 beats per minute (60 - 100) 04/03/2018 10:13pm Respiratory Rate 18 breaths per minute (10 - 24) 04/03/2018 10:13pm Temperature Source Oral 04/03/2018 10:13pm Height 5 ft 0 in 04/03/2018 4:05pm Weight 211 lb 04/03/2018 4:05pm Body Mass Index 41.2 kg/m^2 04/03/2018 4:05pm Results Laboratory Results Test Name Result Units [...] ECLIA methodology Alpha 4:11am 7:28am Performed at: [facility] [address] [id number] Weight Loss Sales Consultant: Amol Vanegas MD, Phone: [phone] Body Fluid 71 mg/dL . 02/28/2018 03/02/2018 [...] the clinical context for interpretation. Performed at: [address] [id number] Weight Loss Sales Consultant: Amol Vanegas MD, Phone: [phone] Differential ---PATH REVIEW--- 03/15/2018 03/22/2018 Comment 2:45pm [...] fluid reference ranges and/or interpretive guidance visit [email or web address] Test developed and characteristics determined by [facility]. See Compliance Statement B: [facility]/ Performed at: [facility] [address] [id number] Weight Loss Sales Consultant: Dylan Harper MD, Phone: [phone] Body Fluid 116 mmol/L . 03/15/2018 03/17/2018 [...] clinical context for interpretation. Performed at: - [facility] [id number] Weight Loss Sales Consultant: Amol Vanegas MD, Phone: [phone] Erythrocyte 30 mm/hr H 0.00-20 03/20/2018 03/20/2018 [...] 1.003-1.03 03/20/2018 03/20/2018 Specific 0 5:40am 6:27am [place] Urine Blood NEGATIVE NEGATIVE 03/20/2018 03/20/2018 5:40am [...] later) and on Day 4, go to [email or web address]. Urine Sodium 51 mmol/L 03/20/2018 03/20/2018 5:40am 6:31am Phosphorus 2.8 mg/dL 2.5-4.5 03/22/2018 03/22/2018 Level 2:24am 5:13am Magnesium 1.8 mg/dL 1.6-2.4 03/24/2018 03/24/2018 Level 3:34am 4:41am C-Reactive 66.3 mg/L H 0.0-5.0 03/20/2018 03/20/2018 Protein High 4:29am 5:34am Sensitivity Urine Total 17.2 mg/dl 03/20/2018 03/20/2018 Protein 5:40am 6:37am Urine 94.9 mg/dL 28-217 03/20/2018 03/20/2018 Creatinine 5:40am 6:37am Thyroid 0.31 uIU/mL L 0.36-3.74 03/20/2018 03/20/2018 Stimulating 4:29am 6:26am Hormone (TSH) Rheumatoid < 10 IU/mL 0-14 03/24/2018 03/24/2018 Factor 3:34am 12:06pm Anti-Nuclear Negative Negative 03/20/2018 03/23/2018 Performed at: - [facility] [place] Antibody 4:29am 11:14am [address] [place], [place] [id number] Screen Weight Loss Sales Consultant: Amol Vanegas MD, Phone: [phone] Body Fluid 19 U/L . 03/20/2018 03/21/2018 [...] the clinical context for interpretation. Performed at: [address] [id number] Weight Loss Sales Consultant: Amol Vanegas MD, Phone: [phone] Body Fluid 105 IU/L . 03/20/2018 03/21/2018 [...] clinical context for interpretation. Performed at: - [facility] [id number] Weight Loss Sales Consultant: Amol Vanegas MD, Phone: [phone] Myoglobin 187 ng/mL H 25-58 03/19/2018 03/19/2018 3:59pm 4:31pm Prothrombin 12.0 SECONDS 10.3-12.3 03/31/2018 03/31/2018 Time [...] 03/31/2018 Capillary 11:20am 11:21am Blood Glucose (Chem) White Blood 6.2 K/ul 4.0-11.5 04/03/2018 04/03/2018 Count 5:01pm 5:09pm Red Blood 4.33 M/ul 3.80-5.20 04/03/2018 04/03/2018 Count 5:01pm 5:09pm Hemoglobin 13.2 g/dl 10.5-15.7 04/03/2018 04/03/2018 5:01pm 5:09pm Hematocrit 38.3 % 34.0-50.0 04/03/2018 04/03/2018 5:01pm 5:09pm Mean 88.6 fl 78-98 04/03/2018 04/03/2018 Corpuscular 5:01pm 5:09pm Volume Mean 30.5 pg 26.2-33.4 04/03/2018 04/03/2018 Corpuscular 5:01pm 5:09pm Hemoglobin Mean 34.4 g/dl 31.5-36.2 04/03/2018 04/03/2018 Corpuscular 5:01pm 5:09pm Hemoglobin Concent Red Cell 14.8 % 11.5-15.5 04/03/2018 04/03/2018 Distribution 5:01pm 5:09pm Width Platelet 62 K/ul L 137-338 04/03/2018 04/03/2018 Count 5:01pm 5:09pm Mean 7.6 fl L 8.4-11.8 04/03/2018 04/03/2018 Platelet 5:01pm 5:09pm Volume Neutrophils 75.6 % 44.4-80.1 04/03/2018 04/03/2018 (%) (Auto) 5:01pm 5:09pm Lymphocytes 16.2 % 10.0-50.0 04/03/2018 04/03/2018 (%) (Auto) 5:01pm 5:09pm Monocytes 5.2 % 3.6-12.04 04/03/2018 04/03/2018 (%) (Auto) 5:01pm 5:09pm Eosinophils 2.3 % 0.0-5.41 04/03/2018 04/03/2018 (%) (Auto) 5:01pm 5:09pm Basophils 0.7 % 0.0-0.79 04/03/2018 04/03/2018 (%) (Auto) 5:01pm 5:09pm Random 412 mg/dL H 82-115 04/03/2018 04/03/2018 Glucose 5:27pm 5:42pm Blood Urea 25 mg/dL H 8-23 04/03/2018 04/03/2018 Nitrogen 5:27pm 5:42pm Serum 292 280-300 04/03/2018 04/03/2018 Osmolality 5:27pm 5:42pm Creatinine 1.2 mg/dL H 0.50-0.90 04/03/2018 04/03/2018 5:27pm 5:42pm Glomerular 44.81 L 04/03/2018 04/03/2018 GFR RESULTS ARE REPORTED IN mL/min/1.73m2. Filtration 5:27pm 5:42pm Rate Calc Normal GFR: >60mL/min Moderately decreased GFR: 30-59 mL/min Severely decreased GFR: 15-29 mL/min Kidney Failure (or Dialysis): <15 mL/min The calculated eGFR is not valid for patients younger than 18 years or older than 75 years. BUN/Creatini 20.8 H 12-04/03/2018 04/03/2018 ne Ratio 5:27pm 5:42pm Sodium Level 135 mmol/L 135-145 04/03/2018 04/03/2018 5:27pm 5:42pm Potassium 3.4 mmol/L L 3.5-5.2 04/03/2018 04/03/2018 Level 5:27pm 5:42pm Chloride 98 mmol/L 98-108 04/03/2018 04/03/2018 Level 5:27pm 5:42pm Carbon 24 mmol/L -04/03/2018 04/03/2018 Dioxide 5:27pm 5:42pm Level Anion Gap 16.4 mEq/L 04-2904/03/2018 04/03/2018 5:27pm 5:42pm Calcium 9.8 mg/dL 8.8-10.2 04/03/2018 04/03/2018 Level 5:27pm 5:42pm Total 6.9 g/dL 6.6-8.7 04/03/2018 04/03/2018 Protein 5:27pm 5:42pm Albumin 3.6 g/dL 3.5-5.2 04/03/2018 04/03/2018 5:27pm 5:42pm Globulin 3.3 gm/dL 04/03/2018 04/03/2018 5:27pm 5:42pm Albumin/Glob 1.1 >1.0 04/03/2018 04/03/2018 ulin Ratio 5:27pm 5:42pm Total 1.6 mg/dL H 0.0-1.2 04/03/2018 04/03/2018 Bilirubin 5:27pm 5:42pm Aspartate 22 U/L -04/03/2018 04/03/2018 Amino Transf 5:27pm 5:42pm (AST/SGOT) Alanine 21 U/L 0-33 04/03/2018 04/03/2018 Aminotransfe 5:27pm 5:42pm rase (ALT/SGPT) GS-Sul-Q-Typ 604 pg/mL H 0-125 04/03/2018 04/03/2018 e 5:27pm 5:47pm Natriuretic Peptide Total 127 U/L H 35-105 04/03/2018 04/03/2018 Alkaline 5:27pm 5:42pm Phosphatase Creatine 32 U/L 20-180 04/03/2018 04/03/2018 Kinase 5:27pm 5:42pm Troponin I < 0.30 ng/mL 0.0-0.5 04/03/2018 04/03/2018 Published clinical studies have shown elevations of cTnI in 5:27pm 5:47pm patients with myocardial injury, as seen in unstable angina pectoris, cardiac contusions, and heart transplants. Elevations have also been seen in patients with rhabdomyolysis and polymyositis. Elevated troponin levels point to myocardial injury, but are not necessarily indicative of an ischemic mechanism. The term ND should be used when there is evidence [...] history, clinical examination and other findings. Creatine 2.8 ng/ml 0.0-3.6 04/03/2018 04/03/2018 Kinase MB 5:27pm 5:47pm DIAGNOSTIC CITERIA: CKMB CKMB RELATIVE INDEX SUGGESTIVE [...] chest, two views Completed 03/30/18 REUBEN BELCHER ACNP US guided thoracentesis Active 03/31/18 AMAN GARNETT MD X-ray of chest, single view Completed 03/31/18 BARBARA BENITEZ DO X-ray of chest, single view Completed 04/03/18 MARIKA CRUZ MD Encounters Encounter Location Arrival/Admit Date Discharge/Depart Date Attending Provider Departed [place] 04/03/18 4:06pm 04/03/18 9:50pm MARIKA CRUZ Emergency Room [facility] Discharged [place] 03/30/18 7:10pm 03/31/18 3:17pm TAMIR, Inpatient (obs) [facility] Discharged [place] 03/19/18 4:52pm 03/25/18 3:19pm TAMIR, Inpatient [facility] Registered [place] 03/15/18 1:19pm BARBARA BENITEZ Surgical Day [facility] Discharged [place] 02/26/18 8:23pm 03/02/18 4:33pm TAMIR, Inpatient [facility] Departed [place] 02/18/18 9:13am 02/18/18 12:44pm PRADEEP GARIBAY MD [facility] Departed [place] 02/12/18 8:24am 02/12/18 11:13am PRADEEP GARIBAY MD [facility] Recent Diagnosis
--- OUTSIDE RECORDS SUMMARY | 2018-05-31 17:20 | XMS REPORT | Continuity of Care Document ---
:1950 Author Organization [facility] Address [address] [place] [address] Phone Unavailable Care Team Providers Name Role Phone AMAN GARNETT MD Primary Care Physician Insurance Providers Guarantor Desirae Canales Address [address] [place] [address] Email NONE Welia Healther [facility] Policy Number [id number] Subscriber's Name Desirae Canales Relationship Self / Same As Patient Group Number [id number] Group Name NA Payer [facility] Policy Number [id number] Subscriber's Name Desirae Canales Relationship Self / Same As Patient Group Number [id number] Group Name NA Advance Directives Directive Response Recorded Date/Time Advance Directives No 01/20/16 10:11pm Advance Directive on File No 04/25/18 10:34pm Resuscitation Status Full Code 04/26/18 1:59pm Directive to Physicians/Living Will No 01/20/16 10:11pm Health Care Proxy No 01/20/16 10:11pm Name of Surrogate/Decision Maker SELF 04/25/18 10:34pm Organ Donor No 01/20/16 10:11pm Medical Power of Felt Checker No 01/20/16 10:11pm Patient/Family Given Education Material R/T Directives? No 04/25/18 10:34pm Chief Complaint and Reason for Visit Chief Complaint PT PLEURAL EFFUSION Reason for Visit Dyspnea COPD (chronic obstructive [...] ejection fraction Unknown Chronic Hypomagnesemia Unknown Resolved [id number] Unknown Acute Influenza A Unknown Acute Mononucleosis [...] Unknown Acute lung Pleural effusion Unknown Acute Pleural effusion due to another disorder Unknown Acute Recurrent right pleural effusion Unknown [...] (Flonase Allergy Relief) 50 Mcg/Act Spr, 1 [place] Nasal Furosemide (Lasix 40 Mg*) 40 Mg Daily for Unknown 03/31/18 Discontinued Tab, 1 Tab Oral Furosemide (Lasix *) 40 Mg Tab, 40 [...] Onset Date Status Hx Alcohol Use No 04/25/2018 10:40pm Not Applicable Not Applicable Hx Physical Abuse No 04/25/2018 10:40pm Not Applicable Not Applicable Smoking Status Start Date Stop Date Never smoker Hospital Discharge Instructions No hospital discharge instruction information available. Plan of Care Discharge Date 04/26/18 6:37pm Disposition PATIENT DISCHARGE HOME OR SELF Instructions/Education Provided Pleural Effusion Forms Provided Portal Welcome Letter Prescriptions See Medication Section Functional Status No functional status information available. Allergies, Adverse Reactions, Alerts Allergen Type Severity Reaction Status Last Updated No Known Allergies Allergy Severe Active 10/09/09 Immunizations No immunization information available. Vital Signs Acute Vital Signs Vital Response Date/Time Blood Pressure 130/56 mm Hg 04/26/2018 4:30pm Pulse Pulse Rate (adult) 77 beats per minute (60 - 100) 04/26/2018 4:30pm Respiratory Rate 14 breaths per minute (10 - 24) 04/26/2018 4:30pm Temperature Source Oral 04/26/2018 4:30pm Results Laboratory Results Test Name Result Units [...] 4:11am 7:28am Performed at: HD - [facility] [place], [place] [id number] Cop Winder: Amol Vanegas MD, Phone: [phone] Body Fluid 71 mg/dL . 02/28/2018 03/02/2018 [...] the clinical context for interpretation. Performed at: [address] [id number] Cop Winder: Amol Vanegas MD, Phone: [phone] Differential ---PATH REVIEW--- 03/15/2018 03/22/2018 Comment 2:45pm [...] fluid reference ranges and/or interpretive guidance visit [email or web address] Test developed and characteristics determined by [facility]. See Compliance Statement B: [facility]/CS Performed at: [facility] [address] [id number] Cop Winder: Dylan Harper MD, Phone: [phone] Body Fluid 116 mmol/L . 03/15/2018 03/17/2018 [...] context for interpretation. Performed at: HD - [facility] [id number] Cop Winder: Amol Vanegas MD, Phone: [phone] Erythrocyte 30 mm/hr H 0.00-20 03/20/2018 03/20/2018 [...] 1.003-1.03 03/20/2018 03/20/2018 Specific 0 5:40am 6:27am [place] Urine Blood NEGATIVE NEGATIVE 03/20/2018 03/20/2018 5:40am [...] later) and on Day 4, go to [email or web address]. Urine Sodium 51 mmol/L 03/20/2018 03/20/2018 5:40am [...] Negative Negative 03/20/2018 03/23/2018 [facility]formed [facility] Antibody 4:29am 11:14am [address] [place], [place] [id number] Screen Cop Winder: Amol Vanegas MD, Phone: [phone] Body Fluid 19 U/L . 03/20/2018 03/21/2018 [...] context for interpretation. Performed at: HD - [facility], [place] [id number] Cop Winder: Amol Vanegas MD, Phone: [phone] Body Fluid 105 IU/L . 03/20/2018 03/21/2018 [...] clinical context for interpretation. Performed at: - [facility] [id number] Cop Winder: Amol Vanegas MD, Phone: [phone] Myoglobin 187 ng/mL H 25-58 03/19/2018 03/19/2018 3:59pm 4:31pm White Blood 3.4 K/ul L 4.0-11.5 04/26/2018 04/26/2018 Count 4:02am 4:45am Red Blood 4.04 M/ul 3.80-5.20 04/26/2018 04/26/2018 Count 4:02am 4:45am Hemoglobin 12.0 g/dl 10.5-15.7 04/26/2018 04/26/2018 4:02am 4:45am Hematocrit 37.0 % 34.0-50.0 04/26/2018 04/26/2018 4:02am 4:45am Mean 91.4 fl 78-98 04/26/2018 04/26/2018 Corpuscular 4:02am 4:45am Volume Mean 29.8 pg 26.2-33.4 04/26/2018 04/26/2018 Corpuscular 4:02am 4:45am Hemoglobin Mean 32.6 g/dl 31.5-36.2 04/26/2018 04/26/2018 Corpuscular 4:02am 4:45am Hemoglobin Concent Red Cell 14.5 % 11.5-15.5 04/26/2018 04/26/2018 Distribution 4:02am 4:45am Width Platelet 45 K/ul L 137-338 04/26/2018 04/26/2018 Count 4:02am 4:45am Mean 6.8 fl L 8.4-11.8 04/26/2018 04/26/2018 Platelet 4:02am 4:45am Volume Neutrophils 67.2 % 44.4-80.1 04/26/2018 04/26/2018 (%) (Auto) 4:02am 4:45am Lymphocytes 23.1 % 10.0-50.0 04/26/2018 04/26/2018 (%) (Auto) 4:02am 4:45am Monocytes 6.5 % 3.6-12.04 04/26/2018 04/26/2018 (%) (Auto) 4:02am 4:45am Eosinophils 2.3 % 0.0-5.41 04/26/2018 04/26/2018 (%) (Auto) 4:02am 4:45am Basophils 0.9 % H 0.0-0.79 04/26/2018 04/26/2018 (%) (Auto) 4:02am 4:45am Prothrombin 11.5 SECONDS 10.3-12.3 04/26/2018 04/26/2018 Time 4:02am 4:53am THERAPEUTIC LEVEL: 1.5 to 1.9 times normal range of PT Prothromb 1.05 04/26/2018 04/26/2018 Time 4:02am 4:53am Recommended therapeutic range for patients receiving Internationa warfarin (coumadin) therapy: INR is 2.0 to 3.0 l Ratio Recommended range for patients with mechanical prosthetic heart valves: INR is 2.5 to 3.5 POC 172 mg/dL H 70.0 - 110 04/26/2018 04/26/2018 Capillary 4:36pm 4:40pm Blood Glucose (Chem) Random 172 mg/dL H 82-115 04/26/2018 04/26/2018 Glucose 4:02am 5:15am Blood Urea 30 mg/dL H 8-23 04/26/2018 04/26/2018 Nitrogen 4:02am 5:15am Serum 284 280-300 04/26/2018 04/26/2018 Osmolality 4:02am 5:15am Creatinine 1.0 mg/dL H 0.50-0.90 04/26/2018 04/26/2018 4:02am 5:15am Glomerular 55.30 L 04/26/2018 04/26/2018 GFR RESULTS ARE REPORTED IN mL/min/1.73m2. Filtration 4:02am 5:15am Rate Calc Normal GFR: >60mL/min Moderately decreased GFR: 30-59 mL/min Severely decreased GFR: 15-29 mL/min Kidney Failure (or Dialysis): <15 mL/min The calculated eGFR is not valid for patients younger than 18 years or older than 75 years. BUN/Creatini 30.0 H 04-2904/26/2018 04/26/2018 ne Ratio 4:02am 5:15am Sodium Level 137 mmol/L 135-145 04/26/2018 04/26/2018 4:02am 5:15am Potassium 4.5 mmol/L 3.5-5.2 04/26/2018 04/26/2018 Level 4:02am 5:15am Chloride 106 mmol/L 98-108 04/26/2018 04/26/2018 Level 4:02am 5:15am Carbon 22 mmol/L 21-32 04/26/2018 04/26/2018 Dioxide 4:02am 5:15am Level Anion Gap 13.5 mEq/L 04-2904/26/2018 04/26/2018 4:02am 5:15am Calcium 9.5 mg/dL 8.8-10.2 04/26/2018 04/26/2018 Level 4:02am 5:15am Total 6.7 g/dL 6.6-8.7 04/25/2018 04/25/2018 Protein 8:52pm 9:15pm Albumin 3.7 g/dL 3.5-5.2 04/25/2018 04/25/2018 8:52pm 9:15pm Globulin 3.0 gm/dL 04/25/2018 04/25/2018 8:52pm 9:15pm Albumin/Glob 1.2 >1.0 04/25/2018 04/25/2018 ulin Ratio 8:52pm 9:15pm Total 1.5 mg/dL H 0.0-1.2 04/25/2018 04/25/2018 Bilirubin 8:52pm 9:15pm Aspartate 53 U/L H 15-32 04/25/2018 04/25/2018 Amino Transf 8:52pm 9:15pm (AST/SGOT) Alanine 37 U/L H 0-33 04/25/2018 04/25/2018 Aminotransfe 8:52pm 9:15pm rase (ALT/SGPT) OG-Swy-X-Typ 512 pg/mL H 0-125 04/25/2018 04/25/2018 e 8:52pm 9:19pm Natriuretic Peptide Total 137 U/L H 35-105 04/25/2018 04/25/2018 Alkaline 8:52pm 9:15pm Phosphatase Creatine 34 U/L 20-180 04/25/2018 04/25/2018 Kinase 8:52pm 9:15pm Troponin I < 0.30 ng/mL 0.0-0.5 04/25/2018 04/25/2018 Published clinical studies have shown elevations of cTnI in 8:52pm 9:18pm patients with myocardial injury, as seen in unstable angina pectoris, cardiac contusions, and heart transplants. Elevations have also been seen in patients with rhabdomyolysis and polymyositis. Elevated troponin levels point to myocardial injury, but are not necessarily indicative of an ischemic mechanism. The term MT should be used when there is evidence [...] history, clinical examination and other findings. Creatine 2.7 ng/ml 0.0-3.6 04/25/2018 04/25/2018 Kinase MB 8:52pm 9:19pm DIAGNOSTIC CITERIA: CKMB CKMB RELATIVE INDEX SUGGESTIVE OF NON-AMI < or=5 N/A MCPHERSON ZONE (INCONCLUSIVE) > 5 < or=4 SUGGESTIVE OF AMI >5 > 4 Pending Laboratory Results Test Name Collection Date/Time Body Fluid Amylase 02/28/2018 8:30am Body Fluid Sodium 03/15/2018 2:45pm Body Fluid Potassium 03/15/2018 2:45pm Microbiology Results Procedure Source Organism/Result Collection Result Result Date/Time Date/Time Status Blood Culture Blood FINAL REPORT. 02/26/2018 02/26/2018 Final 10:22pm 10:36pm Urine Culture Urine,Clean ESCHERICHIA COLI 03/20/2018 03/22/2018 Final Catch 5:40am 9:40am Procedures Procedure Status Date Provider(s) ULTRASONOGRAPHY OF PLEURA Completed 02/28/18 BARBARA BENITEZ [...] Completed 03/20/18 BARBARA BENITEZ DO PERCUTANEOUS APPROACH EMERGENCY DEPT VISIT Completed 03/30/18 THER/PROPH/DIAG INJ IV PUSH Completed 03/30/18 X-RAY EXAM CHEST 2 VIEWS Completed 03/30/18 ASSAY GLUCOSE BLOOD QUANT Completed 03/30/18 COMPLETE CBC W/AUTO DIFF WBC Completed 03/30/18 ROUTINE VENIPUNCTURE Completed 03/30/18 COMPREHEN METABOLIC PANEL Completed 03/30/18 AIRWAY INHALATION TREATMENT Completed 03/30/18 ASPIRATE PLEURA W/ IMAGING Completed 03/30/18 BARBARA BENITEZ DO X-RAY EXAM CHEST 1 VIEW Completed 03/30/18 ASSAY GLUCOSE BLOOD QUANT Completed 03/30/18 ASSAY GLUCOSE BLOOD QUANT Completed 03/30/18 COMPLETE CBC W/AUTO DIFF WBC Completed 03/30/18 PROTHROMBIN TIME Completed 03/30/18 ROUTINE VENIPUNCTURE Completed 03/30/18 METABOLIC PANEL TOTAL CA Completed 03/30/18 TX/PRO/DX INJ SAME DRUG BLOW DOWN HELPER Completed 03/30/18 HOSPITAL OBSERVATION SERVICES PER HOUR Completed 03/30/18 INSULIN PER 5 UNITS INJ Completed 03/30/18 INSULIN PER 5 UNITS INJ Completed 03/30/18 EMERGENCY DEPT VISIT Completed 04/03/18 X-RAY EXAM CHEST 1 VIEW Completed 04/03/18 COMPLETE CBC W/AUTO DIFF WBC Completed 04/03/18 COMPLETE CBC W/AUTO DIFF WBC Completed 04/03/18 CREATINE MB FRACTION Completed 04/03/18 ASSAY OF CK (CPK) Completed 04/03/18 ROUTINE VENIPUNCTURE Completed 04/03/18 ASSAY OF TROPONIN QUANT Completed 04/03/18 ASSAY OF NATRIURETIC PEPTIDE Completed 04/03/18 ELECTROCARDIOGRAM TRACING Completed 04/03/18 COMPREHEN METABOLIC PANEL Completed 04/03/18 COMPREHEN METABOLIC PANEL Completed 04/03/18 ASPIRATE PLEURA W/ IMAGING Completed 04/19/18 BARBARA BENITEZ DO X-RAY EXAM CHEST 1 VIEW Completed 04/19/18 X-ray of chest, single view Completed 02/26/18 [...] chest, two views Completed 03/30/18 REUBEN BELCHER [facility] US guided thoracentesis Active 03/31/18 AMAN GARNETT MD X-ray of chest, single view Completed 03/31/18 BARBARA BENITEZ DO X-ray of chest, single view Completed 04/03/18 MARIKA CRUZ MD US guided thoracentesis Active 04/19/18 BARBARA BENITEZ DO X-ray of chest, single view Completed 04/19/18 BARBARA BENITEZ DO US guided thoracentesis Active 04/23/18 LUCINDA SIEGEL MD X-ray of chest, single view Completed 04/23/18 LUCINDA SIEGEL MD X-ray of chest, single view Completed 04/25/18 TITUS SPANGLER MD US guided thoracentesis Completed 04/26/18 AMAN GARNETT MD X-ray of chest, single view Completed 04/26/18 BARBARA BENITEZ DO Encounters Encounter Location Arrival/Admit Date Discharge/Depart Date Attending Provider Discharged [place] 04/25/18 9:50pm 04/26/18 6:37pm TAMIR, Inpatient (obs) [facility] Departed [place] 04/23/18 12:03am 04/23/18 12:49pm TAMIR, Emergency Room [facility] Registered [place] 04/19/18 1:09pm BARBARA BENITEZ [facility] Departed [place] 04/03/18 4:06pm 11/24/18 9:50pm MARIKA CRUZ Emergency Room [facility] Discharged [place] 03/30/18 7:10pm 03/31/18 3:17pm TAMIR, Inpatient (obs) [facility] Discharged [place] 03/19/18 4:52pm 03/25/18 3:19pm TAMIR, Inpatient [facility] Registered [place] 03/15/18 1:19pm BARBARA BENITEZ Surgical Day [facility] Discharged [place] 02/26/18 8:23pm 03/02/18 4:33pm TAMIR, Inpatient [facility] Recent Diagnosis Dyspnea COPD (chronic obstructive pulmonary disease) Pleural effusion associated with hepatic disorder Cirrhosis of liver HTN (hypertension) Type 2 diabetes mellitus Heart failure with preserved ejection fraction CKD stage 3 secondary to diabetes
--- OUTSIDE RECORDS SUMMARY | 2018-05-31 17:20 | XMS REPORT | Continuity of Care Document ---
:1950 Author Organization [facility] Address [address] [place] [address] Phone Unavailable Care Team Providers Name Role Phone AMAN GARNETT MD Primary Care Physician Insurance Providers Guarantor Desirae Canales Address [address] [place] [address] Email [facility]ONE [facility] Policy Number [id number] Subscriber's Name Desirae Canales Relationship Self / Same As Patient Group Number [id number] Group Name NA Payer [facility] Policy Number [id number] Subscriber's Name Desirae Canales Relationship Self / Same As Patient Group Number [id number] Group Name NA Advance Directives Directive Response Recorded Date/Time Advance Directives No 01/20/16 10:11pm Advance Directive on File No 04/23/18 12:07am Directive to Physicians/Living Will No 01/20/16 10:11pm Health Care Proxy No 01/20/16 10:11pm Organ Donor No 01/20/16 10:11pm Medical Power of Hyperbaric Tech No 01/20/16 10:11pm Patient/Family Given Education Material R/T Y - 04/22/18..AW 04/23/18 12: 07am Directives? 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 Plan of Care Discharge Date 04/23/18 12:49pm Instructions/Education Provided Thoracentesis, Care After Pleural Effusion Forms Provided Portal Welcome Letter Prescriptions See Medication Section Referrals AMAN GARNETT MD Address: [address] [place] [id number] Functional Status No functional status information available. Allergies, Adverse Reactions, Alerts Allergen Type Severity Reaction Status Last Updated No Known Allergies Allergy Severe Active 10/09/09 Immunizations No immunization information available. Vital Signs Acute Vital Signs Vital Response Date/Time Blood Pressure 136/82 mm Hg 04/23/2018 12:38pm Pulse Pulse Rate (adult) 82 beats per minute (60 - 100) 04/23/2018 12:38pm Respiratory Rate 18 breaths per minute (10 - 24) 04/23/2018 12:38pm Temperature Source Oral 04/23/2018 12:38pm Height 5 ft 5 in 04/23/2018 12:07am Weight 205 lb 04/23/2018 12:07am Body Mass Index 34.1 kg/m^2 04/23/2018 12:07am Results Laboratory Results Test Name Result Units [...] ECLIA methodology Alpha 4:11am 7:28am Performed at: [facility] [place] [address] [place], [place] [id number] [employer] Maker: Amol Vanegas MD, Phone: [phone] Body Fluid 71 mg/dL . 02/28/2018 03/02/2018 [...] the clinical context for interpretation. Performed at: [address] [id number] [employer] Maker: Amol Vanegas MD, Phone: [phone] Differential ---PATH REVIEW--- 03/15/2018 03/22/2018 Comment 2:45pm [...] fluid reference ranges and/or interpretive guidance visit [email or web address] Test developed and characteristics determined by [employer]. See Compliance Statement B: [employer]/CS Performed at: [facility] [employer] [address] [place] [id number] [employer] Maker: Dylan Harper MD, Phone: [phone] Body Fluid 116 mmol/L . 03/15/2018 03/17/2018 [...] clinical context for interpretation. Performed at: - [facility] [id number] [employer] Maker: Amol Vanegas MD, Phone: [phone] Erythrocyte 30 mm/hr H 0.00-20 03/20/2018 03/20/2018 [...] 1.003-1.03 03/20/2018 03/20/2018 Specific 0 5:40am 6:27am [place] Urine Blood NEGATIVE NEGATIVE 03/20/2018 03/20/2018 5:40am [...] later) and on Day 4, go to [email or web address] IQ (Social Influence Quotient). Urine Sodium 51 mmol/L 03/20/2018 03/20/2018 5:40am [...] Anti-Nuclear Negative Negative 03/20/2018 03/23/2018 Performed at: [facility] Antibody 4:29am 11:14am [address] [place], [place] [id number] Screen [employer] Maker: Amol Vanegas MD, Phone: [phone] Body Fluid 19 U/L . 03/20/2018 03/21/2018 [...] context for interpretation. Performed at: [facility] [id number] [employer] Maker: Amol Vanegas MD, Phone: [phone] Body Fluid 105 IU/L . 03/20/2018 03/21/2018 Lactate 12:pm 11:08am : Peritoneal : Pleural : Synovial [...] clinical context for interpretation. Performed at: - [facility] [id number] [employer] Maker: Amol Vanegas MD, Phone: [phone] Myoglobin 187 ng/mL H 25-58 03/19/2018 03/19/2018 [...] older than 75 years. BUN/Creatini 20.8 H 12-20 04/03/2018 04/03/2018 ne Ratio 5:27pm 5:42pm Sodium Level 135 mmol/L 135-145 04/03/2018 04/03/2018 5:27pm 5:42pm Potassium 3.4 mmol/L L 3.5-5.2 04/03/2018 04/03/2018 Level 5:27pm 5:42pm Chloride 98 mmol/L 98-108 04/03/2018 04/03/2018 Level 5:27pm 5:42pm Carbon 24 mmol/L 21-32 04/03/2018 04/03/2018 Dioxide 5:27pm 5:42pm Level Anion Gap 16.4 mEq/L 12-04/03/2018 04/03/2018 5:27pm 5:42pm Calcium 9.8 mg/dL 8.8-10.2 04/03/2018 04/03/2018 Level 5:27pm 5:42pm Total 6.9 g/dL 6.6-8.7 04/03/2018 04/03/2018 Protein 5:27pm 5:42pm Albumin 3.6 g/dL 3.5-5.2 04/03/2018 04/03/2018 5:27pm 5:42pm Globulin 3.3 gm/dL 04/03/2018 04/03/2018 5:27pm 5:42pm Albumin/Glob 1.1 >1.0 04/03/2018 04/03/2018 ulin Ratio 5:27pm 5:42pm Total 1.6 mg/dL H 0.0-1.2 04/03/2018 04/03/2018 Bilirubin 5:27pm 5:42pm Aspartate 22 U/L 15-32 04/03/2018 04/03/2018 Amino Transf 5:27pm 5:42pm (AST/SGOT) Alanine 21 U/L 0-33 04/03/2018 04/03/2018 Aminotransfe 5:27pm 5:42pm rase (ALT/SGPT) WQ-Khx-T-Typ 604 pg/mL H 0-125 04/03/2018 04/03/2018 e [...] indicative of an ischemic mechanism. 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 Completed 03/30/18 HOSPITAL OBSERVATION SERVICES PER HOUR [...] chest, single view Completed 03/15/18 REUBEN BELCHER ACNP US guided thoracentesis Active 03/15/18 BARBARA [...] SIEGEL MD X-ray of chest, single view Active 04/23/18 LUCINDA SIEGEL MD Encounters Encounter Location Arrival/Admit Date Discharge/Depart Date Attending Provider Registered [place] 04/23/18 12:03am T[facility] Emergency Room [facility] Registered [place] 04/19/18 1:09pm BARBARA BENITEZ [facility] Departed [place] 04/03/18 4:06pm 04/03/18 9:50pm MARIKA CRUZ Emergency Room Mandie Andrew MD Medical Ctr Discharged [place] 03/30/18 7:10pm 03/31/18 3:17pm [facility], Inpatient (obs) [facility] Discharged [place] 03/19/18 4:52pm 03/25/18 3:19pm T[facility], Inpatient [facility] Registered [place] 03/15/18 1:19pm BARBARA BENITEZ Surgical Day [facility] Discharged [place] 02/26/18 8:23pm 03/02/18 4:33pm TAMIR, Inpatient [facility] AMAN MILLIGAN Medical Ctr Recent Diagnosis
--- OUTSIDE RECORDS SUMMARY | 2018-05-31 17:20 | XMS REPORT | Encounter Summary ---
:1950 Author Care Team Providers Name Role Phone Jose R Montiel MD Primary Care Provider [phone] [facility] OTHER [phone] Reason for Visit Follow Up Visit Instructions 1. Cirrhosis of liver cirrhosis: care instructions liver disease diet: care instructions 2. Portal hypertension 3. Pleural effusion Discussion Note: None recorded. Plan of Care Reminders Provider Appointments Follow up 07/12/2018 Laith Calloway 10:15AM MD [facility] None recorded. Referral None recorded. Procedures None recorded. Surgeries None recorded. Imaging None recorded. Medications Name Start Date amlodipine 5 mg tablet TAKE ONE TABLET BY MOUTH EVERY DAY. TAKE FOR BLOOD PRESSURE BD Ultra-Fine Nuvia Pen Needle 32 gauge x 5/32" USE DIRECTED Byjbon BCise 2 mg/0.85 mL subcutaneous auto-injector Inject 2 mg every week by subcutaneous route as directed. citalopram 10 mg tablet Dulera 200 mcg-5 mcg/actuation HFA aerosol inhaler Inhale 2 puffs twice a day by inhalation route. USE FOR BREATHNG DIFFICULTY fluticasone 50 mcg/actuation nasal spray,suspension [place] 2 sprays every day by intranasal route as directed for 42 days. furosemide 40 mg tablet Take 1 tablet every day by oral route for 30 days. Humalog KwikPen (U-100) Insulin 100 unit/mL subcutaneous INJECT 10 UNITS PER SLIDING SCALE ipratropium-albuterol 0.5 mg-3 mg(2.5 mg base)/3 mL nebulization soln Inhale 3 mL 4 times a day by nebulization route for 30 days. Levemir U-100 Insulin 100 unit/mL subcutaneous solution 10 u am and 20 u pm OneTouch Ultra Test strips TEST TWO TIMES DAILY ProAir HFA 90 mcg/actuation aerosol inhaler INHALE 2 PUFFS BY MOUTH EVERY 4-6 HOURS NEEDED sertraline 100 mg tablet TAKE 1 TABLET BY MOUTH EVERY DAY tramadol 50 mg tablet TAKE 2 TABLETS BY MOUTH EVERY 6 HOURS NEEDED Xifaxan 550 mg tablet 1 tab po bid Medications Administered None recorded. Vitals Height Weight BMI Blood Pressure 63 in 206 lbs 16 oz 36.7 kg/m2 150/83 mm[Hg] Lab Results Date Name Specimen Result Interpretation Description Value Range Status Address 05/03/2018 Cbc Normal White Blood 4.9 K/uL 4.0-11.5 Final Bland Count K/uL [facility] (Lab): [address] [place] [address] Normal Red Blood 4.29 3.80-5.20 Final [place]land Count M/uL M/uL [facility] (Lab): [address] [place] [address] Normal Hemoglobin 12.9 10.5-15.7 Final Bland g/dL g/dL [facility] (Lab): [address] [place] [address] Normal Hematocrit 39.0 % 34.0-50.0 Final Bland % [facility] (Lab): [address] [place] [address] Normal Mean 90.8 fL 78-98 fL Final Bland Corpuscular [facility] (Lab): [address] [place] [address] Normal Mean 30.0 pg 26.2-33.4 Final [place] Corpuscular pg [facility] Hemoglobin [facility] (Lab): [address] [place] [address] Normal Mean 33.1 31.5-36.2 Final [place] Corpuscular g/dL g/dL [facility] (Lab): [address] [place] [address] Normal Red Cell 14.8 % 11.5-15.5 Final [place] Distribution % [facility] Width [facility] (Lab): [address] [place] [address] Low Platelet 45 K/uL 137-338 Final [place] Count K/uL [facility] (Lab): [address] [place] [address] Normal Mean Platelet 9.8 fL 8.4-11.8 Final [place]land Volume fL [facility] (Lab): [address] [place] [address] 05/03/2018 CBC W/ Auto Normal White Blood 4.9 K/uL 4.0-11.5 Final [place] Diff Count K/uL [facility] (Lab): [address] [place] [address] Normal Red Blood 4.29 3.80-5.20 Final [place] Count M/uL M/uL [facility] (Lab): [address] [place] [address] Normal Hemoglobin 12.9 10.5-15.7 Final [place]land g/dL g/dL [facility] (Lab): [address] [place] [address] Normal Hematocrit 39.0 % 34.0-50.0 Final Bland % [facility] (Lab): [address] [place] [address] Normal Mean 90.8 fL 78-98 fL Final [place] Corpuscular [facility] (Lab): [address] [place] [address] Normal Mean 30.0 pg 26.2-33.4 Final [place] Corpuscular pg [facility] Hemoglobin [facility] (Lab): [address] [place] [address] Normal Mean 33.1 31.5-36.2 Final [place] Corpuscular g/dL g/dL [facility] (Lab): [address] [place] [address] Normal Red Cell 14.8 % 11.5-15.5 Final [place] Distribution % [facility] (Lab): [address] [place] [address] Low Platelet 45 K/uL 137-338 Final [place] Count K/uL [facility] (Lab): [address] [place] [address] Normal Mean Platelet 9.8 fL 8.4-11.8 Final [place] Volume fL [facility] (Lab): [address] [place] [address] Normal Neutrophils % 70.3 % 44.4-80.1 Corrected [place] % [facility] (Lab): [address] [place] [address] Normal Lymphocyte% 20.7 % 10.0-50.0 Final Bland % [facility] (Lab): [address] [place] [address] Normal Sunflower % 6.2 % 3.6-12.04 Final Bland % [facility] (Lab): [address] [place] [address] Normal Eos % 2.1 % 0.0-5.41 Final [place] % [facility] (Lab): [address] [place] [address] Normal Basophil % 0.7 % 0.0-0.79 Final Bland % [facility] (Lab): [address] [place] [address] 05/03/2018 Differential Normal Neutrophils Incomplete [place] Panel, Blood [facility] (Lab): [address] [place] [address] Normal Band Incomplete Bland [facility] (Lab): [address] [place] [address] Normal Lymphocyte Incomplete Bland [facility] (Lab): [address] [place] [address] Normal Atypical Incomplete [place] Lymph [facility] (Lab): [address] [place] [address] Normal Monocyte Incomplete [facility] (Lab): [address] [place] [address] Normal Eosinophil Incomplete [facility] (Lab): [address] [place] [address] Normal Basophil Incomplete [facility] (Lab): [address] [place] [address] Normal Platelet Incomplete [place] Estimate [facility] (Lab): [address] [place] [address] Normal Platelet Incomplete [place] Morphology [facility] (Lab): [address] [place] [address] Normal Anisocytosis Incomplete [facility] (Lab): [address] [place] [address] 04/26/2018 CBC W/ Auto Low White Blood 3.4 K/uL 4.0-11.5 Final [place] Diff Count K/uL [facility] (Lab): [address] [place] [address] Normal Red Blood 4.04 3.80-5.20 Final [place] Count M/uL M/uL [facility] (Lab): [address] [place] [address] Normal Hemoglobin 12.0 10.5-15.7 Final Bland g/dL g/dL [facility] (Lab): [address] [place] [address] Normal Hematocrit 37.0 % 34.0-50.0 Final Bland % [facility] (Lab): [address] [place] [address] Normal Mean 91.4 fL 78-98 fL Final [place] Corpuscular [facility] Volume [facility] (Lab): [address] [place] [address] Normal Mean 29.8 pg 26.2-33.4 Final [place] Corpuscular pg [facility] Hemoglobin [facility] (Lab): [address] [place] [address] Normal Mean 32.6 31.5-36.2 Final [place] Corpuscular g/dL g/dL [facility] (Lab): [address] [place] [address] Normal Red Cell 14.5 % 11.5-15.5 Final [place] Distribution % [facility] Width [facility] (Lab): [address] [place] [address] Low Platelet 45 K/uL 137-338 Final [place] Count K/uL [facility] (Lab): [address] [place] [address] Low Mean Platelet 6.8 fL 8.4-11.8 Final [place] Volume fL [facility] (Lab): [address] [place] [address] Normal Neutrophils % 67.2 % 44.4-80.1 Corrected B[place] % [facility] (Lab): [address] [place] [address] Normal Lymphocyte% 23.1 % 10.0-50.0 Final Bland % [facility] (Lab): [address] [place] [address] Normal Sunflower % 6.5 % 3.6-12.04 Final Bland % [facility] (Lab): [address] [place] [address] Normal Eos % 2.3 % 0.0-5.41 Final B[place] % [facility] (Lab): [address] [place] [address] High Basophil % 0.9 % 0.0-0.79 Final Bland % [facility] (Lab): [address] [place] [address] 04/26/2018 PT/INR Normal Prothrombin 11.5 10.3-12.3 Final Bland Time seconds seconds [facility] (Lab): [address] [place] [address] Normal Inr 1.[address] [facility] (Lab): [address] [place] [address] 04/26/2018 BMP, Serum or High Glucose 172 82-115 Final Bland Plasma mg/dL mg/dL [facility] (Lab): [address] [place] [address] High Blood Urea 30 mg/dL 8-23 Final [place] Nitrogen mg/dL [facility] (Lab): [address] [place] [address] Normal Osmolality 284 280-300 Final Bland Calculated, [facility] (Lab): [address] [place] [address] High Creatinine 1.0 0.50-0.90 Final Bland mg/dL mg/dL [facility] (Lab): [address] [place] [address] Low Glomerular 55.30 Final [place] Filtration [facility] (Lab): [address] [place] [address] High BUN/creatinin 30.0 12-20 Final Bland e Ratio [facility] (Lab): [address] [place] [address] Normal Sodium Level 137 135-145 Final Bland mmol/L mmol/L [facility] (Lab): [address] [place] [address] Normal Potassium 4.5 3.5-5.2 Final [place] Level mmol/L mmol/L [facility] (Lab): [address] [place] [address] Normal Chloride 106 98-108 Final [place] Level mmol/L mmol/L [facility] (Lab): [address] [place] [address] Normal Co2 22 21-32 Final Bland mmol/L mmol/L [facility] (Lab): [address] [place] [address] Normal Anion Gap 13.5 12-20 Final [place]land mEq/L mEq/L [facility] (Lab): [address] [place] [address] Normal Calcium Level 9.5 8.8-10.2 Final [place]land mg/dL mg/dL [facility] (Lab): [address] [place] [address] 04/25/2018 CBC W/ Auto Normal White Blood 4.6 K/uL 4.0-11.5 Final [place] Diff Count K/uL [facility] (Lab): [address] [place] [address] Normal Red Blood 4.52 3.80-5.20 Final [place] Count M/uL M/uL [facility] (Lab): [address] [place] [address] Normal Hemoglobin 13.4 10.5-15.7 Final Bland g/dL g/dL [facility] (Lab): [address] [place] [address] Normal Hematocrit 41.6 % 34.0-50.0 Final Bland % [facility] (Lab): [address] [place] [address] Normal Mean 92.1 fL 78-98 fL Final [place] Corpuscular [facility] Volume [facility] (Lab): [address] [place] [address] Normal Mean 29.6 pg 26.2-33.4 Final [place] Corpuscular pg [facility] Hemoglobin [facility] (Lab): [address] [place] [address] Normal Mean 32.2 31.5-36.2 Final [place] Corpuscular g/dL g/dL [facility] (Lab): [address] [place] [address] Normal Red Cell 15.0 % 11.5-15.5 Final [place] Distribution % [facility] Width [facility] (Lab): [address] [place] [address] Low Platelet 58 K/uL 137-338 Final [place] Count K/uL [facility] (Lab): [address] [place] [address] Low Mean Platelet 7.5 fL 8.4-11.8 Final [place] Volume fL [facility] (Lab): [address] [place] [address] Normal Neutrophils % 68.4 % 44.4-80.1 Corrected Bland % [facility] (Lab): [address] [place] [address] Normal Lymphocyte% 22.2 % 10.0-50.0 Final Bland % [facility] (Lab): [address] [place] [address] Normal Sunflower % 5.7 % 3.6-12.04 Final Bland % [facility] (Lab): [address] [place] [address] Normal Eos % 2.8 % 0.0-5.41 Final Bland % [facility] (Lab): [address] [place] [address] High Basophil % 0.8 % 0.0-0.79 Final Bland [facility] (Lab): [address] [place] [address] 04/25/2018 Differential Normal Neutrophils Incomplete [facility], Blood [facility] (Lab): [address] [place] [address] Normal Band [facility] (Lab): [address] [place] [address] Normal Lymphocyte [facility] (Lab): [address] [place] [address] Normal Atypical [facility] Lymph [facility] (Lab): [address] [place] [address] Normal Monocyte [facility] (Lab): [address] [place] [address] Normal Eosinophil [facility] (Lab): [address] [place] [address] Normal Basophil [facility] (Lab): [address] [place] [address] Normal Nucleated Red [facility] Blood Cell [facility] (Lab): [address] [place] [address] Normal Platelet Incomplete Bland Estimate [facility] (Lab): [address] [place] [address] Normal Platelet Incomplete [place] Morphology [facility] (Lab): [address] [place] [address] Normal Hypochromasia [facility] (Lab): [address] [place] [address] Normal Poikilocytosi [facility] s [facility] (Lab): [address] [place] [address] Normal Anisocytosis [facility] (Lab): [address] [place] [address] Normal Macrocytosis [facility] (Lab): [address] [place] [address] Normal Toxic Incomplete [place] Granulation [facility] (Lab): [address] [place] [address] Normal Dohle Bodies Incomplete Bland [facility] (Lab): [address] [place] [address] 04/25/2018 CMP, Serum or High Glucose 208 82-115 Final B[place] Plasma mg/dL mg/dL [facility] (Lab): [address] [place] [address] High Blood Urea 32 mg/dL 8-23 Final [place] Nitrogen mg/dL [facility] (Lab): [address] [place] [address] Normal Osmolality 287 280-300 Final B[place] Calculated, [facility] (Lab): [address] [place] [address] High Creatinine 1.1 0.50-0.90 Final [place] mg/dL mg/dL [facility] (Lab): [address] [place] [address] Low Glomerular 49.54 Final [place] Filtration [facility] (Lab): [address] [place] [address] High BUN/creatinin 29.1 12-20 Final Bland e Ratio [facility] (Lab): [address] [place] [address] Normal Sodium Level 137 135-145 Final [place] mmol/L mmol/L [facility] (Lab): [address] [place] [address] Normal Potassium 4.2 3.5-5.2 Final [place] Level mmol/L mmol/L [facility] (Lab): [address] [place] [address] Normal Chloride 104 98-108 Final [place] Level mmol/L mmol/L [facility] (Lab): [address] [place] [address] Normal Co2 22 21-32 Final Bland mmol/L mmol/L [facility] (Lab): [address] [place] [address] Normal Anion Gap 15.2 12-20 Final [place] mEq/L mEq/L [facility] (Lab): [address] [place] [address] Normal Calcium Level 9.7 8.8-10.2 Final [place]land mg/dL mg/dL [facility] (Lab): [address] [place] [address] Normal Total Protein 6.7 g/dL 6.6-8.7 Final Bland g/dL [facility] (Lab): [address] [place] [address] Normal Albumin 3.7 g/dL 3.5-5.2 Final Bland g/dL [facility] (Lab): [address] [place] [address] Normal Globulin 3.0 Final Bland gm/dL [facility] (Lab): [address] [place] [address] Normal A/g Ratio 1.2 >1.0 Final [facility] (Lab): [address] [place] [address] High Bilirubin,tot 1.5 0.0-1.2 Final Bland al mg/dL mg/dL [facility] (Lab): [address] [place] [address] AST/SGOT 53 U/L 15-32 U/L Final [facility] (Lab): [address] [place] [address] High ALT/SGPT 37 U/L 0-33 U/L Final [facility] (Lab): [address] [place] [address] Alkaline 137 U/L 35-105 Final [place] Phosphatase, U/L [facility] Total [facility] (Lab): [address] [place] [address] 04/25/2018 CK (Creatine Normal Creatine 34 U/L 20-180 Final Bland Kinase), Kinase U/L [facility] Total, [facility] (Lab): [address] [place] [address] 04/25/2018 Troponin I, Normal Cardiac <0.30 0.0-0.5 Final B[place] Cardiac, Troponin I NG/mL NG/mL [facility] Quant, [facility] (Lab): [address] [place] [address] 04/25/2018 Pro BNP (Pro High N-term Pro 512 0-125 Final Bland B-type Natriuretic pg/mL pg/mL [facility] Natriuretic Peptide Medical Peptide), [place] [facility] (Lab): [address] [place] [address] 04/25/2018 CK-mb, Blood Normal Mass 2.7 0.0-3.6 Final [place] Creatinine NG/mL NG/mL [facility] (Lab): [address] [place] [address] Allergies Code Code System Name Reaction Severity Status Onset NKDA Problems Name Status Onset Date Source Iatrogenic Hypotension Active 10/28/2017 Tremor Active 11/16/2017 Seizure Disorder Active 12/09/2017 Non-alcoholic Fatty Liver Active 12/09/2017 Panic Attack Active 02/19/2018 Dyspnea Active 02/19/2018 Muscle Weakness Active 03/16/2018 Type II Diabetes Mellitus Uncontrolled Active Encounter Diabetic Neuropathy Active Encounter Hyperlipidemia Active Encounter Essential Hypertension Active Encounter Irritable Bowel Syndrome with Diarrhea Active Encounter Knee Pain Active Encounter Chronic Diarrhea Active Encounter Bilateral Arthritis of Knees Active Encounter Procedures Date Name Performed by 04/23/2018 Ultrasound Guided Thoracentesis Information not available 04/19/2018 Ultrasound Guided Thoracentesis Information not available 08/28/2016 Cataract Surgery Information not available 05/29/2016 Cataract Surgery Complex Information not available Cholecystectomy Information not available Hysterectomy Information not available Knee Arthroscopy Dx Information not available Vaccine List Vaccine Type influenza, high dose seasonal 05/11/2014 05/21/20160.5 mL 05/19/20170.5 mL pneumococcal conjugate PCV 13 05/21/20160.5 mL pneumococcal polysaccharide PPV23 05/19/20170.5 mL Social History Smoking Status Never Smoker Past Encounters 05/13/2018 Cirrhosis of Liver; Portal Hypertension; Pleural Effusion Laith Simmons MD: [address], [address], [place] [address], Ph. 04/20/2018 Pleural Effusion; Cirrhosis of Liver Laith Simmons MD: [address], [address], [place] [address], Ph. History of Present Illness Note: Here for f/u on cirrhosis of the liver, s/p TIPS procedure, on lactulose every other day. Is nowon the transplant list.denies abdominal pain. No encephalopathy symptoms. Is able to get around with a walker. No fevers or chills no nausea or vomiting. She is still having recurrent right pleuraleffusion and is scheduled for a thoracentesis today.Review of Systems: ROS as noted in the HPI Review of Systems None recorded. Physical Exam General Adult Exam - Female Reported By: Patient Constitutional: General Appearance: obese. Level of Distress: chronically ill. Ambulation: limited ambulation Neck: Neck: supple, trachea midline, no masses, FROM, no carotid bruits. Lymph Nodes: no cervical LAD, no supraclavicular LAD, no axillary LAD, no inguinal LAD. Thyroid: no enlargement, non-tender, no nodules Lungs: Respiratory effort: no dyspnea. Percussion: no dullness, flatness, or hyperresonance. Auscultation: breath sounds normal, no rales/crackles Cardiovascular: Apical Impulse: not displaced. Heart Auscultation: RRR, normal S1, normal S2, no murmurs, no rubs, no gallops. Neck vessels: no carotid bruits. Pulses including femoral / pedal: normal throughout Abdomen: Bowel Sounds: normal. Inspection and Palpation: soft, non-distended, no tenderness, no guarding, no rebound tenderness, no masses, no CVA tenderness. Liver: non-tender, no hepatomegaly. Spleen: non-tender, no splenomegaly. Hernia: none palpable Neurologic: Gait and Station: normal gait, normal station. Cranial Nerves: grossly intact. Sensation: grossly intact, monofilament test intact. Reflexes: DTRs 2+ bilaterally throughout. Coordination and Cerebellum: [id number] intact, no tremor
--- OUTSIDE RECORDS SUMMARY | 2018-05-31 17:21 | XMS REPORT | Encounter Summary ---
:1950 Author Care Team Providers Name Role Phone Jose R Montiel MD Primary Care Provider [phone] [facility] OTHER [phone] Reason for Visit Follow Up Visit Instructions 1. Hepatic encephalopathy 2. Cirrhosis of liver furosemide 40 mg tablet Xifaxan 550 mg tablet cirrhosis: care instructions liver disease diet: care instructions Klor-Con M10 mEq tablet,extended release 3. Long-term drug therapy 4. Diabetic neuropathy tramadol 50 mg tablet 5. Dyspnea Dulera 200 mcg-5 mcg/actuation HFA aerosol inhaler Discussion Note: None recorded. Plan of Care Reminders Provider Appointments Follow up 07/12/2018 Laith Calloway 10:15AM MD [facility] None recorded. Referral None recorded. Procedures None recorded. Surgeries None recorded. Imaging None recorded. Medications Name Start Date BD Ultra-Fine Mini Pen Needle 31 gauge x 3/16" TEST THREE TIMES DAILY DIRECTED BD Ultra-Fine Nuvia Pen Needle 32 gauge x 5/32" USE DIRECTED Bydureon BCise 2 mg/0.85 mL subcutaneous auto-injector Inject 2 mg every week by subcutaneous route as directed. citalopram 10 mg tablet Dulera 200 mcg-5 mcg/actuation HFA aerosol inhaler Inhale 2 puffs twice a day by inhalation route. USE FOR BREATHNG DIFFICULTY fluticasone 50 mcg/actuation nasal spray,suspension [place] 2 sprays every day by intranasal route as directed for 42 days. furosemide 40 mg tablet Take 1 tablet twice a day by oral route for 30 days. Humalog KwikPen (U-100) Insulin 100 unit/mL subcutaneous INJECT 10 UNITS PER SLIDING SCALE ipratropium-albuterol 0.5 mg-3 mg(2.5 mg base)/3 mL nebulization soln Inhale 3 mL 4 times a day by nebulization route for 30 days. Klor-Con M10 mEq tablet,extended release Take 2 tablets every day by oral route. Levemir FlexTouch U-100 Insulin 100 unit/mL (3 mL) subcutaneous pen INJECT 72 UNITS UNDER THE SKIN TWICE DAILY DIRECTED Levemir U-100 Insulin 100 unit/mL subcutaneous solution 10 u am and 20 u pm InsideAxis™Touch Ultra Test strips TEST TWO TIMES DAILY [...] Height Weight BMI Blood Pressure 63 in 203 lbs 16 oz 36.1 kg/m2 173/78 mm[Hg] Lab Results Date Name Specimen Result Interpretation Description Value Range Status Address 05/03/2018 Cbc Normal White Blood 4.9 K/uL 4.0-11.5 Final [place] Count K/uL [facility] (Lab): [address] [place] [address] Normal Red Blood 4.29 3.80-5.20 Final [place] Count M/uL M/uL [facility] (Lab): [address] [place] [address] Normal Hemoglobin 12.9 10.5-15.7 Final [place] g/dL g/dL [facility] (Lab): [address] [place] [address] Normal Hematocrit 39.0 % 34.0-50.0 Final [place] % [facility] (Lab): [address] [place] [address] Normal Mean 90.8 fL 78-98 fL Final [place] Corpuscular Count Includes [facility] Volume [facility] (Lab): [address] [place] [address] Normal Mean 30.0 pg 26.2-33.4 Final [place] Corpuscular pg Count Includes [facility] Hemoglobin [facility] (Lab): [address] [place] [address] Normal Mean 33.1 31.5-36.2 Final [place] Corpuscular g/dL g/dL Count Includes [facility] HGB [facility] (Lab): [address] [place] [address] Normal Red Cell 14.8 % 11.5-15.5 Final [place] Distribution % Count Includes [facility] Width [facility] (Lab): [address] [place] [address] Low Platelet 45 K/uL 137-338 Final [place] Count K/uL [facility] (Lab): [address] [place] [address] Normal Mean Platelet 9.8 fL 8.4-11.8 Final [place] Volume fL [facility] (Lab): [address] [place] [address] 05/03/2018 CBC W/ Auto Normal White Blood 4.9 K/uL 4.0-11.5 Final [place] Diff Count K/uL [facility] (Lab): [address] [place] [address] Normal Red Blood 4.29 3.80-5.20 Final [place] Count M/uL M/uL [facility] (Lab): [address] [place] [address] Normal Hemoglobin 12.9 10.5-15.7 Final [place] g/dL g/dL [facility] (Lab): [address] [place] [address] Normal Hematocrit 39.0 % 34.0-50.0 Final [place] % [facility] (Lab): [address] [place] [address] Normal Mean 90.8 fL 78-98 fL Final [place] Corpuscular Count Includes [facility] Volume [facility] (Lab): [address] [place] [address] Normal Mean 30.0 pg 26.2-33.4 Final [place] Corpuscular pg Count Includes [facility] Hemoglobin [facility] (Lab): [address] [place] [address] Normal Mean 33.1 31.5-36.2 Final [place] Corpuscular g/dL g/dL Regional H[facility] (Lab): [address] [place] [address] Normal Red Cell 14.8 % 11.5-15.5 Final [place] Distribution % [facility] (Lab): [address] [place] [address] Low Platelet 45 K/uL 137-338 Final [place] Count K/uL [facility] (Lab): [address] [place] [address] Normal Mean Platelet 9.8 fL 8.4-11.8 Final [place] Volume fL [facility] (Lab): [address] [place] [address] Normal Neutrophils % 70.3 % 44.4-80.1 Corrected [place] % [facility] (Lab): [address] [place] [address] Normal Lymphocyte% 20.7 % 10.0-50.0 Final [place] % [facility] (Lab): [address] [place] [address] Normal [place] % 6.2 % 3.6-12.04 Final [place] % [facility] (Lab): [address] [place] [address] Normal Eos % 2.1 % 0.0-5.41 Final [place] % [facility] (Lab): [address] [place] [address] Normal Basophil % 0.7 % 0.0-0.79 Final [place] % [facility] (Lab): [address] [place] [address] 05/03/2018 Differential Normal Neutrophils Incomplete [place] Panel, Blood [facility] (Lab): [address] [place] [address] Normal Band Incomplete [place] [facility] (Lab): [address] [place] [address] Normal Lymphocyte Incomplete [facility] (Lab): [address] [place] [address] Normal Atypical Incomplete [place] Lymph [facility] (Lab): [address] [place] [address] Normal Monocyte Incomplete [place] [facility] (Lab): [address] [place] [address] Normal Eosinophil Incomplete [place] [facility] (Lab): [address] [place] [address] Normal Basophil Incomplete [facility] (Lab): [address] [place] [address] Normal Platelet Incomplete [place] Estimate [facility] (Lab): [address] [place] [address] Normal Platelet Incomplete [place] Morphology [facility] (Lab): [address] [place] [address] Normal Anisocytosis [facility] (Lab): [address] [place] [address] 04/26/2018 CBC W/ Auto Low White Blood 3.4 K/uL 4.0-11.5 Final [place] Diff Count K/uL [facility] (Lab): [address] [place] [address] Normal Red Blood 4.04 3.80-5.20 Final [place] Count M/uL M/uL [facility] (Lab): [address] [place] [address] Normal Hemoglobin 12.0 10.5-15.7 Final [place] g/dL g/dL [facility] (Lab): [address] [place] [address] Normal Hematocrit 37.0 % 34.0-50.0 Final [place] % [facility] (Lab): [address] [place] [address] Normal Mean 91.4 fL 78-98 fL Final [place] Corpuscular Count Includes [facility] Volume [facility] (Lab): [address] [place] [address] Normal Mean 29.8 pg 26.2-33.4 Final [place] Corpuscular pg Count Includes [facility] Hemoglobin [facility] (Lab): [address] [place] [address] Normal Mean 32.6 31.5-36.2 Final [place] Corpuscular g/dL g/dL Count Includes [facility] HGB [facility] (Lab): [address] [place] [address] Normal Red Cell 14.5 % 11.5-15.5 Final [place] Distribution % [facility] (Lab): [address] [place] [address] Low Platelet 45 K/uL 137-338 Final [place] Count K/uL [facility] (Lab): [address] [place] [address] Mean Platelet 6.8 fL 8.4-11.8 Final [place] Volume fL [facility] (Lab): [address] [place] [address] Normal Neutrophils % 67.2 % 44.4-80.1 Corrected [place] % [facility] (Lab): [address] [place] [address] Normal Lymphocyte% 23.1 % 10.0-50.0 Final [place] % [facility] (Lab): [address] [place] [address] Normal [place] % 6.5 % 3.6-12.04 Final [place] % [facility] (Lab): [address] [place] [address] Normal Eos % 2.3 % 0.0-5.41 Final [place] % [facility] (Lab): [address] [place] [address] High Basophil % 0.9 % 0.0-0.79 Final [place] % [facility] (Lab): [address] [place] [address] 04/26/2018 PT/INR Normal Prothrombin 11.5 10.3-12.3 Final [place] Time seconds seconds [facility] (Lab): [address] [place] [address] Normal Inr 1.05 Final [place] [facility] (Lab): [address] [place] [address] 04/26/2018 BMP, Serum or High Glucose 172 82-115 Final [place] Plasma mg/dL mg/dL [facility] (Lab): [address] [place] [address] High Blood Urea 30 mg/dL 8-23 Final [place] Nitrogen mg/dL [facility] (Lab): [address] [place] [address] Normal Osmolality 284 280-300 Final [place] Calculated, Count Includes [facility] Serum [facility] (Lab): [address] [place] [address] High Creatinine 1.0 0.50-0.90 Final [place] mg/dL mg/dL [facility] (Lab): [address] [place] [address] Low Glomerular 55.[address] [place] [address] [facility] (Lab): [address] [place] [address] High BUN/creatinin 30.0 12-20 Final [place] e Ratio [facility] (Lab): [address] [place] [address] Normal Sodium Level 137 135-145 Final [place] mmol/L mmol/L [facility] (Lab): [address] [place] [address] Normal Potassium 4.5 3.5-5.2 Final [place] Level mmol/L mmol/L [facility] (Lab): [address] [place] [address] Normal Chloride 106 98-108 Final [place] Level mmol/L mmol/L [facility] (Lab): [address] [place] [address] Normal Co2 22 21-32 Final [place] mmol/L mmol/L [facility] (Lab): [address] [place] [address] Normal Anion Gap 13.5 12-20 Final [place] mEq/L mEq/L [facility] (Lab): [address] [place] [address] Normal Calcium Level 9.5 8.8-10.2 Final [place] mg/dL mg/dL [facility] (Lab): [address] [place] [address] 04/25/2018 CBC W/ Auto Normal White Blood 4.6 K/uL 4.0-11.5 Final [place] Diff Count K/uL [facility] (Lab): [address] [place] [address] Normal Red Blood 4.52 3.80-5.20 Final [place] Count M/uL M/uL [facility] (Lab): [address] [place] [address] Normal Hemoglobin 13.4 10.5-15.7 Final [place] g/dL g/dL [facility] (Lab): [address] [place] [address] Normal Hematocrit 41.6 % 34.0-50.0 Final [place] % [facility] (Lab): [address] [place] [address] Normal Mean 92.1 fL 78-98 fL Final [place] Corpuscular Count Includes [facility] Volume [facility] (Lab): [address] [place] [address] Normal Mean 29.6 pg 26.2-33.4 Final [place] Corpuscular pg Count Includes [facility] Hemoglobin [facility] (Lab): [address] [place] [address] Normal Mean 32.2 31.5-36.2 Final [place] Corpuscular g/dL g/dL Count Includes [facility] HGB [facility] (Lab): [address] [place] [address] Normal Red Cell 15.0 % 11.5-15.5 Final [place] Distribution % [facility] (Lab): [address] [place] [address] Low Platelet 58 K/uL 137-338 Final [place] Count K/uL [facility] (Lab): [address] [place] [address] Low Mean Platelet 7.5 fL 8.4-11.8 Final [place] Volume fL [facility] (Lab): [address] [place] [address] Normal Neutrophils % 68.4 % 44.4-80.1 Corrected [place] % [facility] (Lab): [address] [place] [address] Normal Lymphocyte% 22.2 % 10.0-50.0 Final [place] % [facility] (Lab): [address] [place] [address] Normal [place] % 5.7 % 3.6-12.04 Final [place] % [facility] (Lab): [address] [place] [address] Normal Eos % 2.8 % 0.0-5.41 Final [place] % [facility] (Lab): [address] [place] [address] High Basophil % 0.8 % 0.0-0.79 Final [place] % [facility] (Lab): [address] [place] [address] 04/25/2018 Differential Normal Neutrophils Incomplete [place] Panel, Blood [facility] (Lab): [address] [place] [address] Normal Band Incomplete [facility] (Lab): [address] [place] [address] Normal Lymphocyte Incomplete [facility] (Lab): [address] [place] [address] Normal Atypical Incomplete [place] Lymph [facility] (Lab): [address] [place] [address] Normal Monocyte Incomplete [facility] (Lab): [address] [place] [address] Normal Eosinophil Incomplete [place] [facility] (Lab): [address] [place] [address] Normal Basophil Incomplete [facility] (Lab): [address] [place] [address] Normal Nucleated Red Incomplete [place] Blood Cell [facility] (Lab): [address] [place] [address] Normal Platelet Incomplete [place] Estimate [facility] (Lab): [address] [place] [address] Normal Platelet Incomplete [place] Morphology [facility] (Lab): [address] [place] [address] Normal Hypochromasia [facility] (Lab): [address] [place] [address] Normal Poikilocytosi [facility] (Lab): [address] [place] [address] Normal Anisocytosis [facility] (Lab): [address] [place] [address] Normal Macrocytosis [facility] (Lab): [address] [place] [address] Normal Toxic Incomplete [place] Granulation [facility] (Lab): [address] [place] [address] Normal Dohle Bodies [facility] (Lab): [address] [place] [address] 04/25/2018 CMP, Serum or High Glucose 208 82-115 Final [place] Plasma mg/dL mg/dL [facility] (Lab): [address] [place] [address] High Blood Urea 32 mg/dL 8-23 Final [place] Nitrogen mg/dL [facility] (Lab): [address] [place] [address] Normal Osmolality 287 280-300 Final [place] Calculated, [facility] (Lab): [address] [place] [address] High Creatinine 1.1 0.50-0.90 Final [place] mg/dL mg/dL [facility] (Lab): [address] [place] [address] Low Glomerular 49.[address] [place] [address] [facility] (Lab): [address] [place] [address] High BUN/creatinin 29.1 12-20 Final [place] e Ratio [facility] (Lab): [address] [place] [address] Normal Sodium Level 137 135-145 Final [place] mmol/L mmol/L [facility] (Lab): [address] [place] [address] Normal Potassium 4.2 3.5-5.2 Final [place] Level mmol/L mmol/L [facility] (Lab): [address] [place] [address] Normal Chloride 104 98-108 Final [place] Level mmol/L mmol/L [facility] (Lab): [address] [place] [address] Normal Co2 22 21-32 Final [place] mmol/L mmol/L [facility] (Lab): [address] [place] [address] Normal Anion Gap 15.2 12-20 Final [place] mEq/L mEq/L [facility] (Lab): [address] [place] [address] Normal Calcium Level 9.7 8.8-10.2 Final [place] mg/dL mg/dL [facility] (Lab): [address] [place] [address] Normal Total Protein 6.7 g/dL 6.6-8.7 Final [place] g/dL [facility] (Lab): [address] [place] [address] Normal Albumin 3.7 g/dL 3.5-5.2 Final [place] g/dL [facility] (Lab): [address] [place] [address] Normal Globulin 3.0 Final [place] gm/dL [facility] (Lab): [address] [place] [address] Normal A/g Ratio 1.2 >1.0 Final [facility] (Lab): [address] [place] [address] High Bilirubin,tot 1.5 0.0-1.2 Final [place] al mg/dL mg/dL [facility] (Lab): [address] [place] [address] High AST/SGOT 53 U/L 15-32 U/L Final [facility] (Lab): [address] [place] [address] ALT/SGPT 37 U/L 0-33 U/L Final [facility] (Lab): [address] [place] [address] Alkaline 137 U/L 35-105 Final [place] Phosphatase, U/L Count Includes [facility] Total [facility] (Lab): [address] [place] [address] 04/25/2018 CK (Creatine Normal Creatine 34 U/L 20-180 Final [place] Kinase), Kinase U/L [facility] Serum [facility] (Lab): [address] [place] [address] 04/25/2018 Troponin I, Normal Cardiac <0.30 0.0-0.5 Final [place] Cardiac, Troponin I NG/mL NG/mL Count Includes [facility] Quant, Blood [facility] (Lab): [address] [place] [address] 04/25/2018 Pro BNP (Pro High N-term Pro 512 0-125 Final [place] B-type Natriuretic pg/mL pg/mL Count Includes [facility] Natriuretic Peptide Medical Peptide), Center Serum or (Lab): [address] [place] [address] 04/25/2018 CK-mb, Blood Normal Mass 2.7 0.0-3.6 Final [place] Creatinine NG/mL NG/mL Count Includes [facility] Kinase-mb [facility] (Lab): [address] [place] [address] Allergies Code Code System Name Reaction Severity [...] History Smoking Status Never Smoker Past Encounters 05/21/2018 Hepatic Encephalopathy; Cirrhosis of Liver; Long-term Drug Therapy; Diabetic Neuropathy; Dyspnea Laith Simmons MD: [facility], [address], [place] [address], Ph. 05/13/2018 Cirrhosis of Liver; Portal Hypertension; Pleural Effusion Laith Simmons MD: [facility], [address], [place] [address], Ph. 04/20/2018 Pleural Effusion; Cirrhosis of Liver Laith Simmons MD: [facility], [address], [place] [address], Ph. History of Present Illness Note: Followup from ER:<div>
</div><div>pt was seen in the ER last week forconfusion and was dx with hepatic encephalopathy, instructions given to increase lactulose and continue rifaximin, feels alot better, no confusion, 3 BM's per day on avg, denies fevers, chills, nausea, vomiting, hematemesis, hematochezia. Rupa has had some lower extremity edema as well and has been using the lasix as scheduled as recommended to increase to bid. </div>Review of Systems: ROS as noted in the [...] DTRs 2+ bilaterally throughout. Coordination and Cerebellum: [id number] intact, no tremor
--- OUTSIDE RECORDS SUMMARY | 2018-05-31 17:21 | XMS REPORT | Continuity of Care Document ---
:1950 Author Organization [facility] Address [address] [place] [address] Phone Unavailable Care Team Providers Name Role Phone AMAN GARNETT MD Primary Care Physician Insurance Providers Guarantor Desirae Canales Address [address] [place] [address] Email NONE [facility] Policy Number [id number] Subscriber's Name Desirae Canales Relationship Self / Same As Patient Group Number [id number] Group Name NA Payer [facility] Policy Number [id number] Subscriber's Name Desirae Canales Relationship Self / Same As Patient Group Number [id number] Group Name NA Advance Directives Directive Response Recorded Date/Time Advance Directives No 01/20/16 10:11pm Advance Directive on File No 05/19/18 10:58am Directive to Physicians/Living Will No 01/20/16 10:11pm Health Care Proxy No 01/20/16 10:11pm Organ Donor No 01/20/16 10:11pm Medical Power of Betting Clerk No 01/20/16 10:11pm Patient/Family Given Education Material R/T Y - 05/19/18...[place] 05/19/18 10: 54am Directives? Chief Complaint and Reason for Visit Chief Complaint General Complaint Reason for Visit Hepatic encephalopathy Problems Medical Problem Onset Date Status Abdominal [...] ejection fraction Unknown Chronic Hypomagnesemia Unknown Resolved [id number] Unknown Acute Influenza A Unknown Acute Mononucleosis [...] pain Unknown Acute Chest pain Unknown Acute Hepatic encephalopathy Unknown Acute Hypokalemia Unknown Acute Multiple pulmonary [...] (Flonase Allergy Relief) 50 Mcg/Act Spr, 1 [place] Nasal Furosemide (Lasix 40 Mg*) 40 Mg [...] Applicable Not Applicable Hx Physical Abuse No 05/19/2018 10:58am Not Applicable Not Applicable Smoking Status Start Date Stop Date Never smoker Hospital Discharge Instructions No hospital discharge instruction information available. Plan of Care Discharge Date 05/19/18 1:42pm Instructions/Education Provided Hepatic Encephalopathy Forms Provided Prescription Opioid Use Portal Welcome Letter Prescriptions See Medication Section Referrals AMAN GARNETT MD Address: [address] [place] [address] [address] [place], [place] [id number] Additional Instructions/Education GIVE LACTULOSE 10G/15ML GIVE 30ML THIS EVENING AT 6PM THEN TOMORROW GIVE 30ML AT 9AM 1PM AND 5PM CALL DR GARNETT OFFICE MAKE AN APPOINTMENT FOR THURSDAY MORNING FOR FOLLOW UP, CONTINUE ALL OTHER HOME MEDICATIONS RETURN TO THE ER IF YOUR SYMPTOMS WORSEN. Functional Status No functional status information available. Allergies, Adverse Reactions, Alerts Allergen Type Severity Reaction Status Last Updated No Known Allergies Allergy Severe Active 10/09/09 Immunizations No immunization information available. Vital Signs Acute Vital Signs Vital Response Date/Time Blood Pressure 131/50 mm Hg 05/19/2018 2:05pm Pulse Pulse Rate (adult) 89 beats per minute (60 - 100) 05/19/2018 2:05pm Respiratory Rate 14 breaths per minute (10 - 24) 05/19/2018 2:05pm Temperature Source Temporal Artery Scan 05/17/2018 11:27am Height 5 ft 1 in 05/19/2018 10:58am Weight 207 lb 05/19/2018 10:58am Body Mass Index 39.1 kg/m^2 05/19/2018 10:58am Results Laboratory Results Test Name Result Units Flags Reference Collection Result Comments Date/Time Date/Time White Blood 4.5 K/ul 4.0-11.5 05/19/2018 05/19/2018 Count 11:37am 11:45am Red Blood Count 3.78 M/ul L 3.80-5.20 05/19/2018 05/19/2018 11:37am 11:45am Hemoglobin 11.4 g/dl 10.5-15.7 05/19/2018 05/19/2018 11:37am 11:45am Hematocrit 34.5 % 34.0-50.0 05/19/2018 05/19/2018 11:37am 11:45am Mean Corpuscular 91.2 fl 78-98 05/19/2018 05/19/2018 Volume 11:37am 11:45am Mean Corpuscular 30.1 pg 26.2-33.4 05/19/2018 05/19/2018 Hemoglobin 11:37am 11:45am Mean Corpuscular 33.0 g/dl 31.5-36.2 05/19/2018 05/19/2018 Hemoglobin 11:37am 11:45am Concent Red Cell 15.1 % 11.5-15.5 05/19/2018 05/19/2018 Distribution 11:37am 11:45am Width Platelet Count 72 K/ul L 137-338 05/19/2018 05/19/2018 11:37am 11:45am Mean Platelet 6.2 fl L 8.4-11.8 05/19/2018 05/19/2018 Volume 11:37am 11:45am Neutrophils (%) 74.5 % 44.4-80.1 05/19/2018 05/19/2018 (Auto) 11:37am 11:45am Lymphocytes (%) 18.7 % 10.0-50.0 05/19/2018 05/19/2018 (Auto) 11:37am 11:45am Monocytes (%) 5.1 % 3.6-12.04 05/19/2018 05/19/2018 (Auto) 11:37am 11:45am Eosinophils (%) 1.0 % 0.0-5.41 05/19/2018 05/19/2018 (Auto) 11:37am 11:45am Basophils (%) 0.6 % 0.0-0.79 05/19/2018 05/19/2018 (Auto) 11:37am 11:45am Prothrombin Time 12.7 SECONDS H 10.3-12.3 05/19/2018 05/19/2018 11:37am 12:01pm THERAPEUTIC LEVEL: 1.5 to 1.9 times normal range of PT Prothromb Time 1.16 05/19/2018 05/19/2018 International 11:37am 12:01pm Recommended therapeutic range for patients receiving Ratio warfarin (coumadin) therapy: INR is 2.0 to 3.0 Recommended range for patients with mechanical prosthetic heart valves: INR is 2.5 to 3.5 Activated 29.0 SECONDS 22.5-37.0 05/19/2018 05/19/2018 Partial 11:37am 12:01pm Thromboplast Time Urine Color YELLOW 05/19/2018 05/19/2018 11:23am 12:10pm Urine Appearance CLEAR CLEAR 05/19/2018 05/19/2018 11:23am 12:10pm Urine Glucose NEGATIVE NEGATIVE 05/19/2018 05/19/2018 11:23am 12:10pm Urine Bilirubin NEGATIVE NEGATIVE 05/19/2018 05/19/2018 11:23am 12:10pm Urine Ketones NEGATIVE NEGATIVE 05/19/2018 05/19/2018 11:23am 12:10pm Urine Specific 1.010 1.003-1.03 05/19/2018 05/19/2018 [place] 0 11:23am 12:10pm Urine Blood NEGATIVE NEGATIVE 05/19/2018 05/19/2018 11:23am 12:10pm Urine pH 5.500 5-9 05/19/2018 05/19/2018 11:23am 12:10pm Urine Protein NEGATIVE NEGATIVE 05/19/2018 05/19/2018 11:23am 12:10pm Urine NORMAL mg/dL 0.2-1.0 05/19/2018 05/19/2018 Urobilinogen 11:23am 12:10pm Urine Nitrate NEGATIVE NEGATIVE 05/19/2018 05/19/2018 11:23am 12:10pm Urine Leukocyte NEGATIVE NEGATIVE 05/19/2018 05/19/2018 Esterase 11:23am 12:10pm Urine RBC <1 /hpf 0-5 05/19/2018 05/19/2018 11:23am 12:10pm Urine WBC <1 /hpf 0-5 05/19/2018 05/19/2018 11:23am 12:10pm Urine Epithelial <1 /hpf 0-5 05/19/2018 05/19/2018 Cells 11:23am 12:10pm Urine Bacteria None /hpf None 05/19/2018 05/19/2018 Detected Detect 11:23am 12:10pm Urine Casts None /lpf None 05/19/2018 05/19/2018 Detected Detect 11:23am 12:10pm Urine Culture NO 05/19/2018 05/19/2018 Reflexed 11:23am 12:10pm Random Glucose 263 mg/dL H 82-115 05/19/2018 05/19/2018 11:37am 12:04pm Blood Urea 20 mg/dL 8-23 05/19/2018 05/19/2018 Nitrogen 11:37am 12:04pm Serum Osmolality 284 280-300 05/19/2018 05/19/2018 11:37am 12:04pm Creatinine 1.0 mg/dL H 0.50-0.90 05/19/2018 05/19/2018 TEST RESULT 11:37am 12:04pm INTERFERENCE DUE TO ICTERIC SPECIMEN. Glomerular 55.30 L 05/19/2018 05/19/2018 GFR RESULTS ARE REPORTED IN mL/min/1.73m2. Filtration Rate 11:37am 12:04pm Calc Normal GFR: >60mL/min Moderately decreased GFR: 30-59 mL/min Severely decreased GFR: 15-29 mL/min Kidney Failure (or Dialysis): <15 mL/min The calculated eGFR is not valid for patients younger than 18 years or older than 75 years. BUN/Creatinine 20.0 12-20 05/19/2018 05/19/2018 Ratio 11:37am 12:04pm Sodium Level 136 mmol/L 135-145 05/19/2018 05/19/2018 11:37am 12:04pm Potassium Level 3.3 mmol/L L 3.5-5.2 05/19/2018 05/19/2018 11:37am 12:04pm Chloride Level 98 mmol/L 98-108 05/19/2018 05/19/2018 11:37am 12:04pm Carbon Dioxide 22 mmol/L 21-32 05/19/2018 05/19/2018 Level 11:37am 12:04pm Anion Gap 19.3 mEq/L 12-20 05/19/2018 05/19/2018 11:37am 12:04pm Calcium Level 8.4 mg/dL L 8.8-10.2 05/19/2018 05/19/2018 11:37am 12:04pm Magnesium Level 1.1 mg/dL L 1.6-2.4 05/19/2018 05/19/2018 11:37am 12:04pm Total Protein 6.0 g/dL L 6.6-8.7 05/19/2018 05/19/2018 11:37am 12:04pm Albumin 2.7 g/dL L 3.5-5.2 05/19/2018 05/19/2018 11:37am 12:04pm Globulin 3.3 gm/dL 05/19/2018 05/19/2018 11:37am 12:04pm Albumin/Globulin 0.8 >1.0 05/19/2018 05/19/2018 Ratio 11:37am 12:04pm Total Bilirubin 2.2 mg/dL H 0.0-1.2 05/19/2018 05/19/2018 11:37am 12:04pm Aspartate Amino 39 U/L H 15-32 05/19/2018 05/19/2018 Transf 11:37am 12:04pm (AST/SGOT) Alanine 28 U/L 0-33 05/19/2018 05/19/2018 Aminotransferase 11:37am 12:04pm (ALT/SGPT) Ammonia 115.1 umol/L H* 11-51 05/19/2018 05/19/2018 Results have been broadcasted to patient's location and 12:47pm 1:19pm called to ([facility]). By ROXANNE DEINSEJasmina 05/19/18 @1312 Results read back for confirmation. --- 05/19/18 1319 --- AMM previously reported as: 119.4 H* umol/L Results have been broadcasted to patient's location and called to ([facility]). By ROXANNE PRADO 05/19/18 @1312 Results read back for confirmation. QK-Onj-H-Type 806 pg/mL H 0-125 05/19/2018 05/19/2018 Natriuretic 11:37am 12:17pm Peptide Total Alkaline 131 U/L H 35-105 05/19/2018 05/19/2018 Phosphatase 11:37am 12:04pm Creatine Kinase 125 U/L 20-180 05/19/2018 05/19/2018 11:37am 12:04pm Troponin I < 0.30 ng/mL 0.0-0.5 05/19/2018 05/19/2018 Published clinical studies have shown elevations of cTnI in 11:37am 12:04pm patients with myocardial injury, as seen in unstable angina pectoris, cardiac contusions, and heart transplants. Elevations have also been seen in patients with rhabdomyolysis and polymyositis. Elevated troponin levels point to myocardial injury, but are not necessarily indicative of an ischemic mechanism. The term SC should be used when there is evidence [...] history, clinical examination and other findings. Creatine Kinase 2.8 ng/ml 0.0-3.6 05/19/2018 05/19/2018 MB 11:37am 12:18pm DIAGNOSTIC CITERIA: CKMB CKMB RELATIVE INDEX SUGGESTIVE OF NON-AMI < or=5 N/A MCPHERSON ZONE (INCONCLUSIVE) > 5 < or=4 SUGGESTIVE OF AMI >5 > 4 Myoglobin 177 ng/mL H 25-58 05/19/2018 05/19/2018 11:37am 12:04pm Erythrocyte 30 mm/hr H 0.00-20 03/20/2018 03/20/2018 Sedimentation 4:29am 5:02am Rate Body Fluid Total < 4.0 g/dL 03/20/2018 03/20/2018 Protein 12:20pm 12:56pm Urine Pathogenic None seen /hpf None 03/20/2018 03/20/2018 Casts Detect 5:40am 6:44am Lactic Acid 1.70 mmoL/L 0.5-2.2 03/20/2018 03/20/2018 Level 4:29am 5:17am Procalcitonin 0.4 ng/mL 0.0-0.8 03/20/2018 03/20/2018 The change of PCT concentration over time provides 4:29am 6:26am prognostic information about the risk [...] later) and on Day 4, go to [email or web address]. Urine Sodium 51 mmol/L 03/20/2018 03/20/2018 5:40am 6:31am Phosphorus Level 2.8 mg/dL 2.5-4.5 03/22/2018 03/22/2018 2:24am 5:13am C-Reactive 66.3 mg/L H 0.0-5.0 03/20/2018 03/20/2018 Protein High 4:29am 5:34am Sensitivity Urine Total 17.2 mg/dl 03/20/2018 03/20/2018 Protein 5:40am 6:37am Urine Creatinine 94.9 mg/dL 28-217 03/20/2018 03/20/2018 5:40am 6:37am Thyroid 0.31 uIU/mL L 0.36-3.74 03/20/2018 03/20/2018 Stimulating 4:29am 6:26am Hormone (TSH) Rheumatoid < 10 IU/mL 0-14 03/24/2018 03/24/2018 Factor 3:34am 12:06pm Anti-Nuclear Negative Negative 03/20/2018 03/23/2018 Performed at: [facility] [place] Antibody Screen 4:29am 11:14am [address] [place], [place] [id number] Radiology Teacher: Amol Vanegas MD, Phone: [phone] Body Fluid 19 U/L . 03/20/2018 03/21/2018 [...] clinical context for interpretation. Performed at: - [facility] [id number] Radiology Teacher: Amol Vanegas MD, Phone: [phone] Body Fluid 105 IU/L . 03/20/2018 03/21/2018 [...] clinical context for interpretation. Performed at: - [facility] [id number] Radiology Teacher: Amol Vanegas MD, Phone: [phone] POC Capillary 172 mg/dL H 70.0 - 110 04/26/2018 04/26/2018 Blood Glucose 4:36pm 4:40pm (Chem) Microbiology Results Procedure Source Organism/Result Collection Result Result Date/Time Date/Time Status Urine Culture Urine,Clean ESCHERICHIA COLI 03/20/2018 03/22/2018 Final Catch 5:40am 9:40am Procedures Procedure Status Date Provider(s) DRAINAGE OF RIGHT PLEURAL CAVITY, Completed 03/20/18 [...] CA Completed 03/30/18 [place]/PRO/DX INJ SAME DRUG RETAIL BRANCH MANAGER Completed 03/30/18 HOSPITAL OBSERVATION SERVICES PER HOUR [...] X-RAY EXAM CHEST 1 VIEW Completed 04/19/18 ASPIRATE PLEURA W/ IMAGING Completed 04/23/18 BARBARA BENITEZ DO EMERGENCY DEPT VISIT Completed 04/23/18 X-RAY EXAM CHEST 1 VIEW Completed 04/23/18 EMERGENCY DEPT VISIT Completed 04/25/18 X-RAY EXAM CHEST 1 VIEW Completed 04/25/18 ASSAY GLUCOSE BLOOD QUANT Completed 04/25/18 COMPLETE CBC W/AUTO DIFF WBC Completed 04/25/18 CREATINE MB FRACTION Completed 04/25/18 ASSAY OF CK (CPK) Completed 04/25/18 ROUTINE VENIPUNCTURE Completed 04/25/18 ASSAY OF TROPONIN QUANT Completed 04/25/18 COMPREHEN METABOLIC PANEL Completed 04/25/18 ASSAY OF NATRIURETIC PEPTIDE Completed 04/25/18 ELECTROCARDIOGRAM TRACING Completed 04/25/18 ASPIRATE PLEURA W/ IMAGING Completed 04/25/18 BARBARA BENITEZ DO X-RAY EXAM CHEST 1 VIEW Completed 04/25/18 ASSAY GLUCOSE BLOOD QUANT Completed 04/25/18 ASSAY GLUCOSE BLOOD QUANT Completed 04/25/18 ASSAY GLUCOSE BLOOD QUANT Completed 04/25/18 COMPLETE CBC W/AUTO DIFF WBC Completed 04/25/18 PROTHROMBIN TIME Completed 04/25/18 ROUTINE VENIPUNCTURE Completed 04/25/18 METABOLIC PANEL TOTAL CA Completed 04/25/18 AIRWAY INHALATION TREATMENT Completed 04/25/18 INSULIN PER 5 UNITS INJ Completed 04/25/18 Thoracentesis Completed 05/13/18 BARBARA BENITEZ DO Thoracentesis Completed 05/17/18 BARBARA BENITEZ DO Thoracentesis Active 05/20/18 BARBARA BENITEZ DO Thoracentesis Active 05/24/18 BARBARA BENITEZ DO Thoracentesis Active 05/27/18 BARBARA BENITEZ DO X-ray of chest, single [...] single view Completed 04/26/18 BARBARA BENITEZ DO US guided thoracentesis Active 05/13/18 BARBARA BENITEZ DO X-ray of chest, single view Completed 05/13/18 BARBARA BENITEZ DO US guided thoracentesis Active 05/17/18 BARBARA BENITEZ DO X-ray of chest, single view Completed 05/17/18 BARBARA BENITEZ DO Computed tomography of head without Completed 05/19/18 THIAGO COLÓN PLANNING ANALYST contrast X-ray of chest, single view Completed 05/19/18 THIAGO COLÓN PLANNING ANALYST Encounters Encounter Location Arrival/Admit Date Discharge/Depart Date Attending Provider Departed [place] 05/19/18 10:52am 05/19/18 1:42pm TAMIR, Emergency Room Mandie NEWTON MD Medical Ctr Registered [place] 05/17/18 11:00am BARBARA BENITEZ [facility] DO Medical Ctr Discharged [place] 04/25/18 9:50pm 04/26/18 6:37pm T[facility]IR Inpatient (obs) [facility] Departed [place] 04/23/18 12:03am 04/23/18 12:49pm [facility] Emergency Room [facility] LUCINDA Samson MD Medical Ctr Registered [place] 04/19/18 1:09pm BARBARA BENITEZ [facility] Medical [facility]tr Departed [place] 04/03/18 4:06pm 04/03/18 9:50pm MARIKA CRUZ Emergency Room [facility] Discharged [place] 03/30/18 7:10pm 03/31/18 3:17pm TAMIR, Inpatient (obs) [facility] Discharged [place] 03/19/18 4:52pm 03/25/18 3:19pm TAMIR, Inpatient [facility] Recent Diagnosis
[2018-05-31] MEDS ORDERED: NA CHLORIDE 0.9% 1,000 ML ONE (18:31)
--- NOTE | 2018-05-31 18:34 | RAD REPORT ---
EXAM DESCRIPTION: RAD - Chest Single View - 05/31/2018 6:23 pm CLINICAL HISTORY: COUGH Chest pain. COMPARISON: Chest Single View dated 10/23/2017; CHEST PA AND LAT 2 VIEW dated 12/14/2013; CHEST PA AND LAT 2 VIEW dated 07/12/2013 FINDINGS: Portable technique limits examination quality. Mild interstitial pulmonary edema suspected. The heart is normal in size. No displaced fractures.
[2018-05-31 18:35] LABS: Absolute Lymphocytes (CBC) 1.3 K/uL (0.7-4.9); Absolute Monocytes 0.4 K/uL (0.1-1.3); Absolute Neutrophil 3.4 K/uL (1.8-8.0); Basophils % 0.6 % (0-1.3); Hematocrit 37.1 % (36.0-45.0); Lymphocytes % 25.4 % (15.3-44.8); MPV 8.2 fL (7.6-11.3); RBC Red Blood Cell Count 4.23 M/uL (3.86-4.86)
--- NOTE | 2018-05-31 18:38 | EDPHYS ---
Physician Documentation [facility] Name: Desirae Brady Age: 67 yrs Sex: Female : 1950 Arrival Date: 05/31/2018 Time: 17:13 Bed 7 Private MD: Out, [facility] ED Physician De García HPI: 05/31 17:54 This 67 yrs old Female presents to ER via Wheelchair with complaints of Arm dread Pain, Confusion. 17:54 The patient or guardian complains of pain, that is acute. The complaints affect the dread right bicep, dorsal aspect of right forearm, right tricep and palmar aspect of right forearm. Context: The problem was sustained at an unknown location. Onset: The symptoms/episode began/occurred today. Historical: - Allergies: 17:17 No Known Allergies; sv - Home Meds: 19:43 lactulose 10 gram/15 mL (15 mL) Oral soln 30 mL 3 times per day [Active]; Dulera 200-5 ed1 mcg/actuation inhalation HFAA 2 puffs 2 times per day [Active]; Xifaxan 550 mg oral tab 1 tab 2 times per day [Active]; furosemide 40 mg Oral tab 1 tab 2 times per day [Active]; citalopram 10 mg tab 1 tab once daily [Active]; tramadol 50 mg Oral tab 2 tabs every 6 hours as needed [Active]; pantoprazole 40 mg Oral TbEC 1 tab once daily [Active]; - PMHx: 17:17 CHF; COPD; Diabetes - IDDM; Diverticulitis; Hypertension; Cirrhosis; sv 17:25 on liver transplant list; sv - PSHx: 17:17 Hysterectomy; Knee surgery; TIPS; sv - Immunization history:: Adult Immunizations up to date. - Social history:: Smoking status: Patient/guardian denies using tobacco. - Ebola Screening: : Patient negative for fever greater than or equal to 101.5 degrees Fahrenheit, and additional compatible Ebola Virus Disease symptoms Patient denies exposure to infectious person Patient denies travel to an Ebola-affected area in the 21 days before illness onset No symptoms or risks identified at this time. ROS: 17:55 Constitutional: Negative for fever, chills, and weight loss, Eyes: Negative for injury, dread pain, redness, and discharge, ENT: Negative for injury, pain, and discharge, Neck: Negative for injury, pain, and swelling, Cardiovascular: Negative for chest pain, palpitations, and edema, Abdomen/GI: Negative for abdominal pain, nausea, vomiting, diarrhea, and constipation, Back: Negative for injury and pain, : Negative for injury, bleeding, discharge, and swelling, MS/Extremity: Negative for injury and deformity, Skin: Negative for injury, rash, and discoloration, Psych: Negative for depression, anxiety, suicide ideation, homicidal ideation, and hallucinations, Allergy/Immunology: Negative for hives, rash, and allergies, Endocrine: Negative for neck swelling, polydipsia, polyuria, polyphagia, and marked weight changes, Hematologic/Lymphatic: Negative for swollen nodes, abnormal bleeding, and unusual bruising. 17:55 Respiratory: Positive for cough. 17:55 MS/extremity: Positive for pain, of the right arm. 17:55 Neuro: Positive for altered mental status. Exam: 17:55 Constitutional: This is a well developed, well nourished patient who is awake, alert, dread and in no acute distress. Head/Face: Normocephalic, atraumatic. Eyes: Pupils equal round and reactive to light, extra-ocular motions intact. Lids and lashes normal. Conjunctiva and sclera are non-icteric and not injected. Cornea within normal limits. Periorbital areas with no swelling, redness, or edema. ENT: Nares patent. No nasal discharge, no septal abnormalities noted. Tympanic membranes are normal and external auditory canals are clear. Oropharynx with no redness, swelling, or masses, exudates, or evidence of obstruction, uvula midline. Mucous membranes moist. Neck: Trachea midline, no thyromegaly or masses palpated, and no cervical lymphadenopathy. Supple, full range of motion without nuchal rigidity, or vertebral point tenderness. No Meningismus. Chest/axilla: Normal chest wall appearance and motion. Nontender with no deformity. No lesions are appreciated. Cardiovascular: Regular rate and rhythm with a normal S1 and S2. No gallops, murmurs, or rubs. Normal PMI, no JVD. No pulse deficits. Abdomen/GI: Soft, non-tender, with normal bowel sounds. No distension or tympany. No guarding or rebound. No evidence of tenderness throughout. Back: No spinal tenderness. No costovertebral tenderness. Full range of motion. Female : Normal external genitalia. Skin: Warm, dry with normal turgor. Normal color with no rashes, no lesions, and no evidence of cellulitis. MS/ Extremity: Pulses equal, no cyanosis. Neurovascular intact. Full, normal range of motion. Neuro: Awake and alert, GCS 15, oriented to person, place, time, and situation. Cranial nerves II-XII grossly intact. Motor strength 5/5 in all extremities. Sensory grossly intact. Cerebellar exam normal. Normal gait. Psych: Awake, alert, with orientation to person, place and time. Behavior, mood, and affect are within normal limits. 17:55 Respiratory: the patient does not display signs of respiratory distress, Respirations: normal, Breath sounds: decreased breath sounds, that are mild, are heard in the right posterior middle lobe and right posterior lower lobe, rhonchi. 17:55 Abdomen/GI: Inspection: bruising, Bowel sounds: active, Palpation: abdomen is soft and non-tender, Liver: no appreciated palpable abnormalities, Hernia: not appreciated. Vital Signs: 17:17 BP 148 / 89; Pulse 93; Resp 16; Temp 99.2; Pulse Ox 100% ; Weight 92.53 kg; Height 5 sv ft. 2 in. (157.48 cm); 19:16 BP 143 / 81; Pulse 81; Resp 17; Temp 98.9(O); Pulse Ox 99% on R/A; Pain 3/10; ed1 20:10 BP 137 / 59; Pulse 83; Resp 14; Temp 98.7; Pulse Ox 97% on R/A; Pain 3/10; ed1 17:17 Body Mass Index 37.31 (92.53 kg, 157.48 cm) sv MDM: 17:25 Patient medically screened. [facility] 17:58 Data reviewed: vital signs, nurses notes, lab test result(s), EKG, radiologic studies, [facility] CT scan, plain films. 05/31 17:49 Order name: Basic Metabolic Panel [facility] 05/31 17:49 Order name: CBC with Diff; Complete Time: 19:09 [facility] 05/31 17:49 Order name: LFT's [facility] 05/31 17:49 Order name: Magnesium [facility] 05/31 17:49 Order name: NT PRO-BNP [facility] 05/31 17:49 Order name: PT-INR; Complete Time: 18:51 [facility] 05/31 17:49 Order name: Troponin (emerg Dept Use Only) [facility] 05/31 17:49 Order name: Lipase [facility] 05/31 17:49 Order name: Blood Culture Adult (2) [facility] 05/31 17:49 Order name: Urine Culture [facility] 05/31 17:49 Order name: AMMONIA; Complete Time: 18:51 [facility] 05/31 19:03 Order name: CBC Smear Scan; Complete Time: 19:09 [facility] 05/31 19:17 Order name: Phosphorus [facility] 05/31 19:19 Order name: TSH [facility] 05/31 17:49 Order name: XRAY Chest (1 view); Complete Time: 18:51 [facility] 05/31 17:49 Order name: EKG; Complete Time: 17:51 [facility] 05/31 17:49 Order name: Cardiac monitoring; Complete Time: 18:57 [facility] 05/31 17:49 Order name: CT Chest Wo Con; Complete Time: 19:09 [facility] 05/31 18:33 Order name: CT Head Brain wo Cont; Complete Time: 19:00 [facility] 05/31 20:18 Order name: Phosphorus [facility] 05/31 20:18 Order name: Thyroid Stimulating Hormone [facility] 05/31 17:49 Order name: EKG - Nurse/Tech; Complete Time: 18:58 [facility] 05/31 17:49 Order name: IV Saline Lock; Complete Time: 18:58 [facility] 05/31 17:49 Order name: Labs collected and sent; Complete Time: 18:58 [facility] 05/31 17:49 Order name: O2 Per Protocol; Complete Time: 18:58 [facility] 05/31 17:49 Order name: O2 Sat Monitoring; Complete Time: 18:58 [facility] 05/31 19:17 Order name: IV - Large Bore; Complete Time: 19:35 [facility] Administered Medications: Discontinued: NS 0.9% 1000 ml IV at 125 ml/hr continuous 18:57 Drug: NS 0.9% 1000 ml Route: IV; Rate: 125 ml/hr; Site: left antecubital; sg 19:36 Follow up: IV Status: Order to discontinue infusion ed1 19:16 Drug: Rocephin - (cefTRIAXone) 1 grams Route: IVPB; Infused Over: 30 mins; Site: left ed1 antecubital; 19:35 Follow up: Response: No adverse reaction; IV Status: Completed infusion ed1 19:34 Drug: NS 0.9% with KCl 20 mEq/L 1000 ml Route: IV; Rate: 75 ml/hr; Site: left ed1 antecubital; 21:27 Follow up: IV Status: Infusion continued upon admission ed1 19:35 Drug: Potassium Chloride 20 mEq Route: IV; Rate: per protocol; Site: left antecubital; ed1 21:27 Follow up: IV Status: Infusion continued upon admission ed1 19:39 Drug: Magnesium Sulfate 2 grams Route: IVPB; Infused Over: 2 hrs; Site: right forearm; ed1 21:26 Follow up: Response: No adverse reaction; IV Status: Completed infusion; IV Intake: [id number] 19:46 Drug: Zofran 4 mg Route: IVP; Site: left antecubital; jd3 21:28 Follow up: Response: No adverse reaction; Nausea is decreased ed1 20:17 Drug: Potassium Effervescent Tablet 25 mEq Route: PO; ed1 21:27 Follow up: Response: No adverse reaction ed1 20:18 Drug: Lactulose 60 grams Volume: 45 ml; Route: PO; ed1 21:28 Follow up: Response: No adverse reaction ed1 20:18 Not Given (Ordered in [employer]): Potassium Chloride 20 mEq IV at per protocol once; ed1 administer over 1-2 hours Disposition: 05/31/18 18:37 Hospitalization ordered by Michael Perez for Inpatient Admission. Preliminary diagnosis are Altered mental status, unspecified, Unspecified cirrhosis of liver - TEMPLE/TIPPS, Type 1 diabetes mellitus, Hypokalemia, Hypomagnesemia. - Bed requested for Telemetry/MedSurg (Inpatient). - Status is Inpatient Admission. ed1 - Condition is Stable. - Problem is new. - Symptoms have improved. UTI on Admission? No Signatures: Dispatcher [employer] EDMS Siobhan Pérez RN RN sv Webb, Martha RN [facility] RN RN sg Anderson, Corey, MD MD cha Riggs, Erika, RN RN ed1 Sami Gudino RN RN jd3 Corrections: (The following items were deleted from the chart) 18:37 18:37 Hospitalization Ordered by Michael Perez DO for Observation. Preliminary dread diagnosis is Altered mental status, unspecified; Unspecified cirrhosis of liver - TEMPLE/TIPPS. Bed requested for Telemetry/MedSurg (observation). Status is Observation. Condition is Stable. Problem is new. Symptoms have improved. UTI on Admission? No. [facility] 19:19 18:37 05/31/2018 18:37 Hospitalization Ordered by Michael Ana for Observation. [facility] Preliminary diagnosis is Altered mental status, unspecified; Unspecified cirrhosis of liver - TEMPLE/TIPPS; Type 1 diabetes mellitus. Bed requested for Telemetry/MedSurg (observation). Status is Observation. Condition is Stable. Problem is new. Symptoms have improved. UTI on Admission? No. [facility] 19:19 19:19 05/31/2018 18:37 [facility] Preliminary diagnosis is Altered mental status, unspecified; Unspecified cirrhosis of liver - TEMPLE/TIPPS; Type 1 diabetes mellitus; Hypokalemia; Hypomagnesemia. Bed requested for Telemetry/MedSurg (observation). Status is Observation. Condition is Stable. Problem is new. Symptoms have improved. UTI on Admission? No. [facility] 19:50 19:19 05/31/2018 18:37 Hospitalization Ordered by Michael Ana RIVAS for Inpatient mw Admission. Preliminary diagnosis is Altered mental status, unspecified; Unspecified cirrhosis of liver - TEMPLE/TIPPS; Type 1 diabetes mellitus; Hypokalemia; Hypomagnesemia. Bed requested for Telemetry/MedSurg (Inpatient). Status is Inpatient Admission. Condition is Stable. Problem is new. Symptoms have improved. UTI on Admission? No. [facility] 21:26 19:50 05/31/2018 18:37 Hospitalization Ordered by Michael Ana for Inpatient ed1 Admission. Preliminary diagnosis is Altered mental status, unspecified; Unspecified cirrhosis of liver - TEMPLE/TIPPS; Type 1 diabetes mellitus; Hypokalemia; Hypomagnesemia. Bed requested for Telemetry/MedSurg (Inpatient). Status is Inpatient Admission. Condition is Stable. Problem is new. Symptoms have improved. UTI on Admission? No.
--- NOTE | 2018-05-31 18:38 | ER ---
Nurse's Notes [facility] Name: Desirae Brady Age: 67 yrs Sex: Female : 1950 Arrival Date: 05/31/2018 Time: 17:13 Bed 7 Private MD: Out, [facility] Diagnosis: Altered mental status, unspecified;Unspecified cirrhosis of liver-TEMPLE/TIPPS;Type 1 diabetes mellitus;Hypokalemia;Hypomagnesemia Presentation: 05/31 17:15 Presenting complaint: Child states: right shoulder pain after TIPS procedure 04/27/19. sv Confusion has increased and stated that 2 weeks ago she had her Lactulose dose increased by confusion has not improved. Granddaughter states that she had a thoracentesis done today at 1100. Transition of care: patient was not received from another setting of care. Onset of symptoms was April 2018. Care prior to arrival: None. 17:15 Method Of Arrival: Wheelchair sv 17:15 Acuity: MOSHE 3 sv 19:05 Risk Assessment: Do you want to hurt yourself or someone else? Patient reports no ed1 desire to harm self or others. Initial Sepsis Screen: Does the patient meet any 2 criteria? No. Patient's initial sepsis screen is negative. Does the patient have a suspected source of infection? No. Patient's initial sepsis screen is negative. Historical: - Allergies: 17:17 No Known Allergies; sv - Home Meds: 19:43 lactulose 10 gram/15 mL (15 mL) Oral soln 30 mL 3 times per day [Active]; Dulera 200-5 ed1 mcg/actuation inhalation HFAA 2 puffs 2 times per day [Active]; Xifaxan 550 mg oral tab 1 tab 2 times per day [Active]; furosemide 40 mg Oral tab 1 tab 2 times per day [Active]; citalopram 10 mg tab 1 tab once daily [Active]; tramadol 50 mg Oral tab 2 tabs every 6 hours as needed [Active]; pantoprazole 40 mg Oral TbEC 1 tab once daily [Active]; - PMHx: 17:17 CHF; COPD; Diabetes - IDDM; Diverticulitis; Hypertension; Cirrhosis; sv 17:25 on liver transplant list; sv - PSHx: 17:17 Hysterectomy; Knee surgery; TIPS; sv - Immunization history:: Adult Immunizations up to date. - Social history:: Smoking status: Patient/guardian denies using tobacco. - Ebola Screening: : Patient negative for fever greater than or equal to 101.5 degrees Fahrenheit, and additional compatible Ebola Virus Disease symptoms Patient denies exposure to infectious person Patient denies travel to an Ebola-affected area in the 21 days before illness onset No symptoms or risks identified at this time. Screenin:20 Abuse screen: Denies threats or abuse. Denies injuries from another. Nutritional sg screening: No deficits noted. Tuberculosis screening: No symptoms or risk factors identified. Never had TB. Fall Risk None identified. Assessment: 18:20 General: Appears in no apparent distress. comfortable, well groomed, well developed, sg well nourished, Behavior is calm, cooperative, appropriate for age. Pain: Complains of pain in right arm. Neuro: Level of Consciousness is awake, alert, obeys commands, Oriented to person, place, time, Speech is normal, Facial symmetry appears normal, Reports intermittent episodes of confusion. Cardiovascular: Heart tones S1 S2 present Capillary refill is brisk in bilateral fingers Patient's skin is warm and dry. Chest pain is denied. Respiratory: Airway is patent Respiratory effort is even, unlabored, Respiratory pattern is regular, symmetrical, Denies cough, shortness of breath labored breathing, pain with respiration, pain with cough, pain with movement, air hunger. GI: Abdomen is round non-distended, Bowel sounds present X 4 quads. : No signs and/or symptoms were reported regarding the genitourinary system. EENT: No signs and/or symptoms were reported regarding the EENT system. Derm: Skin is intact, is thin, Skin is dry, Skin is pale, Skin temperature is warm. Musculoskeletal: Circulation, motion, and sensation intact. Range of motion: intact in all extremities, Swelling absent. 19:16 Reassessment: Patient appears in no apparent distress at this time. No changes from ed1 previously documented assessment. Patient and/or family updated on plan of care and expected duration. Pain level reassessed. Patient is alert, oriented x 3, equal unlabored respirations, skin warm/dry/pink. Vital Signs: 17:17 BP 148 / 89; Pulse 93; Resp 16; Temp 99.2; Pulse Ox 100% ; Weight 92.53 kg; Height 5 sv ft. 2 in. (157.48 cm); 19:16 BP 143 / 81; Pulse 81; Resp 17; Temp 98.9(O); Pulse Ox 99% on R/A; Pain 3/10; ed1 20:10 BP 137 / 59; Pulse 83; Resp 14; Temp 98.7; Pulse Ox 97% on R/A; Pain 3/10; ed1 17:17 Body Mass Index 37.31 (92.53 kg, 157.48 cm) sv ED Course: 17:13 Patient arrived in ED. sb2 17:14 Out, [facility] is Private Physician. sb2 17:16 Triage completed. sv 17:19 Arm band placed on. sv 17:25 eD García MD is Attending Physician. dread 18:00 EKG done, by fibre technologist. reviewed by De García MD. sm3 18:19 Mt Iraheta, RN is Primary Nurse. sg 18:20 Initial lab(s) drawn, by ED staff, sent to lab. First set of blood cultures drawn by ED sg staff. Inserted saline lock: 20 gauge in left antecubital area, using aseptic technique. Blood collected. 18:25 XRAY Chest (1 view) In Process Unspecified. EDMS 18:36 Michael Perez DO is Hospitalizing Provider. dread 18:40 Second set of blood cultures drawn by ED staff. sg 18:50 CT Head Brain wo Cont In Process Unspecified. EDMS 18:52 CT Chest Wo Con In Process Unspecified. EDMS 18:52 CT completed. Patient tolerated procedure well. Patient moved back from CT. nj 19:04 Primary Nurse role handed off by Mt Iraheta, RN ed1 19:04 Elif Ricketts, MELIDA is Primary Nurse. ed1 19:05 Patient has correct armband on for positive identification. Placed in gown. Bed in low ed1 position. Call light in reach. Side rails up X2. Adult w/ patient. Report received from Mt Iraheta RN. residential monitor on. Pulse ox on. NIBP on. 19:13 Notified ED physician of a critical lab result(s). Potassium of 2.4, Magnesium of 1.[address] García notified. 19:18 Awaiting bed assignment. ed1 19:37 Inserted saline lock: 22 gauge in right forearm, using aseptic technique. lp1 20:08 No provider procedures requiring assistance completed. Patient admitted, IV remains in ed1 place. intact, No redness/swelling at site. Administered Medications: Discontinued: NS 0.9% 1000 ml IV at 125 ml/hr continuous 18:57 Drug: NS 0.9% 1000 ml Route: IV; Rate: 125 ml/hr; Site: left antecubital; sg 19:36 Follow up: IV Status: Order to discontinue infusion ed1 19:16 Drug: Rocephin - (cefTRIAXone) 1 grams Route: IVPB; Infused Over: 30 mins; Site: left ed1 antecubital; 19:35 Follow up: Response: No adverse reaction; IV Status: Completed infusion ed1 19:34 Drug: NS 0.9% with KCl 20 mEq/L 1000 ml Route: IV; Rate: 75 ml/hr; Site: left ed1 antecubital; 21:27 Follow up: IV Status: Infusion continued upon admission ed1 19:35 Drug: Potassium Chloride 20 mEq Route: IV; Rate: per protocol; Site: left antecubital; ed1 21:27 Follow up: IV Status: Infusion continued upon admission ed1 19:39 Drug: Magnesium Sulfate 2 grams Route: IVPB; Infused Over: 2 hrs; Site: right forearm; ed1 21:26 Follow up: Response: No adverse reaction; IV Status: Completed infusion; IV Intake: [id number] 19:46 Drug: Zofran 4 mg Route: IVP; Site: left antecubital; jd3 21:28 Follow up: Response: No adverse reaction; Nausea is decreased ed1 20:17 Drug: Potassium Effervescent Tablet 25 mEq Route: PO; ed1 21:27 Follow up: Response: No adverse reaction ed1 20:18 Drug: Lactulose 60 grams Volume: 45 ml; Route: PO; ed1 21:28 Follow up: Response: No adverse reaction ed1 20:18 Not Given (Ordered in [employer]): Potassium Chloride 20 mEq IV at per protocol once; ed1 administer over 1-2 hours Intake: 21:26 IV: 50ml; Total: 50ml. ed1 Outcome: 18:37 Decision to Hospitalize by Provider. dread 21:25 Admitted to Med/surg accompanied by tech, family with patient, via stretcher, room 202, ed1 with chart, Report called to MELIDA Yepez 21:25 Condition: stable 21:25 Discharge instructions given to patient, family, Instructed on the need for admit, Demonstrated understanding of instructions. 21:26 Patient left the ED. ed1 Signatures: Dispatcher [employer] Siobhan Gee RN RN sv Gay, Steven RN De Mirza MD MD cha Ballard, Brenda, RN RN bb Riggs, Erika, RN RN ed1 Kriss Veras RN RN lp1 Giuliano Carlos Jonathon, RN RN jd3 Abbey Perdue [address] Corrections: (The following items were deleted from the chart) 17:19 17:17 92.53 kg; Height 5 ft. 2 in.; BMI: 37.3; sv sv 17:20 17:15 Presenting complaint: Child states: right shoulder pain after TIPS procedure sv 19. Confusion has increased and stated that 2 weeks ago she had her Lactulose dose increased by confusion has not improved. sv 17:20 17:17 Resp 16bpm; Pulse Ox 100%; Temp 99.2F; 92.53 kg; Height 5 ft. 2 in.; BMI: 37.3; svsv
[2018-05-31 18:45] LABS: Protime INR 1.42
--- NOTE | 2018-05-31 18:55 | RAD REPORT ---
EXAM DESCRIPTION: CT - Head Brain Wo Cont - 05/31/2018 6:50 pm CLINICAL HISTORY: MENTAL STATUS CHANGE Drowsiness COMPARISON: Head Brain Wo Cont dated 10/23/2017 TECHNIQUE: All CT scans are performed using dose optimization technique as appropriate and may inclu de automated exposure control or mA/KV adjustment according to patient size. FINDINGS: No intracranial hemorrhage, hydrocephalus or extra-axial fluid collection.No areas of brai n edema or evidence of midline shift. The paranasal sinuses and mastoids are clear. The calvarium is intact. IMPRESSION: No acute intracranial abnormality.
[2018-05-31 19:01] LABS: Platelet Estimate DECR; Urine White Blood Cell Casts OK
[2018-05-31 19:02] LABS: Blood Morphology Comment NOT SEEN (NOT SEEN)
--- NOTE | 2018-05-31 19:05 | RAD REPORT ---
EXAM DESCRIPTION: CT - Thorax Wo Con CLINICAL HISTORY: Chest pain PAIN COMPARISON: Head Brain Wo Cont dated 05/31/2018 FINDINGS: The lungs are clear. A small right pleural effusion is noted. No pneumothorax. No axillary, mediastinal or hilar adenopathy. A thyroid goiter is present. No concerning bony finding. TIPS shunt is seen with a cirrhotic liver. Moderate splenomegaly. All CT scans are performed using dose optimization technique as appropriate and may include automated exposure control or mA/KV adjustment according to patient size. IMPRESSION: Small right pleural effusion. Diffuse thyroid goiter.
[2018-05-31 19:08] LABS: ALT/SGPT 35 U/L (12-78); AST/SGOT 58 U/L (15-37); Albumin 2.5 g/dL (3.4-5.0); Alkaline Phosphatase 125 U/L (45-117); BUN Blood Urea Nitrogen 18 mg/dL (7-18); Bicarbonate 32 mmol/L (21-32); Bilirubin Direct 1.8 mg/dL (0-0.2); Glucose Level 236 mg/dL (74-106); Lipase 105 U/L (73-393); Magnesium 1.1 mg/dL (1.8-2.4); NT PRO-BNP 320 pg/mL (<125); Sodium Level 137 mmol/L (136-145); Troponin (Emerg Dept Use Only) < 0.02 ng/mL (0.0-0.045)
[2018-05-31 19:13] LABS: Potassium 2.4 mmol/L (3.5-5.1)
[2018-05-31] MEDS ORDERED: LACTULOSE 20 GM/30 ML UCUP ONE (19:20)
[2018-05-31] MEDS ORDERED: CEFTRIAXONE/SWI 1gm 1 GM/10 ML SYR ONE (19:20)
[2018-05-31] MEDS ORDERED: POTASSIUM 25 MEQ EFFERV TAB ONE (19:35)
[2018-05-31] MEDS ORDERED: Magnesium Sulfate 2gm IVPB 2 G/50 ML BAG IV ONE (19:35)
[2018-05-31] MEDS ORDERED: NS KCL 20MEQ 1,000 ML IV ONE (19:35)
[2018-05-31] MEDS ORDERED: KCL 20 MEQ/100 mL IVPB 40 MEQ/200 ML BAG IV ONE (19:36)
[2018-05-31] MEDS ORDERED: ONDANSETRON 4 MG/2 ML VIAL ONE (19:53)
[2018-05-31] MEDS ORDERED: ONDANSETRON 4 MG/2 ML VIAL IV PRN (20:15)
[2018-05-31 20:18] LABS: Phosphorus 2.4 mg/dL (2.5-4.9); Thyroid Stimulating Hormone 0.172 uIU/mL (0.360-3.740)
[2018-05-31] MEDS ORDERED: KCL 20 MEQ/100 mL IVPB 20 MEQ/100 ML BAG IV SCH (21:00)
[2018-05-31] MEDS: Rifaximin 550 MG Tab PO SCH (21:00)
[2018-05-31 21:43] VITALS: BMI 42.3
--- NOTE | 2018-05-31 22:00 | P.HP ---
Certification for Inpatient Patient admitted to: Inpatient With expected LOS: >2 Midnights Practitioner: I am a practitioner with admitting privileges, knowledge of patient current condition, hospital course, and medical plan of care. 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 Since so, the patient has been progressively more confused and sleepy. No history of fever or chills. No nausea or vomiting either. She has been taking lactulose 10 gm TID as indicated. Last bowel movement was today. The patient had today a right side thoracentesis, CT chest shows mild right plerual effusion. Lab work remarkable for hypokalemia and hypomagnesemia, as well as abnormal liver function test. Ammonia level elevated 85. Allergies No Known Allergies Allergy (Unverified 10/23/17 23:45) Home medications list reviewed: Yes - Past Medical/Surgical History Has patient received pneumonia vaccine in the past: Yes Diabetic: Yes -: DM -: HTN -: LUPUS -: ARTHRITIS -: SLEEP APENA -: CHF -: MARIE -: HYSTERECTOMY -: LEFT KNEE ARTHOSCOPY -: EYE SX (BOTH) -: TIPS - Family History Family History: Reviewed- Non-Contributory - Social History Smoking Status: Never smoker Alcohol use: No CD- Drugs: No Caffeine use: Yes Place of Residence: Home Review of Systems 10-point ROS is otherwise unremarkable Physical Examination - Vital Signs Temperature: 96.8 F Blood Pressure: 150/67 Pulse: 84 Respirations: 20 Pulse Ox (%): 92 - Physical Exam General: Alert, In no apparent distress, Confused HEENT: Atraumatic, PERRLA, Mucous membr. moist/pink, EOMI, Sclerae nonicteric Neck: Supple, 2+ carotid pulse no bruit, No LAD, Without JVD or thyroid abnormality Respiratory: Normal air movement, Crackles/rales (right base crackles) Cardiovascular: Regular rate/rhythm, Normal S1 S2 Gastrointestinal: Normal bowel sounds, No tenderness Musculoskeletal: No tenderness Integumentary: No rashes Neurological: Normal speech, Normal strength at 5/5 x4 extr, Normal tone, Normal affect Lymphatics: No axilla or inguinal lymphadenopathy - Studies Laboratory Data (last 24 hrs) 05/31/18 19:17: Phosphorus Cancelled 05/31/18 18:20: PT 16.8 H, INR 1.42 05/31/18 18:20: WBC 5.3, Hgb 12.4, Hct 37.1, Plt Count 80 L 05/31/18 18:20: Sodium 137, Potassium 2.4 L*, BUN 18, Creatinine 1.21, Glucose 236 H, Phosphorus 2.4 L, Magnesium 1.1 L*, Total Bilirubin 4.0 H, AST 58 H, ALT 35, Alkaline Phosphatase 125 H, Lipase 105 Assessment and Plan - Problems (Diagnosis) (1) Hepatic encephalopathy Current Visit: Yes Status: Acute (2) Cirrhosis Current Visit: Yes Status: Acute Qualifiers: Hepatic cirrhosis type: other cirrhosis Qualified Code(s): K74.69 - Other cirrhosis of liver (3) Diabetes mellitus Current Visit: Yes Status: Acute Qualifiers: Diabetes mellitus type: type 2 Diabetes mellitus intermediate insulin use: with terminal computer operator use Diabetes mellitus complication status: with unspecified complications Qualified Code(s): E11.8 - Type 2 diabetes mellitus with unspecified complications; Z79.4 - terminal computer operator (current) use of insulin (4) HTN (hypertension) Current Visit: Yes Status: Acute Qualifiers: Hypertension type: essential hypertension Qualified Code(s): I10 - Essential (primary) hypertension - Plan The patient will be admitted to the hospital due to hepatic encephalopathy. Will increase the dose of lactulose, continue Rifaximin, consult GI specialist, for medication adjustment. - Advance Directives Does patient have a Living Will: No Does patient have a Durable POA for Healthcare: No - Code Status/Comfort Care Code Status Assessed: Yes Code Status: Full Code
[2018-05-31] MEDS: LACTULOSE 20 GM/30 ML UCUP PO SCH (22:22)
[2018-06-01 01:40] VITALS: O2SAT 92
[2018-06-01 04:52] LABS: Absolute Lymphocytes (CBC) 1.5 K/uL (0.7-4.9); Absolute Monocytes 0.4 K/uL (0.1-1.3); Absolute Neutrophil 2.4 K/uL (1.8-8.0); Basophils % 0.4 % (0-1.3); Eosinophils % 2.6 % (0-4.4); Hematocrit 35.5 % (36.0-45.0); Lymphocytes % 33.3 % (15.3-44.8); MPV 8.5 fL (7.6-11.3); Monocytes % 8.5 % (3.3-12.3); RBC Red Blood Cell Count 4.05 M/uL (3.86-4.86)
[2018-06-01 05:15] LABS: Albumin 2.4 g/dL (3.4-5.0); Bilirubin Total 2.7 mg/dL (0.2-1.0); Magnesium 1.7 mg/dL (1.8-2.4); Potassium 3.3 mmol/L (3.5-5.1); Protein, Total 5.6 g/dL (6.4-8.2)
[2018-06-01] MEDS ORDERED: MAGNESIUM SULFATE 1 gm IVPB 1 GM/100 ML BAG IV ONE (06:00)
[2018-06-01] MEDS ORDERED: POTASSIUM CL SA 10 MEQ TAB PO ONE (06:00)
[2018-06-01] MEDS: Rifaximin 550 MG Tab PO SCH (09:00)
[2018-06-01] MEDS ORDERED: DULERA 200/5 (MOMETASONE/FORMOTEROL) INHALER IH SCH (09:00)
[2018-06-01] MEDS ORDERED: PANTOPRAZOLE 40MG TABLET PO SCH (09:00)
[2018-06-01] MEDS ORDERED: CITALOPRAM 10 MG TABLET PO SCH (09:00)
--- NOTE | 2018-06-01 09:34 | P.DS ---
Admission Date: 05/31/18 Discharge Date: 06/01/18 Primary Care Provider: Dr. Simmons([place], [place]); GI-Dr. Langford Disposition: ROUTINE DISCHARGE Discharge Condition: GOOD Reason for Admission: hepatic encephalopathy Consultations: GI-Dr. Langford Procedures: CT head: COMPARISON: Head Brain Wo Cont dated 10/23/2017 TECHNIQUE: All CT scans are performed using dose optimization technique as appropriate and may include automated exposure control or mA/KV adjustment according to patient size. FINDINGS: No intracranial hemorrhage, hydrocephalus or extra-axial fluid collection.No areas of brain edema or evidence of midline shift. The paranasal sinuses and mastoids are clear. The calvarium is intact. IMPRESSION: No acute intracranial abnormality. CT chest: COMPARISON: Head Brain Wo Cont dated 05/31/2018 FINDINGS: The lungs are clear. A small right pleural effusion is noted. No pneumothorax. No axillary, mediastinal or hilar adenopathy. A thyroid goiter is present. No concerning bony finding. TIPS shunt is seen with a cirrhotic liver. Moderate splenomegaly. All CT scans are performed using dose optimization technique as appropriate and may include automated exposure control or mA/KV adjustment according to patient size. IMPRESSION: Small right pleural effusion. Diffuse thyroid goiter. Medical Problem List: Hepatic encephalopathy with history of chronic liver cirrhosis related to TEMPLE with recent TIPS shunt placed with splenomegaly Diabetes mellitus type 2, insulin-dependent Thrombocytopenia secondary to chronic liver disease and splenomegaly Hyperthyroidism with diffuse thyroid goiter GERD Small right pleural effusion COPD Depression Brief History of Present Illness: A 67-year-old female presented emergency room with increased fatigue. Patient with chronic liver cirrhosis with recent TIPS procedure done about 2 weeks ago. Since that time she has been having increasing fatigue. Patient with history of diabetes, hypertension, GERD. Patient was admitted due to hepatic encephalopathy. Hospital Course: Patient presented with increased fatigue. Patient with chronic liver cirrhosis secondary to TEMPLE with recent TIPS procedure about 2 weeks ago. Patient currently on liver transplant list. Patient was admitted for hepatic encephalopathy. This resolved. At discharge lactulose increased. At discharge she will continue with Xifaxan 550 mg 1 pill twice daily and lactulose 4 times a day. She is to maintain 3-4 bowel movements daily. Patient will also continue with Lasix 40 mg 1 pill twice daily along with supplementation of potassium and magnesium. Recommend to follow up with her PCP and ballast inspector within 1 week to follow up this hospitalization. Recommend to recheck lab-CMP, CBC, Magnesium, and ammonia level within 1 week. Compliance with medication to be enforced. Patient has diabetes type 2. Patient will continue with her medication-Lantus 10 units subcu daily. Recommend to maintain blood sugars less 140 fasting and less than 200 after meals. Further adjustment in her insulin can be done by her PCP. Patient has diffuse thyroid goiter prior CT chest. Tsh and free T4 abnormal indicating hyperthyroidism. Recommend for patient to see Endocrinology as an outpatient to further evaluate and treat. Patient has GERD. Patient will continue with her medication Protonix 40 mg daily. Patient has COPD. She will continue with her medication Dulera 200 mcg 2 puffs twice daily and Pro air 2 puffs 3 times a day as needed for shortness of breath. Small right pleural effusion noted on the CT scan, this appears chronic. Recommend to recheck chest x-ray in 2-4 weeks to monitor stability. Vital Signs/Physical Exam: Temp Pulse Resp BP Pulse Ox 97.0 F 75 18 133/60 95 06/01/18 05:26 06/01/18 05:26 06/01/18 05:26 06/01/18 05:26 06/01/18 05:26 General: Alert, In no apparent distress, Oriented x3, Cooperative HEENT: Atraumatic Neck: Supple Respiratory: Clear to auscultation bilaterally, Normal air movement Cardiovascular: Normal pulses, Regular rate/rhythm Gastrointestinal: Normal bowel sounds, Soft and benign, Non-distended, No tenderness, No masses, No rebound, No guarding Musculoskeletal: No erythema, No tenderness, No warmth Integumentary: No erythema, No warmth, No cyanosis Neurological: Normal speech, Normal strength at 5/5 x4 extr, Normal tone, Normal affect Laboratory Data at Discharge: WBC 4.4 K/uL (4.3-10.9) D 06/01/18 04:00 Hgb 12.0 g/dL (12.0-15.0) 06/01/18 04:00 Hct 35.5 % (36.0-45.0) L 06/01/18 04:00 Plt Count 76 K/uL (152-406) L 06/01/18 04:00 PT 16.8 SECONDS (9.5-12.5) H 05/31/18 18:20 INR 1.42 05/31/18 18:20 Sodium 142 mmol/L (136-145) 06/01/18 04:00 Potassium 3.3 mmol/L (3.5-5.1) L 06/01/18 04:00 BUN 19 mg/dL (7-18) H 06/01/18 04:00 Creatinine 1.23 mg/dL (0.55-1.3) 06/01/18 04:00 Glucose 189 mg/dL (74-106) H 06/01/18 04:00 Phosphorus Cancelled 05/31/18 19:17 Magnesium 1.7 mg/dL (1.8-2.4) L D 06/01/18 04:00 Total Bilirubin 2.7 mg/dL (0.2-1.0) H 06/01/18 04:00 AST 46 U/L (15-37) H 06/01/18 04:00 ALT 31 U/L (12-78) 06/01/18 04:00 Alkaline Phosphatase 108 U/L (45-117) 06/01/18 04:00 Lipase 105 U/L (73-393) 05/31/18 18:20 Home Medications: Citalopram [Celexa*] 10 mg PO DAILY 05/31/18 Furosemide 40 mg PO BID 05/31/18 Mometasone/Formoterol [Dulera 200 Mcg/5 Mcg Inhaler] 2 puff IH BID 05/31/18 Pantoprazole [Protonix Tab*] 40 mg PO DAILY 05/31/18 Rifaximin [Xifaxan] 550 mg PO BID 05/31/18 traMADol HCL [Ultram*] 50 mg PO Q6H PRN 05/31/18 Insulin Glargine Human [Lantus] 10 unit SQ [id number] 06/01/18 Lactulose [Cephulac*] 30 ml PO QID #1 ucup 06/01/18 Magnesium Oxide [Mag 0X Tab] 400 mg PO BID #60 tab 06/01/18 Potassium Chloride [Klor-Con M10] 10 meq PO DAILY #30 tab.er.prt 06/01/18 New Medications: Lactulose [Cephulac*] 30 ml PO QID #1 ucup Magnesium Oxide [Mag 0X Tab] 400 mg PO BID #60 tab Potassium Chloride [Klor-Con M10] 10 meq PO DAILY #30 tab.er.prt Patient Discharge Instructions: 1. Patient will need a follow up with her PCP within 1 week to follow up this hospitalization. 2. Patient presented with increased fatigue. Patient with chronic liver cirrhosis secondary to TEMPLE with recent TIPS procedure about 2 weeks ago. Patient currently on liver transplant list. Patient was admitted for hepatic encephalopathy. This resolved. At discharge lactulose increased. At discharge she will continue with Xifaxan 550 mg 1 pill twice daily and lactulose 4 times a day. She is to maintain 3-4 bowel movements daily. Patient will also continue with Lasix 40 mg 1 pill twice daily along with supplementation of potassium and magnesium. Recommend to follow up with her PCP and ballast inspector within 1 week to follow up this hospitalization. Recommend to recheck lab-CMP, CBC, Magnesium, and ammonia level within 1 week. Compliance with medication to be enforced. 3. Patient has diabetes type 2. Patient will continue with her medication-Lantus 10 units subcu daily. Recommend to maintain blood sugars less 140 fasting and less than 200 after meals. Further adjustment can be done by her PCP. 4. Patient has diffuse thyroid goiter prior CT chest. Tsh and free T4 abnormal indicating hyperthyroidism. Recommend for patient to see Endocrinology as an outpatient to further evaluate and hemanth. 5. Patient has GERD. Patient will continue with her medication Protonix 40 mg daily. 6. Patient has COPD. She will continue with her medication Dulera 200 mcg 2 puffs twice daily and Pro air 2 puffs 3 times a day as needed for shortness of breath. 7. Small right pleural effusion noted on the CT scan, this appears chronic. Recommend to recheck chest x-ray in 2-4 weeks to monitor stability. Diet: ADA Activity: Fall precautions Time spent managing pt's care (in minutes): 55
[2018-06-01] MEDS: FUROSEMIDE 40 MG TABLET PO SCH ×2 (09:57→16:56)
[2018-06-01] MEDS: LACTULOSE 20 GM/30 ML UCUP PO SCH ×3 (09:57→16:56)
[2018-06-01] MEDS ORDERED: GLUCAGON 1 MG/VIAL IM PRN (11:50)
[2018-06-01] MEDS ORDERED: D50W 25 GM/50 ML SYRINGE IV PRN (11:50)
[2018-06-01] MEDS: INSULIN -REGULAR HUMAN 50 UNIT/0.5 ML ML SQ SCH ×2 (12:08→16:57)
[2018-06-01 12:44] VITALS: BP 135/64
--- NOTE | 2018-06-01 13:26 | EKG ---
Test Date: 2018-05-31 Test Time: 17:55:55 Systems Analysis Manager: MARII MEASUREMENT RESULTS: Intervals: Rate: 86 NC: 134 QRSD: 110 QT: 426 QTc: 509 [place]: P: 45 NC: 134 QRS: -6 T: 30 INTERPRETIVE STATEMENTS: Normal sinus rhythm Prolonged QT Abnormal ECG Compared to ECG 10/23/2017 15:01:48 Prolonged QT interval now present Electronically Signed On 06-01-18 13:24:11 CENTRAL OFFICE INSPECTOR by Aguilar Figueredo
--- NOTE | 2018-06-01 13:48 | ECHO ---
HEIGHT: 4 ft 9 in WEIGHT: 195 lb 9 oz DATE OF STUDY: 06/01/[address]: Michael Perez DO 2-DIMENSIONAL: YES M.MODE: YES DOPPLER: YES COLOR FLOW: YES TDS: NO PORTABLE: NO DEFINITY: NO BUBBLE STUDY: NO DIAGNOSIS: EVALUATE FOR CONGESTIVE HEART FAILURE CARDIAC HISTORY: CATHERIZATION: NO SURGERY: NO PROSTHETIC VALVE: NO PACEMAKER: NO MEASUREMENTS (cm) DIASTOLIC (NORMALS) SYSTOLIC (NORMALS) IVSd 1.2 (0.6-1.2) LA Diam 4.2 (1.9-4.0) LVEF 78% LVIDd 5.5 (3.5-5.7) LVIDs 2.9 (2.0-3.5) %FS 47% LVPWd 1.0 (0.6-1.2) Ao Diam 2.6 (2.0-3.7) 2 DIMENSIONAL ASSESSMENT: RIGHT ATRIUM: NORMAL LEFT ATRIUM: DILATED RIGHT VENTRICLE: NORMAL LEFT VENTRICLE: NORMAL TRICUSPID VALVE: NORMAL MITRAL VALVE: NORMAL PULMONIC VALVE: NORMAL AORTIC VALVE: NORMAL PERICARDIAL EFFUSION: NONE AORTIC ROOT: NORMAL LEFT VENTRICULAR WALL MOTION: NORMAL. DOPPLER/COLOR FLOW: MILD TRICUSPID REGURGITATION. COMMENTS: MILD TRICUSPID REGURGITATION. NORMAL LEFT VENTRICULAR SIZE AND FUNCTION. NO EVIDENCE OF CONGESTIVE HEART FAILURE. LEFT ATRIAL ENLARGEMENT. TECHNOLOGIST: MARYLOU CABALLERO
[2018-06-01] MEDS ORDERED: ENOXAPARIN 30 MG/0.3 ML SQ SCH (17:00)
[2018-06-01 17:57] VITALS: TEMP 97.9
[2018-06-02] MEDS ORDERED: INSULIN GLARGINE 100 UNITS/ML SQ SCH (06:00)
== END 2018-06-01 17:51 | disposition home health service (06) ==
LOC: ER 17:09 → INTOOBSV 19:41 → ERHOLD 19:41 → 2ND 20:53
PROVIDERS: ADMIT Internal Medicine; ATTEND Internal Medicine
DX: K72.90 Hepatic failure, unspecified without coma (principal); K75.81 Nonalcoholic steatohepatitis (NASH); K74.60 Unspecified cirrhosis of liver; E11.9 Type 2 diabetes mellitus without complications; D69.6 Thrombocytopenia, unspecified; E05.00 Thyrotoxicosis with diffuse goiter without thyrotoxic crisis or storm; K21.9 Gastro-esophageal reflux disease without esophagitis; J90 Pleural effusion, not elsewhere classified; J44.9 Chronic obstructive pulmonary disease, unspecified; F32.9 Major depressive disorder, single episode, unspecified
CPT/HCPCS: 36415; 70450; 71045; 71250; 80048; 80053; 80076; 82140 ×2; 82962 ×4; 83690; 83735 ×2; 83880; 84100; 84132; 84439; 84443; 84484; 85025 ×2; 85610; 87040 ×2; 93005; 93306; 96361; 96365; 96366; 96367; 96368; 96375; 99285; G0378 ×2; J0696; J2405; J3475 ×2; J7030; J7606